=== PATIENT | male | born 1965 | race Caucasian/White ===

== ENCOUNTER → 2016-11-11 | Outpatient (CLI) | payer BC ==
--- NOTE | 2016-11-12 07:56 | XR ---
EXAMINATION TYPE: XR chest 2V DATE OF EXAM: 11/11/2016 10:59 AM COMPARISON: 07/24/2015 HISTORY: Shortness of breath FINDINGS: The lungs are clear and there is no pneumothorax, pleural effusion, or focal pneumonia. Limited ins piration is seen. Linear changes at the lung base likely related to poor inspiration and atelectasis. Surgical change overlying the cervical spine. IMPRESSION: 1. Subsegmental linear changes at both lung bases likely related to atelectasis from poor inspiration .
== END | disposition home or self-care (01) ==
LOC: RADXRYALE 09:49
PROVIDERS: ATTEND Physician Assistant Medical
DX: L40.0 Psoriasis vulgaris (principal)
CPT/HCPCS: 71020

== ENCOUNTER 2018-03-30 00:26 | Observation (INO) | payer BC ==
[2018-03-30 01:02] LABS: Basophils # (A) 0.1 k/uL (0-0.2); Basophils % (A) 1 %; Eosinophils # (A) 0.5 k/uL (0-0.7); Eosinophils % (A) 6 %; HCT 45.1 % (39.0-53.0); HGB 15.2 gm/dL (13.0-17.5); Lymphocytes # (A) 2.8 k/uL (1.0-4.8); Lymphocytes % (A) 34 %; MCHC 33.6 g/dL (31.0-37.0); MCV 92.2 fL (80.0-100.0); Mean Platelet Volume 6.4; Monocytes # (A) 0.5 k/uL (0-1.0); Monocytes % (A) 6 %; Neutrophils # (A) 4.2 k/uL (1.3-7.7); Neutrophils % (A) 50 %; Platelet Count 243 k/uL (150-450); RDW 13.2 % (11.5-15.5); WBC 8.3 k/uL (3.8-10.6)
--- NOTE | 2018-03-30 01:03 | ED ---
Chest Pain HPI - General Chief Complaint: Chest Pain Stated Complaint: Chest pain Time Seen by Provider: 03/30/18 01:01 Source: patient Mode of arrival: wheelchair Limitations: no limitations - History of Present Illness Initial Comments: This patient is a 52-year-old man with history of previous stent placement, who complains of having left-sided chest pain onset about 11 PM while he was lying in bed. Patient describes it as an aching feeling, it was radiating to his neck and left shoulder. Patient states he was under a lot of stress at the time. He did note that the pain got little better if he raised his left arm. There were no associated symptoms, and he did not notice any other worsening or relieving factors. The patient felt that given his previous heart history should be seen here. the patient states that the pain is largely resolved there is just a little bit of residual discomfort, and there is no more radiation to the neck or shoulder. MD Complaint: chest pain Onset/Timin -: hour(s) Onset: during rest Pain Location: left chest Pain Radiation: neck Severity: severe Quality: aching Consistency: constant Improves With: nothing, other (Raising his left arm) Worsens With: nothing Treatments Prior to Arrival: none - Related Data Allergies Allergy/AdvReac Type Severity Reaction Status Date / Time No Known Allergies Allergy Verified 03/30/18 00:33 Review of Systems ROS Statement: Those systems with pertinent positive or pertinent negative responses have been documented in the HPI. ROS Other: All systems not noted in ROS Statement are negative. Constitutional: Denies: fever, chills Respiratory: Denies: cough, dyspnea Cardiovascular: Reports: chest pain. Denies: palpitations, orthopnea, edema, syncope Gastrointestinal: Denies: abdominal pain, nausea, vomiting Musculoskeletal: Denies: back pain Skin: Denies: rash Neurological: Denies: headache, weakness, paresthesias EKG Findings - EKG Results: EKG: interpreted by JG MCGRATHL, sinus rhythm (Rate 69 bpm), normal axis, normal QRS, normal ST/T, no acute changes - [place], Pacemaker, Normal: Normal tracing: normal tracing Past Medical History Past Medical History: Hypertension, Myocardial Infarction ([place]) History of Any Multi-Drug Resistant Organisms: None Reported Past Surgical History: Heart Catheterization, Heart Catheterization With Stent, Orthopedic Surgery Additional Past Surgical History / Comment(s): neck surgery Past Psychological History: No Psychological Hx Reported Smoking Status: Never smoker Past Alcohol Use History: None Reported Past Drug Use History: None Reported General Exam Limitations: no limitations General appearance: alert, in no apparent distress Head exam: Present: atraumatic, normocephalic Eye exam: Present: normal appearance. Absent: scleral icterus, conjunctival injection ENT exam: Present: normal oropharynx Respiratory exam: Present: normal lung sounds bilaterally. Absent: respiratory distress, wheezes, rales, rhonchi, stridor, chest wall tenderness, accessory muscle use, decreased breath sounds, prolonged expiratory Cardiovascular Exam: Present: regular rate, normal rhythm, normal heart sounds. Absent: systolic murmur, diastolic murmur, rubs, gallop GI/Abdominal exam: Present: soft. Absent: distended, tenderness, guarding, rebound, mass Extremities exam: Present: normal inspection, normal capillary refill. Absent: pedal edema, calf tenderness Back exam: Present: normal inspection. Absent: CVA tenderness (R), CVA tenderness (L) Neurological exam: Present: alert Skin exam: Present: warm, dry, intact, normal color. Absent: rash Course Vital Signs 03/30/18 03/30/18 03/30/18 00:31 01:08 02:12 Temperature 98.0 F Pulse Rate 77 68 68 Respiratory 18 18 18 Rate Blood Pressure 154/94 140/86 138/91 O2 Sat by Pulse 98 96 98 Oximetry 03/30/18 03:08 Temperature Pulse Rate 64 Respiratory 18 Rate Blood Pressure 156/84 O2 Sat by Pulse 95 Oximetry Disposition Clinical Impression: Chest pain Disposition: ADMITTED IP TO THIS HOSP Condition: Fair Instructions: Chest Pain (ED) Is patient prescribed a controlled substance at d/c from ED?: No Referrals: Raciel Melvin DO [Primary Care Provider] - 1-2 days
[2018-03-30 01:10] LABS: ALT 52 U/L (21-72); AST 29 U/L (17-59); Albumin 4.3 g/dL (3.5-5.0); Alkaline Phosphatase 52 U/L (38-126); Anion Gap 14 mmol/L; Blood Urea Nitrogen 22 mg/dL (9-20); Calcium 9.5 mg/dL (8.4-10.2); Carbon Dioxide 25 mmol/L (22-30); Chloride 101 mmol/L (98-107); Glucose 156 mg/dL (74-99); INR 1.1 (<1.2); Magnesium 1.7 mg/dL (1.6-2.3); Potassium 3.8 mmol/L (3.5-5.1); Prothrombin Time 10.4 sec (9.0-12.0); Sodium 140 mmol/L (137-145); Total Bilirubin 0.4 mg/dL (0.2-1.3); Total Protein 6.6 g/dL (6.3-8.2)
[2018-03-30 01:24] LABS: Creatine Kinase 185 U/L (55-170)
--- NOTE | 2018-03-30 01:24 | XR ---
EXAMINATION TYPE: XR chest 2V DATE OF EXAM: 03/30/2018 COMPARISON: 11/11/2016 HISTORY: Chest pain TECHNIQUE: Frontal and lateral views of the chest are obtained. FINDINGS: There is no heart failure nor confluent pneumonic infiltrate. There are chest leads. Heart size is normal. There are small linear density in the left lower lobe. IMPRESSION: Subsegmental atelectasis at the left lung base. No change.
[2018-03-30] MEDS ORDERED: ASPIRIN 81 MG PO STA (01:35)
[2018-03-30] MEDS ORDERED: MORPHINE SULFATE 4 MG/ML SYRINGE IV STA ×2 (01:35→04:41)
[2018-03-30 01:36] LABS: Creatine Kinase MB 1.6 ng/mL (0.0-2.4); Troponin I <0.012 ng/mL (0.000-0.034)
[2018-03-30] MEDS ORDERED: NITROGLYCERIN SL TABS 0.4 MG TAB SUBLINGUAL STA (04:34)
[2018-03-30] MEDS: NITROGLYCERIN SL TABS 0.4 MG TAB SUBLINGUAL PRN ×3 (04:36→07:58)
[2018-03-30 05:09] VITALS: RESP 16
[2018-03-30 05:30] VITALS: BMI 34.9
[2018-03-30 07:55] LABS: Creatine Kinase 170 U/L (55-170)
[2018-03-30 08:10] LABS: Creatine Kinase MB 1.5 ng/mL (0.0-2.4); Troponin I <0.012 ng/mL (0.000-0.034)
--- NOTE | 2018-03-30 10:05 | P.CRDCN ---
History of Present Illness History of present illness: Mr. Cornejo is a pleasant 52-year-old male past medical history significant for coronary artery disease with angioplasty to proximal LAD in 2004 and proximal circumflex in 2006. He also has hypertension and dyslipidemia. He also has chronic shortness of breath and had to undergo bronchoscopy for plug in the left lung in 2015. He has followed with Dr. Brock in the past, but has not been to the office since 2015. We have been asked to see him in consultation for chest pain. He states last night while laying in bed he developed an achy sensation in the left precordial region that was radiating to his left shoulder, into his neck, down his left arm and into his left leg. He states he felt increasingly short of breath, dizzy, palpitations and nauseated during this episode. He denies vomiting or diaphoresis. He also denies PND or orhopnea. He does state that he sleeps partially sitting propped up secondary to sleep apnea, there has been no change in this recently. He was given morphine x2 in ED that seemed to relieve the pain but it is coming back. Nitroglycerin has been given x3 this morning with mild relieve of pain down to 4 /10, however he still feels discomfort when he takes a deep breath. EKG reveals sinus mechanism with non-specific T-wave flattening. Chest xray shows subsegmental atelectasis left lung base. Laboratory data reviewed, hgb 15.2, plt 243, d-dimer 0.21, sodium 140, potassium 3.8, magnesium 1.7, cardiac enzymes negative x2, proBNP 14. Current cardiac medications include prazosin 5 mg daily, lisinopril 10 mg daily , plavix 75 mg daily, atorvastatin 80 mg daily and aspirin 81 mg daily. He also takes depakote, ativan, metformin, remeron and norco. Most recent echocardiogram from 2015 reveals preserved LV systolic function with EF 60% and mild LVH. Review of Systems At the time of my exam: CONSTITUTIONAL: Denies fever. Denies chills. EYES: Denies blurred vision. Denies vision changes. Denies eye pain. EARS, NOSE, MOUTH & THROAT: Denies headache. Denies sore throat. Denies ear pain. CARDIOVASCULAR: Complains of chest pain. Complains of shortness of breath. Denies orthopnea. Denies PND. Denies palpitations. RESPIRATORY: Denies cough. GASTROINTESTINAL: Denies abdominal pain. Denies diarrhea. Denies constipation. Complains of nausea. Denies vomiting. MUSCULOSKELETAL: Complains of left leg pain. INTEGUMENTARY: Denies pruitis. Denies rash. NEUROLOGIC: Denies numbness. Denies tingling. Denies weakness. PSYCHIATRIC: Denies anxiety. Denies depression. ENDOCRINE: Denies fatigue. Denies weight change. Denies polydipsia. Denies polyurina. GENITOURINARY: Denies burning, hematuria or urgency with micturation. HEMATOLOGIC: Denies history of anemia. Denies bleeding. Past Medical History Past Medical History: Hypertension, Myocardial Infarction ([place]) Additional Past Medical History / Comment(s): unknown lung issues Last Myocardial Infarction Date:: 2004 History of Any Multi-Drug Resistant Organisms: None Reported Past Surgical History: Heart Catheterization, Heart Catheterization With Stent, Orthopedic Surgery Additional Past Surgical History / Comment(s): neck surgery with hardware, rt shoulder surgery, rt wrist surgery Date of Last Stent Placement:: 2006 Past Psychological History: PTSD Smoking Status: Never smoker Past Alcohol Use History: None Reported Past Drug Use History: None Reported Medications and Allergies Home Medications Medication Instructions Recorded Confirmed Type Aspirin 81 mg PO DAILY 03/30/18 03/30/18 History Atorvastatin [Lipitor] 80 mg PO DAILY 03/30/18 03/30/18 History Clopidogrel [Plavix] 75 mg PO DAILY 03/30/18 03/30/18 History Divalproex [Depakote] 1,000 mg PO HS 03/30/18 03/30/18 History HYDROcodone/APAP 7.5-325MG [[place] 1 tab PO QID PRN 03/30/18 03/30/18 History 7.5-325] LORazepam [Ativan] 1 mg PO TID 03/30/18 03/30/18 History Lisinopril [Zestril] 10 mg PO DAILY 03/30/18 03/30/18 History Mirtazapine [Remeron] 30 mg PO HS 03/30/18 03/30/18 History Prazosin [Minipress] 5 mg PO HS 03/30/18 03/30/18 History metFORMIN HCL [Glucophage Xr] 500 mg PO DAILY 03/30/18 03/30/18 History Allergies Allergy/AdvReac Type Severity Reaction Status Date / Time No Known Allergies Allergy Verified 03/30/18 09:28 Physical Exam Vitals: Vital Signs Temp Pulse Pulse Resp BP BP Pulse Ox 03/30/18 07:56 97.5 F L 64 16 127/87 97 03/30/18 05:38 16 03/30/18 05:08 65 16 139/79 94 L 03/30/18 04:52 98.4 F 03/30/18 04:37 69 18 124/91 99 03/30/18 04:11 72 18 137/80 95 03/30/18 03:08 64 18 156/84 95 03/30/18 02:12 68 18 138/91 98 03/30/18 01:08 68 18 140/86 96 03/30/18 00:31 98.0 F 77 18 154/94 98 Intake and Output 03/29/18 03/30/18 03/30/18 22:59 06:59 14:59 Other: Voiding Method Toilet # Voids 1 Weight 95.254 kg Blood pressure 127/87 heart rate 64 afebrile maintaining oxygen saturation on 3 L nasal cannula GENERAL: This is a 52-year-old male in no apparent distress at the time of my examination. Obese. HEENT: Head is atraumatic, normocephalic. Pupils are equal, round. Sclerae anicteric. Conjunctivae are clear. Mucous membranes of the mouth are moist. Neck is supple. There is no jugular venous distention. No carotid bruit is heard. LUNGS: Clear to auscultation no wheezes, rales or rhonchi. No chest wall tenderness is noted on palpation or with deep breathing. Diminished left greater than right at the base. HEART: Regular rate and rhythm without murmurs, rubs or gallops. S1 and S2 heard. ABDOMEN: Soft, nontender. Bowel sounds are heard. No organomegaly noted. EXTREMITIES: No evidence of peripheral edema and no calf tenderness noted. VASCULAR: Radial and dorsalis pedis pulses palpated, no evidence of clubbing. NEUROLOGIC: Patient is awake, alert and oriented x3. Results 03/30/18 00:40 03/30/18 00:40 Cardiac Enzymes 03/30/18 03/30/18 03/30/18 Range/Units 00:40 00:40 06:43 AST 29 (17-59) U/L CK-MB (CK-2) 1.6 1.5 (0.0-2.4) ng/mL Troponin I <0.012 <0.012 (0.000-0.034) ng/mL Coagulation 03/30/18 Range/Units 00:40 PT 10.4 (9.0-12.0) sec APTT 23.0 (22.0-30.0) sec CBC 03/30/18 Range/Units 00:40 WBC 8.3 (3.8-10.6) k/uL RBC 4.90 (4.30-5.90) m/uL Hgb 15.2 (13.0-17.5) gm/dL Hct 45.1 (39.0-53.0) % Plt Count 243 (150-450) k/uL Comprehensive Metabolic Panel 03/30/18 Range/Units 00:40 Sodium 140 (137-145) mmol/L Potassium 3.8 (3.5-5.1) mmol/L Chloride 101 (98-107) mmol/L Carbon Dioxide 25 (22-30) mmol/L BUN 22 H (9-20) mg/dL Creatinine 0.70 (0.66-1.25) mg/dL Glucose 156 H (74-99) mg/dL Calcium 9.5 (8.4-10.2) mg/dL AST 29 (17-59) U/L ALT 52 (21-72) U/L Alkaline Phosphatase 52 (38-126) U/L Total Protein 6.6 (6.3-8.2) g/dL Albumin 4.3 (3.5-5.0) g/dL Current Medications Generic Name Dose Route Start Last Admin Trade Name Freq PRN Reason Stop Dose Admin Aspirin 325 mg 03/31/18 09:00 Aspirin PO DAILY MAGUI Nitroglycerin 0.4 mg 03/30/18 04:10 03/30/18 07:58 Nitrostat SUBLINGUAL 0.4 mg Q5M PRN Administration Chest Pain Sodium Chloride 10 ml 03/30/18 09:00 Saline Flush IV BID MAGUI Intake and Output 03/29/18 03/30/18 03/30/18 22:59 06:59 14:59 Other: Voiding Method Toilet # Voids 1 Weight 95.254 kg 03/30/18 00:40 03/30/18 00:40 Assessment and Plan Assessment: ASSESSMENT 1. Pleuritic chest pain, atypical for an acute coronary event. No EKG evidence of ischemia and negative cardiac enzymes x2. 2. History of coronary artery disease, angioplasty to LAD and circumflex. 3. Hypertension 4. Dyslipidemia 5. Left basilar atelectasis with diminished lung sounds and history of spontaneous mucous plug requiring bronchoscopy in 2014. 6. Obesity, BMI 34.9 PLAN We have checked a d-dimer and proBNP, both were unremarkable. Obtain 2D echocardiogram and doppler study to assess cardiac structure and function. Continue to obtain serial cardiac enzymes to rule out an acute coronary event. Perform CT of the chest with contrast. Thank you kindly for this consultation. The above impression and plan of care have been discussed and directed by the signing physician. Olga Sanchez, nurse practitioner, acting as scribe for signing physician.
[2018-03-30] MEDS ORDERED: HYDROcodone/APAP 7.5-325MG 1 EACH TAB PO PRN (11:15)
[2018-03-30] MEDS: KETOROLAC 30 MG/ML 1 ML VIAL IVP SCH ×2 (11:18→19:44)
[2018-03-30] MEDS ORDERED: LISINOPRIL 10 MG TAB PO SCH (11:30)
[2018-03-30] MEDS ORDERED: CLOPIDOGREL 75 MG TAB PO SCH (11:30)
[2018-03-30] MEDS ORDERED: ATORVASTATIN 80 MG TAB PO SCH (11:30)
[2018-03-30] MEDS ORDERED: RX INFO: IV CONTRAST WAS GIVEN 1 EACH MISC MISCELLANE PRN (11:51)
[2018-03-30 12:12] LABS: Glucose,Whole Blood 144 mg/dL (75-99)
--- NOTE | 2018-03-30 12:28 | ECHOF ---
Referral Reason:cp, sob MEASUREMENTS -------- HEIGHT: 165.1 cm WEIGHT: 95.3 kg BP: 127/87 RVIDd: 3.1 cm (< 3.3) IVSd: 1.1 cm (0.6 - 1.1) LVIDd: 4.3 cm (3.9 - 5.3) LVPWd: 1.0 cm (0.6 - 1.1) IVSs: 1.5 cm LVIDs: 2.5 cm LVPWs: 1.3 cm LA Diam: 3.3 cm (2.7 - 3.8) LAESV Index (A-L): 14.02 ml/m Ao Diam: 3.6 cm (2.0 - 3.7) AV Cusp: 2.2 cm (1.5 - 2.6) MV EXCURSION: 16.920 mm (> 18.000) MV EF SLOPE: 96 mm/s (70 - 150) EPSS: 0.4 cm MV E Jaime: 0.70 m/s MV DecT: 218 ms MV A Jaime: 0.79 m/s MV E/A Ratio: 0.88 FINDINGS -------- Sinus rhythm. This was a technically adequate study. The left ventricular size is normal. There is borderline concentric left ventricular hypertrophy. Overall left ventricular systolic function is normal with, an EF between 55 - 60 %. The right ventricle is normal in size. Normal LA size by volume 22+/-6 ml/m2. The right atrium is normal in size. The aortic valve is trileaflet and appears structurally normal. There is trace to mild mitral regurgitation. Trace tricuspid regurgitation present. The pulmonic valve was not well visualized. The aortic root size is normal. Normal inferior vena cava with normal inspiratory collapse consistent with estimated right atrial pre ssure of 5 mmHg. There is no pericardial effusion. CONCLUSIONS -------- 1. Sinus rhythm. 2. This was a technically adequate study. 3. The left ventricular size is normal. 4. There is borderline concentric left ventricular hypertrophy. 5. Overall left ventricular systolic function is normal with, an EF between 55 - 60 %. 6. The right ventricle is normal in size. 7. Normal LA size by volume 22+/-6 ml/m2. 8. The right atrium is normal in size. 9. The aortic valve is trileaflet and appears structurally normal. 10. There is trace to mild mitral regurgitation. 11. Trace tricuspid regurgitation present. 12. The pulmonic valve was not well visualized. 13. The aortic root size is normal. 14. Normal inferior vena cava with normal inspiratory collapse consistent with estimated right atrial pressure of 5 mmHg. 15. There is no pericardial effusion. [employer] WORKER: Phyllis Fuentes RDCS
[2018-03-30] MEDS: LORazepam 1 MG TAB PO SCH ×3 (13:39→21:44)
[2018-03-30 13:54] LABS: Creatine Kinase 153 U/L (55-170)
[2018-03-30 14:07] LABS: Creatine Kinase MB 1.3 ng/mL (0.0-2.4); Troponin I <0.012 ng/mL (0.000-0.034)
--- NOTE | 2018-03-30 14:15 | CT ---
EXAMINATION TYPE: CT chest w con DATE OF EXAM: 03/30/2018 COMPARISON: Chest x-ray from earlier today and older studies HISTORY: Shortness of breath, diminished lung sounds on left side. History of collapsed lung. Atelect asis left lobe, mucus plugs. CT DLP: 489.8 mGycm Automated exposure control for dose reduction was used. CONTRAST: CT scan of the chest is performed with IV Contrast, patient injected with 100 mL of Isovue M300. FINDINGS: LUNGS: There is dependent and linear atelectasis in both lower lungs most prominent in bases. No montrell picious focal consolidation or groundglass opacity is seen. There is no significant pleural effusion or pneumothorax seen bilaterally. The tracheobronchial tree is patent. MEDIASTINUM: There are no greater than 1 cm hilar or mediastinal lymph nodes. No cardiomegaly or pe ricardial effusion is seen. Coronary artery calcification is seen which is noted marker for coronary artery disease, there may be stent in the proximal left circumflex, correlate clinically. OTHER: Visualized liver is low dense suggesting fatty infiltration. IMPRESSION: No suspicious acute pulmonary process. Left lung volume is felt within normal limits and symmetric to opposite right side.
[2018-03-30] MEDS ORDERED: IPRATROPIUM-ALBUTEROL 3 ML NEB INHALATION PRN (15:57)
[2018-03-30] MEDS ORDERED: metFORMIN 500 MG TAB PO SCH (17:30)
[2018-03-30 17:49] LABS: Glucose,Whole Blood 113 mg/dL (75-99)
--- NOTE | 2018-03-30 19:05 | P.CNPUL ---
History of Present Illness Consult date: 03/30/18 Requesting physician: Bonnie Ramírez Reason for consult: dyspnea, chest pain Chief complaint: Chest pain, dyspnea History of present illness: Vidal is a 52-year-old white male patient who presented to the emergency department on 03/30/2018 and 00 26 with complaints of sudden onset of left- sided chest pain that was radiating to his left armpit, and at radiating through to his left posterior chest. Onset of symptoms was on 03/29/2018 at approximately 2300, patient was resting at home, and was not exerting himself. This was accompanied by shortness of breath, patient has some chronic shortness of breath at baseline, however this was exacerbated by his chest pain. Upon presentation to the emergency department he was given some sublingual nitroglycerin, with no relief of his symptoms, he states it only gave him a headache. IV morphine provided some relief, however on today's evaluation he is still having some residual left chest discomfort which is exacerbated by deep breathing. He denied any coughing, denied any fever or chills preceding the events. Patient is an ex-smoker, he quit 13 years ago, but prior to that he smoked 1-1/2 packs a day for 15-20 years. 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 Has a history of service, he was a in the [employer], and he states he was exposed to a lot of fumes during his service. 2 years ago he had a an episode of a sudden onset of respiratory distress while at work, he was transported to the [facility], and he was found to have a mucous plug, and her went a bronchoscopy with BAL. He was subsequently discharged home on oxygen for a limited period of time. He followed with the electrical technician from the [facility] system following that episode, and was prescribed Advair Diskus in addition to Proair inhalers. Not on any oxygen at his baseline. Patient denies having outpatient PFTs down, and does not know his baseline pulmonary function. He has not seen his electrical technician in quite some time, him and his reside in [place], and they wish to follow with a local electrical technician with her pulmonary issues. Other medical history includes coronary artery disease status post angioplasty prior to proximal LAD in 2004 and proximal circumflex in 2006, hypertension and hyperlipidemia. EKG showed sinus mechanism with nonspecific T-wave abnormality , chest x-ray showed subsegmental atelectasis at the left lung base. Most recent echocardiogram from 2014 showed preserved LV systolic function with EF of 60% and mild LVH. BNP was 14, cardiac enzymes were negative 3, d-dimer was negative at 0.21. Patient was referred to us for evaluation of his pleuritic chest pain, and a CT chest was obtained which showed no suspicious acute pulmonary process, left lung volume was felt to be within normal limits and symmetric to the opposite right side. Review of Systems All systems: negative Constitutional: Denies chills, Denies fever Eyes: denies blurred vision, denies pain Ears, nose, mouth and throat: Denies headache, Denies sore throat Cardiovascular: Reports dyspnea on exertion, Reports high blood pressure, Denies chest pain, Denies shortness of breath Respiratory: Reports dyspnea, Reports pain on inspiration, Reports pleurisy, Denies cough Gastrointestinal: Denies abdominal pain, Denies diarrhea, Denies nausea, Denies vomiting Musculoskeletal: Denies myalgias Integumentary: Denies pruritus, Denies rash Neurological: Denies numbness, Denies weakness Psychiatric: Denies anxiety, Denies depression Endocrine: Denies fatigue, Denies weight change Past Medical History Past Medical History: Hypertension, Myocardial Infarction ([place]) Additional Past Medical History / Comment(s): unknown lung issues Last Myocardial Infarction Date:: 2004 History of Any Multi-Drug Resistant Organisms: None Reported Past Surgical History: Heart Catheterization, Heart Catheterization With Stent, Orthopedic Surgery Additional Past Surgical History / Comment(s): neck surgery with hardware, rt shoulder surgery, rt wrist surgery Date of Last Stent Placement:: 2006 Past Psychological History: PTSD Smoking Status: Former smoker Past Alcohol Use History: None Reported Past Drug Use History: None Reported Medications and Allergies Home Medications Medication Instructions Recorded Confirmed Type Albuterol Inhaler [Ventolin Hfa 1 - 2 puff INHALATION RT-Q6H #1 03/30/18 Rx Inhaler] inhaler Aspirin 81 mg PO DAILY 03/30/18 03/30/18 History Atorvastatin [Lipitor] 80 mg PO DAILY 03/30/18 03/30/18 History Budesonide-Formot 160-4.5 Mcg 2 puff INHALATION RT-BID #1 puff 03/30/18 Rx [Symbicort 160-4.5 Mcg Inhaler] Clopidogrel [Plavix] 75 mg PO DAILY 03/30/18 03/30/18 History Divalproex [Depakote] 1,000 mg PO HS 03/30/18 03/30/18 History HYDROcodone/APAP 7.5-325MG [[place] 1 tab PO QID PRN 03/30/18 03/30/18 History 7.5-325] LORazepam [Ativan] 1 mg PO TID 03/30/18 03/30/18 History Lisinopril [Zestril] 10 mg PO DAILY 03/30/18 03/30/18 History Mirtazapine [Remeron] 30 mg PO HS 03/30/18 03/30/18 History Prazosin [Minipress] 5 mg PO HS 03/30/18 03/30/18 History metFORMIN HCL [Glucophage Xr] 500 mg PO DAILY 03/30/18 03/30/18 History Allergies Allergy/AdvReac Type Severity Reaction Status Date / Time No Known Allergies Allergy Verified 03/30/18 09:28 Physical Exam Vitals: Vital Signs Temp Pulse Pulse Resp BP BP Pulse Ox 03/30/18 15:54 98.4 F 65 16 128/76 93 L 03/30/18 11:24 97.6 F 67 16 130/67 96 03/30/18 08:00 16 03/30/18 07:56 97.5 F L 64 16 127/87 97 03/30/18 05:38 16 03/30/18 05:08 65 16 139/79 94 L 03/30/18 04:52 98.4 F 03/30/18 04:37 69 18 124/91 99 03/30/18 04:11 72 18 137/80 95 03/30/18 03:08 64 18 156/84 95 03/30/18 02:12 68 18 138/91 98 03/30/18 01:08 68 18 140/86 96 03/30/18 00:31 98.0 F 77 18 154/94 98 Intake and Output 03/30/18 03/30/18 03/30/18 06:59 14:59 22:59 Other: Voiding Method Toilet Toilet # Voids 1 Weight 95.254 kg Pleasant 52-year-old white male patient in no acute distress, no dyspnea, is able to speak in full sentences, on room air - Constitutional General appearance: cooperative, no acute distress - EENT Eyes: EOMI ENT: NA/AT Ears: bilateral: normal - Neck Neck: no lymphadenopathy Thyroid: bilateral: normal size - Respiratory Respiratory: bilateral: CTA, diminished (Diminished at the bases) - Cardiovascular Rhythm: regular Heart sounds: normal: S1, S2 ankle Peripheral Edema: bilateral: None leg Peripheral Edema: bilateral: None foot Peripheral Edema: bilateral: None - Gastrointestinal General gastrointestinal: no organomegaly, soft, no tenderness - Integumentary Integumentary: normal turgor - Neurologic Neurologic: CNII-XII intact - Musculoskeletal Musculoskeletal: gait normal, strength equal bilaterally - Psychiatric Psychiatric: A&O x's 3, appropriate affect, intact judgment & insight Results - Laboratory Findings CBC and BMP: 03/30/18 00:40 03/30/18 00:40 PT/INR, D-dimer PT 10.4 sec (9.0-12.0) 03/30/18 00:40 INR 1.1 (<1.2) 03/30/18 00:40 D-Dimer 0.21 mg/L FEU (<0.60) 03/30/18 08:17 Abnormal lab findings: Abnormal Labs 03/30/18 03/30/18 03/30/18 00:40 00:40 12:09 BUN 22 H Glucose 156 H POC Glucose (mg/dL) 144 H Total Creatine Kinase 185 H 03/30/18 17:46 BUN Glucose POC Glucose (mg/dL) 113 H Total Creatine Kinase - Diagnostic Findings Chest x-ray: report reviewed, image reviewed CT scan - chest: report reviewed, image reviewed Additional studies: EKG reviewed Assessment and Plan Plan: Assessment: #1. Atypical chest pain, worse with deep inspiration, possibly pleuritic in nature #2. Dyspnea, possibly related to the above, patient has some chronic shortness of breath with exertion. Chest x-ray showed left lower lobe atelectasis, CT chest was normal #3. History of mucous plug in 2014, requiring bronchoscopy with BAL #4. Nicotine dependence, patient quit 13 years ago, but smoked 1-1/2 packs a day for 15-20 years #5. Coronary artery disease, status post prior stenting #6. Hypertension, hyperlipidemia #7. Obesity #8. History of myocardial infarction in 2004 Plan: We will start patient on DuoNeb nebulized treatments, Symbicort. CT chest was normal, no atelectasis, no mucous plugging, no volume loss, no pneumothorax or consolidation noted on the CT chest. Patient will need outpatient follow-up in the pulmonary office for a baseline PFT. I performed a history & physical examination of the patient and discussed their management with my nurse practitioner, Norma Houston. I reviewed the nurse practitioner's note and agree with the documented findings and plan of care. Lung sounds are clear diminished at the bases. The findings and the impression was discussed with the patient. I attest to the documentation by the nurse practitioner. Time with Patient: Greater than 30
[2018-03-30 19:37] VITALS: BP 150/89; TEMP 98.3
[2018-03-30] MEDS ORDERED: KETOROLAC 30 MG/ML 1 ML VIAL IVP PRN (19:43)
--- NOTE | 2018-03-30 19:52 | HP ---
HISTORY AND PHYSICAL HISTORY AND PHYSICAL AND DISCHARGE SUMMARY: CHIEF COMPLAINT: Chest pain. HISTORY OF PRESENT ILLNESS: This 52-year-old gentleman with a past medical history of multiple medical problems, including history of hypertension, myocardial infarction, history of CAD with stent, history of mucous plugging on the left side, being followed by Dr. Melvin in the outpatient setting, is complaining of chest pain. The pain started in the left lateral part of the chest, which is radiating up portions up to the front of the chest and also to the shoulder and left arm and the patient came to [facility]. There is no history any or lymphadenopathy. There is no history of fever, rigors. There is no history of headache, loss of consciousnesssymptoms also. PAST MEDICAL HISTORY: History of myocardial infarction, hypertension, history of CAD with stent, history of bronchoscopy and mucous plugging. MEDICATIONS PRIOR TO ADMISSION: Include: 1. Glucophage XR 500 mg p.o. daily. 2. Minipress 0.5 mg q.h.s. 3. Remeron 30 mg q.h.s. 4. Zestril 10 mg p.o. daily. 5. Ativan 1 mg p.o. t.i.d. 6. [place] 7.5 q.i.d. p.r.n. 7. Depakote 1000 mg p.o. daily. 8. Plavix 70 mg p.o. daily. 9. Lipitor 80 mg p.o. daily. 10.Aspirin 81 mg p.o. daily. ALLERGIES: None. FAMILY HISTORY: No history of heart disease or strokes in the family. SOCIAL HISTORY: No history of smoking. No history of alcohol intake. REVIEW OF SYSTEMS: ENT: No diminished hearing, diminished vision. CARDIOVASCULAR: As mentioned earlier. RESPIRATORY: As mentioned earlier. GI: No nausea or vomiting. : No dysuria. NERVOUS: No numbness or weakness. ALLERGY/IMMUNOLOGY: No asthma or hay fever. MUSCULOSKELETAL: As mentioned earlier. HEMATOLOGY/ONCOLOGY: No history of anemia. ENDOCRINE: Diabetes. CONSTITUTIONAL: As mentioned earlier. DERMATOLOGY: Negative. RHEUMATOLOGY: Negative. PSYCHIATRY: As mentioned earlier. PHYSICAL EXAMINATION: Alert and oriented x3. Pulse is 65, blood pressure 128/73, respirations 16, temperature 98.4, pulse ox 92% on room air. HEENT: Conjunctivae normal. Oral mucosa moist. NECK: No jugular venous distention. No carotid bruits. No lymph node enlargement. CARDIOVASCULAR: S1, S2 muffled. No S3, S4. RESPIRATORY: Breath sounds diminished in the bases, especially on the left side. No rhonchi. No crackles. ABDOMEN: Soft, nontender. No mass palpable. LEGS: No edema. No swelling. NERVOUS SYSTEM: Higher functions as mentioned earlier. Moves all 4 limbs. No focal motor or sensory deficits. LYMPHATIC: No lymphadenopathy in neck or axillae. SKIN: No ulcer, rash or bleeding. LABS: At this time show WBC 8.3 and D-dimer is 0.21. Chest x-ray and CT scan noted. ASSESSMENT: 1. Respiratory chest pain, possible pleuritic with atelectasis. 2. Myocardial infarction ruled out. 3. Rule out coronary artery disease. 4. History of myocardial infarction. 5. Hypertension. 6. History of coronary artery disease, stent. 7. History of posttraumatic stress disorder. RECOMMENDATIONS AND DISCUSSION: In this 52-year-old gentleman who presented with multiple medical problems, at this time I will continue the current medical management and symptomatic treatment. Otherwise, patient will be discharged once cleared by Cardiology and Pulmonology. I would recommend symptomatic treatment, bronchodilators and incentive spirometry. Also recommend close followup with Cardiology for possible stress test. Otherwise, continue the rest of the medications. Guarded prognosis. Further recommendations to follow. MMODL / IJN: [id number] / MTDD
[2018-03-30] MEDS ORDERED: IPRATROPIUM-ALBUTEROL 3 ML NEB INHALATION SCH (20:00)
[2018-03-30] MEDS ORDERED: SYMBICORT 160-4.5 MCG INHALER INHALATION SCH (20:00)
[2018-03-30 20:36] LABS: Glucose,Whole Blood 136 mg/dL (75-99)
[2018-03-30] MEDS ORDERED: DIVALPROEX 500 MG TABLET.DR PO SCH (21:00)
[2018-03-30] MEDS ORDERED: PRAZOSIN 1 MG CAP PO SCH (21:00)
[2018-03-30] MEDS ORDERED: MIRTAZAPINE 15 MG TAB PO SCH (21:00)
[2018-03-30 21:58] VITALS: PULSE 76
[2018-03-31] MEDS ORDERED: ASPIRIN 81 MG PO SCH (09:00)
[2018-03-31] MEDS ORDERED: CLOPIDOGREL 75 MG TAB PO SCH (09:00)
[2018-03-31] MEDS ORDERED: LISINOPRIL 10 MG TAB PO SCH (09:00)
[2018-03-31] MEDS ORDERED: ATORVASTATIN 80 MG TAB PO SCH (09:00)
[2018-03-31] MEDS ORDERED: ASPIRIN 325 MG TAB PO SCH (09:00)
== END 2018-03-30 21:55 | disposition home or self-care (01) ==
LOC: EC 00:26 → 3OBS 04:10
PROVIDERS: ADMIT Hospitalist; ATTEND Hospitalist
DX: R07.89 Other chest pain (principal); R07.81 Pleurodynia; R07.2 Precordial pain; R06.02 Shortness of breath; R42 Dizziness and giddiness; R00.2 Palpitations; R11.0 Nausea; J98.11 Atelectasis; Z95.5 Presence of coronary angioplasty implant and graft; E11.9 Type 2 diabetes mellitus without complications; I10 Essential (primary) hypertension; I25.2 Old myocardial infarction; I25.10 Atherosclerotic heart disease of native coronary artery without angina pectoris; E78.5 Hyperlipidemia, unspecified; G47.30 Sleep apnea, unspecified; F43.10 Post-traumatic stress disorder, unspecified; Z79.899 Other long term (current) drug therapy; Z79.82 Long term (current) use of aspirin; Z79.02 Long term (current) use of antithrombotics/antiplatelets; Z79.84 Long term (current) use of oral hypoglycemic drugs; Z79.51 Long term (current) use of inhaled steroids; E66.9 Obesity, unspecified; Z68.34 Body mass index [BMI] 34.0-34.9, adult; Z87.891 Personal history of nicotine dependence
CPT/HCPCS: 99285; 96374 ×2; 96376 ×2; 96375; 36415; 93005; 93306; 85379; 83880; 80053; 82550; 82553; 83735; 84484; 85025; 85610; 85730; 71046; 71260; G0378; J2270; J1885; Q9967

== ENCOUNTER → 2018-07-15 | Outpatient (CLI) | payer BC ==
[2018-07-15 17:38] LABS: Blood Urea Nitrogen 18 mg/dL (9-20)
--- NOTE | 2018-07-15 18:42 | CT ---
EXAMINATION TYPE: CT abdomen pelvis w con DATE OF EXAM: 07/15/2018 COMPARISON: None HISTORY: RLQ pain x1 week CT DLP: 1506 mGycm Automated exposure control for dose reduction was used. TECHNIQUE: Helical acquisition of images was performed from the lung bases through the pelvis. CONTRAST: Performed with Oral Contrast and with IV Contrast, patient injected with 100 mL of Isovue 300. FINDINGS: Lung bases are clear. There is no pleural effusion. Heart size is normal. Liver spleen pancreas gallbladder appear normal. Bile ducts are not dilated. There is small hiatal he rnia. There is no adrenal mass. Kidneys show satisfactory contrast opacification. There is no hydrone phrosis. Ureters are not dilated. There is no retroperitoneal adenopathy. Appendix appears normal. There is no intestinal wall thickening. There are no dilated loops. There ar e numerous diverticula in the sigmoid colon. I see no definite sign of diverticulitis. There is no as cites. Bladder distends smoothly. There is no evidence of pneumoperitoneum. Lumbar spine appears inta ct. Abdominal aorta is atheromatous. IMPRESSION: THERE IS SIGMOID DIVERTICULOSIS WITHOUT EVIDENCE OF DIVERTICULITIS. NORMAL APPENDIX. I DO NOT SEE A C AUSE FOR RIGHT LOWER QUADRANT PAIN. SMALL HIATAL HERNIA.
== END | disposition home or self-care (01) ==
LOC: RADCTMAIN 16:37
PROVIDERS: ATTEND Physician Assistant Medical
DX: K57.30 Diverticulosis of large intestine without perforation or abscess without bleeding (principal); K44.9 Diaphragmatic hernia without obstruction or gangrene; Z01.812 Encounter for preprocedural laboratory examination
CPT/HCPCS: 82565; 84520; 74177; 36415; Q9967

== ENCOUNTER 2018-12-13 15:50 | Observation (INO) | payer BC ==
[2018-12-13] MEDS ORDERED: KETOROLAC 30 MG/ML 1 ML VIAL IVP STA (17:27)
[2018-12-13] MEDS ORDERED: SODIUM CHLORIDE 0.9% 1,000 ML IV STA ×2 (17:27)
[2018-12-13 17:28] LABS: Appearance,Urine Cloudy (Clear); Bacteria,Urine Occasional /hpf; Bilirubin,Urine Negative (Negative); Blood,Urine Small (Negative); Color,Urine Light Yellow; Glucose,Urine (UA) Negative (Negative); Ketones,Urine Negative (Negative); Leukocyte Esterase,Urine Large (Negative); Mucus,Urine Rare /hpf; Nitrite,Urine Positive (Negative); PH, Urine 5.5 (5.0-8.0); Protein,Urine Negative (Negative); RBC,Urine 5 /hpf (0-5); Specific Gravity,Urine 1.007 (1.001-1.035); Urobilinogen,Urine <2.0 mg/dL (<2.0); WBC,Urine 166 /hpf (0-5)
--- NOTE | 2018-12-13 17:32 | ED ---
Male Urogenital HPI - General Chief complaint: Urogenital Stated complaint: Blood in urine Time Seen by Provider: 12/13/18 16:59 Source: patient, RN notes reviewed Mode of arrival: ambulatory Limitations: no limitations - History of Present Illness Initial comments: This is a 53-year-old male with a benign past medical history who states he had the onset over last 2 or 3 days of left-sided flank pain. He states she's had hematuria yesterday and today. He states when he tries go the bathroom he has severe pain sharp in nature mostly in the left flank but sometimes right flank pain. He's also had some nausea. He feels like he might pass out because the pain so severe. He denies any fevers chills sweats or other symptoms otherwise. He has no prior history kidney stones. He denies any trauma denies a family history kidney stones. No other modifying factors at this time MD Complaint: dysuria, other - Related Data Home Medications Medication Instructions Recorded Confirmed Aspirin 81 mg PO DAILY 03/30/18 12/13/18 Atorvastatin [Lipitor] 80 mg PO DAILY 03/30/18 12/13/18 Clopidogrel [Plavix] 75 mg PO DAILY 03/30/18 12/13/18 Divalproex [Depakote] 1,000 mg PO HS 03/30/18 12/13/18 HYDROcodone/APAP 7.5-325MG [[place] 1 tab PO QID PRN 03/30/18 12/13/18 7.5-325] Lisinopril [Zestril] 10 mg PO DAILY 03/30/18 12/13/18 Mirtazapine [Remeron] 30 mg PO HS 03/30/18 12/13/18 Prazosin [Minipress] 5 mg PO 03/30/18 12/13/18 Albuterol Nebulized [Ventolin 2.5 mg INHALATION RT-QID PRN 12/13/18 12/13/18 Nebulized] Fluticasone/Salmeterol [Advair 1 puff INHALATION RT-BID 12/13/18 12/13/18 250-50 Diskus] metFORMIN HCL [Glucophage] 500 mg PO DAILY 12/13/18 12/13/18 Previous Rx's Medication Instructions Recorded Albuterol Inhaler [Ventolin Hfa 1 - 2 puff INHALATION RT-Q6H #1 03/30/18 Inhaler] inhaler Budesonide-Formot 160-4.5 Mcg 2 puff INHALATION RT-BID #1 puff 03/30/18 [Symbicort 160-4.5 Mcg Inhaler] Allergies Allergy/AdvReac Type Severity Reaction Status Date / Time No Known Allergies Allergy Verified 12/13/18 18:08 Review of Systems ROS Statement: Those systems with pertinent positive or pertinent negative responses have been documented in the HPI. ROS Other: All systems not noted in ROS Statement are negative. Past Medical History Past Medical History: Hypertension, Myocardial Infarction ([place]) Additional Past Medical History / Comment(s): unknown lung issues Last Myocardial Infarction Date:: 2004 History of Any Multi-Drug Resistant Organisms: None Reported Past Surgical History: Heart Catheterization, Heart Catheterization With Stent, Orthopedic Surgery Additional Past Surgical History / Comment(s): neck surgery with hardware, rt shoulder surgery, rt wrist surgery Date of Last Stent Placement:: 2006 Past Psychological History: PTSD Smoking Status: Former smoker Past Alcohol Use History: None Reported Past Drug Use History: None Reported General Exam - General Exam Comments Initial Comments: This is a well-developed well-nourished awake alert oriented times 3 male Limitations: no limitations General appearance: alert, in no apparent distress Head exam: Present: atraumatic, normocephalic, normal inspection Eye exam: Present: normal appearance, PERRL, EOMI. Absent: scleral icterus, conjunctival injection, periorbital swelling ENT exam: Present: normal exam, mucous membranes moist Neck exam: Present: normal inspection. Absent: tenderness, meningismus, lymphadenopathy Respiratory exam: Present: normal lung sounds bilaterally. Absent: respiratory distress, wheezes, rales, rhonchi, stridor Cardiovascular Exam: Present: normal rhythm, tachycardia, normal heart sounds. Absent: systolic murmur, diastolic murmur, rubs, gallop, clicks GI/Abdominal exam: Present: soft, tenderness (Mild left flank pain to palpation) , normal bowel sounds. Absent: distended, guarding, rebound, rigid, bruit, pulsatile mass exam: Present: normal inspection, circumcision Extremities exam: Present: normal inspection, full ROM, normal capillary refill. Absent: tenderness, pedal edema, joint swelling, calf tenderness Back exam: Present: normal inspection Neurological exam: Present: alert, oriented X3, CN II-XII intact Psychiatric exam: Present: normal affect, normal mood Skin exam: Present: warm, dry, intact, normal color. Absent: rash Course Vital Signs 12/13/18 12/13/18 12/13/18 16:13 20:19 23:10 Temperature 98.4 F 98.4 F Pulse Rate 123 H 82 80 Respiratory 18 16 16 Rate Blood Pressure 127/88 117/86 111/68 O2 Sat by Pulse 95 94 L 96 Oximetry Medical Decision Making - Medical Decision Making I did discuss the findings with the patient and family as well as with the practitioner covering Dr. Conner, - Lab Data Result diagrams: 12/13/18 17:30 12/13/18 17:30 Lab Results 12/13/18 12/13/18 12/13/18 Range/Units 16:50 17:30 17:30 WBC 19.2 H (3.8-10.6) k/uL RBC 4.78 (4.30-5.90) m/uL Hgb 15.0 (13.0-17.5) gm/dL Hct 43.6 (39.0-53.0) % MCV 91.1 (80.0-100.0) fL MCH 31.5 (25.0-35.0) pg MCHC 34.5 (31.0-37.0) g/dL RDW 13.3 (11.5-15.5) % Plt Count 243 (150-450) k/uL Neutrophils % 80 % Lymphocytes % 11 % Monocytes % 6 % Eosinophils % 2 % Basophils % 0 % Neutrophils # 15.4 H (1.3-7.7) k/uL Lymphocytes # 2.2 (1.0-4.8) k/uL Monocytes # 1.1 H (0-1.0) k/uL Eosinophils # 0.3 (0-0.7) k/uL Basophils # 0.1 (0-0.2) k/uL Sodium 133 L (137-145) mmol/L Potassium 4.5 (3.5-5.1) mmol/L Chloride 98 (98-107) mmol/L Carbon Dioxide 25 (22-30) mmol/L Anion Gap 10 mmol/L BUN 19 (9-20) mg/dL Creatinine 0.94 (0.66-1.25) mg/dL Est GFR (CKD-EPI)AfAm >90 (>60 ml/min/1.73 sqM) Est GFR (CKD-EPI)NonAf >90 (>60 ml/min/1.73 sqM) Glucose 114 H (74-99) mg/dL Calcium 9.7 (8.4-10.2) mg/dL Total Bilirubin 1.8 H (0.2-1.3) mg/dL AST 23 (17-59) U/L ALT 35 (21-72) U/L Alkaline Phosphatase 59 (38-126) U/L Total Protein 7.4 (6.3-8.2) g/dL Albumin 4.4 (3.5-5.0) g/dL Amylase (30-110) U/L Lipase 47 (23-300) U/L Urine Color Light Yellow Urine Appearance Cloudy (Clear) Urine pH 5.5 (5.0-8.0) Ur Specific [place] 1.007 (1.001-1.035) Urine Protein Negative (Negative) Urine Glucose (UA) Negative (Negative) Urine Ketones Negative (Negative) Urine Blood Small H (Negative) Urine Nitrite Positive (Negative) Urine Bilirubin Negative (Negative) Urine Urobilinogen <2.0 (<2.0) mg/dL Ur Leukocyte Esterase Large H (Negative) Urine RBC 5 (0-5) /hpf Urine WBC 166 H (0-5) /hpf Urine WBC Clumps Few H (None) /hpf Urine Bacteria Occasional H (None) /hpf Urine Mucus Rare H (None) /hpf 12/13/18 Range/Units 17:30 WBC (3.8-10.6) k/uL RBC (4.30-5.90) m/uL Hgb (13.0-17.5) gm/dL Hct (39.0-53.0) % MCV (80.0-100.0) fL MCH (25.0-35.0) pg MCHC (31.0-37.0) g/dL RDW (11.5-15.5) % Plt Count (150-450) k/uL Neutrophils % % Lymphocytes % % Monocytes % % Eosinophils % % Basophils % % Neutrophils # (1.3-7.7) k/uL Lymphocytes # (1.0-4.8) k/uL Monocytes # (0-1.0) k/uL Eosinophils # (0-0.7) k/uL Basophils # (0-0.2) k/uL Sodium (137-145) mmol/L Potassium (3.5-5.1) mmol/L Chloride (98-107) mmol/L Carbon Dioxide (22-30) mmol/L Anion Gap mmol/L BUN (9-20) mg/dL Creatinine (0.66-1.25) mg/dL Est GFR (CKD-EPI)AfAm (>60 ml/min/1.73 sqM) Est GFR (CKD-EPI)NonAf (>60 ml/min/1.73 sqM) Glucose (74-99) mg/dL Calcium (8.4-10.2) mg/dL Total Bilirubin (0.2-1.3) mg/dL AST (17-59) U/L ALT (21-72) U/L Alkaline Phosphatase (38-126) U/L Total Protein (6.3-8.2) g/dL Albumin (3.5-5.0) g/dL Amylase 49 (30-110) U/L Lipase (23-300) U/L Urine Color Urine Appearance (Clear) Urine pH (5.0-8.0) Ur Specific [place] (1.001-1.035) Urine Protein (Negative) Urine Glucose (UA) (Negative) Urine Ketones (Negative) Urine Blood (Negative) Urine Nitrite (Negative) Urine Bilirubin (Negative) Urine Urobilinogen (<2.0) mg/dL Ur Leukocyte Esterase (Negative) Urine RBC (0-5) /hpf Urine WBC (0-5) /hpf Urine WBC Clumps (None) /hpf Urine Bacteria (None) /hpf Urine Mucus (None) /hpf - Radiology Data Radiology results: report reviewed (I did review the imaging and report no evidence of any kidney stones. One area could represent milk of calcium), image reviewed Disposition Clinical Impression: Pyelonephritis, Cystitis, Dysuria Disposition: ADMITTED IP TO THIS [facility] Condition: Stable Referrals: Raciel Melvin DO [Primary Care Provider] - 1-2 days
[2018-12-13 17:45] LABS: Basophils # (A) 0.1 k/uL (0-0.2); Basophils % (A) 0 %; Eosinophils # (A) 0.3 k/uL (0-0.7); Eosinophils % (A) 2 %; HCT 43.6 % (39.0-53.0); Lymphocytes # (A) 2.2 k/uL (1.0-4.8); Lymphocytes % (A) 11 %; MCH 31.5 pg (25.0-35.0); MCHC 34.5 g/dL (31.0-37.0); MCV 91.1 fL (80.0-100.0); Mean Platelet Volume 6.4; Monocytes # (A) 1.1 k/uL (0-1.0); Monocytes % (A) 6 %; Neutrophils # (A) 15.4 k/uL (1.3-7.7); Neutrophils % (A) 80 %; Platelet Count 243 k/uL (150-450); RBC 4.78 m/uL (4.30-5.90); RDW 13.3 % (11.5-15.5); WBC 19.2 k/uL (3.8-10.6)
--- NOTE | 2018-12-13 17:50 | XR ---
EXAMINATION TYPE: XR KUB DATE OF EXAM: 12/13/2018 COMPARISON: NONE HISTORY: Left lower quadrant pain, hematuria, constipation TECHNIQUE: 2 upright views FINDINGS: There is silhouetting of the left hemidiaphragm consistent with partial left lower lobe air lessness. This can be seen with atelectasis and/or left lower lobe pneumonia. There is no evident pneumatosis or pneumoperitoneum. The bowel gas pattern is unremarkable - other th an peripheral displacement of the bowel loops, which is a nonspecific finding but which can be associ ated with ascites. No definite acute skeletal findings. The urinary bladder shadow appears nondistended. IMPRESSION: 1. Evidence of partial airlessness left lung base. 2. Peripheral displacement of nondilated loops. No other abdominal pelvic findings.
[2018-12-13 17:56] LABS: ALT 35 U/L (21-72); AST 23 U/L (17-59); Albumin 4.4 g/dL (3.5-5.0); Alkaline Phosphatase 59 U/L (38-126); Anion Gap 10 mmol/L; Blood Urea Nitrogen 19 mg/dL (9-20); Calcium 9.7 mg/dL (8.4-10.2); Carbon Dioxide 25 mmol/L (22-30); Chloride 98 mmol/L (98-107); Glucose 114 mg/dL (74-99); Lipase 47 U/L (23-300); Potassium 4.5 mmol/L (3.5-5.1); Sodium 133 mmol/L (137-145); Total Bilirubin 1.8 mg/dL (0.2-1.3); Total Protein 7.4 g/dL (6.3-8.2)
[2018-12-13] MEDS ORDERED: HYDROmorphone 1 MG/ML 1 ML SYRINGE IVP STA (19:37)
--- NOTE | 2018-12-13 19:51 | CT ---
EXAMINATION TYPE: CT abdomen pelvis wo con DATE OF EXAM: 12/13/2018 HISTORY: left flank and groin pain, hematuria. CT DLP: 808.3 mGycm. Automated Exposure Control for Dose Reduction was Utilized. TECHNIQUE: CT scan of the abdomen and pelvis is performed without oral or IV contrast. COMPARISON: CT abdomen and pelvis July 15, 2018. FINDINGS: Within the limitations of a non-contrast study, the following observations are made. LUNG BASES: Dependent bibasilar atelectasis is seen. There is additional more central left basilar li near scarring and/or atelectasis. LIVER/GB: Liver is diffusely hypodense consistent with fatty infiltration. PANCREAS: No significant abnormality is seen. SPLEEN: No significant abnormality is seen. ADRENALS: No significant abnormality is seen. KIDNEYS: Exophytic simple appearing 2.8 cm thin-walled cyst laterally midpole level right kidney is s een axial image 64. Focus of dependent calcium or calcification axial image 66 could reflect milk of calcium. No renal stones or hydronephrosis is present bilaterally. No intraluminal calculus is seen i n poorly distended bladder. BOWEL: Evaluation of bowel is suboptimal secondary to lack of enteric contrast. Stomach is poorly dis tended and thus suboptimally evaluated. Normal-appearing appendix is seen from cecum. There are few d iverticula in the left colon and more diverticula in the sigmoid colon. There is no CT evidence for a cute diverticulitis. No suspicious small or large bowel dilatation is present. GENITAL ORGANS: Prostate gland is enlarged in size bulging on bladder base consistent with underlying BPH. LYMPH NODES: No greater than 1cm abdominal or pelvic lymph nodes are appreciated. OSSEOUS STRUCTURES: Moderate disc space narrowing at L5-S1 level is present. OTHER: Mild to moderate calcified plaque of the aorta extends into branch vessels. IMPRESSION: No renal stones or hydronephrosis is seen bilaterally. No suspicious new or acute finding identified to account for patient's symptoms. Sigmoid colonic diverticulosis redemonstrated without acute diverticulitis.
[2018-12-13] MEDS ORDERED: NALOXONE 0.4 MG/ML 1 ML VIAL IV PRN (23:27)
[2018-12-13] MEDS ORDERED: ONDANSETRON 4 MG/2 ML VIAL IVP PRN (23:27)
[2018-12-13] MEDS ORDERED: ACETAMINOPHEN TAB 325 MG TAB PO PRN (23:27)
[2018-12-13] MEDS ORDERED: ALBUTEROL NEBULIZED 2.5 MG/3 ML INHALATION PRN (23:28)
[2018-12-14] MEDS: HYDROmorphone 0.5 MG/0.5 ML SYRINGE IVP PRN ×8 (00:17→21:41)
[2018-12-14 07:06] LABS: Glucose,Whole Blood 140 mg/dL (75-99)
[2018-12-14] MEDS: SYMBICORT 160-4.5 MCG INHALER INHALATION SCH ×2 (07:31→20:56)
[2018-12-14] MEDS: metFORMIN 500 MG TAB PO SCH (07:38)
[2018-12-14] MEDS: LISINOPRIL 10 MG TAB PO SCH (07:38)
[2018-12-14] MEDS: ASPIRIN 81 MG PO SCH (07:38)
[2018-12-14] MEDS: CLOPIDOGREL 75 MG TAB PO SCH ×2 (07:38→07:40)
[2018-12-14] MEDS: ATORVASTATIN 80 MG TAB PO SCH (07:38)
[2018-12-14] MEDS: INSULIN ASPART (NovoLOG) 100 UNIT/ML VIAL SQ SCH ×4 (07:38→20:48)
[2018-12-14] MEDS ORDERED: NON-FORMULARY DRUG (Fluticasone/Salmeterol [Advair 250-50 Diskus] 1 PUFF) INHALATION SCH (08:00)
--- NOTE | 2018-12-14 08:32 | P.HPIM ---
History of Present Illness This is a pleasant 53 years old male with past medical history of diabetes mellitus, coronary artery disease, hypertension. His follow-up Dr. Melvin as an outpatient. Presents because of burning urination and pain in the penis for 2-3 days duration which was getting worse and bothering the patient associated with left lower back pain and on this side. The checked his temperature at home at was 1 or 2 as per patient. No documented fever while in house. No previous history of a tract infection. Patient is diabetic and says that his hemoglobin A1c was controlled more than 6.0% last week On admission he was afebrile. Vitas looks stable. Labs reviewed and showing Leukocytosis of 19.2 K. CMP was unremarkable except for mild hyponatremia and elevated bilirubin. Urinalysis was suspicious for infection. Urine culture is ordered. Abdomen/pelvis CAT scan without contrast: Right kidney cyst 2.8 cm. BPH In the emergency room patient was started on IV fluid and ceftriaxone. Review of Systems CONSTITUTIONAL: No fever, no malaise, no fatigue. HEENT: No recent visual problems or hearing problems. Denied any sore throat. CARDIOVASCULAR: No orthopnea, PND, no palpitations, no syncope. PULMONARY: No shortness of breath, no cough, no hemoptysis. GASTROINTESTINAL: No diarrhea, no nausea, no vomiting, no abdominal pain. Normoactive bowel sounds. NEUROLOGICAL: No headaches, no weakness, no numbness. HEMATOLOGICAL: Denies any bleeding or petechiae. GENITOURINARY: Denies any burning micturition, frequency, or urgency. MUSCULOSKELETAL/RHEUMATOLOGICAL: Denies any joint pain, swelling, or any muscle pain. ENDOCRINE: Denies any polyuria or polydipsia. Past Medical History Past Medical History: Diabetes Mellitus, Hypertension, Myocardial Infarction ([place] ) Additional Past Medical History / Comment(s): unknown lung issues Last Myocardial Infarction Date:: 2004 History of Any Multi-Drug Resistant Organisms: None Reported Past Surgical History: Heart Catheterization, Heart Catheterization With Stent, Orthopedic Surgery Additional Past Surgical History / Comment(s): neck surgery with hardware, rt shoulder surgery, rt wrist surgery Date of Last Stent Placement:: 2006 Past Psychological History: PTSD Smoking Status: Former smoker Past Alcohol Use History: None Reported Past Drug Use History: None Reported Medications and Allergies Home Medications Medication Instructions Recorded Confirmed Type Albuterol Inhaler [Ventolin Hfa 1 - 2 puff INHALATION RT-Q6H #1 03/30/18 Rx Inhaler] inhaler Aspirin 81 mg PO DAILY 03/30/18 12/13/18 History Atorvastatin [Lipitor] 80 mg PO DAILY 03/30/18 12/13/18 History Budesonide-Formot 160-4.5 Mcg 2 puff INHALATION RT-BID #1 puff 03/30/18 Rx [Symbicort 160-4.5 Mcg Inhaler] Clopidogrel [Plavix] 75 mg PO DAILY 03/30/18 12/13/18 History Divalproex [Depakote] 1,000 mg PO HS 03/30/18 12/13/18 History HYDROcodone/APAP 7.5-325MG [[place] 1 tab PO QID PRN 03/30/18 12/13/18 History 7.5-325] Lisinopril [Zestril] 10 mg PO DAILY 03/30/18 12/13/18 History Mirtazapine [Remeron] 30 mg PO HS 03/30/18 12/13/18 History Prazosin [Minipress] 5 mg PO HS 03/30/18 12/13/18 History Albuterol Nebulized [Ventolin 2.5 mg INHALATION RT-QID PRN 12/13/18 12/13/18 History Nebulized] Fluticasone/Salmeterol [Advair 1 puff INHALATION RT-BID 12/13/18 12/13/18 History 250-50 Diskus] metFORMIN HCL [Glucophage] 500 mg PO DAILY 12/13/18 12/13/18 History Allergies Allergy/AdvReac Type Severity Reaction Status Date / Time No Known Allergies Allergy Verified 12/13/18 18:08 Physical Exam Vitals: Vital Signs Temp Pulse Pulse Resp BP BP Pulse Ox 12/14/18 07:05 97.7 F 77 18 118/73 96 12/14/18 01:00 98.1 F 81 20 112/73 95 12/14/18 00:12 81 18 122/70 96 12/13/18 23:10 80 16 111/68 96 12/13/18 20:19 98.4 F 82 16 117/86 94 L 12/13/18 16:13 98.4 F 123 H 18 127/88 95 Intake and Output 12/13/18 12/14/18 12/14/18 22:59 06:59 14:59 Intake Total 100 Balance 100 Intake: Oral 100 Other: Voiding Method Urinal # Voids 1 Weight 96.162 kg 93.894 kg GENERAL: The patient is alert and oriented x3, not in any acute distress. Well developed, well nourished. HEENT: Pupils are round and equally reacting to light. EOMI. No scleral icterus. No conjunctival pallor. Normocephalic, atraumatic. No pharyngeal erythema. No thyromegaly. CARDIOVASCULAR: S1 and S2 present. No murmurs, rubs, or gallops. PULMONARY: Chest is clear to auscultation, no wheezing or crackles. -ABDOMEN: Soft, nontender, nondistended, normoactive bowel sounds. No palpable organomegaly. Left CVA tenderness. Male genitalia exam looks unremarkable, verbal consult obtained from the patient MUSCULOSKELETAL: No joint swelling or deformity. EXTREMITIES: No cyanosis, clubbing, or pedal edema. NEUROLOGICAL: Gross neurological examination did not reveal any focal deficits. SKIN: No rashes. Results CBC & Chem 7: 12/13/18 17:30 12/13/18 17:30 Labs: Abnormal Lab Results - Last 24 Hours (Table) 12/13/18 12/13/18 12/13/18 Range/Units 16:50 17:30 17:30 WBC 19.2 H (3.8-10.6) k/uL Neutrophils # 15.4 H (1.3-7.7) k/uL Monocytes # 1.1 H (0-1.0) k/uL Sodium 133 L (137-145) mmol/L Glucose 114 H (74-99) mg/dL POC Glucose (mg/dL) (75-99) mg/dL Total Bilirubin 1.8 H (0.2-1.3) mg/dL Urine Blood Small H (Negative) Ur Leukocyte Esterase Large H (Negative) Urine WBC 166 H (0-5) /hpf Urine WBC Clumps Few H (None) /hpf Urine Bacteria Occasional H (None) /hpf Urine Mucus Rare H (None) /hpf 12/14/18 Range/Units 07:04 WBC (3.8-10.6) k/uL Neutrophils # (1.3-7.7) k/uL Monocytes # (0-1.0) k/uL Sodium (137-145) mmol/L Glucose (74-99) mg/dL POC Glucose (mg/dL) 140 H (75-99) mg/dL Total Bilirubin (0.2-1.3) mg/dL Urine Blood (Negative) Ur Leukocyte Esterase (Negative) Urine WBC (0-5) /hpf Urine WBC Clumps (None) /hpf Urine Bacteria (None) /hpf Urine Mucus (None) /hpf Thrombosis Risk Factor Assmnt - Choose All That Apply Each Factor Represents 1 point: Age 41-60 years, Obesity (BMI >25) Other Risk Factors: No Thrombosis Risk Factor Assessment Total Risk Factor Score: 2 Thrombosis Risk Factor Assessment Level: Low Risk Assessment and Plan Assessment: Acute urinary tract infection Mostly Left pyelonephritis Systemic inflammatory response with fever and leukocytosis. With sepsis secondary to above. Present on admission BPH History of coronary artery disease Type 2 diabetes mellitus Essential hypertension Plan: This is a pleasant 53 years old male who presents with pyelonephritis. Will call urology consult and infectious disease. Continue with ceftriaxone. Start Flomax. Follow-up culture results.Labs and medication were reviewed.. Continue same treatment. Continue with symptomatic treatment. Resume home medication. Monitor lytes and vitals. DVT and GI prophylaxis. Further recommendations of the clinical course of the patient DVT prophylaxis: Subcutaneous heparin GI Prophylaxis: Pepcid Prognosis is guarded
[2018-12-14] MEDS ORDERED: FAMOTIDINE 20 MG/2 ML VIAL IV SCH (09:00)
[2018-12-14] MEDS: HEPARIN SODIUM,PORCINE 5,000 UNIT/ML 1 ML VIAL SQ SCH ×2 (09:22→20:48)
[2018-12-14] MEDS: TAMSULOSIN 0.4 MG CAP.ER.24H PO SCH (09:32)
[2018-12-14 12:07] LABS: Glucose,Whole Blood 104 mg/dL (75-99)
[2018-12-14 16:56] LABS: Glucose,Whole Blood 143 mg/dL (75-99)
[2018-12-14 17:01] LABS: Hemoglobin A1C 6.5 % (4.0-6.0)
[2018-12-14] MEDS: FAMOTIDINE 20 MG TAB PO SCH (20:47)
[2018-12-14] MEDS: MIRTAZAPINE 15 MG TAB PO SCH (20:47)
[2018-12-14] MEDS: DIVALPROEX 500 MG TABLET.DR PO SCH (20:47)
[2018-12-14] MEDS: PRAZOSIN 1 MG CAP PO SCH (20:47)
[2018-12-14 20:50] LABS: Glucose,Whole Blood 117 mg/dL (75-99)
[2018-12-15] MEDS: HYDROmorphone 0.5 MG/0.5 ML SYRINGE IVP PRN ×2 (02:11→08:30)
[2018-12-15 07:16] LABS: Glucose,Whole Blood 125 mg/dL (75-99)
[2018-12-15] MEDS: INSULIN ASPART (NovoLOG) 100 UNIT/ML VIAL SQ SCH ×4 (07:18→21:58)
[2018-12-15 07:56] LABS: Basophils % (A) 1 %; Eosinophils # (A) 0.1 k/uL (0-0.7); Eosinophils % (A) 2 %; HCT 37.4 % (39.0-53.0); HGB 12.2 gm/dL (13.0-17.5); Lymphocytes # (A) 1.4 k/uL (1.0-4.8); Lymphocytes % (A) 25 %; MCH 30.9 pg (25.0-35.0); MCHC 32.6 g/dL (31.0-37.0); MCV 94.7 fL (80.0-100.0); Mean Platelet Volume 6.4; Monocytes # (A) 0.5 k/uL (0-1.0); Monocytes % (A) 9 %; Neutrophils # (A) 3.4 k/uL (1.3-7.7); Neutrophils % (A) 61 %; Platelet Count 230 k/uL (150-450); RBC 3.95 m/uL (4.30-5.90); RDW 13.4 % (11.5-15.5); WBC 5.5 k/uL (3.8-10.6)
[2018-12-15] MEDS: SYMBICORT 160-4.5 MCG INHALER INHALATION SCH ×2 (08:06→19:09)
[2018-12-15 08:12] LABS: ALT 38 U/L (21-72); AST 22 U/L (17-59); Albumin 3.4 g/dL (3.5-5.0); Alkaline Phosphatase 53 U/L (38-126); Anion Gap 8 mmol/L; Bilirubin, Delta 0.1 mg/dL (0.0-0.2); Bilirubin,Unconjugated 0.3 mg/dL (0.0-1.1); Blood Urea Nitrogen 16 mg/dL (9-20); Calcium 8.7 mg/dL (8.4-10.2); Carbon Dioxide 27 mmol/L (22-30); Chloride 105 mmol/L (98-107); Glucose 134 mg/dL (74-99); Potassium 4.5 mmol/L (3.5-5.1); Sodium 140 mmol/L (137-145); Total Bilirubin 0.4 mg/dL (0.2-1.3)
[2018-12-15] MEDS: TAMSULOSIN 0.4 MG CAP.ER.24H PO SCH (08:27)
[2018-12-15] MEDS: FAMOTIDINE 20 MG TAB PO SCH ×2 (08:27→20:12)
[2018-12-15] MEDS: metFORMIN 500 MG TAB PO SCH (08:28)
[2018-12-15] MEDS: HEPARIN SODIUM,PORCINE 5,000 UNIT/ML 1 ML VIAL SQ SCH ×2 (08:28→20:12)
[2018-12-15] MEDS: LISINOPRIL 10 MG TAB PO SCH (08:28)
[2018-12-15] MEDS: ASPIRIN 81 MG PO SCH (08:28)
[2018-12-15] MEDS: ATORVASTATIN 80 MG TAB PO SCH (08:28)
[2018-12-15] MEDS: CLOPIDOGREL 75 MG TAB PO SCH (08:28)
--- NOTE | 2018-12-15 08:43 | CONS ---
CONSULTATION DATE OF SERVICE: 12/14/2018 REASON FOR CONSULTATION: Urinary tract infection. HISTORY OF PRESENT ILLNESS: The patient is a 53-year-old male presenting to the ER at [facility] with chief complaints of difficulty urination, burning, hematuria and some pain in the left flank area. These symptoms have been going on since prior to the presentation to hospital. The patient has been complaining of sharp pain at the time of urination, has been nauseated, no vomiting, and slight feverish but did not record his temperature. With these symptoms, the patient presented to the [facility] ER where the patient did have a of CT abdomen and pelvis completed. It did not show any evidence of stones or hydronephrosis. Did show thin walled cyst bilaterally and evidence of benign prostatic hypertrophy, but no abscesses. The patient white count is elevated at 19.2. Hematuria was positive with large leukocyte esterase with more than 166 WBCs. The patient was started on Rocephin 1 gram daily. Infectious Disease was consulted for further recommendation regarding antibiotic therapy. REVIEW OF SYSTEMS: Positive points have been mentioned in HPI. The rest of the systems has been negative. PAST MEDICAL HISTORY: Diabetes mellitus, hypertension, myocardial infarction. PAST SURGICAL HISTORY: PTCA with stenting, neck surgery with hardware and right shoulder surgery. SOCIAL HISTORY: Remote history of smoking. No drinking or drug use. FAMILY HISTORY: Negative for . ALLERGIES: No known drug allergies. MEDICATIONS: Medications include the patient is Tylenol, Ventolin, aspirin, Lipitor, Symbicort, Rocephin 1 gram daily, Plavix, Depakote, Pepcid, heparin, Dilaudid, NovoLog, Zestril, Glucophage, Remeron, Narcan, Zofran, Minipress, Flomax. PHYSICAL EXAMINATION: On examination, blood pressure is 117/69 with a pulse of 98, temperature is 97.3. He is 96% on room air. General description is a middle aged male up in the bed in no distress. No tachypnea or accessory muscle for respiration use. HEENT examination shows no pallor or scleral icterus. Oral mucous membrane is dry. No pharyngeal erythema or thrush. NECK: Trachea central. No thyromegaly. LUNGS: Unlabored breathing, clear to auscultation anteriorly. HEART: S1, S2. Regular rate and rhythm. ABDOMEN: Soft, no tenderness. No guarding or rigidity. EXTREMITIES: No edema of feet. SKIN EXAMINATION: No rash or mass palpable. NEUROLOGICAL: The patient is awake, alert, oriented x3. Mood and affect normal. LABS: Hemoglobin is 15, white count 19.2 with a BUN of 19, creatinine 0.94. Electrolytes have been normal. Liver enzymes are normal. Urine is positive. Cultures currently pending. Blood culture pending. DIAGNOSTIC IMPRESSION AND PLAN: Patient admitted to the hospital with involving difficulty urination and hematuria, concern likely for a complicated urinary tract infection, possibly prostatitis after the patient noticed to have significant enlargement of his prostate but no evidence of any abscess. We will need to cover for the enteric gram-negative pathogen. PLAN: 1. We will increase Rocephin to 2 grams daily. 2. IV fluid. 3. Continue with , may benefit from urology evaluation. 4. We will follow on his clinical condition and culture to further adjust medication if needed. Thank you for this consultation. Will follow the patient along with you. MMODL / IJN: [id number] /
[2018-12-15] MEDS ORDERED: PHENAZOPYRIDINE 200 MG TAB PO SCH (09:00)
[2018-12-15] MEDS: PHENAZOPYRIDINE 200 MG TAB PO PRN (09:09)
[2018-12-15] MEDS: HYDROmorphone 1 MG/ML 1 ML SYRINGE IVP PRN ×4 (10:16→20:12)
--- NOTE | 2018-12-15 10:20 | P.PN ---
Subjective This is a pleasant 53 years old male with past medical history of diabetes mellitus, coronary artery disease, hypertension. His follow-up Dr. Melvin as an outpatient. Presents because of burning urination and pain in the penis for 2-3 days duration which was getting worse and bothering the patient associated with left lower back pain and on this side. The checked his temperature at home at was 1 or 2 as per patient. No documented fever while in house. No previous history of a tract infection. Patient is diabetic and says that his hemoglobin A1c was controlled more than 6.0% last week On admission he was afebrile. Vitas looks stable. Labs reviewed and showing Leukocytosis of 19.2 K. CMP was unremarkable except for mild hyponatremia and elevated bilirubin. Urinalysis was suspicious for infection. Urine culture is ordered. Abdomen/pelvis CAT scan without contrast: Right kidney cyst 2.8 cm. BPH In the emergency room patient was started on IV fluid and ceftriaxone. 12/15/2018 Patient is still complaining of from dysuria today and suprapubic tenderness which is mild and he also has mild left flank pain. No fever. He is moving easily but he complaining of from increasing pain and he is on Dilaudid currently with increased dose.CBC and BMP were unremarkable with creatinine 0.9.urine culture still in a progress and there is no gross blood culture.infectious disease input is appreciated, there is concern for prostatitis. Rocephin has been increased to 2 g daily. urologist consult has ordered. review of systems CONSTITUTIONAL: No fever, no malaise, no fatigue. HEENT: No recent visual problems or hearing problems. Denied any sore throat. CARDIOVASCULAR: No orthopnea, PND, no palpitations, no syncope. PULMONARY: No shortness of breath, no cough, no hemoptysis. GASTROINTESTINAL: No diarrhea, no nausea, no vomiting, no abdominal pain. Normoactive bowel sounds. NEUROLOGICAL: No headaches, no weakness, no numbness. HEMATOLOGICAL: Denies any bleeding or petechiae. MUSCULOSKELETAL/RHEUMATOLOGICAL: Denies any joint pain, swelling, or any muscle pain. ENDOCRINE: Denies any polyuria or polydipsia. Medication:Tylenol, B12, aspirin, Lipitor, Symbicort, Rocephin, Plavix, Depakote , Pepcid, heparin, Dilaudid, NovoLog, lisinopril, metformin, mirtazapine, Zofran ,pyridium , prazosin, Flomax. Objective - Vital Signs Vital signs: Vital Signs Temp 99.4 F 12/15/18 07:06 Pulse 93 12/15/18 07:06 Resp 20 12/15/18 07:06 BP 125/71 12/15/18 07:06 Pulse Ox 92 L 12/15/18 07:06 Intake & Output 12/14/18 12/15/18 12/15/18 18:59 06:59 18:59 Intake Total 100 Output Total 800 36 Balance -800 64 Intake: Oral 100 Output: Urine 800 Post Void Residual 36 Other: Voiding Method Urinal Urinal Urinal # Voids 2 - Exam GENERAL: The patient is alert and oriented x3, not in any acute distress. Well developed, well nourished. HEENT: Pupils are round and equally reacting to light. EOMI. No scleral icterus. No conjunctival pallor. Normocephalic, atraumatic. No pharyngeal erythema. No thyromegaly. CARDIOVASCULAR: S1 and S2 present. No murmurs, rubs, or gallops. PULMONARY: Chest is clear to auscultation, no wheezing or crackles. -ABDOMEN: Soft, suprapubic tenderness, with no rebound tenderness, nondistended , normoactive bowel sounds. No palpable organomegaly. milder Left CVA tenderness compared to admission. MUSCULOSKELETAL: No joint swelling or deformity. EXTREMITIES: No cyanosis, clubbing, or pedal edema. NEUROLOGICAL: Gross neurological examination did not reveal any focal deficits. SKIN: No rashes. - Labs CBC & Chem 7: 12/15/18 07:21 12/15/18 07:21 Labs: Abnormal Lab Results - Last 24 Hours (Table) 12/13/18 12/14/18 12/14/18 Range/Units 17:30 12:05 16:52 RBC (4.30-5.90) m/uL Hgb (13.0-17.5) gm/dL Hct (39.0-53.0) % Glucose (74-99) mg/dL POC Glucose (mg/dL) 104 H 143 H (75-99) mg/dL Hemoglobin A1c 6.5 H (4.0-6.0) % Total Protein (6.3-8.2) g/dL Albumin (3.5-5.0) g/dL 12/14/18 12/15/18 12/15/18 Range/Units 20:45 07:07 07:21 RBC 3.95 L (4.30-5.90) m/uL Hgb 12.2 L (13.0-17.5) gm/dL Hct 37.4 L (39.0-53.0) % Glucose (74-99) mg/dL POC Glucose (mg/dL) 117 H 125 H (75-99) mg/dL Hemoglobin A1c (4.0-6.0) % Total Protein (6.3-8.2) g/dL Albumin (3.5-5.0) g/dL 12/15/18 Range/Units 07:21 RBC (4.30-5.90) m/uL Hgb (13.0-17.5) gm/dL Hct (39.0-53.0) % Glucose 134 H (74-99) mg/dL POC Glucose (mg/dL) (75-99) mg/dL Hemoglobin A1c (4.0-6.0) % Total Protein 6.0 L (6.3-8.2) g/dL Albumin 3.4 L (3.5-5.0) g/dL Microbiology - Last 24 Hours (Table) 12/13/18 20:18 Blood Culture - Preliminary Blood No Growth after 24 hours 12/14/18 08:40 Urine Culture - Preliminary Urine,Voided Assessment and Plan Assessment: Acute urinary tract infection Mostly Left pyelonephritis possible prostatitis Systemic inflammatory response with fever and leukocytosis. With sepsis secondary to above. Present on admission BPH History of coronary artery disease Type 2 diabetes mellitus Essential hypertension Plan: This is a pleasant 53 years old male who presents with pyelonephritis. Will call urology consult and infectious disease. Continue with ceftriaxone. Start Flomax. Follow-up culture results.Labs and medication were reviewed.. Continue same treatment. Continue with symptomatic treatment. Resume home medication. Monitor lytes and vitals. DVT and GI prophylaxis. Further recommendations of the clinical course of the patient DVT prophylaxis: Subcutaneous heparin GI Prophylaxis: Pepcid Prognosis is guarded
[2018-12-15 12:10] LABS: Glucose,Whole Blood 119 mg/dL (75-99)
[2018-12-15 17:21] LABS: Glucose,Whole Blood 119 mg/dL (75-99)
[2018-12-15] MEDS: MIRTAZAPINE 15 MG TAB PO SCH (20:12)
[2018-12-15] MEDS: DIVALPROEX 500 MG TABLET.DR PO SCH (20:12)
[2018-12-15] MEDS: PRAZOSIN 1 MG CAP PO SCH (20:14)
[2018-12-15 21:24] LABS: Glucose,Whole Blood 129 mg/dL (75-99)
--- NOTE | 2018-12-15 23:46 | PN ---
PROGRESS NOTE DATE OF SERVICE: 12/15/2018. REASON FOR FOLLOWUP: UTI/pyelonephritis. INTERVAL HISTORY: The patient is afebrile. The patient's symptoms have slightly improved with no hematuria. Still has some pain to the right . No abdominal pain, no diarrhea. PHYSICAL EXAMINATION: Blood pressure 124/83 with a pulse of 94, temperature 98.5, she is 94% on room air. GENERAL DESCRIPTION: A middle-age male up in the bed in no distress. RESPIRATORY SYSTEM: Unlabored breathing. Clear to auscultation anteriorly. HEART: S1, S2. Regular rate and rhythm. ABDOMEN: Soft. LABS: Hemoglobin is 12.5, with a BUN of 16, creatinine 0.9. Urine cultures have been negative. Blood culture so far negative. DIAGNOSTIC IMPRESSION AND PLAN: Patient with hematuria with concern for possible pyelonephritis. Urine culture coming back negative. May benefit from a Urology evaluation. The patient is on Rocephin at this point. Continue supportive care. MMODL / IJN: [id number] /
[2018-12-16] MEDS: HYDROmorphone 1 MG/ML 1 ML SYRINGE IVP PRN ×4 (02:42→14:07)
--- NOTE | 2018-12-16 06:19 | P.GSCN ---
History of Present Illness Consult date: 12/14/18 Reason for Consult: UTI Requesting physician: Kennedy E Sheet History of present illness: The patient is a 53-year-old white male with no prior history of UTIs or urolithiasis. Approximately 2 weeks ago, he began to experience left flank discomfort radiating to the left lower quadrant of the abdomen. On December 11, he began to experience dysuria, hematuria, and sweats. He presented to the ER yesterday and was subsequently admitted. Review of Systems - Constitutional Reports chills, Reports sweats - Gastrointestinal Denies nausea, Denies vomiting - Genitourinary Reports dysuria, Reports flank pain, Reports hematuria Past Medical History Past Medical History: Diabetes Mellitus, Hypertension, Myocardial Infarction ([place] ) Additional Past Medical History / Comment(s): unknown lung issues Last Myocardial Infarction Date:: 2004 History of Any Multi-Drug Resistant Organisms: None Reported Past Surgical History: Heart Catheterization, Heart Catheterization With Stent, Orthopedic Surgery Additional Past Surgical History / Comment(s): neck surgery with hardware, rt shoulder surgery, rt wrist surgery Date of Last Stent Placement:: 2006 Past Psychological History: PTSD Smoking Status: Former smoker Past Alcohol Use History: None Reported Past Drug Use History: None Reported Medications and Allergies Home Medications Medication Instructions Recorded Confirmed Type Albuterol Inhaler [Ventolin Hfa 1 - 2 puff INHALATION RT-Q6H #1 03/30/18 Rx Inhaler] inhaler Aspirin 81 mg PO DAILY 03/30/18 12/13/18 History Atorvastatin [Lipitor] 80 mg PO DAILY 03/30/18 12/13/18 History Budesonide-Formot 160-4.5 Mcg 2 puff INHALATION RT-BID #1 puff 03/30/18 Rx [Symbicort 160-4.5 Mcg Inhaler] Clopidogrel [Plavix] 75 mg PO DAILY 03/30/18 12/13/18 History Divalproex [Depakote] 1,000 mg PO HS 03/30/18 12/13/18 History HYDROcodone/APAP 7.5-325MG [[place] 1 tab PO QID PRN 03/30/18 12/13/18 History 7.5-325] Lisinopril [Zestril] 10 mg PO DAILY 03/30/18 12/13/18 History Mirtazapine [Remeron] 30 mg PO HS 03/30/18 12/13/18 History Prazosin [Minipress] 5 mg PO HS 03/30/18 12/13/18 History Albuterol Nebulized [Ventolin 2.5 mg INHALATION RT-QID PRN 12/13/18 12/13/18 History Nebulized] Fluticasone/Salmeterol [Advair 1 puff INHALATION RT-BID 12/13/18 12/13/18 History 250-50 Diskus] metFORMIN HCL [Glucophage] 500 mg PO DAILY 12/13/18 12/13/18 History Allergies Allergy/AdvReac Type Severity Reaction Status Date / Time No Known Allergies Allergy Verified 12/13/18 18:08 Surgical - Exam Vital Signs Temp Pulse Resp BP Pulse Ox 98.4 F 123 H 18 127/88 95 12/13/18 16:13 12/13/18 16:13 12/13/18 16:13 12/13/18 16:13 12/13/18 16:13 - General well developed, well nourished, no distress - Respiratory normal respiratory effort - Abdomen Abdomen: soft, non tender, no guarding, no rigid, no rebound - Genitourinary normal penis with no external lesions, testicles non-tender - Rectum Rectum: normal sphincter tone, no masses, other (Prostate normal size and consistency) - Psychiatric oriented to time, oriented to person, oriented to place, speech is normal, memory intact Results - Labs 12/13/18 17:30 12/13/18 17:30 Abnormal Lab Results - Last 24 Hours (Table) 12/13/18 12/14/18 12/14/18 Range/Units 17:30 07:04 12:05 POC Glucose (mg/dL) 140 H 104 H (75-99) mg/dL Hemoglobin A1c 6.5 H (4.0-6.0) % 12/14/18 Range/Units 16:52 POC Glucose (mg/dL) 143 H (75-99) mg/dL Hemoglobin A1c (4.0-6.0) % Microbiology - Last 24 Hours (Table) 12/14/18 08:40 Urine Culture - Preliminary Urine,Voided Diabetes panel 12/13/18 Range/Units 17:30 Hemoglobin A1c 6.5 H (4.0-6.0) % - Imaging CT scan - abdomen: report reviewed, image reviewed Assessment and Plan (1) Acute pyelonephritis Current Visit: Yes Status: Acute Code(s): N10 - ACUTE PYELONEPHRITIS SNOMED Code(s): 72773556 Plan: In summary, the patient is a 53-year-old male with an unremarkable urologic history. Urinalysis shows evidence of infection, and symptoms and signs are consistent with acute left pyelonephritis and cystitis. He is currently being treated with Rocephin, pending the urine culture result. He states that he is feeling somewhat better. Bladder scan will be utilized to assess bladder emptying. I anticipate that his condition will improve with antibiotics, and that he will not require any procedures. Incidentally, the CT scan also shows evidence of a right renal cyst, and I reassured him that this appears to be a simple cyst and does not require any further evaluation. Time with Patient: Greater than 30
[2018-12-16 07:08] LABS: Glucose,Whole Blood 100 mg/dL (75-99)
[2018-12-16 07:14] VITALS: PULSE 90
[2018-12-16] MEDS: INSULIN ASPART (NovoLOG) 100 UNIT/ML VIAL SQ SCH ×2 (07:18→12:30)
[2018-12-16] MEDS: PHENAZOPYRIDINE 200 MG TAB PO PRN (08:00)
[2018-12-16] MEDS: SYMBICORT 160-4.5 MCG INHALER INHALATION SCH (08:03)
--- NOTE | 2018-12-16 09:05 | P.PN ---
Subjective This is a pleasant 53 years old male with past medical history of diabetes mellitus, coronary artery disease, hypertension. His follow-up Dr. Melvin as an outpatient. Presents because of burning urination and pain in the penis for 2-3 days duration which was getting worse and bothering the patient associated with left lower back pain and on this side. The checked his temperature at home at was 1 or 2 as per patient. No documented fever while in house. No previous history of a tract infection. Patient is diabetic and says that his hemoglobin A1c was controlled more than 6.0% last week On admission he was afebrile. Vitas looks stable. Labs reviewed and showing Leukocytosis of 19.2 K. CMP was unremarkable except for mild hyponatremia and elevated bilirubin. Urinalysis was suspicious for infection. Urine culture is ordered. Abdomen/pelvis CAT scan without contrast: Right kidney cyst 2.8 cm. BPH In the emergency room patient was started on IV fluid and ceftriaxone. 12/15/2018 Patient is still complaining of from dysuria today and suprapubic tenderness which is mild and he also has mild left flank pain. No fever. He is moving easily but he complaining of from increasing pain and he is on Dilaudid currently with increased dose.CBC and BMP were unremarkable with creatinine 0.9.urine culture still in a progress and there is no gross blood culture.infectious disease input is appreciated, there is concern for prostatitis. Rocephin has been increased to 2 g daily. urologist consult has ordered. 12/16/2018 Patient is doing better today with minimal dysuria and no suprapubic tenderness and left flank pain which are resolved now. Patient is happy with this result and more satisfied. No nausea vomiting or chest pain or dyspnea. Also patient state that he is more easily with no more hematuria. Vitas is stable with no fever. His leukocytosis has resolved to a WBC of 5.5K. Creatinine is normal at 0.9. Sugar controlled. Liver function tests are within normal limits. Urologic consultation is appreciated, no need for any further procedure for now. Patient on ceftriaxone 2 g daily as per ID recommendation. Urine culture came back negative. Expect Patient will be discharged home soon. review of systems CONSTITUTIONAL: No fever, no malaise, no fatigue. HEENT: No recent visual problems or hearing problems. Denied any sore throat. CARDIOVASCULAR: No orthopnea, PND, no palpitations, no syncope. PULMONARY: No shortness of breath, no cough, no hemoptysis. GASTROINTESTINAL: No diarrhea, no nausea, no vomiting, no abdominal pain. Normoactive bowel sounds. NEUROLOGICAL: No headaches, no weakness, no numbness. HEMATOLOGICAL: Denies any bleeding or petechiae. MUSCULOSKELETAL/RHEUMATOLOGICAL: Denies any joint pain, swelling, or any muscle pain. ENDOCRINE: Denies any polyuria or polydipsia. Medication:Tylenol, B12, aspirin, Lipitor, Symbicort, Rocephin, Plavix, Depakote , Pepcid, heparin, Dilaudid, NovoLog, lisinopril, metformin, mirtazapine, Zofran ,pyridium , prazosin, Flomax. Objective - Vital Signs Vital signs: Vital Signs Temp 97.5 F L 12/16/18 07:03 Pulse 90 12/16/18 07:03 Resp 20 12/16/18 07:03 BP 151/94 12/16/18 07:03 Pulse Ox 94 L 12/16/18 07:03 Intake & Output 12/15/18 12/16/18 12/16/18 18:59 06:59 18:59 Intake Total 240 950 Balance 240 950 Intake: Oral 240 950 Other: Voiding Method Urinal Toilet Urinal # Voids 4 2 - Exam GENERAL: The patient is alert and oriented x3, not in any acute distress. Well developed, well nourished. HEENT: Pupils are round and equally reacting to light. EOMI. No scleral icterus. No conjunctival pallor. Normocephalic, atraumatic. No pharyngeal erythema. No thyromegaly. CARDIOVASCULAR: S1 and S2 present. No murmurs, rubs, or gallops. PULMONARY: Chest is clear to auscultation, no wheezing or crackles. -ABDOMEN: Soft, suprapubic tenderness, with no rebound tenderness, nondistended , normoactive bowel sounds. No palpable organomegaly. milder Left CVA tenderness compared to admission. MUSCULOSKELETAL: No joint swelling or deformity. EXTREMITIES: No cyanosis, clubbing, or pedal edema. NEUROLOGICAL: Gross neurological examination did not reveal any focal deficits. SKIN: No rashes. - Labs CBC & Chem 7: 12/15/18 07:21 12/15/18 07:21 Labs: Abnormal Lab Results - Last 24 Hours (Table) 12/15/18 12/15/18 12/15/18 Range/Units 12:00 17:18 21:22 POC Glucose (mg/dL) 119 H 119 H 129 H (75-99) mg/dL 12/16/18 Range/Units 07:05 POC Glucose (mg/dL) 100 H (75-99) mg/dL Microbiology - Last 24 Hours (Table) 12/13/18 20:18 Blood Culture - Preliminary Blood No Growth after 48 hours 12/14/18 08:40 Urine Culture - Final Urine,Voided Assessment and Plan Assessment: Acute urinary tract infection Mostly Left pyelonephritis possible prostatitis Systemic inflammatory response with fever and leukocytosis. With sepsis secondary to above. Present on admission BPH History of coronary artery disease Type 2 diabetes mellitus Essential hypertension Plan: This is a pleasant 53 years old male who presents with pyelonephritis. Will call urology consult and infectious disease. Continue with ceftriaxone. Start Flomax. Follow-up culture results.Labs and medication were reviewed.. Continue same treatment. Continue with symptomatic treatment. Resume home medication. Monitor lytes and vitals. DVT and GI prophylaxis. Further recommendations of the clinical course of the patient DVT prophylaxis: Subcutaneous heparin GI Prophylaxis: Pepcid Prognosis is guarded
[2018-12-16 09:09] LABS: Basophils % (A) 1 %; Eosinophils # (A) 0.1 k/uL (0-0.7); Eosinophils % (A) 2 %; HCT 40.9 % (39.0-53.0); HGB 13.3 gm/dL (13.0-17.5); Lymphocytes # (A) 1.8 k/uL (1.0-4.8); Lymphocytes % (A) 32 %; MCHC 32.4 g/dL (31.0-37.0); MCV 95.6 fL (80.0-100.0); Mean Platelet Volume 6.1; Monocytes # (A) 0.4 k/uL (0-1.0); Monocytes % (A) 7 %; Neutrophils # (A) 3.1 k/uL (1.3-7.7); Neutrophils % (A) 56 %; Platelet Count 236 k/uL (150-450); RBC 4.27 m/uL (4.30-5.90); RDW 13.2 % (11.5-15.5); WBC 5.7 k/uL (3.8-10.6)
[2018-12-16] MEDS: FAMOTIDINE 20 MG TAB PO SCH (09:23)
[2018-12-16] MEDS: HEPARIN SODIUM,PORCINE 5,000 UNIT/ML 1 ML VIAL SQ SCH (09:24)
[2018-12-16] MEDS: LISINOPRIL 10 MG TAB PO SCH (09:24)
[2018-12-16] MEDS: ASPIRIN 81 MG PO SCH (09:24)
[2018-12-16] MEDS: TAMSULOSIN 0.4 MG CAP.ER.24H PO SCH (09:24)
[2018-12-16] MEDS: CLOPIDOGREL 75 MG TAB PO SCH (09:24)
[2018-12-16] MEDS: ATORVASTATIN 80 MG TAB PO SCH (09:24)
[2018-12-16] MEDS: metFORMIN 500 MG TAB PO SCH (09:24)
[2018-12-16 09:48] LABS: Anion Gap 9 mmol/L; Blood Urea Nitrogen 11 mg/dL (9-20); Calcium 9.1 mg/dL (8.4-10.2); Carbon Dioxide 31 mmol/L (22-30); Chloride 100 mmol/L (98-107); Glucose 188 mg/dL (74-99); Potassium 4.9 mmol/L (3.5-5.1); Sodium 140 mmol/L (137-145)
[2018-12-16 12:29] LABS: Glucose,Whole Blood 124 mg/dL (75-99)
[2018-12-16 14:52] VITALS: BP 128/69; RESP 20; TEMP 98.5
--- NOTE | 2018-12-16 19:02 | PN ---
PROGRESS NOTE DATE OF SERVICE: 12/16/2018. REASON FOR FOLLOWUP: UTI infection. INTERVAL HISTORY: The patient is afebrile. He was seen on rounds earlier this afternoon. The patient denies having any chest pain. No shortness of breath or cough. His flank pain has improved and his hematuria has resolved. No diarrhea. PHYSICAL EXAMINATION: Blood pressure 128/69 with a pulse of 90, temperature 98.5. He is 95% on room air. General description is a middle aged male up in the bed in no distress. Respiratory system: Unlabored breathing. Clear to auscultation anteriorly. Heart S1, S2. Regular rate and rhythm. Abdomen soft, no tenderness. LABS: Hemoglobin 13.8, white count 5.7, BUN of 11, creatinine 0.92. Blood culture has been negative. DIAGNOSTIC IMPRESSION AND PLAN: Patient with hematuria with concern for a urinary tract infection and pyelonephritis with no evidence of abnormality on the CT. Enlarged prostate. The patient had been evaluated by Urology and no cystoscopy was recommended. The patient symptoms responded to Rocephin, hence he will be transitioned to Ceftin 500 mg twice a day for 10 days with close outpatient followup. Prescription was sent to the pharmacy. NADYA / IJN: [id number] /
== END 2018-12-16 17:18 | disposition home or self-care (01) ==
LOC: EC 15:50 → 4MS4W 23:45
PROVIDERS: ADMIT Internal Medicine; ATTEND Internal Medicine
DX: A41.9 Sepsis, unspecified organism (principal); N10 Acute pyelonephritis; E87.1 Hypo-osmolality and hyponatremia; N40.1 Benign prostatic hyperplasia with lower urinary tract symptoms; E80.7 Disorder of bilirubin metabolism, unspecified; N30.91 Cystitis, unspecified with hematuria; K57.30 Diverticulosis of large intestine without perforation or abscess without bleeding; I10 Essential (primary) hypertension; I25.10 Atherosclerotic heart disease of native coronary artery without angina pectoris; E11.9 Type 2 diabetes mellitus without complications; E66.9 Obesity, unspecified; Z68.34 Body mass index [BMI] 34.0-34.9, adult; F43.10 Post-traumatic stress disorder, unspecified; Z79.82 Long term (current) use of aspirin; Z79.02 Long term (current) use of antithrombotics/antiplatelets; Z79.84 Long term (current) use of oral hypoglycemic drugs; Z79.899 Other long term (current) drug therapy; Z79.51 Long term (current) use of inhaled steroids; Z95.5 Presence of coronary angioplasty implant and graft; I25.2 Old myocardial infarction; Z87.891 Personal history of nicotine dependence
CPT/HCPCS: 96376 ×4; 96361 ×2; 96366 ×2; 96372 ×3; 96375 ×2; 96365; 99285; 36415; 94640 ×5; 80053; 80048 ×2; 80076; 82150; 83690; 85025 ×3; 81001; 87040; 87086; 83036; 74018; 74176; G0378 ×4; J1644 ×3; J0696 ×4; J1885; J1170 ×5

== ENCOUNTER → 2019-08-17 | Outpatient (CLI) | payer BC ==
--- NOTE | 2019-08-17 14:47 | XR ---
EXAMINATION TYPE: XR chest 2V DATE OF EXAM: 08/17/2019 COMPARISON: Prior chest x-ray 03/30/2018 HISTORY: Shortness of breath and cough TECHNIQUE: Frontal and lateral views of the chest are obtained. FINDINGS: There is no focal air space opacity, pleural effusion, or pneumothorax seen. The cardiac silhouette size is within normal limits. The osseous structures are intact.. Postop changes are not ed at the cervicothoracic junction level. Aorta is dense. There is bronchial wall thickening. IMPRESSION: Correlate for bronchitis, reactive airways disease
== END | disposition home or self-care (01) ==
LOC: RADXRYALE 14:08
PROVIDERS: ATTEND Physician Assistant
DX: R05 Cough (principal); R06.02 Shortness of breath
CPT/HCPCS: 71046

== ENCOUNTER → 2019-10-14 | Outpatient (CLI) | payer BC ==
--- NOTE | 2019-10-14 09:43 | CT ---
EXAMINATION TYPE: CT chest wo con DATE OF EXAM: 10/14/2019 COMPARISON: 03/30/2018 HISTORY: Chronic unproductive cough, Low posterior chest pain CT DLP: 539.1 mGycm, Automated exposure control for dose reduction was used. CONTRAST: Performed injected with 0 mL of Isovue 300. TECHNIQUE: Axial images were obtained at 5 mm thick sections. Reconstructed images are reviewed on [email or web address] computer in the coronal plane. FINDINGS: Portion of the thyroid visualized is normal. No suspicious lung nodules or focal infiltrates are present. No enlarged mediastinal or hilar adenopathy is evident. The ascending aorta diameter at the level o f the main pulmonary artery is 3.1 cm. The main pulmonary artery diameter at the bifurcation is 2.2 cm. Moderate Coronary artery calcifications present. Limited CT sections are obtained through the upper abdomen. Abdomen is essentially unremarkable. IMPRESSIONS: 1. No acute pulmonary process.
== END | disposition home or self-care (01) ==
LOC: RADCTMAIN 07:47
PROVIDERS: ATTEND Family Medicine
DX: R05 Cough (principal); Z77.090 Contact with and (suspected) exposure to asbestos
CPT/HCPCS: 71250

== ENCOUNTER 2020-07-16 18:22 | Inpatient (IN) | payer BC ==
[2020-07-16] MEDS ORDERED: ONDANSETRON 4 MG/2 ML VIAL IVP STA (18:50)
[2020-07-16] MEDS ORDERED: HYDROmorphone 1 MG/ML 1 ML SYRINGE IVP STA ×4 (18:50→20:14)
[2020-07-16] MEDS ORDERED: PANTOPRAZOLE 40 MG/10 ML VIAL IVP STA (18:50)
[2020-07-16] MEDS ORDERED: SODIUM CHLORIDE 0.9% 1,000 ML IV STA (18:50)
--- NOTE | 2020-07-16 18:53 | ED ---
General Adult HPI - General Chief complaint: Abdominal Pain Stated complaint: abd pain Time Seen by Provider: 07/16/20 18:38 Source: patient, RN notes reviewed Mode of arrival: ambulatory Limitations: no limitations - History of Present Illness Initial comments: Patient is a pleasant 54-year-old male presenting to the emergency Department with complaints of abdominal discomfort. Onset of symptoms was around 1 PM. Symptoms came on fairly quickly. Discomfort is severe. Patient had one episode of diarrhea earlier today. Otherwise no constipation. Patient is nauseated. No vomiting. No fevers. No history of similar symptoms previously. - Related Data Home Medications Medication Instructions Recorded Confirmed Aspirin 81 mg PO DAILY 03/30/18 12/13/18 Atorvastatin [Lipitor] 80 mg PO DAILY 03/30/18 12/13/18 Clopidogrel [Plavix] 75 mg PO DAILY 03/30/18 12/13/18 Divalproex [Depakote] 1,000 mg PO HS 03/30/18 12/13/18 HYDROcodone/APAP 7.5-325MG [[place] 1 tab PO QID PRN 03/30/18 12/13/18 7.5-325] Mirtazapine [Remeron] 30 mg PO HS 03/30/18 12/13/18 Prazosin [Minipress] 5 mg PO HS 03/30/18 12/13/18 lisinopriL [Zestril] 10 mg PO DAILY 03/30/18 12/13/18 Albuterol Nebulized [Ventolin 2.5 mg INHALATION RT-QID PRN 12/13/18 12/13/18 Nebulized] Fluticasone/Salmeterol [Advair 1 puff INHALATION RT-BID 12/13/18 12/13/18 250-50 Diskus] metFORMIN HCL [Glucophage] 500 mg PO DAILY 12/13/18 12/13/18 Previous Rx's Medication Instructions Recorded Albuterol Inhaler (Mhu) [Ventolin 1 - 2 puff INHALATION RT-Q6H #1 03/30/18 Hfa Inhaler (Mhu)] inhaler Budesonide-Formot 160-4.5 Mcg 2 puff INHALATION RT-BID #1 puff 03/30/18 [Symbicort 160-4.5 Mcg Inhaler] Acetaminophen Tab [Tylenol] 650 mg PO Q6HR PRN #20 tab 12/16/18 Cefuroxime Axetil [Ceftin] 500 mg PO BID #20 tab 12/16/18 Famotidine [Pepcid] 20 mg PO Q12HR #30 tab 12/16/18 Phenazopyridine [Pyridium] 200 mg PO TID PRN 5 Days #15 tab 12/16/18 Tamsulosin [Flomax] 0.4 mg PO PC-BRKFST #30 cap.er.24h 12/16/18 Allergies Allergy/AdvReac Type Severity Reaction Status Date / Time No Known Allergies Allergy Verified 07/16/20 18:35 Review of Systems ROS Statement: Those systems with pertinent positive or pertinent negative responses have been documented in the HPI. ROS Other: All systems not noted in ROS Statement are negative. Constitutional: Denies: fever Eyes: Denies: eye pain ENT: Denies: ear pain Respiratory: Denies: cough Cardiovascular: Denies: chest pain Endocrine: Denies: fatigue Gastrointestinal: Reports: as per HPI, abdominal pain, nausea Genitourinary: Denies: dysuria Skin: Denies: rash Neurological: Denies: weakness Past Medical History Past Medical History: Diabetes Mellitus, Hypertension, Myocardial Infarction ([place]) Additional Past Medical History / Comment(s): unknown lung issues Last Myocardial Infarction Date:: 2004 History of Any Multi-Drug Resistant Organisms: None Reported Past Surgical History: Heart Catheterization, Heart Catheterization With Stent, Orthopedic Surgery Additional Past Surgical History / Comment(s): neck surgery with hardware, rt shoulder surgery, rt wrist surgery Date of Last Stent Placement:: 2006 Past Psychological History: PTSD Smoking Status: Never smoker Past Alcohol Use History: None Reported Past Drug Use History: None Reported General Exam Limitations: no limitations General appearance: alert Head exam: Present: normocephalic Eye exam: Present: normal appearance Neck exam: Present: normal inspection Respiratory exam: Present: normal lung sounds bilaterally Cardiovascular Exam: Present: regular rate, normal rhythm Expanded Peripheral pulses: 2+: Dorsalis Pedis (R), Dorsalis Pedis (L) GI/Abdominal exam: Present: soft, distended, tenderness (Moderate to severe lower abdominal tenderness), normal bowel sounds. Absent: pulsatile mass Extremities exam: Present: normal inspection Neurological exam: Present: alert Psychiatric exam: Present: anxious Skin exam: Present: normal color Course Vital Signs 07/16/20 18:32 Temperature 97.6 F Pulse Rate 98 Respiratory 18 Rate Blood Pressure 152/108 O2 Sat by Pulse 99 Oximetry - Reevaluation(s) Reevaluation #1: 07/16/20 20:42 Patient does meet sepsis criteria diagnosed at 2030. Blood culture and lactic acid ordered. IV antibiotics ordered. Medical Decision Making - Medical Decision Making Patient reevaluated and is somewhat improved. Patient and family updated on results and plan. Case was discussed in detail with Dr. mckeon covering for Dr. Luep Hernandez, who will admit. - Lab Data Result diagrams: 07/16/20 19:09 07/16/20 19:09 Lab Results 07/16/20 07/16/20 07/16/20 Range/Units 19:09 19:09 19:09 WBC 15.4 H (3.8-10.6) k/uL RBC 5.15 (4.30-5.90) m/uL Hgb 15.4 (13.0-17.5) gm/dL Hct 47.6 (39.0-53.0) % MCV 92.4 (80.0-100.0) fL MCH 30.0 (25.0-35.0) pg MCHC 32.5 (31.0-37.0) g/dL RDW 12.9 (11.5-15.5) % Plt Count 267 (150-450) k/uL Neutrophils % 77 % Lymphocytes % 15 % Monocytes % 5 % Eosinophils % 1 % Basophils % 0 % Neutrophils # 11.9 H (1.3-7.7) k/uL Lymphocytes # 2.3 (1.0-4.8) k/uL Monocytes # 0.8 (0-1.0) k/uL Eosinophils # 0.1 (0-0.7) k/uL Basophils # 0.1 (0-0.2) k/uL PT 10.7 (9.0-12.0) sec INR 1.0 (<1.2) APTT 20.6 L (22.0-30.0) sec Sodium 136 L (137-145) mmol/L Potassium 4.0 (3.5-5.1) mmol/L Chloride 102 (98-107) mmol/L Carbon Dioxide 23 (22-30) mmol/L Anion Gap 11 mmol/L BUN 21 H (9-20) mg/dL Creatinine 0.80 (0.66-1.25) mg/dL Est GFR (CKD-EPI)AfAm >90 (>60 ml/min/1.73 sqM) Est GFR (CKD-EPI)NonAf >90 (>60 ml/min/1.73 sqM) Glucose 160 H (74-99) mg/dL Calcium 9.4 (8.4-10.2) mg/dL Total Bilirubin 0.7 (0.2-1.3) mg/dL AST 38 (17-59) U/L ALT 49 (4-49) U/L Alkaline Phosphatase 68 (38-126) U/L Total Protein 7.6 (6.3-8.2) g/dL Albumin 4.8 (3.5-5.0) g/dL Amylase 68 (30-110) U/L Lipase 62 (23-300) U/L - Radiology Data Radiology results: image reviewed (Computed tomography scan of the abdomen pelvis shows a long segment of sigmoid diverticulitis.) Critical Care Time Critical Care Time: Yes Total Critical Care Time: 32 Disposition Clinical Impression: Acute diverticulitis, Sepsis Disposition: ADMITTED IP TO THIS [facility] Condition: Serious Is patient prescribed a controlled substance at d/c from ED?: No Referrals: Raciel Melvin DO [Primary Care Provider] - 1-2 days Decision Time: 20:42
[2020-07-16 19:22] LABS: Basophils # (A) 0.1 k/uL (0-0.2); Basophils % (A) 0 %; Eosinophils # (A) 0.1 k/uL (0-0.7); Eosinophils % (A) 1 %; HCT 47.6 % (39.0-53.0); HGB 15.4 gm/dL (13.0-17.5); Lymphocytes # (A) 2.3 k/uL (1.0-4.8); Lymphocytes % (A) 15 %; MCHC 32.5 g/dL (31.0-37.0); MCV 92.4 fL (80.0-100.0); Mean Platelet Volume 6.6; Monocytes # (A) 0.8 k/uL (0-1.0); Monocytes % (A) 5 %; Neutrophils # (A) 11.9 k/uL (1.3-7.7); Neutrophils % (A) 77 %; Platelet Count 267 k/uL (150-450); RBC 5.15 m/uL (4.30-5.90); RDW 12.9 % (11.5-15.5); WBC 15.4 k/uL (3.8-10.6)
[2020-07-16 19:32] LABS: ALT 49 U/L (4-49); AST 38 U/L (17-59); African American GFR (CKD) >90 (>60 ml/min/1.73 sqM); Albumin 4.8 g/dL (3.5-5.0); Alkaline Phosphatase 68 U/L (38-126); Amylase 68 U/L (30-110); Anion Gap 11 mmol/L; Blood Urea Nitrogen 21 mg/dL (9-20); Calcium 9.4 mg/dL (8.4-10.2); Carbon Dioxide 23 mmol/L (22-30); Chloride 102 mmol/L (98-107); Glucose 160 mg/dL (74-99); Lipase 62 U/L (23-300); Non-African American GFR(CKD) >90 (>60 ml/min/1.73 sqM); Sodium 136 mmol/L (137-145); Total Bilirubin 0.7 mg/dL (0.2-1.3); Total Protein 7.6 g/dL (6.3-8.2)
[2020-07-16 19:42] LABS: Prothrombin Time 10.7 sec (9.0-12.0)
[2020-07-16 19:46] LABS: Partial Thromboplastin Time 20.6 sec (22.0-30.0)
--- NOTE | 2020-07-16 19:53 | XR ---
EXAMINATION TYPE: XR KUB DATE OF EXAM: 07/16/2020 COMPARISON: NONE HISTORY: Abdominal pain TECHNIQUE: 3 views supine FINDINGS: There is no sign of intestinal obstruction or pneumoperitoneum. Fecal pattern is normal. Th ere is no sign of a mass. There are some gas-filled small bowel loops in the mid abdomen without dila tion. This could relate to some mild ileus. IMPRESSION: Possible mild small bowel ileus. No free air.
--- NOTE | 2020-07-16 20:18 | CT ---
EXAMINATION TYPE: CT abdomen pelvis w con DATE OF EXAM: 07/16/2020 COMPARISON: 12/13/2018 HISTORY: Abdominal pain CT DLP: 1606.7 mGycm Automated exposure control for dose reduction was used. CONTRAST: Performed with IV Contrast, patient injected with 100 mL of Isovue 300. There is subsegmental atelectasis in the posterior lung wick. There is small hiatal hernia. There i s fatty infiltration of the liver. Gallbladder appears normal. Bile ducts are not dilated. Spleen is intact. There is no pancreatic mass. Stomach is intact. There is no adrenal mass. Kidneys show satisfactory contrast opacification. There is no hydronephrosi s. Ureters are not dilated. Delayed images show normal renal excretion. There is no retroperitoneal a denopathy. Bladder distends smoothly. There is no inguinal hernia. Appendix is posterior and appears within normal limits. There is some fat stranding around the mid sigmoid colon. There is wall thickening and multiple sigmo id diverticula. Segment of involvement is 7 cm. There is no ascites. There is no free air. There is no evidence of bowel obstruction. Lumbar vertebra have normal spacing and alignment. Posterior elements are intact. Bony pelvis is inta ct. IMPRESSION: There is long segment of sigmoid diverticulitis. No drainable fluid collection. Normal appendix. Hiatal hernia.
[2020-07-16] MEDS ORDERED: PIPERACILLIN-TAZOBACTAM 3.375 GM in SODIUM CHLORIDE 0.9% 100 ML IVPB STA (20:23)
[2020-07-16 20:46] LABS: Appearance,Urine Clear (Clear); Bilirubin,Urine Negative (Negative); Blood,Urine Negative (Negative); Color,Urine Yellow; Glucose,Urine (UA) Negative (Negative); Ketones,Urine Trace (Negative); Leukocyte Esterase,Urine Negative (Negative); Nitrite,Urine Negative (Negative); Protein,Urine Trace (Negative); Urobilinogen,Urine <2.0 mg/dL (<2.0)
[2020-07-16] MEDS ORDERED: NALOXONE 0.4 MG/ML 1 ML VIAL IV PRN (20:49)
[2020-07-16] MEDS: SODIUM CHLORIDE 0.9% 1,000 ML IV SCH (21:00)
[2020-07-16 21:18] LABS: Specific Gravity,Urine >1.050 (1.001-1.035)
[2020-07-16] MEDS: HYDROmorphone 0.5 MG/0.5 ML SYRINGE IVP PRN (22:26)
[2020-07-17] MEDS: HYDROmorphone 1 MG/ML 1 ML SYRINGE IVP PRN ×8 (00:38→23:24)
[2020-07-17] MEDS: HYDROmorphone 0.5 MG/0.5 ML SYRINGE IVP PRN ×2 (01:53→06:02)
[2020-07-17] MEDS: SODIUM CHLORIDE 0.9% 1,000 ML IV SCH ×3 (04:54→23:25)
[2020-07-17] MEDS: PIPERACILLIN-TAZOBACTAM 3.375 GM in SODIUM CHLORIDE 0.9% 100 ML IVPB SCH ×3 (04:55→20:24)
[2020-07-17] MEDS: PANTOPRAZOLE 40 MG/10 ML VIAL IV SCH (08:07)
[2020-07-17] MEDS ORDERED: HYDROmorphone 1 MG/ML 1 ML SYRINGE IVP STA (09:12)
[2020-07-17] MEDS ORDERED: LACTATED RINGERS 1,000 ML IV ONE (09:15)
[2020-07-17] MEDS: ONDANSETRON 4 MG/2 ML VIAL IVP PRN (09:17)
--- NOTE | 2020-07-17 10:04 | P.GSCN ---
History of Present Illness Consult date: 07/17/20 History of present illness: CHIEF COMPLAINT: Abdominal pain HISTORY OF PRESENT ILLNESS: This is a 54-year-old male with a known past medical history of diabetes mellitus, hypertension, myocardial infarction, coronary artery disease with cardiac stent. Patient also reports possible history of mild diverticulitis flareup in the past. Patient presents to the emergency room with complaints of abdominal pain. This started early this morning. He reports diffuse abdominal pain. Also, having some diarrhea. Patient reporting that his pain is not controlled. Pain medication is not lasting long enough. Denies any nausea or vomiting. Denies any fever. Surgical consult was placed for diverticulitis. PAST MEDICAL HISTORY: See list. PAST SURGICAL HISTORY: See list. MEDICATIONS: See list. ALLERGIES: See list. SOCIAL HISTORY: No illicit drug use. REVIEW OF SYSTEMS: CONSTITUTIONAL: Denies fever or chills. HEENT: Denies blurred vision, vision changes, or eye pain. Denies hemoptysis CARDIOVASCULAR: Denies chest pain or pressure. RESPIRATORY: No shortness of breath. GASTROINTESTINAL: See HPI for pertinent findings HEMATOLOGIC: Denies bleeding disorders. GENITOURINARY: Denies any blood in urine or increased urinary frequency. SKIN: Denies pruitis. Denies rash. PHYSICAL EXAM: VITAL SIGNS: Reviewed GENERAL: Well-developed in no acute distress. Patient does not appear comfortable in bed due to pain HEENT: No sclera icterus. Extraocular movements grossly intact. Moist buccal mucosa. Head is atraumatic, normocephalic. No nasal drainage. ABDOMEN: Soft. Distended. Diffuse abdominal tenderness with exercise activity noted in the Left lower quadrant with light palpation NEUROLOGIC: Alert and oriented. Cranial nerves II through XII grossly intact. LABORATORY DATA: WBC 15.4 hemoglobin 15.4 BUN 21 creatinine 0.80 lactic 1.7 LFTs normal lipase 62 IMAGING: Computed tomography scan abdomen and pelvis report shows long segment of sigmoid diverticulitis. No drainable fluid collection. Normal appendix. Hiatal hernia. ASSESSMENT: 1. Acute sigmoid diverticulitis 2. History of diabetes mellitus type 2 3. History of coronary artery disease with cardiac stent on Plavix PLAN: -We'll give 1 extra dose of IV Dilaudid 1 mg 1 -Continue with the IV Dilaudid as needed for pain -Give 1 liter fluid bolus of LR -Continue IV Zosyn -We'll continue to monitor patient closely Thank you for this consultation. Physician Printing Estimator note has been reviewed by physician. Signing provider agrees with the documented findings, assessment, and plan of care. Past Medical History Past Medical History: Diabetes Mellitus, Hypertension, Myocardial Infarction ([place]) Additional Past Medical History / Comment(s): unknown lung issues Last Myocardial Infarction Date:: 2004 History of Any Multi-Drug Resistant Organisms: None Reported Past Surgical History: Heart Catheterization, Heart Catheterization With Stent, Orthopedic Surgery Additional Past Surgical History / Comment(s): neck surgery with hardware, rt shoulder surgery, rt wrist surgery Date of Last Stent Placement:: 2006 Past Psychological History: PTSD Smoking Status: Never smoker Past Alcohol Use History: None Reported Past Drug Use History: None Reported Medications and Allergies Home Medications Medication Instructions Recorded Confirmed Type Aspirin 81 mg PO DAILY 03/30/18 07/16/20 History Atorvastatin [Lipitor] 80 mg PO HS 03/30/18 07/16/20 History Clopidogrel [Plavix] 75 mg PO DAILY 03/30/18 07/16/20 History Divalproex [Depakote] 500 mg PO BID 03/30/18 07/16/20 History HYDROcodone/APAP 7.5-325MG [[place] 1 tab PO QID PRN 03/30/18 07/16/20 History 7.5-325] Prazosin [Minipress] 5 mg PO HS 03/30/18 07/16/20 History metFORMIN HCL [Glucophage] 500 mg PO DAILY 12/13/18 07/16/20 History Cholecalciferol [Vitamin D3 (25 2,000 unit PO DAILY 07/16/20 07/16/20 History Mcg = 1000 Iu)] Losartan Potassium [Cozaar] 25 mg PO DAILY 07/16/20 07/16/20 History Multivitamins, Thera [Multivitamin 1 tab PO DAILY 07/16/20 07/16/20 History (formulary)] Nitroglycerin Sl Tabs [Nitrostat] 0.4 mg SUBLINGUAL Q5M PRN 07/16/20 07/16/20 History Jackson-3 Fatty Acids/Fish Oil [Fish 1 cap PO DAILY 07/16/20 07/16/20 History Oil 1,000 mg Softgel] Omeprazole 40 mg PO DAILY 07/16/20 07/16/20 History Polyvinyl Alcohol/Povidone 1 drop BOTH EYES QID 07/16/20 07/16/20 History [[place]] Ubidecarenone [Co Q-10] 100 mg PO DAILY 07/16/20 07/16/20 History cloNIDine HCL [Catapres] 0.1 mg PO Q12H 07/16/20 07/16/20 History traZODone HCL 100 mg PO HS 07/16/20 07/16/20 History Allergies Allergy/AdvReac Type Severity Reaction Status Date / Time No Known Allergies Allergy Verified 07/16/20 21:19 Surgical - Exam Vital Signs Temp Pulse Resp BP Pulse Ox 97.6 F 98 18 152/108 99 07/16/20 18:32 07/16/20 18:32 07/16/20 18:32 07/16/20 18:32 07/16/20 18:32 Results - Labs 07/16/20 19:09 07/16/20 19:09 Abnormal Lab Results - Last 24 Hours (Table) 07/16/20 07/16/20 07/16/20 Range/Units 19:09 19:09 19:09 WBC 15.4 H (3.8-10.6) k/uL Neutrophils # 11.9 H (1.3-7.7) k/uL APTT 20.6 L (22.0-30.0) sec Sodium 136 L (137-145) mmol/L BUN 21 H (9-20) mg/dL Glucose 160 H (74-99) mg/dL Ur Specific [place] (1.001-1.035) Urine Protein (Negative) Urine Ketones (Negative) 07/16/20 Range/Units 20:22 WBC (3.8-10.6) k/uL Neutrophils # (1.3-7.7) k/uL APTT (22.0-30.0) sec Sodium (137-145) mmol/L BUN (9-20) mg/dL Glucose (74-99) mg/dL Ur Specific [place] >1.050 H (1.001-1.035) Urine Protein Trace H (Negative) Urine Ketones Trace H (Negative) Diabetes panel 07/16/20 Range/Units 19:09 Sodium 136 L (137-145) mmol/L Potassium 4.0 (3.5-5.1) mmol/L Chloride 102 (98-107) mmol/L Carbon Dioxide 23 (22-30) mmol/L BUN 21 H (9-20) mg/dL Creatinine 0.80 (0.66-1.25) mg/dL Glucose 160 H (74-99) mg/dL Calcium 9.4 (8.4-10.2) mg/dL AST 38 (17-59) U/L ALT 49 (4-49) U/L Alkaline Phosphatase 68 (38-126) U/L Total Protein 7.6 (6.3-8.2) g/dL Albumin 4.8 (3.5-5.0) g/dL Calcium panel 07/16/20 Range/Units 19:09 Calcium 9.4 (8.4-10.2) mg/dL Albumin 4.8 (3.5-5.0) g/dL Pituitary panel 07/16/20 Range/Units 19:09 Sodium 136 L (137-145) mmol/L Potassium 4.0 (3.5-5.1) mmol/L Chloride 102 (98-107) mmol/L Carbon Dioxide 23 (22-30) mmol/L BUN 21 H (9-20) mg/dL Creatinine 0.80 (0.66-1.25) mg/dL Glucose 160 H (74-99) mg/dL Calcium 9.4 (8.4-10.2) mg/dL Adrenal panel 07/16/20 Range/Units 19:09 Sodium 136 L (137-145) mmol/L Potassium 4.0 (3.5-5.1) mmol/L Chloride 102 (98-107) mmol/L Carbon Dioxide 23 (22-30) mmol/L BUN 21 H (9-20) mg/dL Creatinine 0.80 (0.66-1.25) mg/dL Glucose 160 H (74-99) mg/dL Calcium 9.4 (8.4-10.2) mg/dL Total Bilirubin 0.7 (0.2-1.3) mg/dL AST 38 (17-59) U/L ALT 49 (4-49) U/L Alkaline Phosphatase 68 (38-126) U/L Total Protein 7.6 (6.3-8.2) g/dL Albumin 4.8 (3.5-5.0) g/dL
[2020-07-17] MEDS ORDERED: bisacodyL 10 MG SUPP RECTAL STA (11:38)
[2020-07-17 11:57] LABS: HCT 40.3 % (39.0-53.0); HGB 12.9 gm/dL (13.0-17.5); MCV 93.8 fL (80.0-100.0); Mean Platelet Volume 6.5; Platelet Count 224 k/uL (150-450); RDW 13.1 % (11.5-15.5); WBC 14.4 k/uL (3.8-10.6)
--- NOTE | 2020-07-17 13:38 | P.HPIM ---
History of Present Illness 50-year-old male came in with complaints of severe abdominal pain mostly in the right side patient had a CAT scan of the abdomen showed sigmoid colitis patient any sharp in nature severe. It is associated nausea denied any vomiting. Patient denied any diarrhea patient in fact constipated. Patient did have a bowel movement yesterday. Patient is asking something for constipation. Patient was started on Zosyn. There is no evidence of abscess. Patient denied any fever chills. Review of Systems REVIEW OF SYSTEMS: CONSTITUTIONAL: No fever, no malaise, no fatigue. HEENT: No recent visual problems or hearing problems. Denied any sore throat. CARDIOVASCULAR: No chest pain, orthopnea, PND, no palpitations, no syncope. PULMONARY: No shortness of breath, no cough, no hemoptysis. GASTROINTESTINAL: No diarrhea. NEUROLOGICAL: No headaches, no weakness, no numbness. HEMATOLOGICAL: Denies any bleeding or petechiae. GENITOURINARY: Denies any burning micturition, frequency, or urgency. MUSCULOSKELETAL/RHEUMATOLOGICAL: Denies any joint pain, swelling, or any muscle pain. ENDOCRINE: Denies any polyuria or polydipsia. The rest of the 14-point review of systems is negative. Past Medical History Past Medical History: Diabetes Mellitus, Hypertension, Myocardial Infarction ([place]) Additional Past Medical History / Comment(s): unknown lung issues Last Myocardial Infarction Date:: 2004 History of Any Multi-Drug Resistant Organisms: None Reported Past Surgical History: Heart Catheterization, Heart Catheterization With Stent, Orthopedic Surgery Additional Past Surgical History / Comment(s): neck surgery with hardware, rt shoulder surgery, rt wrist surgery Date of Last Stent Placement:: 2006 Past Psychological History: PTSD Smoking Status: Never smoker Past Alcohol Use History: None Reported Past Drug Use History: None Reported - Past Family History Mother History Unknown: Yes Medications and Allergies Home Medications Medication Instructions Recorded Confirmed Type Aspirin 81 mg PO DAILY 03/30/18 07/16/20 History Atorvastatin [Lipitor] 80 mg PO HS 03/30/18 07/16/20 History Clopidogrel [Plavix] 75 mg PO DAILY 03/30/18 07/16/20 History Divalproex [Depakote] 500 mg PO BID 03/30/18 07/16/20 History HYDROcodone/APAP 7.5-325MG [Ringle 1 tab PO QID PRN 03/30/18 07/16/20 History 7.5-325] Prazosin [Minipress] 5 mg PO HS 03/30/18 07/16/20 History metFORMIN HCL [Glucophage] 500 mg PO DAILY 12/13/18 07/16/20 History Cholecalciferol [Vitamin D3 (25 2,000 unit PO DAILY 07/16/20 07/16/20 History Mcg = 1000 Iu)] Losartan Potassium [Cozaar] 25 mg PO DAILY 07/16/20 07/16/20 History Multivitamins, Thera [Multivitamin 1 tab PO DAILY 07/16/20 07/16/20 History (formulary)] Nitroglycerin Sl Tabs [Nitrostat] 0.4 mg SUBLINGUAL Q5M PRN 07/16/20 07/16/20 History [place]-3 Fatty Acids/Fish Oil [Fish 1 cap PO DAILY 07/16/20 07/16/20 History Oil 1,000 mg Softgel] Omeprazole 40 mg PO DAILY 07/16/20 07/16/20 History Polyvinyl Alcohol/Povidone 1 drop BOTH EYES QID 07/16/20 07/16/20 History [[place]] Ubidecarenone [Co Q-10] 100 mg PO DAILY 07/16/20 07/16/20 History cloNIDine HCL [Catapres] 0.1 mg PO Q12H 07/16/20 07/16/20 History traZODone HCL 100 mg PO HS 07/16/20 07/16/20 History Allergies Allergy/AdvReac Type Severity Reaction Status Date / Time No Known Allergies Allergy Verified 07/16/20 21:19 Physical Exam Vitals: Vital Signs Temp Pulse Pulse Resp BP BP Pulse Ox 07/17/20 07:00 98.6 F 76 18 126/80 98 07/17/20 01:00 98.9 F 109 H 20 130/80 94 L 07/17/20 00:00 22 07/16/20 23:00 99.5 F 115 H 135/82 95 07/16/20 21:03 99.4 F 115 H 22 142/87 95 07/16/20 20:30 112 H 22 140/89 95 07/16/20 18:32 97.6 F 98 18 152/108 99 Intake and Output 07/16/20 07/17/20 07/17/20 22:59 06:59 14:59 Intake Total 100 Balance 100 Intake: Oral 100 Other: Voiding Method Urinal # Voids 2 Weight 97.522 kg PHYSICAL EXAMINATION: GENERAL: The patient is alert and oriented x3, not in any acute distress. Obese HEENT: Pupils are round and equally reacting to light. EOMI. No scleral icterus. No conjunctival pallor. Normocephalic, atraumatic. No pharyngeal erythema. No thyromegaly. CARDIOVASCULAR: S1 and S2 present. No murmurs, rubs, or gallops. PULMONARY: Chest is clear to auscultation, no wheezing or crackles. ABDOMEN: Firm distended mild tenderness in the right as well as left lower quadrants. Patient's the abdomen is tympanic MUSCULOSKELETAL: No joint swelling or deformity. EXTREMITIES: No cyanosis, clubbing, or pedal edema. NEUROLOGICAL: Gross neurological examination did not reveal any focal deficits. SKIN: No rashes. Results CBC & Chem 7: 07/17/20 11:40 07/16/20 19:09 Labs: Abnormal Lab Results - Last 24 Hours (Table) 07/16/20 07/16/20 07/16/20 Range/Units 19:09 19:09 19:09 WBC 15.4 H (3.8-10.6) k/uL Hgb (13.0-17.5) gm/dL Neutrophils # 11.9 H (1.3-7.7) k/uL APTT 20.6 L (22.0-30.0) sec Sodium 136 L (137-145) mmol/L BUN 21 H (9-20) mg/dL Glucose 160 H (74-99) mg/dL Ur Specific [place] (1.001-1.035) Urine Protein (Negative) Urine Ketones (Negative) 07/16/20 07/17/20 Range/Units 20:22 11:40 WBC 14.4 H (3.8-10.6) k/uL Hgb 12.9 L (13.0-17.5) gm/dL Neutrophils # (1.3-7.7) k/uL APTT (22.0-30.0) sec Sodium (137-145) mmol/L BUN (9-20) mg/dL Glucose (74-99) mg/dL Ur Specific [place] >1.050 H (1.001-1.035) Urine Protein Trace H (Negative) Urine Ketones Trace H (Negative) Thrombosis Risk Factor Assmnt - Choose All That Apply Each Factor Represents 1 point: Age 41-60 years Thrombosis Risk Factor Assessment Total Risk Factor Score: 1 Thrombosis Risk Factor Assessment Level: Low Risk Assessment and Plan Plan: -Sigmoid diverticulitis: Continue his Zosyn patient is already on Dilaudid will add Toradol to avoid too much of opiates. Patient is already constipated. -Constipation: We'll use Dulcolax suppository -Leukocytosis due to assessment #1 -Tachycardia due to pain which improved now -Type 2 diabetes mellitus -Hypertension DVT prophylaxis with Lovenox, GI prophylaxis Protonix For above-mentioned chronic medical problems patient will be resumed on appropriate home medications
[2020-07-17] MEDS ORDERED: IOPAMIDOL CONTRAST (ORAL USE) VIAL PO PRN (14:36)
[2020-07-17] MEDS: IOPAMIDOL CONTRAST (ORAL USE) VIAL PO PRN ×2 (15:02→16:08)
--- NOTE | 2020-07-17 17:50 | CT ---
EXAMINATION TYPE: CT abdomen pelvis wo con DATE OF EXAM: 07/17/2020 COMPARISON: 07/16/2020 HISTORY: Abdominal pain CT DLP: 1059.4 mGycm Automated exposure control for dose reduction was used. Images were obtained from the diaphragm to the floor the pelvis with oral contrast only. There is some infiltrate and atelectasis at the lung bases increased compared to yesterday. Liver randi ws no focal defect. Spleen is intact. There is no pancreatic mass. Stomach is intact. There is no adrenal mass. Kidneys have normal size. There is no hydronephrosis. Ureters are not dilat ed. There is no retroperitoneal adenopathy. Bladder distends smoothly. There is no inguinal hernia. T here is no free fluid in the pelvis. There is wall thickening and fat stranding around the mid sigmoid colon. This appears slightly worse than yesterday. There are numerous sigmoid diverticula. Appendix is posterior and lateral and appears normal. There is no evidence of a bowel obstruction. Small bowel pattern is normal. There is no oral contrast extravasation. There is no sign of free air. There is no ascites. Lumbar vertebra have normal spacing and alignment. Posterior elements are intact. Bony pelvis is inta ct. IMPRESSION: Sigmoid diverticulitis with fat stranding and phlegmon around the mid sigmoid colon. There is increas ed fluid in the pericolic fat compared to yesterday. No drainable fluid collection. Small areas of ai r bubbles in the pericolic mesentery consistent with localized perforation. This appears unchanged. There is increased infiltrate and atelectasis at the lung bases compared to yesterday.
[2020-07-17] MEDS: KETOROLAC 15 MG/ML 1 ML VIAL IVP PRN (21:25)
[2020-07-18] MEDS: ONDANSETRON 4 MG/2 ML VIAL IVP PRN (01:55)
[2020-07-18] MEDS: HYDROmorphone 1 MG/ML 1 ML SYRINGE IVP PRN ×5 (01:57→20:12)
[2020-07-18] MEDS: PIPERACILLIN-TAZOBACTAM 3.375 GM in SODIUM CHLORIDE 0.9% 100 ML IVPB SCH ×3 (05:42→21:37)
[2020-07-18] MEDS: KETOROLAC 15 MG/ML 1 ML VIAL IVP PRN ×3 (05:42→23:43)
[2020-07-18 05:56] LABS: Basophils % (A) 0 %; Eosinophils % (A) 0 %; HGB 12.4 gm/dL (13.0-17.5); Lymphocytes # (A) 0.8 k/uL (1.0-4.8); Lymphocytes % (A) 8 %; MCH 30.2 pg (25.0-35.0); MCHC 32.6 g/dL (31.0-37.0); MCV 92.7 fL (80.0-100.0); Mean Platelet Volume 6.3; Monocytes # (A) 0.4 k/uL (0-1.0); Monocytes % (A) 4 %; Neutrophils # (A) 9.7 k/uL (1.3-7.7); Neutrophils % (A) 87 %; Platelet Count 180 k/uL (150-450); RDW 12.9 % (11.5-15.5); WBC 11.2 k/uL (3.8-10.6)
[2020-07-18] MEDS: ENOXAPARIN 40 MG/0.4 ML SYRINGE SQ SCH (08:07)
[2020-07-18] MEDS: PANTOPRAZOLE 40 MG/10 ML VIAL IV SCH (08:07)
[2020-07-18] MEDS: SODIUM CHLORIDE 0.9% 1,000 ML IV SCH ×2 (08:07→12:49)
[2020-07-18 09:55] LABS: African American GFR (CKD) 116.6 (60.0-200.0); Albumin 3.8 g/dL (3.80-4.90); Albumin/Globulin Ratio 2.53 (1.60-3.17); Anion Gap 6.3 mmol/L (4.00-12.00); Calcium 8.2 mg/dL (8.7-10.3); Carbon Dioxide 27.7 mmol/L (21.6-31.8); Globulin 1.5 g/dL (1.6-3.3); Non-African American GFR(CKD) 100.6 (60.0-200.0); Potassium 3.6 mmol/L (3.5-5.5); Total Protein 5.3 g/dL (6.2-8.2)
--- NOTE | 2020-07-18 09:58 | P.PN ---
Subjective Progress Note Date: 07/18/20 CHIEF COMPLAINT: Abdominal pain HISTORY OF PRESENT ILLNESS: Patient is being followed for acute diverticulitis. Patient had increased abdominal pain and distention yesterday. A repeat computed tomography scan of the abdomen ordered showing sigmoid diverticulitis with fat stranding and phlegmon around the mid sigmoid colon. There is increased fluid in the pericolic fat compared to yesterday. No drainable fluid collection. Small areas of air bubbles in the pericolic mesentery consistent with localized perforation. Today patient reports slight improvement in his abdominal pain from yesterday. Denies any bowel movement yet. Denies any nausea or vomiting. He is afebrile. White count 11.2 PHYSICAL EXAM: VITAL SIGNS: Reviewed. GENERAL: Well-developed in no acute distress. HEENT: No sclera icterus. Extraocular movements grossly intact. Moist buccal mucosa. Head is atraumatic, normocephalic. ABDOMEN: Distended. Tenderness in the right upper abdomen left lower quadrant with palpation. Guarding present. Stomach is softer than yesterday. NEUROLOGIC: Alert and oriented. Cranial nerves II through XII grossly intact. ASSESSMENT: 1. Acute sigmoid diverticulitis with localized perforation 2. History of diabetes mellitus type 2 3. History of coronary artery disease with cardiac stent on Plavix. Plavix currently on hold PLAN: -Keep patient nothing by mouth -Continue IV fluids and IV antibiotics -Monitor patient closely -DVT prophylaxis Lovenox and GI prophylaxis Protonix -Add incentive spirometer Physician Satellite Communications Engineer note has been reviewed by physician. Signing provider agrees with the documented findings, assessment, and plan of care. Objective - Vital Signs Vital signs: Vital Signs Temp 98.5 F 07/18/20 07:00 Pulse 95 07/18/20 07:00 Resp 16 07/18/20 07:00 BP 122/77 07/18/20 07:00 Pulse Ox 90 L 07/18/20 07:00 Intake & Output 07/17/20 07/18/20 07/18/20 18:59 06:59 18:59 Intake Total 2079 Output Total 1400 Balance -1400 2079 Intake: Intake, IV Titration 2079 Amount Sodium Chloride 0.9% 2079 000 ml @ 130 mls/hr IV . Q7H42M REPLACED BY [facility] Rx#:[id number] Output: Urine 1400 Other: Voiding Method Urinal - Labs CBC & Chem 7: 07/18/20 05:38 07/16/20 19:09 Labs: Abnormal Lab Results - Last 24 Hours (Table) 07/17/20 07/18/20 Range/Units 11:40 05:38 WBC 14.4 H 11.2 H (3.8-10.6) k/uL RBC 4.10 L (4.30-5.90) m/uL Hgb 12.9 L 12.4 L (13.0-17.5) gm/dL Hct 38.0 L (39.0-53.0) % Neutrophils # 9.7 H (1.3-7.7) k/uL Lymphocytes # 0.8 L (1.0-4.8) k/uL Microbiology - Last 24 Hours (Table) 07/16/20 20:49 Blood Culture - Preliminary Blood No Growth after 24 hours
--- NOTE | 2020-07-18 11:47 | P.PN ---
Subjective Patient is admitted for acute sigmoid diverticulitis with small localized perforation. Patient is on IV antibiotics. Patient pain did improve signi ficantly. Patient still did not have any bowel movement. Patient remains nothing by mouth at this time. Constitutional: Denied any fatigue denied any fever. Cardio vascular: denied any chest pain, palpitations Gastrointestinal still has some nausea and abdominal pain Pulmonary: Denied any shortness of breath cough Neurologic denied any new focal deficits All inpatient medications were reviewed and appropriate changes in these medications as dictated in the interval history and assessment and plan. Objective - Vital Signs Vital signs: Vital Signs Temp 98.5 F 07/18/20 07:00 Pulse 95 07/18/20 07:00 Resp 16 07/18/20 07:00 BP 122/77 07/18/20 07:00 Pulse Ox 90 L 07/18/20 07:00 Intake & Output 07/17/20 07/18/20 07/18/20 18:59 06:59 18:59 Intake Total 2080 Output Total 1400 Balance -1400 2079 Intake: Intake, IV Titration 0 Amount Sodium Chloride 0.9% 2079 000 ml @ 130 mls/hr IV . Q7H42M [facility] Rx#:[id number] Output: Urine 1400 Other: Voiding Method Urinal - Exam PHYSICAL EXAMINATION: GENERAL: The patient is alert and oriented x3, not in any acute distress. Obese HEENT: Pupils are round and equally reacting to light. EOMI. No scleral icterus. No conjunctival pallor. Normocephalic, atraumatic. No pharyngeal erythema. No thyromegaly. CARDIOVASCULAR: S1 and S2 present. No murmurs, rubs, or gallops. PULMONARY: Chest is clear to auscultation, no wheezing or crackles. ABDOMEN: Firm distended mild tenderness in the right as well as left lower quadrants. Patient's the abdomen is tympanic MUSCULOSKELETAL: No joint swelling or deformity. EXTREMITIES: No cyanosis, clubbing, or pedal edema. NEUROLOGICAL: Gross neurological examination did not reveal any focal deficits. SKIN: No rashes. - Labs CBC & Chem 7: 07/18/20 05:38 07/18/20 05:38 Labs: Abnormal Lab Results - Last 24 Hours (Table) 07/17/20 07/18/20 07/18/20 Range/Units 11:40 05:38 05:38 WBC 14.4 H 11.2 H (3.8-10.6) k/uL RBC 4.10 L (4.30-5.90) m/uL Hgb 12.9 L 12.4 L (13.0-17.5) gm/dL Hct 38.0 L (39.0-53.0) % Neutrophils # 9.7 H (1.3-7.7) k/uL Lymphocytes # 0.8 L (1.0-4.8) k/uL Glucose 141 H (70-110) mg/dL Calcium 8.2 L (8.7-10.3) mg/dL Total Protein 5.3 L (6.2-8.2) g/dL Globulin 1.5 L (1.6-3.3) g/dL Microbiology - Last 24 Hours (Table) 07/16/20 20:49 Blood Culture - Preliminary Blood No Growth after 24 hours Assessment and Plan Plan: -Sigmoid diverticulitis: Continue his Zosyn patient is already on Dilaudid will add Toradol to avoid too much of opiates. Patient did not have any bowel movement yet although abdominal pain improved -Constipation -Leukocytosis due to assessment #1 improving -Tachycardia due to pain which improved now -Type 2 diabetes mellitus -Hypertension DVT prophylaxis with Lovenox, GI prophylaxis Protonix For above-mentioned chronic medical problems patient will be resumed on appropriate home medications
[2020-07-18 19:01] LABS: Hemoglobin A1C 7.1 % (4.0-6.0)
[2020-07-19] MEDS: HYDROmorphone 1 MG/ML 1 ML SYRINGE IVP PRN ×3 (02:29→21:04)
[2020-07-19] MEDS: SODIUM CHLORIDE 0.9% 1,000 ML IV SCH ×2 (02:30→16:39)
[2020-07-19] MEDS: KETOROLAC 15 MG/ML 1 ML VIAL IVP PRN ×3 (05:39→16:35)
[2020-07-19] MEDS: PIPERACILLIN-TAZOBACTAM 3.375 GM in SODIUM CHLORIDE 0.9% 100 ML IVPB SCH ×3 (05:40→22:29)
[2020-07-19 06:50] LABS: Basophils % (A) 0 %; Eosinophils # (A) 0.1 k/uL (0-0.7); Eosinophils % (A) 1 %; HCT 36.4 % (39.0-53.0); HGB 11.7 gm/dL (13.0-17.5); Lymphocytes # (A) 1.4 k/uL (1.0-4.8); Lymphocytes % (A) 14 %; MCH 29.7 pg (25.0-35.0); MCV 92.7 fL (80.0-100.0); Mean Platelet Volume 6.6; Monocytes # (A) 0.6 k/uL (0-1.0); Monocytes % (A) 6 %; Neutrophils # (A) 7.7 k/uL (1.3-7.7); Neutrophils % (A) 78 %; Platelet Count 192 k/uL (150-450); RBC 3.93 m/uL (4.30-5.90); RDW 12.6 % (11.5-15.5); WBC 9.9 k/uL (3.8-10.6)
[2020-07-19] MEDS: ENOXAPARIN 40 MG/0.4 ML SYRINGE SQ SCH (08:56)
[2020-07-19] MEDS: PANTOPRAZOLE 40 MG/10 ML VIAL IV SCH (09:16)
[2020-07-19 09:23] LABS: African American GFR (CKD) 116.6 (60.0-200.0); Albumin 3.5 g/dL (3.80-4.90); Albumin/Globulin Ratio 2.19 (1.60-3.17); Anion Gap 8.9 mmol/L (4.00-12.00); BUN/Creat Ratio 21.25 Ratio (12.00-20.00); Carbon Dioxide 28.1 mmol/L (21.6-31.8); Globulin 1.6 g/dL (1.6-3.3); Non-African American GFR(CKD) 100.6 (60.0-200.0); Potassium 3.5 mmol/L (3.5-5.5); Total Bilirubin 0.9 mg/dL (0.3-1.2); Total Protein 5.1 g/dL (6.2-8.2)
--- NOTE | 2020-07-19 11:10 | P.PN ---
Subjective Progress Note Date: 07/19/20 CHIEF COMPLAINT: Abdominal pain HISTORY OF PRESENT ILLNESS: Patient is being followed for acute diverticulitis. History reporting that his stomach is feeling harder today. He rates his pain 7 out of 10. He reports that pain is worse than yesterday but not as bad as when he came in. White count 9.9. He is afebrile. No bowel movement for 4 days. He is passing gas. Denies any nausea or vomiting PHYSICAL EXAM: VITAL SIGNS: Reviewed. GENERAL: Well-developed in no acute distress. HEENT: No sclera icterus. Extraocular movements grossly intact. Moist buccal mucosa. Head is atraumatic, normocephalic. ABDOMEN: Distended. Tenderness in the right upper abdomen left lower quadrant with palpation. NEUROLOGIC: Alert and oriented. Cranial nerves II through XII grossly intact. ASSESSMENT: 1. Acute sigmoid diverticulitis with localized perforation 2. History of diabetes mellitus type 2 3. History of coronary artery disease with cardiac stent on Plavix. Plavix currently on hold PLAN: -Keep patient nothing by mouth -Continue IV fluids and IV antibiotics -Monitor patient closely -DVT prophylaxis Lovenox and GI prophylaxis Protonix Physician Chief Security Officer note has been reviewed by physician. Signing provider agrees with the documented findings, assessment, and plan of care. Objective - Vital Signs Vital signs: Vital Signs Temp 98.0 F 07/19/20 07:30 Pulse 99 07/19/20 08:00 Resp 16 07/19/20 08:00 BP 117/82 07/19/20 07:30 Pulse Ox 99 07/19/20 07:30 Intake & Output 07/18/20 07/19/20 07/19/20 18:59 06:59 18:59 Intake Total 700 Output Total 800 Balance 700 -800 Intake: Intake, IV Titration 700 Amount Piperacillin-Tazobactam 3 100 .375 gm In Sodium Chloride 0.9% 100 ml @ 25 mls/hr IVPB Q8H [facility] Rx#: [id number] Sodium Chloride 0.9% 1, 600 000 ml @ 75 mls/hr IV . [id number] [facility] Rx#:[id number] Output: Urine 800 Other: Voiding Method Urinal Urinal # Voids 3 2 2 - Labs CBC & Chem 7: 07/19/20 06:12 07/19/20 06:12 Labs: Abnormal Lab Results - Last 24 Hours (Table) 07/17/20 07/19/20 07/19/20 Range/Units 11:40 06:12 06:12 RBC 3.93 L (4.30-5.90) m/uL Hgb 11.7 L (13.0-17.5) gm/dL Hct 36.4 L (39.0-53.0) % BUN/Creatinine Ratio 21.25 H (12.00-20.00) Ratio Hemoglobin A1c 7.1 H (4.0-6.0) % Calcium 8.0 L (8.7-10.3) mg/dL Total Protein 5.1 L (6.2-8.2) g/dL Albumin 3.50 L (3.80-4.90) g/dL Microbiology - Last 24 Hours (Table) 07/16/20 20:49 Blood Culture - Preliminary Blood No Growth after 48 hours
--- NOTE | 2020-07-19 14:34 | P.PN ---
Subjective Patient is admitted for acute sigmoid diverticulitis with small localized perforation. Patient is on IV antibiotics. Patient pain did improve signi ficantly. Patient still did not have any bowel movement. Patient remains nothing by mouth at this time. 07/19/2020 Patient's leukocytosis improved patient abdomen is still distended patient is still not feeling better patient still has some abdominal pain but improved compared to admission patient stated that did not move his bowel yet. Patient's symptomatology mostly secondary to constipation. Abdomen is distended and tympanic no rebound or rigidity Constitutional: Denied any fatigue denied any fever. Cardio vascular: denied any chest pain, palpitations Gastrointestinal still has some nausea and abdominal pain Pulmonary: Denied any shortness of breath cough Neurologic denied any new focal deficits All inpatient medications were reviewed and appropriate changes in these medications as dictated in the interval history and assessment and plan. Objective - Vital Signs Vital signs: Vital Signs Temp 98.0 F 07/19/20 12:10 Pulse 81 07/19/20 12:10 Resp 16 07/19/20 12:10 BP 138/71 07/19/20 12:10 Pulse Ox 95 07/19/20 12:10 Intake & Output 07/18/20 07/19/20 07/19/20 18:59 06:59 18:59 Intake Total 700 Output Total 800 Balance 700 -800 Intake: Intake, IV Titration 700 Amount Piperacillin-Tazobactam 3 100 .375 gm In Sodium Chloride 0.9% 100 ml @ 25 mls/hr IVPB Q8H [facility] Rx#: [id number] Sodium Chloride 0.9% 1, 600 000 ml @ 75 mls/hr IV . [id number] [facility] Rx#:[id number] Output: Urine 800 Other: Voiding Method Urinal Urinal # Voids 3 2 2 - Exam PHYSICAL EXAMINATION: GENERAL: The patient is alert and oriented x3, not in any acute distress. Obese HEENT: Pupils are round and equally reacting to light. EOMI. No scleral icterus. No conjunctival pallor. Normocephalic, atraumatic. No pharyngeal erythema. No thyromegaly. CARDIOVASCULAR: S1 and S2 present. No murmurs, rubs, or gallops. PULMONARY: Chest is clear to auscultation, no wheezing or crackles. ABDOMEN: Firm distended mild tenderness in the right as well as left lower quadrants. Patient's the abdomen is tympanic MUSCULOSKELETAL: No joint swelling or deformity. EXTREMITIES: No cyanosis, clubbing, or pedal edema. NEUROLOGICAL: Gross neurological examination did not reveal any focal deficits. SKIN: No rashes. - Labs CBC & Chem 7: 07/19/20 06:12 07/19/20 06:12 Labs: Abnormal Lab Results - Last 24 Hours (Table) 07/17/20 07/19/20 07/19/20 Range/Units 11:40 06:12 06:12 RBC 3.93 L (4.30-5.90) m/uL Hgb 11.7 L (13.0-17.5) gm/dL Hct 36.4 L (39.0-53.0) % BUN/Creatinine Ratio 21.25 H (12.00-20.00) Ratio Hemoglobin A1c 7.1 H (4.0-6.0) % Calcium 8.0 L (8.7-10.3) mg/dL Total Protein 5.1 L (6.2-8.2) g/dL Albumin 3.50 L (3.80-4.90) g/dL Microbiology - Last 24 Hours (Table) 07/16/20 20:49 Blood Culture - Preliminary Blood No Growth after 48 hours Assessment and Plan Plan: -Sigmoid diverticulitis: Continue his Zosyn patient is already on Dilaudid and Toradol t. Patient did not have any bowel movement yet although abdominal pain improved -Constipation severe and patient present symptomatology is secondary to constipation -Leukocytosis due to assessment #1 improving -Tachycardia due to pain which improved now -Type 2 diabetes mellitus -Hypertension DVT prophylaxis with Lovenox, GI prophylaxis Protonix For above-mentioned chronic medical problems patient will be resumed on appropriate home medications
[2020-07-19] MEDS: LORazepam 2 MG/ML INJ IV PRN (22:29)
[2020-07-20] MEDS: KETOROLAC 15 MG/ML 1 ML VIAL IVP PRN ×4 (03:46→22:24)
[2020-07-20] MEDS: LORazepam 2 MG/ML INJ IV PRN ×2 (03:46→18:09)
[2020-07-20] MEDS: SODIUM CHLORIDE 0.9% 1,000 ML IV SCH ×2 (03:50→04:53)
[2020-07-20] MEDS: PIPERACILLIN-TAZOBACTAM 3.375 GM in SODIUM CHLORIDE 0.9% 100 ML IVPB SCH ×3 (04:53→22:24)
[2020-07-20 08:55] LABS: HCT 36.9 % (39.0-53.0); HGB 12.1 gm/dL (13.0-17.5); MCH 30.2 pg (25.0-35.0); MCHC 32.7 g/dL (31.0-37.0); MCV 92.3 fL (80.0-100.0); Platelet Count 214 k/uL (150-450); RDW 12.6 % (11.5-15.5); WBC 9.1 k/uL (3.8-10.6)
[2020-07-20 09:04] LABS: African American GFR (CKD) >90 (>60 ml/min/1.73 sqM); Anion Gap 9 mmol/L; Blood Urea Nitrogen 15 mg/dL (9-20); Calcium 8.1 mg/dL (8.4-10.2); Carbon Dioxide 26 mmol/L (22-30); Chloride 104 mmol/L (98-107); Glucose 87 mg/dL (74-99); Non-African American GFR(CKD) >90 (>60 ml/min/1.73 sqM); Potassium 3.6 mmol/L (3.5-5.1); Sodium 139 mmol/L (137-145)
[2020-07-20] MEDS: PANTOPRAZOLE 40 MG/10 ML VIAL IV SCH (09:11)
[2020-07-20] MEDS: ENOXAPARIN 40 MG/0.4 ML SYRINGE SQ SCH (09:12)
--- NOTE | 2020-07-20 12:55 | P.PN ---
Subjective Progress Note Date: 07/20/20 CHIEF COMPLAINT: Abdominal pain HISTORY OF PRESENT ILLNESS: Patient is being followed for acute diverticulitis. Patient is reporting improvement in his abdominal pain. He is rating his pain 5 out of 10. He did have a bowel movement. He denies any vomiting. He's asking started on a diet. He is afebrile. WBC 9.1 PHYSICAL EXAM: VITAL SIGNS: Reviewed. GENERAL: Well-developed in no acute distress. HEENT: No sclera icterus. Extraocular movements grossly intact. Moist buccal mucosa. Head is atraumatic, normocephalic. ABDOMEN: Distended. Tenderness in the right upper abdomen left lower quadrant with palpation. NEUROLOGIC: Alert and oriented. Cranial nerves II through XII grossly intact. ASSESSMENT: 1. Acute sigmoid diverticulitis with localized perforation 2. History of diabetes mellitus type 2 3. History of coronary artery disease with cardiac stent on Plavix. Plavix currently on hold PLAN: -Start patient on clear liquid diet and monitor closely -Continue IV fluids and IV antibiotics -DVT prophylaxis Lovenox and GI prophylaxis Protonix Physician Legal Consultant note has been reviewed by physician. Signing provider agrees with the documented findings, assessment, and plan of care. Objective - Vital Signs Vital signs: Vital Signs Temp 98 F 07/20/20 08:01 Pulse 77 07/20/20 08:01 Resp 17 07/20/20 08:01 BP 131/72 07/20/20 08:01 Pulse Ox 96 07/20/20 08:01 Intake & Output 07/19/20 07/20/20 07/20/20 18:59 06:59 18:59 Output Total 804 2 Balance -804 -2 Output: Urine 804 2 Other: Voiding Method Urinal Urinal Urinal # Voids 2 2 2 - Labs CBC & Chem 7: 07/20/20 08:01 07/20/20 08:01 Labs: Abnormal Lab Results - Last 24 Hours (Table) 07/20/20 07/20/20 Range/Units 08:01 08:01 RBC 4.00 L (4.30-5.90) m/uL Hgb 12.1 L (13.0-17.5) gm/dL Hct 36.9 L (39.0-53.0) % Calcium 8.1 L (8.4-10.2) mg/dL Microbiology - Last 24 Hours (Table) 07/16/20 20:49 Blood Culture - Preliminary Blood No Growth after 72 hours
[2020-07-20 13:11] VITALS: BMI 35.7
--- NOTE | 2020-07-20 14:14 | P.PN ---
Subjective Patient is admitted for acute sigmoid diverticulitis with small localized perforation. Patient is on IV antibiotics. Patient pain did improve signi ficantly. Patient still did not have any bowel movement. Patient remains nothing by mouth at this time. 07/19/2020 Patient's leukocytosis improved patient abdomen is still distended patient is still not feeling better patient still has some abdominal pain but improved compared to admission patient stated that did not move his bowel yet. Patient's symptomatology mostly secondary to constipation. Abdomen is distended and tympanic no rebound or rigidity 07/20/2020 Patient is feeling much better today patient did have multiple bowel movements yesterday patient still has abdominal pain. Patient was started on Martha clear liquid diet today. General surgery is according monitoring until Thursday. Patient will be continued on antibiotics. Constitutional: Denied any fatigue denied any fever. Cardio vascular: denied any chest pain, palpitations Gastrointestinal still has some nausea and abdominal pain Pulmonary: Denied any shortness of breath cough Neurologic denied any new focal deficits All inpatient medications were reviewed and appropriate changes in these medications as dictated in the interval history and assessment and plan. Objective - Vital Signs Vital signs: Vital Signs Temp 98 F 07/20/20 08:01 Pulse 77 07/20/20 08:01 Resp 17 07/20/20 08:01 BP 131/72 07/20/20 08:01 Pulse Ox 96 07/20/20 08:01 Intake & Output 07/19/20 07/20/20 07/20/20 18:59 06:59 18:59 Output Total 804 2 Balance -804 -2 Weight 97.522 kg Output: Urine 804 2 Other: Voiding Method Urinal Urinal Urinal # Voids 2 2 2 - Exam PHYSICAL EXAMINATION: GENERAL: The patient is alert and oriented x3, not in any acute distress. Obese HEENT: Pupils are round and equally reacting to light. EOMI. No scleral icterus. No conjunctival pallor. Normocephalic, atraumatic. No pharyngeal erythema. No thyromegaly. CARDIOVASCULAR: S1 and S2 present. No murmurs, rubs, or gallops. PULMONARY: Chest is clear to auscultation, no wheezing or crackles. ABDOMEN: Normal distention improved significantly mild tenderness in the right as well as left lower quadrants. MUSCULOSKELETAL: No joint swelling or deformity. EXTREMITIES: No cyanosis, clubbing, or pedal edema. NEUROLOGICAL: Gross neurological examination did not reveal any focal deficits. SKIN: No rashes. - Labs CBC & Chem 7: 07/20/20 08:01 07/20/20 08:01 Labs: Abnormal Lab Results - Last 24 Hours (Table) 07/20/20 07/20/20 Range/Units 08:01 08:01 RBC 4.00 L (4.30-5.90) m/uL Hgb 12.1 L (13.0-17.5) gm/dL Hct 36.9 L (39.0-53.0) % Calcium 8.1 L (8.4-10.2) mg/dL Microbiology - Last 24 Hours (Table) 07/16/20 20:49 Blood Culture - Preliminary Blood No Growth after 72 hours Assessment and Plan Plan: -Sigmoid diverticulitis: Continue with Zosyn patient is on Dilaudid and Toradol for pain. Patient did not have any bowel movement yet although abdominal pain improved -Constipation severe and patient present symptomatology is secondary to constipation -Leukocytosis due to assessment #1 improved -Tachycardia due to pain which improved now -Type 2 diabetes mellitus -Hypertension DVT prophylaxis with Lovenox, GI prophylaxis Protonix For above-mentioned chronic medical problems patient will be resumed on appropriate home medications
[2020-07-20] MEDS: HYDROmorphone 0.5 MG/0.5 ML SYRINGE IVP PRN (18:09)
[2020-07-21] MEDS: LORazepam 2 MG/ML INJ IV PRN ×3 (01:16→20:59)
[2020-07-21] MEDS: HYDROmorphone 0.5 MG/0.5 ML SYRINGE IVP PRN ×3 (01:16→20:58)
[2020-07-21] MEDS: PIPERACILLIN-TAZOBACTAM 3.375 GM in SODIUM CHLORIDE 0.9% 100 ML IVPB SCH ×3 (05:09→20:59)
[2020-07-21] MEDS: SODIUM CHLORIDE 0.9% 1,000 ML IV SCH ×2 (05:17→20:47)
[2020-07-21] MEDS: PANTOPRAZOLE 40 MG/10 ML VIAL IV SCH (08:44)
[2020-07-21] MEDS: ENOXAPARIN 40 MG/0.4 ML SYRINGE SQ SCH (08:44)
[2020-07-21] MEDS ORDERED: NITROGLYCERIN SL TABS 0.4 MG TAB SUBLINGUAL PRN (12:58)
[2020-07-21] MEDS: KETOROLAC 15 MG/ML 1 ML VIAL IVP PRN (15:28)
--- NOTE | 2020-07-21 15:29 | P.PN ---
Subjective Progress Note Date: 07/21/20 CHIEF COMPLAINT: Diverticulitis HISTORY OF PRESENT ILLNESS: The patient is a 54-year-old male with divert iculitis. He feels better but still reports moderate soreness along the right lower quadrant. Family is at bedside and reports family members has the same thing. ROS: No reports of nausea and vomiting. No fevers or chills. No new chest pain. No productive sputum PHYSICAL EXAM: VITAL SIGNS: Reviewed CONSTITUTIONAL: Well developed and in no acute distress. EYES: Conjuctivae without sclera icterus. Extraocular movements grossly intact. HEAD, EARS, NOSE, THROAT: Moist buccal mucosa. Head is atraumatic, normocephalic. Hears conversational speech. No nasal drainage. NECK: Supple. No thyroidomegaly. RESPIRATORY: Non-labored respirations and equal bilateral excursions. CARDIOVASCULAR: Palpable 2+ radial pulses. Regular rate. Regular rhythm. ABDOMEN: No peritonitis. Tender right lower quadrant. MUSCULOSKELETAL: No gross deformity of the lower extremities noted. No clubbing. No cyanosis. SKIN: Good skin turgor. Well perfused. NEUROLOGIC: Cranial nerves II through XII grossly intact. No focal or lateralizing signs. PSYCH: Appropriate affect. Alert and oriented to person, place and time. CLINICAL LABS: White blood cell count normal is less than 10.0 ASSESSMENT: 1. Diverticulitis PLAN: 1. Add flagyl for additional coverage 2. Continue on current diet. Objective - Vital Signs Vital signs: Vital Signs Temp 97.9 F 07/21/20 07:00 Pulse 69 07/21/20 07:00 Resp 20 07/21/20 07:00 BP 149/76 07/21/20 07:00 Pulse Ox 96 07/21/20 07:00 Intake & Output 07/20/20 07/21/20 07/21/20 18:59 06:59 18:59 Intake Total 200 540 Output Total 4 Balance -4 200 540 Weight 97.522 kg Intake: Oral 200 540 Output: Urine 4 Other: Voiding Method Urinal Toilet Urinal # Voids 2 2 3 - Labs CBC & Chem 7: 07/30/20 06:49 07/30/20 06:49 Labs: Microbiology - Last 24 Hours (Table) 07/16/20 20:49 Blood Culture - Preliminary Blood No Growth after 96 hours
--- NOTE | 2020-07-21 15:52 | P.PN ---
Subjective Patient is admitted for acute sigmoid diverticulitis with small localized perforation. Patient is on IV antibiotics. Patient pain did improve signi ficantly. Patient still did not have any bowel movement. Patient remains nothing by mouth at this time. 07/19/2020 Patient's leukocytosis improved patient abdomen is still distended patient is still not feeling better patient still has some abdominal pain but improved compared to admission patient stated that did not move his bowel yet. Patient's symptomatology mostly secondary to constipation. Abdomen is distended and tympanic no rebound or rigidity 07/20/2020 Patient is feeling much better today patient did have multiple bowel movements yesterday patient still has abdominal pain. Patient was started on Martha clear liquid diet today. General surgery is according monitoring until Thursday. Patient will be continued on antibiotics. 07/21/2020 Patient remains a liquid diet still complaining of abdominal pain. Constitutional: Denied any fatigue denied any fever. Cardio vascular: denied any chest pain, palpitations Gastrointestinal still has some nausea and abdominal pain Pulmonary: Denied any shortness of breath cough Neurologic denied any new focal deficits All inpatient medications were reviewed and appropriate changes in these medications as dictated in the interval history and assessment and plan. Objective - Vital Signs Vital signs: Vital Signs Temp 97.7 F 07/21/20 15:00 Pulse 71 07/21/20 15:00 Resp 18 07/21/20 15:00 BP 129/81 07/21/20 15:00 Pulse Ox 96 07/21/20 15:00 Intake & Output 07/20/20 07/21/20 07/21/20 18:59 06:59 18:59 Intake Total 200 540 Output Total 4 Balance -4 200 540 Weight 97.522 kg Intake: Oral 200 540 Output: Urine 4 Other: Voiding Method Urinal Toilet Urinal # Voids 2 2 3 - Exam PHYSICAL EXAMINATION: GENERAL: The patient is alert and oriented x3, not in any acute distress. Obese HEENT: Pupils are round and equally reacting to light. EOMI. No scleral icterus. No conjunctival pallor. Normocephalic, atraumatic. No pharyngeal erythema. No thyromegaly. CARDIOVASCULAR: S1 and S2 present. No murmurs, rubs, or gallops. PULMONARY: Chest is clear to auscultation, no wheezing or crackles. ABDOMEN: Normal distention improved significantly mild tenderness in the right as well as left lower quadrants. MUSCULOSKELETAL: No joint swelling or deformity. EXTREMITIES: No cyanosis, clubbing, or pedal edema. NEUROLOGICAL: Gross neurological examination did not reveal any focal deficits. SKIN: No rashes. - Labs CBC & Chem 7: 07/20/20 08:01 07/20/20 08:01 Labs: Microbiology - Last 24 Hours (Table) 07/16/20 20:49 Blood Culture - Preliminary Blood No Growth after 96 hours Assessment and Plan Plan: -Sigmoid diverticulitis: Continue with Zosyn patient is on Dilaudid and Toradol for pain. Patient did not have any bowel movement yet although abdominal pain improved -Constipation severe and patient present symptomatology is secondary to constipation -Leukocytosis due to assessment #1 improved -Tachycardia due to pain which improved now -Type 2 diabetes mellitus -Hypertension DVT prophylaxis with Lovenox, GI prophylaxis Protonix For above-mentioned chronic medical problems patient will be resumed on appropriate home medications
[2020-07-21] MEDS: metroNIDAZOLE-NS PMX 500 MG in SALINE 1 100ML.BAG IVPB SCH ×2 (16:01→21:00)
[2020-07-21] MEDS: DIVALPROEX 500 MG TABLET.DR PO SCH (20:59)
[2020-07-21] MEDS: ATORVASTATIN 80 MG TAB PO SCH (20:59)
[2020-07-22] MEDS: HYDROmorphone 0.5 MG/0.5 ML SYRINGE IVP PRN ×4 (01:52→23:40)
[2020-07-22] MEDS: metroNIDAZOLE-NS PMX 500 MG in SALINE 1 100ML.BAG IVPB SCH ×4 (03:50→23:43)
[2020-07-22] MEDS: LORazepam 2 MG/ML INJ IV PRN ×2 (03:50→20:09)
[2020-07-22] MEDS: PIPERACILLIN-TAZOBACTAM 3.375 GM in SODIUM CHLORIDE 0.9% 100 ML IVPB SCH ×3 (05:47→20:07)
[2020-07-22] MEDS: SODIUM CHLORIDE 0.9% 1,000 ML IV SCH (08:46)
[2020-07-22] MEDS: DIVALPROEX 500 MG TABLET.DR PO SCH ×2 (08:46→20:09)
[2020-07-22] MEDS: ASPIRIN 81 MG PO SCH (08:46)
[2020-07-22] MEDS: PANTOPRAZOLE 40 MG/10 ML VIAL IV SCH (08:47)
[2020-07-22] MEDS: LOSARTAN 25 MG TAB PO SCH (08:47)
[2020-07-22] MEDS: ENOXAPARIN 40 MG/0.4 ML SYRINGE SQ SCH (08:47)
[2020-07-22] MEDS: KETOROLAC 15 MG/ML 1 ML VIAL IVP PRN (08:55)
[2020-07-22 11:55] LABS: Basophils % (A) 1 %; Eosinophils # (A) 0.2 k/uL (0-0.7); Eosinophils % (A) 3 %; HCT 36.9 % (39.0-53.0); HGB 12.1 gm/dL (13.0-17.5); Lymphocytes # (A) 1.7 k/uL (1.0-4.8); Lymphocytes % (A) 26 %; MCH 30.1 pg (25.0-35.0); MCHC 32.7 g/dL (31.0-37.0); MCV 91.9 fL (80.0-100.0); Mean Platelet Volume 7.1; Monocytes # (A) 0.4 k/uL (0-1.0); Monocytes % (A) 6 %; Neutrophils # (A) 4.2 k/uL (1.3-7.7); Neutrophils % (A) 63 %; Platelet Count 218 k/uL (150-450); RBC 4.01 m/uL (4.30-5.90); RDW 12.6 % (11.5-15.5); WBC 6.7 k/uL (3.8-10.6)
--- NOTE | 2020-07-22 11:55 | P.PN ---
Subjective Patient is admitted for acute sigmoid diverticulitis with small localized perforation. Patient is on IV antibiotics. Patient pain did improve signi ficantly. Patient still did not have any bowel movement. Patient remains nothing by mouth at this time. 07/19/2020 Patient's leukocytosis improved patient abdomen is still distended patient is still not feeling better patient still has some abdominal pain but improved compared to admission patient stated that did not move his bowel yet. Patient's symptomatology mostly secondary to constipation. Abdomen is distended and tympanic no rebound or rigidity 07/20/2020 Patient is feeling much better today patient did have multiple bowel movements yesterday patient still has abdominal pain. Patient was started on Martha clear liquid diet today. General surgery is according monitoring until Thursday. Patient will be continued on antibiotics. 07/21/2020 Patient remains a liquid diet still complaining of abdominal pain. 07/22/2020 Patient states his abdominal pain is better still has discomfort on the right side of the abdomen Constitutional: Denied any fatigue denied any fever. Cardio vascular: denied any chest pain, palpitations Gastrointestinal still has some nausea and abdominal pain Pulmonary: Denied any shortness of breath cough Neurologic denied any new focal deficits All inpatient medications were reviewed and appropriate changes in these medications as dictated in the interval history and assessment and plan. Objective - Vital Signs Vital signs: Vital Signs Temp 98.1 F 07/22/20 07:00 Pulse 76 07/22/20 07:00 Resp 19 07/22/20 07:00 BP 137/88 07/22/20 07:00 Pulse Ox 95 07/22/20 07:00 Intake & Output 07/21/20 07/22/20 07/22/20 18:59 06:59 18:59 Intake Total 540 Balance 540 Intake: Oral 540 Other: Voiding Method Toilet Urinal # Voids 3 1 - Exam PHYSICAL EXAMINATION: GENERAL: The patient is alert and oriented x3, not in any acute distress. Obese HEENT: Pupils are round and equally reacting to light. EOMI. No scleral icterus. No conjunctival pallor. Normocephalic, atraumatic. No pharyngeal erythema. No thyromegaly. CARDIOVASCULAR: S1 and S2 present. No murmurs, rubs, or gallops. PULMONARY: Chest is clear to auscultation, no wheezing or crackles. ABDOMEN: Normal distention improved significantly mild tenderness in the right as well as left lower quadrants. MUSCULOSKELETAL: No joint swelling or deformity. EXTREMITIES: No cyanosis, clubbing, or pedal edema. NEUROLOGICAL: Gross neurological examination did not reveal any focal deficits. SKIN: No rashes. - Labs CBC & Chem 7: 07/20/20 08:01 07/20/20 08:01 Labs: Microbiology - Last 24 Hours (Table) 07/16/20 20:49 Blood Culture - Preliminary Blood No Growth after 120 hours Assessment and Plan Plan: -Sigmoid diverticulitis: Continue with Zosyn patient is on Dilaudid and Toradol for pain. she had bowel movements.if patient continues to improve possibly of discharge -Constipationresolved -Leukocytosis due to assessment #1 improved -Tachycardia due to pain which improved now -Type 2 diabetes mellitus -Hypertension DVT prophylaxis with Lovenox, GI prophylaxis Protonix For above-mentioned chronic medical problems patient will be resumed on appropriate home medications
--- NOTE | 2020-07-22 12:38 | P.PN ---
Subjective Progress Note Date: 07/22/20 CHIEF COMPLAINT: Diverticulitis HISTORY OF PRESENT ILLNESS: The patient is a 54-year-old male with diver ticulitis. After adjustment of antibiotics, he is feeling better today than yesterday. He reports having bowel movements although loose. He is passing flatus. He is on clears. No fevers. ROS: No reports of nausea and vomiting. No fevers or chills. No new chest pain. No productive sputum PHYSICAL EXAM: VITAL SIGNS: Reviewed CONSTITUTIONAL: Well developed and in no acute distress. EYES: Conjuctivae without sclera icterus. Extraocular movements grossly intact. HEAD, EARS, NOSE, THROAT: Moist buccal mucosa. Head is atraumatic, normocephalic. Hears conversational speech. No nasal drainage. NECK: Supple. No thyroidomegaly. RESPIRATORY: Non-labored respirations and equal bilateral excursions. CARDIOVASCULAR: Palpable 2+ radial pulses. Regular rate. Regular rhythm. ABDOMEN: Tender suprapubic. No peritonitis. Improved from yesterday. MUSCULOSKELETAL: No gross deformity of the lower extremities noted. No clubbing. No cyanosis. SKIN: Good skin turgor. Well perfused. NEUROLOGIC: Cranial nerves II through XII grossly intact. No focal or lateralizing signs. PSYCH: Appropriate affect. Alert and oriented to person, place and time. LABS: WBC down over 9.0 to over 6.0 ASSESSMENT: 1. Diverticulitis PLAN: 1. Advance diet for supper 2. Continue hospitalization. 3. Patient happy with level of care. Objective - Vital Signs Vital signs: Vital Signs Temp 98.1 F 07/22/20 07:00 Pulse 76 07/22/20 07:00 Resp 19 07/22/20 07:00 BP 137/88 07/22/20 07:00 Pulse Ox 95 07/22/20 07:00 Intake & Output 07/21/20 07/22/20 07/22/20 18:59 06:59 18:59 Intake Total 540 Balance 540 Intake: Oral 540 Other: Voiding Method Toilet Urinal # Voids 3 1 - Labs CBC & Chem 7: 07/30/20 06:49 07/30/20 06:49 Labs: Abnormal Lab Results - Last 24 Hours (Table) 07/22/20 Range/Units 11:25 RBC 4.01 L (4.30-5.90) m/uL Hgb 12.1 L (13.0-17.5) gm/dL Hct 36.9 L (39.0-53.0) % Microbiology - Last 24 Hours (Table) 07/16/20 20:49 Blood Culture - Preliminary Blood No Growth after 120 hours Assessment and Plan (1) Acute diverticulitis Status: Acute Code(s): K57.92 - DVTRCLI OF INTEST, PART UNSP, W/O PERF OR ABSCESS W/O BLEED SNOMED Code(s): 501748628
[2020-07-22] MEDS: ATORVASTATIN 80 MG TAB PO SCH (20:07)
[2020-07-23 04:59] LABS: Basophils # (A) 0.1 k/uL (0-0.2); Basophils % (A) 1 %; Eosinophils # (A) 0.3 k/uL (0-0.7); Eosinophils % (A) 3 %; HCT 38.7 % (39.0-53.0); HGB 12.8 gm/dL (13.0-17.5); Lymphocytes # (A) 1.6 k/uL (1.0-4.8); Lymphocytes % (A) 17 %; MCH 30.1 pg (25.0-35.0); MCHC 32.9 g/dL (31.0-37.0); MCV 91.4 fL (80.0-100.0); Mean Platelet Volume 6.5; Monocytes # (A) 0.5 k/uL (0-1.0); Monocytes % (A) 5 %; Neutrophils # (A) 6.9 k/uL (1.3-7.7); Neutrophils % (A) 73 %; Platelet Count 302 k/uL (150-450); RBC 4.24 m/uL (4.30-5.90); WBC 9.6 k/uL (3.8-10.6)
[2020-07-23] MEDS: LORazepam 2 MG/ML INJ IV PRN ×3 (05:15→19:10)
[2020-07-23] MEDS: HYDROmorphone 0.5 MG/0.5 ML SYRINGE IVP PRN ×4 (05:16→19:06)
[2020-07-23] MEDS: metroNIDAZOLE-NS PMX 500 MG in SALINE 1 100ML.BAG IVPB SCH ×3 (05:20→16:01)
[2020-07-23] MEDS: PIPERACILLIN-TAZOBACTAM 3.375 GM in SODIUM CHLORIDE 0.9% 100 ML IVPB SCH ×3 (05:28→20:39)
[2020-07-23] MEDS: DIVALPROEX 500 MG TABLET.DR PO SCH ×2 (08:40→20:39)
[2020-07-23] MEDS: PANTOPRAZOLE 40 MG/10 ML VIAL IV SCH (08:40)
[2020-07-23] MEDS: LOSARTAN 25 MG TAB PO SCH (08:40)
[2020-07-23] MEDS: ASPIRIN 81 MG PO SCH (08:40)
--- NOTE | 2020-07-23 11:00 | P.PN ---
Subjective Progress Note Date: 07/23/20 CHIEF COMPLAINT: Abdominal pain HISTORY OF PRESENT ILLNESS: Patient is being followed for acute diverticulitis. Patient had been doing better over the weekend. His diet was advanced to a low fiber diet which started last night. After eating at [place] sandwich patient started to notice increasing abdominal pain. He did have some eggs also this morning. He is reporting an increase in pain in the suprapubic area. He is requiring the IV Dilaudid every 3 hours again. He denies any nausea or vomitin g. He has not passed any gas or bowel movements since Thursday. WBC 9.6. He is afebrile. PHYSICAL EXAM: VITAL SIGNS: Reviewed. GENERAL: Well-developed in no acute distress. HEENT: No sclera icterus. Extraocular movements grossly intact. Moist buccal mucosa. Head is atraumatic, normocephalic. ABDOMEN: Distended. Suprapubic area and right side of abdomen NEUROLOGIC: Alert and oriented. Cranial nerves II through XII grossly intact. ASSESSMENT: 1. Acute sigmoid diverticulitis with localized perforation 2. History of diabetes mellitus type 2 3. History of coronary artery disease with cardiac stent on Plavix. Plavix currently on hold PLAN: -Make patient nothing by mouth and monitor. We'll reevaluate patient with Dr. Vincent this afternoon -Continue IV antibiotics -Continue IV Dilaudid as needed for pain -DVT prophylaxis Lovenox and GI prophylaxis Protonix Physician Outboard Technician note has been reviewed by physician. Signing provider agrees with the documented findings, assessment, and plan of care. Objective - Vital Signs Vital signs: Vital Signs Temp 97.9 F 07/23/20 07:00 Pulse 72 07/23/20 07:00 Resp 16 07/23/20 07:00 BP 146/83 07/23/20 07:00 Pulse Ox 95 07/23/20 07:00 Intake & Output 07/22/20 07/23/20 07/23/20 18:59 06:59 18:59 Intake Total 540 400 Balance 540 400 Intake: Oral 540 400 Other: # Voids 3 2 # Bowel Movements 1 - Labs CBC & Chem 7: 07/23/20 04:45 07/20/20 08:01 Labs: Abnormal Lab Results - Last 24 Hours (Table) 07/22/20 07/23/20 Range/Units 11:25 04:45 RBC 4.01 L 4.24 L (4.30-5.90) m/uL Hgb 12.1 L 12.8 L (13.0-17.5) gm/dL Hct 36.9 L 38.7 L (39.0-53.0) % Microbiology - Last 24 Hours (Table) 07/16/20 20:49 Blood Culture - Final Blood No Growth after 144 hours
[2020-07-23] MEDS: ENOXAPARIN 40 MG/0.4 ML SYRINGE SQ SCH (11:14)
--- NOTE | 2020-07-23 14:27 | P.PN ---
Subjective Patient is admitted for acute sigmoid diverticulitis with small localized perforation. Patient is on IV antibiotics. Patient pain did improve signi ficantly. Patient still did not have any bowel movement. Patient remains nothing by mouth at this time. 07/19/2020 Patient's leukocytosis improved patient abdomen is still distended patient is still not feeling better patient still has some abdominal pain but improved compared to admission patient stated that did not move his bowel yet. Patient's symptomatology mostly secondary to constipation. Abdomen is distended and tympanic no rebound or rigidity 07/20/2020 Patient is feeling much better today patient did have multiple bowel movements yesterday patient still has abdominal pain. Patient was started on Martha clear liquid diet today. General surgery is according monitoring until Thursday. Patient will be continued on antibiotics. 07/21/2020 Patient remains a liquid diet still complaining of abdominal pain. 07/22/2020 Patient states his abdominal pain is better still has discomfort on the right side of the abdomen 07/23/2020 Patient says his abdominal pain is worse compared to yesterday still in the same area in the right lower quadranthe did injure surgery evaluated the patient and they made him nothing by mouth again Constitutional: Denied any fatigue denied any fever. Cardio vascular: denied any chest pain, palpitations Gastrointestinal Rolan pain is worse no nausea Pulmonary: Denied any shortness of breath cough Neurologic denied any new focal deficits All inpatient medications were reviewed and appropriate changes in these medications as dictated in the interval history and assessment and plan. Objective - Vital Signs Vital signs: Vital Signs Temp 97.9 F 07/23/20 07:00 Pulse 72 07/23/20 07:00 Resp 16 07/23/20 07:00 BP 146/83 07/23/20 07:00 Pulse Ox 95 07/23/20 07:00 Intake & Output 07/22/20 07/23/20 07/23/20 18:59 06:59 18:59 Intake Total 540 400 Balance 540 400 Weight 97.522 kg Intake: Oral 540 400 Other: # Voids 3 2 2 # Bowel Movements 1 - Exam PHYSICAL EXAMINATION: GENERAL: The patient is alert and oriented x3, not in any acute distress. Obese HEENT: Pupils are round and equally reacting to light. EOMI. No scleral icterus. No conjunctival pallor. Normocephalic, atraumatic. No pharyngeal erythema. No thyromegaly. CARDIOVASCULAR: S1 and S2 present. No murmurs, rubs, or gallops. PULMONARY: Chest is clear to auscultation, no wheezing or crackles. ABDOMEN: Normal distention improved significantly mild tenderness in the right as well as left lower quadrants. MUSCULOSKELETAL: No joint swelling or deformity. EXTREMITIES: No cyanosis, clubbing, or pedal edema. NEUROLOGICAL: Gross neurological examination did not reveal any focal deficits. SKIN: No rashes. - Labs CBC & Chem 7: 07/23/20 04:45 07/20/20 08:01 Labs: Abnormal Lab Results - Last 24 Hours (Table) 07/23/20 Range/Units 04:45 RBC 4.24 L (4.30-5.90) m/uL Hgb 12.8 L (13.0-17.5) gm/dL Hct 38.7 L (39.0-53.0) % Microbiology - Last 24 Hours (Table) 07/16/20 20:49 Blood Culture - Final Blood No Growth after 144 hours Assessment and Plan Plan: -Sigmoid diverticulitis: Continue with Zosyn patient is on Dilaudid and Toradol for pain. patient's pain is worseand the patient was switched back to nothing by mouth at this time -Constipation resolved -Leukocytosis due to assessment #1 improved -Tachycardia due to pain which improved now -Type 2 diabetes mellitus -Hypertension DVT prophylaxis with Lovenox, GI prophylaxis Protonix For above-mentioned chronic medical problems patient will be resumed on appropriate home medications
[2020-07-23] MEDS: ATORVASTATIN 80 MG TAB PO SCH (20:47)
[2020-07-24] MEDS: HYDROmorphone 0.5 MG/0.5 ML SYRINGE IVP PRN ×5 (00:27→22:03)
[2020-07-24] MEDS: metroNIDAZOLE-NS PMX 500 MG in SALINE 1 100ML.BAG IVPB SCH ×5 (00:27→22:03)
[2020-07-24] MEDS: LORazepam 2 MG/ML INJ IV PRN ×3 (00:30→22:15)
[2020-07-24] MEDS: PIPERACILLIN-TAZOBACTAM 3.375 GM in SODIUM CHLORIDE 0.9% 100 ML IVPB SCH ×3 (05:12→23:23)
[2020-07-24 06:22] LABS: HCT 40.1 % (39.0-53.0); HGB 12.9 gm/dL (13.0-17.5); MCH 29.7 pg (25.0-35.0); MCHC 32.1 g/dL (31.0-37.0); MCV 92.2 fL (80.0-100.0); Mean Platelet Volume 6.8; Platelet Count 314 k/uL (150-450); RBC 4.35 m/uL (4.30-5.90); RDW 12.6 % (11.5-15.5); WBC 8.3 k/uL (3.8-10.6)
[2020-07-24] MEDS: ENOXAPARIN 40 MG/0.4 ML SYRINGE SQ SCH (10:00)
[2020-07-24] MEDS: LOSARTAN 25 MG TAB PO SCH (10:00)
[2020-07-24] MEDS: ASPIRIN 81 MG PO SCH (10:00)
[2020-07-24] MEDS: DIVALPROEX 500 MG TABLET.DR PO SCH ×2 (10:00→22:03)
[2020-07-24] MEDS: PANTOPRAZOLE 40 MG TABLET PO SCH (10:10)
[2020-07-24 10:13] LABS: African American GFR (CKD) 116.6 (60.0-200.0); Anion Gap 9.7 mmol/L (4.00-12.00); BUN/Creat Ratio 12.5 Ratio (12.00-20.00); Calcium 8.6 mg/dL (8.7-10.3); Carbon Dioxide 27.3 mmol/L (21.6-31.8); Non-African American GFR(CKD) 100.6 (60.0-200.0)
[2020-07-24] MEDS ORDERED: PEG 3350-NA SULF,BICARB,CL/KCL 4,000 ML BOTTLE PO ONE (11:22)
--- NOTE | 2020-07-24 13:17 | P.PN ---
Subjective Patient is admitted for acute sigmoid diverticulitis with small localized perforation. Patient is on IV antibiotics. Patient pain did improve signi ficantly. Patient still did not have any bowel movement. Patient remains nothing by mouth at this time. 07/19/2020 Patient's leukocytosis improved patient abdomen is still distended patient is still not feeling better patient still has some abdominal pain but improved compared to admission patient stated that did not move his bowel yet. Patient's symptomatology mostly secondary to constipation. Abdomen is distended and tympanic no rebound or rigidity 07/20/2020 Patient is feeling much better today patient did have multiple bowel movements yesterday patient still has abdominal pain. Patient was started on Martha clear liquid diet today. General surgery is according monitoring until Thursday. Patient will be continued on antibiotics. 07/21/2020 Patient remains a liquid diet still complaining of abdominal pain. 07/22/2020 Patient states his abdominal pain is better still has discomfort on the right side of the abdomen 07/23/2020 Patient says his abdominal pain is worse compared to yesterday still in the same area in the right lower quadranthe did injure surgery evaluated the patient and they made him nothing by mouth again 07/24/2020 Patient didn't have any significant improvement patient will undergo laparotomy with the colectomy for contained abscess and the diverticulitis Constitutional: Denied any fatigue denied any fever. Cardio vascular: denied any chest pain, palpitations Gastrointestinal Rolan pain is worse no nausea Pulmonary: Denied any shortness of breath cough Neurologic denied any new focal deficits All inpatient medications were reviewed and appropriate changes in these medications as dictated in the interval history and assessment and plan. Objective - Vital Signs Vital signs: Vital Signs Temp 97.4 F L 07/24/20 12:10 Pulse 79 07/24/20 12:10 Resp 18 07/24/20 12:10 BP 151/91 07/24/20 12:10 Pulse Ox 94 L 07/24/20 12:10 Intake & Output 07/23/20 07/24/20 07/24/20 18:59 06:59 18:59 Intake Total 400 100 Balance 400 100 Weight 97.522 kg Intake: Intake, IV Titration 100 Amount Piperacillin-Tazobactam 3 100 .375 gm In Sodium Chloride 0.9% 100 ml @ 25 mls/hr IVPB Q8H [facility] Rx#: [id number] Oral 400 Other: Voiding Method Toilet Urinal # Voids 2 - Exam PHYSICAL EXAMINATION: GENERAL: The patient is alert and oriented x3, not in any acute distress. Obese HEENT: Pupils are round and equally reacting to light. EOMI. No scleral icterus. No conjunctival pallor. Normocephalic, atraumatic. No pharyngeal erythema. No thyromegaly. CARDIOVASCULAR: S1 and S2 present. No murmurs, rubs, or gallops. PULMONARY: Chest is clear to auscultation, no wheezing or crackles. ABDOMEN: Normal distention improved significantly mild tenderness in the right as well as left lower quadrants. MUSCULOSKELETAL: No joint swelling or deformity. EXTREMITIES: No cyanosis, clubbing, or pedal edema. NEUROLOGICAL: Gross neurological examination did not reveal any focal deficits. SKIN: No rashes. - Labs CBC & Chem 7: 07/24/20 05:57 07/24/20 05:58 Labs: Abnormal Lab Results - Last 24 Hours (Table) 07/24/20 07/24/20 Range/Units 05:57 05:58 Hgb 12.9 L (13.0-17.5) gm/dL Calcium 8.6 L (8.7-10.3) mg/dL Assessment and Plan Plan: -Sigmoid diverticulitis: Continue with Zosyn patient is on Dilaudid and Toradol for pain. she will undergo laparotomy tomorrow with possible colectomy. -Constipation resolved -Leukocytosis due to assessment #1 improved -Tachycardia due to pain which improved now -Type 2 diabetes mellitus -Hypertension DVT prophylaxis with Lovenox, GI prophylaxis Protonix For above-mentioned chronic medical problems patient will be resumed on appropriate home medications
--- NOTE | 2020-07-24 15:05 | P.PN ---
Subjective Progress Note Date: 07/24/20 CHIEF COMPLAINT: Abdominal pain HISTORY OF PRESENT ILLNESS: Patient is being followed for acute diverticulitis. Patient reporting worsening in pain. He is reporting his pain 7 out of 10. He reports that the pain is worse in the suprapubic area. He is passing gas. No bowel movement for 2 days. Denies any nausea or vomiting. He is afebrile. White count 8.3 PHYSICAL EXAM: VITAL SIGNS: Reviewed. GENERAL: Well-developed in no acute distress. HEENT: No sclera icterus. Extraocular movements grossly intact. Moist buccal mucosa. Head is atraumatic, normocephalic. ABDOMEN: Distended. Tenderness suprapubic area with palpation patient also has tenderness with palpation in the right side of his abdomen and upper abdomen. He has guarding present when pushing in the suprapubic area. NEUROLOGIC: Alert and oriented. Cranial nerves II through XII grossly intact. ASSESSMENT: 1. Acute sigmoid diverticulitis with localized perforation 2. History of diabetes mellitus type 2 3. History of coronary artery disease with cardiac stent on Plavix. Plavix currently on hold PLAN: -Patient clinically is not improving with antibiotics. He will be scheduled for a lower anterior resection tomorrow with Dr. Vincent -Given GoLYTELY prep -Okay for clear liquid diet and then nothing by mouth after midnight -Continue IV antibiotics -Continue IV Dilaudid as needed for pain -DVT prophylaxis Lovenox and GI prophylaxis Protonix Physician Financial Sales Associate note has been reviewed by physician. Signing provider agrees with the documented findings, assessment, and plan of care. Objective - Vital Signs Vital signs: Vital Signs Temp 97.4 F L 07/24/20 12:10 Pulse 79 07/24/20 12:10 Resp 18 07/24/20 12:10 BP 151/91 07/24/20 12:10 Pulse Ox 94 L 07/24/20 12:10 Intake & Output 07/23/20 07/24/20 07/24/20 18:59 06:59 18:59 Intake Total 400 100 320 Balance 400 100 320 Weight 97.522 kg Intake: Intake, IV Titration 100 Amount Piperacillin-Tazobactam 3 100 .375 gm In Sodium Chloride 0.9% 100 ml @ 25 mls/hr IVPB Q8H [facility] Rx#: [id number] Oral 400 320 Other: Voiding Method Toilet Urinal # Voids 2 - Labs CBC & Chem 7: 07/24/20 05:57 07/24/20 05:58 Labs: Abnormal Lab Results - Last 24 Hours (Table) 07/24/20 07/24/20 Range/Units 05:57 05:58 Hgb 12.9 L (13.0-17.5) gm/dL Calcium 8.6 L (8.7-10.3) mg/dL
[2020-07-24] MEDS: ONDANSETRON 4 MG/2 ML VIAL IVP PRN (16:09)
[2020-07-24] MEDS ORDERED: SCOPOLAMINE 1.5MG/72HR PATCH TRANSDERM ONE (19:35)
[2020-07-24] MEDS ORDERED: ONDANSETRON 4 MG/2 ML VIAL IVP ONE (19:35)
[2020-07-24] MEDS ORDERED: fentaNYL (PF) 50 MCG/ML 2 ML AMP IVP PRN (19:35)
[2020-07-24] MEDS ORDERED: DEXAMETHASONE SOD PHOSPHATE 10 MG/ML 1 ML VIAL IV ONE (19:35)
[2020-07-24] MEDS: LACTATED RINGERS 1,000 ML IV SCH (20:48)
[2020-07-24] MEDS: ATORVASTATIN 80 MG TAB PO SCH (22:03)
[2020-07-25] MEDS: HYDROmorphone 0.5 MG/0.5 ML SYRINGE IVP PRN ×3 (02:32→12:52)
[2020-07-25] MEDS: metroNIDAZOLE-NS PMX 500 MG in SALINE 1 100ML.BAG IVPB SCH ×4 (04:03→22:11)
[2020-07-25] MEDS: LORazepam 2 MG/ML INJ IV PRN ×2 (04:03→10:50)
[2020-07-25] MEDS: PIPERACILLIN-TAZOBACTAM 3.375 GM in SODIUM CHLORIDE 0.9% 100 ML IVPB SCH ×3 (05:39→21:31)
[2020-07-25 08:13] LABS: HCT 38.7 % (39.0-53.0); HGB 12.6 gm/dL (13.0-17.5); MCH 29.9 pg (25.0-35.0); MCHC 32.4 g/dL (31.0-37.0); MCV 92.1 fL (80.0-100.0); Mean Platelet Volume 6.7; Platelet Count 313 k/uL (150-450); RDW 12.7 % (11.5-15.5); WBC 6.3 k/uL (3.8-10.6)
[2020-07-25] MEDS: ASPIRIN 81 MG PO SCH (09:22)
[2020-07-25] MEDS: PANTOPRAZOLE 40 MG TABLET PO SCH (09:46)
--- NOTE | 2020-07-25 10:04 | P.PN ---
Subjective From a course: Patient is admitted for acute sigmoid diverticulitis with small localized perforation. Patient is on IV antibiotics. Patient pain did improve significantly. Patient still did not have any bowel movement. Patient remains nothing by mouth at this time. 07/19/2020 Patient's leukocytosis improved patient abdomen is still distended patient is still not feeling better patient still has some abdominal pain but improved compared to admission patient stated that did not move his bowel yet. Patient's symptomatology mostly secondary to constipation. Abdomen is distended and tympanic no rebound or rigidity 07/20/2020 Patient is feeling much better today patient did have multiple bowel movements yesterday patient still has abdominal pain. Patient was started on Martha clear liquid diet today. General surgery is according monitoring until Thursday. Patient will be continued on antibiotics. 07/21/2020 Patient remains a liquid diet still complaining of abdominal pain. 07/22/2020 Patient states his abdominal pain is better still has discomfort on the right side of the abdomen 07/23/2020 Patient says his abdominal pain is worse compared to yesterday still in the same area in the right lower quadranthe did injure surgery evaluated the patient and they made him nothing by mouth again 07/24/2020 Patient didn't have any significant improvement patient will undergo laparotomy with the colectomy for contained abscess and the diverticulitis Constitutional: Denied any fatigue denied any fever. Cardio vascular: denied any chest pain, palpitations Gastrointestinal Rolan pain is worse no nausea Pulmonary: Denied any shortness of breath cough Neurologic denied any new focal deficits Subjective This is the first day I am taking care of the patient on 07/25/20 Patient is a pleasant 54 years old male with multiple medical problems presents with signs and symptoms of bowel obstruction, patient did not have bowel movemen t and his pain was worsening yesterday, surgical team are planning today for laparotomy with possible colectomy for contained abscess secondary to acute diverticulitis. This morning patient is a pleasant, his abdominal pain state that is slightly better 5/10, he had a bowel movement this morning but he was on GoLYTELY for bowel preparation. Discussed with the staff to follow-up with surgery recom mendation as well We'll follow-up recommendation by surgery team Objective - Vital Signs Vital signs: Vital Signs Temp 97.9 F 07/25/20 07:00 Pulse 72 07/25/20 07:00 Resp 16 07/25/20 07:00 BP 135/86 07/25/20 07:00 Pulse Ox 93 L 07/25/20 07:00 Intake & Output 07/24/20 07/25/20 07/25/20 18:59 06:59 18:59 Intake Total 320 Balance 320 Intake: Oral 320 Other: Voiding Method Toilet Toilet Toilet Urinal Urinal Urinal # Voids 2 # Bowel Movements 1 - Exam GENERAL: The patient is alert and oriented x3, not in any acute distress. Well developed, well nourished. HEENT: Pupils are round and equally reacting to light. EOMI. No scleral icterus. No conjunctival pallor. Normocephalic, atraumatic. No pharyngeal erythema. No thyromegaly. CARDIOVASCULAR: S1 and S2 present. No murmurs, rubs, or gallops. PULMONARY: Chest is clear to auscultation, no wheezing or crackles. -ABDOMEN: Soft, slightly distended, lower abdominal pain more on the right side, normoactive bowel sounds. No palpable organomegaly. MUSCULOSKELETAL: No joint swelling or deformity. EXTREMITIES: No cyanosis, clubbing, or pedal edema. NEUROLOGICAL: Gross neurological examination did not reveal any focal deficits. SKIN: No rashes. no petechiae. - Labs CBC & Chem 7: 07/25/20 07:46 07/24/20 05:58 Labs: Abnormal Lab Results - Last 24 Hours (Table) 07/24/20 07/25/20 Range/Units 05:58 07:46 RBC 4.20 L (4.30-5.90) m/uL Hgb 12.6 L (13.0-17.5) gm/dL Hct 38.7 L (39.0-53.0) % Calcium 8.6 L (8.7-10.3) mg/dL Assessment and Plan Assessment: -Acute Sigmoid diverticulitis: Continue with Zosyn patient is on Dilaudid and Toradol for pain. Follow-up with surgery team recommendation for possible laparotomy with possible colectomy. -Constipation resolved -Type 2 diabetes mellitus -Hypertension DVT prophylaxis with Lovenox, GI prophylaxis Protonix For above-mentioned chronic medical problems patient will be resumed on appropriate home medications
[2020-07-25] MEDS: LOSARTAN 25 MG TAB PO SCH (10:43)
[2020-07-25] MEDS: DIVALPROEX 500 MG TABLET.DR PO SCH ×2 (10:43→21:32)
[2020-07-25] MEDS ORDERED: LACTATED RINGERS 1,000 ML IV ONE ×2 (13:23→15:54)
[2020-07-25 13:35] LABS: Glucose,Whole Blood 80 mg/dL (75-99)
[2020-07-25] MEDS ORDERED: MIDAZOLAM 2 MG/2 ML VIAL IVP ONE (13:53)
[2020-07-25] MEDS ORDERED: NALOXONE 0.4 MG/ML 1 ML VIAL IV PRN (14:06)
--- NOTE | 2020-07-25 14:08 | P.ANPRN ---
Procedure Note - Anesthesia - Epidural/Spinal Epidural Continuous Time Out Performed: Yes Date of Procedure: 07/25/20 Procedure Start Time: 13:52 Procedure Stop Time: 13:59 Location of Patient: PreOp Indication: Acute Post-Operative Pain, Requested by Surgeon Sedation Type: Sedate with meaningful contact maintained Preparation: Sterile Dressing Position: Sitting Catheter: Indwelling Needle Guage: 18 Injectate: Test Dose Lidocaine1.5% w/1:200,000 epi Blood Aspirated: No Pain Paresthesia on Injection Noted: No Events: Uneventful and Well Tolerated
[2020-07-25] MEDS ORDERED: ALVIMOPAN 12 MG CAPSULE PO ONE (14:30)
[2020-07-25] MEDS ORDERED: HEPARIN SODIUM,PORCINE 5,000 UNIT/ML 1 ML VIAL ONE (14:32)
[2020-07-25] MEDS ORDERED: LIDOCAINE 1% INJ 10MG/ML (20 ML MDV) ONE (15:00)
[2020-07-25] MEDS ORDERED: GLYCOPYRROLATE 0.2 MG/ML 2 ML VIAL ONE (15:00)
[2020-07-25] MEDS ORDERED: ROCURONIUM 10 MG/ML (5 ML VIAL) IV ONE (15:00)
[2020-07-25] MEDS ORDERED: PROPOFOL 10 MG/ML 20 ML VIAL IV ONE (15:00)
[2020-07-25] MEDS ORDERED: MIDAZOLAM 2 MG/2 ML VIAL ONE (15:00)
[2020-07-25] MEDS ORDERED: NEOSTIGMINE 1 MG/ML 10 ML VIAL ONE (15:00)
[2020-07-25] MEDS ORDERED: SUCCINYLCHOLINE CHLORIDE 100 MG/5 ML SYR IV ONE (15:00)
[2020-07-25] MEDS ORDERED: fentaNYL (PF) 50 MCG/ML 2 ML AMP ONE (15:00)
[2020-07-25 16:35] LABS: African American GFR (CKD) 123.1 (60.0-200.0); Anion Gap 6.4 mmol/L (4.00-12.00); BUN/Creat Ratio 11.43 Ratio (12.00-20.00); Calcium 8.4 mg/dL (8.7-10.3); Carbon Dioxide 28.6 mmol/L (21.6-31.8); Non-African American GFR(CKD) 106.2 (60.0-200.0)
[2020-07-25] MEDS: ROPIVACAINE 250 MG, HYDROMORPHONE (PF) 5 MG in SODIUM CHLORIDE 0.9% 200 ML EPIDURAL PRN (16:56)
[2020-07-25 17:07] LABS: Glucose,Whole Blood 122 mg/dL (75-99)
[2020-07-25] MEDS ORDERED: LABETALOL SYRINGE 5 MG/ML IVP ONE (17:30)
[2020-07-25] MEDS ORDERED: ONDANSETRON 4 MG/2 ML VIAL IVP PRN (18:02)
[2020-07-25] MEDS: DEXTROSE 5%-0.45% NACL 1,000 ML IV SCH (19:55)
[2020-07-25] MEDS: ATORVASTATIN 80 MG TAB PO SCH (19:57)
[2020-07-25] MEDS: HEPARIN SODIUM,PORCINE 5,000 UNIT/ML 1 ML VIAL SQ SCH (21:32)
[2020-07-25] MEDS: LACTATED RINGERS 1,000 ML IV SCH (22:11)
[2020-07-26] MEDS: PIPERACILLIN-TAZOBACTAM 3.375 GM in SODIUM CHLORIDE 0.9% 100 ML IVPB SCH ×3 (03:52→20:16)
[2020-07-26] MEDS: DEXTROSE 5%-0.45% NACL 1,000 ML IV SCH ×2 (03:53→10:33)
[2020-07-26] MEDS: metroNIDAZOLE-NS PMX 500 MG in SALINE 1 100ML.BAG IVPB SCH ×4 (03:53→20:16)
[2020-07-26] MEDS: LORazepam 2 MG/ML INJ IV PRN ×3 (04:03→21:44)
[2020-07-26 06:28] LABS: Basophils % (A) 0 %; Eosinophils % (A) 0 %; HCT 37.3 % (39.0-53.0); HGB 12.3 gm/dL (13.0-17.5); Lymphocytes # (A) 1.5 k/uL (1.0-4.8); Lymphocytes % (A) 15 %; MCH 30.5 pg (25.0-35.0); MCV 92.4 fL (80.0-100.0); Mean Platelet Volume 6.4; Monocytes # (A) 0.6 k/uL (0-1.0); Monocytes % (A) 6 %; Neutrophils # (A) 7.4 k/uL (1.3-7.7); Neutrophils % (A) 77 %; Platelet Count 384 k/uL (150-450); RBC 4.04 m/uL (4.30-5.90); RDW 13.1 % (11.5-15.5); WBC 9.6 k/uL (3.8-10.6)
[2020-07-26] MEDS: ENOXAPARIN 40 MG/0.4 ML SYRINGE SQ SCH (06:41)
--- NOTE | 2020-07-26 07:48 | P.PN ---
Progress Note - Text Progress Note Date: 07/26/20 Patient is POD#1 s/p LAR. Pain 4/10. Denies headache or weakness. Epidural @ 12 ml/hr. Epidural site clean and dry. Continue current regimen.
[2020-07-26] MEDS: ROPIVACAINE 250 MG, HYDROMORPHONE (PF) 5 MG in SODIUM CHLORIDE 0.9% 200 ML EPIDURAL PRN (08:23)
[2020-07-26 09:37] LABS: African American GFR (CKD) 97.8 (60.0-200.0); Anion Gap 8.4 mmol/L (4.00-12.00); Calcium 8.2 mg/dL (8.7-10.3); Carbon Dioxide 28.6 mmol/L (21.6-31.8); Non-African American GFR(CKD) 84.4 (60.0-200.0); Potassium 4.7 mmol/L (3.5-5.5)
[2020-07-26] MEDS: DIVALPROEX 500 MG TABLET.DR PO SCH ×2 (10:20→20:15)
[2020-07-26] MEDS: ASPIRIN 81 MG PO SCH (10:20)
[2020-07-26] MEDS: PANTOPRAZOLE 40 MG TABLET PO SCH (10:20)
[2020-07-26] MEDS: LOSARTAN 25 MG TAB PO SCH (10:21)
[2020-07-26] MEDS: HEPARIN SODIUM,PORCINE 5,000 UNIT/ML 1 ML VIAL SQ SCH ×2 (10:21→20:15)
--- NOTE | 2020-07-26 12:28 | P.PN ---
Subjective From a course: Patient is admitted for acute sigmoid diverticulitis with small localized perforation. Patient is on IV antibiotics. Patient pain did improve significantly. Patient still did not have any bowel movement. Patient remains nothing by mouth at this time. 07/19/2020 Patient's leukocytosis improved patient abdomen is still distended patient is still not feeling better patient still has some abdominal pain but improved compared to admission patient stated that did not move his bowel yet. Patient's symptomatology mostly secondary to constipation. Abdomen is distended and tympanic no rebound or rigidity 07/20/2020 Patient is feeling much better today patient did have multiple bowel movements yesterday patient still has abdominal pain. Patient was started on Martha clear liquid diet today. General surgery is according monitoring until Thursday. Patient will be continued on antibiotics. 07/21/2020 Patient remains a liquid diet still complaining of abdominal pain. 07/22/2020 Patient states his abdominal pain is better still has discomfort on the right side of the abdomen 07/23/2020 Patient says his abdominal pain is worse compared to yesterday still in the same area in the right lower quadranthe did injure surgery evaluated the patient and they made him nothing by mouth again 07/24/2020 Patient didn't have any significant improvement patient will undergo laparotomy with the colectomy for contained abscess and the diverticulitis Constitutional: Denied any fatigue denied any fever. Cardio vascular: denied any chest pain, palpitations Gastrointestinal Rolan pain is worse no nausea Pulmonary: Denied any shortness of breath cough Neurologic denied any new focal deficits Subjective This is the first day I am taking care of the patient on 07/25/20 Patient is a pleasant 54 years old male with multiple medical problems presents with signs and symptoms of bowel obstruction, patient did not have bowel movemen t and his pain was worsening yesterday, surgical team are planning today for laparotomy with possible colectomy for contained abscess secondary to acute diverticulitis. This morning patient is a pleasant, his abdominal pain state that is slightly better 5/10, he had a bowel movement this morning but he was on GoLYTELY for bowel preparation. Discussed with the staff to follow-up with surgery recom mendation as well We'll follow-up recommendation by surgery team 07/26/2020 Patient is awake and alert, is status post sigmoid colectomy and small bowel resections with left-sided ileostomy, today's postop day #1. Patient still nothing by mouth with ice chips. Bowel was started working in. Urgent team R following the case closely Objective - Vital Signs Vital signs: Vital Signs Temp 97.7 F 07/26/20 07:20 Pulse 81 07/26/20 07:20 Resp 16 07/26/20 07:20 BP 100/67 07/26/20 07:20 Pulse Ox 96 07/26/20 07:20 Intake & Output 07/25/20 07/26/20 07/26/20 18:59 06:59 18:59 Intake Total 1900 1785 Output Total 1875 325 Balance 25 1460 Weight 97.522 kg Intake: IV 1900 Intake, IV Titration 1585 Amount Dextrose 5%-0.45% NaCl 1, 1125 000 ml @ 125 mls/hr IV . Q8H [facility] Rx#:[id number] Lactated Ringers 1,000 ml 60 @ 20 mls/hr IV .Q24H [facility] Rx#:[id number] Piperacillin-Tazobactam 3 200 .375 gm In Sodium Chloride 0.9% 100 ml @ 25 mls/hr IVPB Q8H [facility] Rx#: [id number] metroNIDAZOLE-NS PMX 500 200 mg In Saline 1 100ml.bag @ 100 mls/hr IVPB Q6H [facility] Rx#:[id number] Oral 200 Output: Urine 1775 325 Estimated Blood Loss 100 Other: Voiding Method Toilet Indwelling Catheter Urinal - Exam GENERAL: The patient is alert and oriented x3, not in any acute distress. Well developed, well nourished. HEENT: Pupils are round and equally reacting to light. EOMI. No scleral icterus. No conjunctival pallor. Normocephalic, atraumatic. No pharyngeal erythema. No thyromegaly. CARDIOVASCULAR: S1 and S2 present. No murmurs, rubs, or gallops. PULMONARY: Chest is clear to auscultation, no wheezing or crackles. -ABDOMEN: Soft, slightly distended, lower abdominal pain more on the right side, normoactive bowel sounds. No palpable organomegaly. MUSCULOSKELETAL: No joint swelling or deformity. EXTREMITIES: No cyanosis, clubbing, or pedal edema. NEUROLOGICAL: Gross neurological examination did not reveal any focal deficits. SKIN: No rashes. no petechiae. - Labs CBC & Chem 7: 07/26/20 06:00 07/26/20 06:00 Labs: Abnormal Lab Results - Last 24 Hours (Table) 07/25/20 07/25/20 07/26/20 Range/Units 07:46 17:06 06:00 RBC 4.04 L (4.30-5.90) m/uL Hgb 12.3 L (13.0-17.5) gm/dL Hct 37.3 L (39.0-53.0) % BUN 8.0 L (9.0-27.0) mg/dL BUN/Creatinine Ratio 11.43 L (12.00-20.00) Ratio POC Glucose (mg/dL) 122 H (75-99) mg/dL Calcium 8.4 L (8.7-10.3) mg/dL 07/26/20 Range/Units 06:00 RBC (4.30-5.90) m/uL Hgb (13.0-17.5) gm/dL Hct (39.0-53.0) % BUN (9.0-27.0) mg/dL BUN/Creatinine Ratio (12.00-20.00) Ratio POC Glucose (mg/dL) (75-99) mg/dL Calcium 8.2 L (8.7-10.3) mg/dL Microbiology - Last 24 Hours (Table) 07/25/20 16:43 Gram Stain - Preliminary Abdomen Wound Culture - Preliminary 07/25/20 16:43 Anaerobic Culture - Preliminary Abdomen Assessment and Plan Assessment: -Acute Sigmoid diverticulitis: Status post sigmoid colectomy and small bowel resections, Continue with Zosyn patient is on Dilaudid and Toradol for pain. Follow-up with surgery team recommendation -Type 2 diabetes mellitus -Hypertension DVT prophylaxis with Lovenox, GI prophylaxis Protonix For above-mentioned chronic medical problems patient will be resumed on appropriate home medications
[2020-07-26] MEDS ORDERED: SODIUM CHLORIDE 0.9% 1,000 ML IV ONE (13:39)
[2020-07-26] MEDS: SODIUM CHLORIDE 0.9% 1,000 ML IV SCH ×2 (13:57→20:16)
--- NOTE | 2020-07-26 14:21 | P.PN ---
Subjective Progress Note Date: 07/26/20 CHIEF COMPLAINT: Abdominal pain HISTORY OF PRESENT ILLNESS: Patient is postop day #1 status post lower anterior resection. Patient has epidural. Pain is controlled. Urine is dark and concentrated. Patient will be given an IV fluid bolus. He is afebrile. He denies passing gas or bowel movement. Denies any nausea or vomiting. White count 9.6 hemoglobin 12.3 PHYSICAL EXAM: VITAL SIGNS: Reviewed. GENERAL: Well-developed in no acute distress. HEENT: No sclera icterus. Extraocular movements grossly intact. Moist buccal mucosa. Head is atraumatic, normocephalic. ABDOMEN: Distended. Tenderness suprapubic area with palpation patient also has tenderness with palpation in the right side of his abdomen and upper abdomen. He has guarding present when pushing in the suprapubic area. NEUROLOGIC: Alert and oriented. Cranial nerves II through XII grossly intact. ASSESSMENT: 1. Acute sigmoid diverticulitis with localized perforation status post lower anterior resection. Postop day #1 2. History of diabetes mellitus type 2 3. History of coronary artery disease with cardiac stent on Plavix. Plavix currently on hold PLAN: -Keep patient nothing by mouth -Give 1 L IV fluid bolus -Continue normal saline 125 mL per hour -Start PPN -Continue IV antibiotics -DVT prophylaxis heparin and GI prophylaxis Protonix Physician Outpatient Scheduler note has been reviewed by physician. Signing provider agrees with the documented findings, assessment, and plan of care. Objective - Vital Signs Vital signs: Vital Signs Temp 97.7 F 07/26/20 07:20 Pulse 81 07/26/20 07:20 Resp 16 07/26/20 07:20 BP 100/67 07/26/20 07:20 Pulse Ox 96 07/26/20 07:20 Intake & Output 07/25/20 07/26/20 07/26/20 18:59 06:59 18:59 Intake Total 1900 1785 Output Total 1875 325 Balance 25 1460 Weight 97.522 kg 97.522 kg Intake: IV 1900 Intake, IV Titration 1585 Amount Dextrose 5%-0.45% NaCl 1, 1125 000 ml @ 125 mls/hr IV . Q8H [facility] Rx#:[id number] Lactated Ringers 1,000 ml 60 @ 20 mls/hr IV .Q24H [facility] Rx#:[id number] Piperacillin-Tazobactam 3 200 .375 gm In Sodium Chloride 0.9% 100 ml @ 25 mls/hr IVPB Q8H [facility] Rx#: [id number] metroNIDAZOLE-NS PMX 500 200 mg In Saline 1 100ml.bag @ 100 mls/hr IVPB Q6H [facility] Rx#:[id number] Oral 200 Output: Urine 1775 325 Estimated Blood Loss 100 Other: Voiding Method Toilet Indwelling Catheter Urinal - Labs CBC & Chem 7: 07/26/20 06:00 07/26/20 06:00 Labs: Abnormal Lab Results - Last 24 Hours (Table) 07/25/20 07/25/20 07/26/20 Range/Units 07:46 17:06 06:00 RBC 4.04 L (4.30-5.90) m/uL Hgb 12.3 L (13.0-17.5) gm/dL Hct 37.3 L (39.0-53.0) % BUN 8.0 L (9.0-27.0) mg/dL BUN/Creatinine Ratio 11.43 L (12.00-20.00) Ratio POC Glucose (mg/dL) 122 H (75-99) mg/dL Calcium 8.4 L (8.7-10.3) mg/dL 07/26/20 Range/Units 06:00 RBC (4.30-5.90) m/uL Hgb (13.0-17.5) gm/dL Hct (39.0-53.0) % BUN (9.0-27.0) mg/dL BUN/Creatinine Ratio (12.00-20.00) Ratio POC Glucose (mg/dL) (75-99) mg/dL Calcium 8.2 L (8.7-10.3) mg/dL Microbiology - Last 24 Hours (Table) 07/25/20 16:43 Gram Stain - Preliminary Abdomen Wound Culture - Preliminary 07/25/20 16:43 Anaerobic Culture - Preliminary Abdomen
[2020-07-26 15:58] LABS: Ionized Calcium 4.6 mg/dL (4.5-5.3)
[2020-07-26 16:04] LABS: Albumin 3.1 g/dL (3.5-5.0); Magnesium 2.1 mg/dL (1.6-2.3)
--- NOTE | 2020-07-26 16:50 | P.OP ---
Date of Procedure: 07/25/20 Preoperative Diagnosis: Diverticulitis Postoperative Diagnosis: Abdominal abscess with loop of ileum and jejunum and sigmoid colon Questionable bladder bowel disease Procedure(s) Performed: Exposure laparotomy Drains of abscess Small bowel resection 2 Sigmoid colectomy with colostomy Anesthesia: MONIQUE Surgeon: Soham Vincent Estimated Blood Loss (ml): 20 Condition: stable Disposition: PACU Description of Procedure: the patient was placed on the operating table in the supine position. He received general anesthesia. His abdomen was prepped and draped in the usual sterile fashion. The abdomen was entered through a low midline incision. There appeared to be an abscess just below the fascia. The abscess contained several loops of small bowel and the sigmoid colon. The incision was extended caudcephalad. The abscess cavity was entered. Culture the abscess cavity is performed. At this point it appeared that the patient's pathology had the appearance of Crohn's disease. The ileum was transected proximal distally with a ROSA stapler and then the jejunal loop was transected proximal and distally with a ROSA stapler. The specimen pathology.mesentery the bowel was divided the Enseal device. Specimen sent to pathology. Sa [id number] side functional end-to-end staple anastomosis and created at the jejunal and ileal site. Next the sigmoid colon was examined. There was abscess and inflammation sigmoid colon. The area was transected proximal and distally with the ROSA stapler and then using the Enseal device the mesentery bowel was divided.the sigmoid colon was then brought up as a colostomy in the left lower quadrant. The abdomen was irrigated. There is no bleeding seen. The fascia was closed with looped #1 PDS suture. Skin was closed with ben. And then the colostomy was matured with 3-0 Vicryl.
[2020-07-26] MEDS: FAT EMULSION 20% 250 ML in EMPTY BAG 1 BAG IV SCH (17:40)
[2020-07-26] MEDS ORDERED: MVI, ADULT NO.4 WITH VIT K 10 ML, TRACE (CONC-1ML/DOSE) 1 ML in AMINO ACID 4.25%-D10W+L... IV SCH ×3 (18:00)
[2020-07-26] MEDS: ATORVASTATIN 80 MG TAB PO SCH (20:15)
[2020-07-27] MEDS: ROPIVACAINE 250 MG, HYDROMORPHONE (PF) 5 MG in SODIUM CHLORIDE 0.9% 200 ML EPIDURAL PRN ×2 (02:41→22:07)
[2020-07-27] MEDS: metroNIDAZOLE-NS PMX 500 MG in SALINE 1 100ML.BAG IVPB SCH ×4 (04:15→20:58)
[2020-07-27] MEDS: PIPERACILLIN-TAZOBACTAM 3.375 GM in SODIUM CHLORIDE 0.9% 100 ML IVPB SCH ×3 (04:15→20:57)
[2020-07-27] MEDS: SODIUM CHLORIDE 0.9% 1,000 ML IV SCH ×3 (04:16→20:58)
[2020-07-27 07:34] LABS: Basophils % (A) 0 %; Eosinophils # (A) 0.1 k/uL (0-0.7); Eosinophils % (A) 1 %; HCT 35.3 % (39.0-53.0); HGB 11.3 gm/dL (13.0-17.5); Lymphocytes # (A) 1.4 k/uL (1.0-4.8); Lymphocytes % (A) 18 %; MCH 29.5 pg (25.0-35.0); MCHC 31.9 g/dL (31.0-37.0); MCV 92.5 fL (80.0-100.0); Mean Platelet Volume 6.5; Monocytes # (A) 0.6 k/uL (0-1.0); Monocytes % (A) 8 %; Neutrophils # (A) 5.5 k/uL (1.3-7.7); Neutrophils % (A) 71 %; Platelet Count 325 k/uL (150-450); RBC 3.82 m/uL (4.30-5.90); RDW 12.7 % (11.5-15.5); WBC 7.8 k/uL (3.8-10.6)
--- NOTE | 2020-07-27 09:07 | P.PN ---
Progress Note - Text Progress Note Date: 07/27/20 Patient without complaints. NPO. Denies headache or weakness. Pain /10. Epidural at 12 ml/hr. Epidural site clean and dry. POD#2 s/p LAR. Continue epidural until tomorrow.
[2020-07-27] MEDS: PANTOPRAZOLE 40 MG TABLET PO SCH (09:08)
[2020-07-27] MEDS: FAT EMULSION 20% 250 ML in EMPTY BAG 1 BAG IV SCH (09:08)
[2020-07-27] MEDS: LOSARTAN 25 MG TAB PO SCH (09:08)
[2020-07-27] MEDS: HEPARIN SODIUM,PORCINE 5,000 UNIT/ML 1 ML VIAL SQ SCH ×2 (09:08→20:57)
[2020-07-27] MEDS: ASPIRIN 81 MG PO SCH (09:08)
[2020-07-27] MEDS: DIVALPROEX 500 MG TABLET.DR PO SCH ×2 (09:08→20:57)
[2020-07-27] MEDS: 1: MVI, ADULT NO.4 WITH VIT K 10 ML, TRACE (CONC-1ML/DOSE) 1 ML in AMINO ACID 4.25%-D10W IV SCH ×3 (11:49)
[2020-07-27 12:31] LABS: African American GFR (CKD) 123.1 (60.0-200.0); Anion Gap 7.9 mmol/L (4.00-12.00); BUN/Creat Ratio 18.57 Ratio (12.00-20.00); Calcium 8.1 mg/dL (8.7-10.3); Carbon Dioxide 29.1 mmol/L (21.6-31.8); Non-African American GFR(CKD) 106.2 (60.0-200.0); Phosphorus 2.2 mg/dL (2.4-5.1); Potassium 3.9 mmol/L (3.5-5.5)
--- NOTE | 2020-07-27 12:34 | P.PN ---
Subjective From a course: Patient is admitted for acute sigmoid diverticulitis with small localized perforation. Patient is on IV antibiotics. Patient pain did improve significantly. Patient still did not have any bowel movement. Patient remains nothing by mouth at this time. 07/19/2020 Patient's leukocytosis improved patient abdomen is still distended patient is still not feeling better patient still has some abdominal pain but improved compared to admission patient stated that did not move his bowel yet. Patient's symptomatology mostly secondary to constipation. Abdomen is distended and tympanic no rebound or rigidity 07/20/2020 Patient is feeling much better today patient did have multiple bowel movements yesterday patient still has abdominal pain. Patient was started on Martha clear liquid diet today. General surgery is according monitoring until Thursday. Patient will be continued on antibiotics. 07/21/2020 Patient remains a liquid diet still complaining of abdominal pain. 07/22/2020 Patient states his abdominal pain is better still has discomfort on the right side of the abdomen 07/23/2020 Patient says his abdominal pain is worse compared to yesterday still in the same area in the right lower quadranthe did injure surgery evaluated the patient and they made him nothing by mouth again 07/24/2020 Patient didn't have any significant improvement patient will undergo laparotomy with the colectomy for contained abscess and the diverticulitis Constitutional: Denied any fatigue denied any fever. Cardio vascular: denied any chest pain, palpitations Gastrointestinal Rolan pain is worse no nausea Pulmonary: Denied any shortness of breath cough Neurologic denied any new focal deficits Subjective This is the first day I am taking care of the patient on 07/25/20 Patient is a pleasant 54 years old male with multiple medical problems presents with signs and symptoms of bowel obstruction, patient did not have bowel movemen t and his pain was worsening yesterday, surgical team are planning today for laparotomy with possible colectomy for contained abscess secondary to acute diverticulitis. This morning patient is a pleasant, his abdominal pain state that is slightly better 5/10, he had a bowel movement this morning but he was on GoLYTELY for bowel preparation. Discussed with the staff to follow-up with surgery recom mendation as well We'll follow-up recommendation by surgery team 07/26/2020 Patient is awake and alert, is status post sigmoid colectomy and small bowel resections with left-sided ileostomy, today's postop day #1. Patient still nothing by mouth with ice chips. Bowel was started working in. Surgery team R following the case closely 07/27/2020 Patient is awake and alert, is status post sigmoid colectomy and small bowel resections with left-sided ileostomy, today's postop day #2. Patient is abdominal pain is controlled. Patient remains nothing by mouth. Bowel hasn't started working at. Surgery team on the case Follow-up pathology results Objective - Vital Signs Vital signs: Vital Signs Temp 98.2 F 07/27/20 07:00 Pulse 86 07/27/20 07:00 Resp 18 07/27/20 07:00 BP 119/79 07/27/20 07:00 Pulse Ox 95 07/27/20 08:19 Intake & Output 07/26/20 07/27/20 07/27/20 18:59 06:59 18:59 Intake Total 1282.6 Output Total 400 1100 Balance -400 182.6 Weight 97.522 kg Intake: Intake, IV Titration 1282.6 Amount Fat Emulsion 20% 250 ml 313 In Empty Bag 1 bag @ 21 mls/hr IV DAILY [facility] Rx#: [id number] Piperacillin-Tazobactam 3 100 .375 gm In Sodium Chloride 0.9% 100 ml @ 25 mls/hr IVPB Q8H [facility] Rx#: [id number] Ropivacaine 250 mg 219.6 Hydromorphone (Pf) 5 mg In Sodium Chloride 0.9% 200 ml @ Per Protocol EPIDURAL .Q0M PRN Rx#: [id number] Sodium Chloride 0.9% 1, 650 000 ml @ 125 mls/hr IV . Q8H [facility] Rx#:[id number] Output: Urine 400 1100 Other: Voiding Method Indwelling Catheter Indwelling Catheter - Exam GENERAL: The patient is alert and oriented x3, not in any acute distress. Well developed, well nourished. HEENT: Pupils are round and equally reacting to light. EOMI. No scleral icterus. No conjunctival pallor. Normocephalic, atraumatic. No pharyngeal erythema. No thyromegaly. CARDIOVASCULAR: S1 and S2 present. No murmurs, rubs, or gallops. PULMONARY: Chest is clear to auscultation, no wheezing or crackles. -ABDOMEN: Soft, slightly distended, lower abdominal pain more on the right side, normoactive bowel sounds. No palpable organomegaly. MUSCULOSKELETAL: No joint swelling or deformity. EXTREMITIES: No cyanosis, clubbing, or pedal edema. NEUROLOGICAL: Gross neurological examination did not reveal any focal deficits. SKIN: No rashes. no petechiae. - Labs CBC & Chem 7: 07/27/20 07:06 07/26/20 06:00 Labs: Abnormal Lab Results - Last 24 Hours (Table) 07/26/20 07/27/20 Range/Units 15:38 07:06 RBC 3.82 L (4.30-5.90) m/uL Hgb 11.3 L (13.0-17.5) gm/dL Hct 35.3 L (39.0-53.0) % Albumin 3.1 L (3.5-5.0) g/dL Microbiology - Last 24 Hours (Table) 07/25/20 16:43 Gram Stain - Preliminary Abdomen Wound Culture - Preliminary Gram Neg Bacilli Gram Neg Bacilli#2 Assessment and Plan Assessment: -Acute Sigmoid diverticulitis: Status post sigmoid colectomy and small bowel resections, Continue with Zosyn patient is on Dilaudid and Toradol for pain. Follow-up with surgery team recommendation -Type 2 diabetes mellitus -Hypertension DVT prophylaxis with Lovenox, GI prophylaxis Protonix For above-mentioned chronic medical problems patient will be resumed on appropriate home medications
[2020-07-27] MEDS ORDERED: SODIUM PHOSPHATE 10 MMOL in SODIUM CHLORIDE 0.9% 250 ML IVPB ONE (13:00)
--- NOTE | 2020-07-27 13:29 | P.PN ---
Subjective Progress Note Date: 07/27/20 CHIEF COMPLAINT: Abdominal pain HISTORY OF PRESENT ILLNESS: Patient is postop day #2 status post lower anterior resection. Patient has epidural. Pain is controlled. He reports passing gas. He denies any nausea or vomiting. He is nothing by mouth. He is afebrile. WBC 7.8 Hgb 11.3 PHYSICAL EXAM: VITAL SIGNS: Reviewed. GENERAL: Well-developed in no acute distress. HEENT: No sclera icterus. Extraocular movements grossly intact. Moist buccal mucosa. Head is atraumatic, normocephalic. ABDOMEN: Distended. Patient's dressing is saturated with blood at the distal aspect NEUROLOGIC: Alert and oriented. Cranial nerves II through XII grossly intact. ASSESSMENT: 1. Acute sigmoid diverticulitis with localized perforation status post lower anterior resection. Postop day #2 2. History of diabetes mellitus type 2 3. History of coronary artery disease with cardiac stent on Plavix. Plavix currently on hold PLAN: -Keep patient nothing by mouth -Continue IV fluids -Continue PPN -Continue epidural -Continue IV antibiotics -Nursing to change dressing -DVT prophylaxis heparin and GI prophylaxis Protonix Physician [employer] Manager note has been reviewed by physician. Signing provider agrees with the documented findings, assessment, and plan of care. Objective - Vital Signs Vital signs: Vital Signs Temp 98.2 F 07/27/20 07:00 Pulse 86 07/27/20 07:00 Resp 18 07/27/20 07:00 BP 119/79 07/27/20 07:00 Pulse Ox 95 07/27/20 08:19 Intake & Output 07/26/20 07/27/20 07/27/20 18:59 06:59 18:59 Intake Total 1282.6 Output Total 400 1100 Balance -400 182.6 Weight 97.522 kg Intake: Intake, IV Titration 1282.6 Amount Fat Emulsion 20% 250 ml 313 In Empty Bag 1 bag @ 21 mls/hr IV DAILY [facility] Rx#: [id number] Piperacillin-Tazobactam 3 100 .375 gm In Sodium Chloride 0.9% 100 ml @ 25 mls/hr IVPB Q8H [facility] Rx#: [id number] Ropivacaine 250 mg 219.6 Hydromorphone (Pf) 5 mg In Sodium Chloride 0.9% 200 ml @ Per Protocol EPIDURAL .Q0M PRN Rx#: [id number] Sodium Chloride 0.9% 1, 650 000 ml @ 125 mls/hr IV . Q8H [facility] Rx#:[id number] Output: Urine 400 1100 Other: Voiding Method Indwelling Catheter Indwelling Catheter - Labs CBC & Chem 7: 07/27/20 07:06 07/27/20 07:11 Labs: Abnormal Lab Results - Last 24 Hours (Table) 07/26/20 07/27/20 07/27/20 Range/Units 15:38 07:06 07:11 RBC 3.82 L (4.30-5.90) m/uL Hgb 11.3 L (13.0-17.5) gm/dL Hct 35.3 L (39.0-53.0) % Calcium 8.1 L (8.7-10.3) mg/dL Phosphorus 2.2 L (2.4-5.1) mg/dL Albumin 3.1 L (3.5-5.0) g/dL Microbiology - Last 24 Hours (Table) 07/25/20 16:43 Gram Stain - Preliminary Abdomen Wound Culture - Preliminary Gram Neg Bacilli Gram Neg Bacilli#2
[2020-07-27] MEDS: ATORVASTATIN 80 MG TAB PO SCH (20:57)
[2020-07-27] MEDS: LORazepam 2 MG/ML INJ IV PRN (22:07)
--- NOTE | 2020-07-27 23:18 | P.CONS ---
History of Present Illness - Reason for Consult Consult date: 07/27/20 Intra-abdominal abscess Requesting physician: Soham Vincent - Chief Complaint Abdominal pain x few days - History of Present Illness Patient is a 54 year male presenting to the hospital 12 days ago on 07/16/2020 for evaluation of abdominal pain of one-day duration. Was mostly the left lower abdominal area more for the leaking numbness 6-7 out of 10 and no rad iation patient did have CT of abdominal pelvis with evidence of sigmoid diverticulitis no perforation patient has been treated with the IV antibiotic therapy and repeat CAT scan did show slight worsening and phlegmon formation but no drainable abscess patient continued to be on IV antibiotic therapy with subsequent worsening of his symptoms patient was taken to the OR 2 days ago on 07/25/2020 and this patient who is status post laparotomy patient was noticed to have abdominal abscess with loop of ileum and jejunum and sigmoid colon patient is status post drainage of the abscess, small bowel resection 2 sigmoid colectomy and colostomy, abdominal cultures are showing gram-negative bacilli in fectious disease was consulted today for further management of antibiotic therapy Review of Systems Positive point has been mentioned in the HPI rest of the systems are negative Past Medical History Past Medical History: Diabetes Mellitus, Hypertension, Myocardial Infarction ([place]) Additional Past Medical History / Comment(s): unknown lung issues Last Myocardial Infarction Date:: 2004 History of Any Multi-Drug Resistant Organisms: None Reported Past Surgical History: Heart Catheterization, Heart Catheterization With Stent, Orthopedic Surgery Additional Past Surgical History / Comment(s): neck surgery with hardware, rt shoulder surgery, rt wrist surgery Date of Last Stent Placement:: 2006 Past Psychological History: PTSD Smoking Status: Never smoker Past Alcohol Use History: None Reported Past Drug Use History: None Reported - Past Family History Mother History Unknown: Yes Medications and Allergies Home Medications Medication Instructions Recorded Confirmed Type Aspirin 81 mg PO DAILY 03/30/18 07/16/20 History Atorvastatin [Lipitor] 80 mg PO HS 03/30/18 07/16/20 History Clopidogrel [Plavix] 75 mg PO DAILY 03/30/18 07/16/20 History Divalproex [Depakote] 500 mg PO BID 03/30/18 07/16/20 History HYDROcodone/APAP 7.5-325MG [[place] 1 tab PO QID PRN 03/30/18 07/16/20 History 7.5-325] Prazosin [Minipress] 5 mg PO HS 03/30/18 07/16/20 History metFORMIN HCL [Glucophage] 500 mg PO DAILY 12/13/18 07/16/20 History Cholecalciferol [Vitamin D3 (25 2,000 unit PO DAILY 07/16/20 07/16/20 History Mcg = 1000 Iu)] Losartan Potassium [Cozaar] 25 mg PO DAILY 07/16/20 07/16/20 History Multivitamins, Thera [Multivitamin 1 tab PO DAILY 07/16/20 07/16/20 History (formulary)] Nitroglycerin Sl Tabs [Nitrostat] 0.4 mg SUBLINGUAL Q5M PRN 07/16/20 07/16/20 History [place]-3 Fatty Acids/Fish Oil [Fish 1 cap PO DAILY 07/16/20 07/16/20 History Oil 1,000 mg Softgel] Omeprazole 40 mg PO DAILY 07/16/20 07/16/20 History Polyvinyl Alcohol/Povidone 1 drop BOTH EYES QID 07/16/20 07/16/20 History [[place]] Ubidecarenone [Co Q-10] 100 mg PO DAILY 07/16/20 07/16/20 History cloNIDine HCL [Catapres] 0.1 mg PO Q12H 07/16/20 07/16/20 History traZODone HCL 100 mg PO HS 07/16/20 07/16/20 History Allergies Allergy/AdvReac Type Severity Reaction Status Date / Time No Known Allergies Allergy Verified 07/16/20 21:19 Physical Exam Vitals: Vital Signs Temp Pulse Pulse Resp BP Pulse Ox 07/27/20 08:19 95 07/27/20 07:00 98.2 F 86 18 119/79 95 07/27/20 02:12 98.7 F 90 18 96/56 94 L 07/26/20 18:48 98.6 F 85 18 124/76 96 Intake and Output 07/27/20 07/27/20 07/27/20 06:59 14:59 22:59 Intake Total 969.6 450 Output Total 800 550 Balance 169.6 -100 Intake: Intake, IV Titration 969.6 450 Amount Fat Emulsion 20% 250 ml 250 250 In Empty Bag 1 bag @ 21 mls/hr IV DAILY [facility] Rx#: [id number] Piperacillin-Tazobactam 3 100 100 .375 gm In Sodium Chloride 0.9% 100 ml @ 25 mls/hr IVPB Q8H [facility] Rx#: [id number] Ropivacaine 250 mg 219.6 Hydromorphone (Pf) 5 mg In Sodium Chloride 0.9% 200 ml @ Per Protocol EPIDURAL .Q0M PRN Rx#: [id number] Sodium Chloride 0.9% 1, 400 000 ml @ 125 mls/hr IV . Q8H [facility] Rx#:[id number] metroNIDAZOLE-NS PMX 500 100 mg In Saline 1 100ml.bag @ 100 mls/hr IVPB Q6H [facility] Rx#:[id number] Output: Urine 800 550 Other: Voiding Method Indwelling Catheter Indwelling Catheter Weight 97.522 kg GENERAL DESCRIPTION: Middle-aged male up in the chair, no distress. No tachypnea or accessory muscle of respiration use. HEENT: Shows Pallor , no scleral icterus. Oral mucous membrane is dry. No pharyngeal erythema or thrush NECK: Trachea central, no thyromegaly. LUNGS: Unlabored breathing. Clear to auscultation anteriorly. No wheeze or crackle. HEART: S1, S2, regular rate and rhythm. No loud murmur ABDOMEN: Soft, mildly distended and left lower quadrant tenderness EXTREMITIES: No edema of feet. SKIN: No rash, no masses palpable. NEUROLOGICAL: The patient is awake, alert, oriented x3, mood and affect normal. Results CBC & Chem 7: 07/27/20 07:06 07/27/20 07:11 Labs: Abnormal Lab Results - Last 24 Hours (Table) 07/26/20 07/27/20 07/27/20 Range/Units 15:38 07:06 07:11 RBC 3.82 L (4.30-5.90) m/uL Hgb 11.3 L (13.0-17.5) gm/dL Hct 35.3 L (39.0-53.0) % Calcium 8.1 L (8.7-10.3) mg/dL Phosphorus 2.2 L (2.4-5.1) mg/dL Albumin 3.1 L (3.5-5.0) g/dL Microbiology - Last 24 Hours (Table) 07/25/20 16:43 Gram Stain - Preliminary Abdomen Wound Culture - Preliminary Gram Neg Bacilli Gram Neg Bacilli#2 Assessment and Plan Assessment: 1- patient with abdominal abscess in this patient with perforated sigmoid diverticulitis patient has failed IV antibiotic therapy and is status post laparotomy with drainage of the abscess and small bowel resection 2 and diverting colostomy abdominal culture now showing Klebsiella and E. coli that seems to be sensitive pathogen (1) Perforation of sigmoid colon due to diverticulitis Current Visit: Yes Status: Acute Code(s): K57.20 - DVTRCLI OF LG INT W PERFORATION AND ABSCESS W/O BLEEDING SNOMED Code(s): 4346027573099333 (2) Intra-abdominal abscess Current Visit: Yes Status: Acute Code(s): K65.1 - PERITONEAL ABSCESS SNOMED Code(s): 78947801 Plan: 1- Discontinue Zosyn and Flagyl 2-we will start the patient on Unasyn 3 g every 6 hours We will follow on clinical condition and cultures to further adjust medication if needed Thank you for this consultation will follow this patient with you Time with Patient: Greater than 30
[2020-07-28] MEDS: 1: MVI, ADULT NO.4 WITH VIT K 10 ML, TRACE (CONC-1ML/DOSE) 1 ML in AMINO ACID 4.25%-D10W IV SCH ×9 (00:52→21:05)
[2020-07-28] MEDS: AMPICILLIN-SULBACTAM 3 GM in SODIUM CHLORIDE 0.9% 100 ML IVPB SCH ×5 (00:53→23:45)
[2020-07-28 02:04] LABS: Glucose,Whole Blood 130 mg/dL (75-99)
[2020-07-28] MEDS: SODIUM CHLORIDE 0.9% 1,000 ML IV SCH ×2 (05:47→18:01)
[2020-07-28 06:40] LABS: Basophils % (A) 0 %; Eosinophils # (A) 0.1 k/uL (0-0.7); Eosinophils % (A) 1 %; HCT 35.2 % (39.0-53.0); HGB 11.2 gm/dL (13.0-17.5); Lymphocytes # (A) 1.3 k/uL (1.0-4.8); Lymphocytes % (A) 15 %; MCH 29.4 pg (25.0-35.0); MCHC 31.9 g/dL (31.0-37.0); MCV 92.3 fL (80.0-100.0); Mean Platelet Volume 6.5; Monocytes # (A) 0.7 k/uL (0-1.0); Monocytes % (A) 8 %; Neutrophils # (A) 6.2 k/uL (1.3-7.7); Neutrophils % (A) 74 %; Platelet Count 338 k/uL (150-450); RBC 3.81 m/uL (4.30-5.90); RDW 12.6 % (11.5-15.5); WBC 8.3 k/uL (3.8-10.6)
--- NOTE | 2020-07-28 06:40 | P.PN ---
Progress Note - Text Progress Note Date: 07/28/20 Patient without complaints. NPO. Denies headache or weakness. Pain /10. Epidural at 8 ml/hr. Epidural site clean and dry. POD#3 s/p LAR. Discontinue epidural today.
[2020-07-28 06:53] LABS: Glucose,Whole Blood 105 mg/dL (75-99)
[2020-07-28] MEDS: PANTOPRAZOLE 40 MG TABLET PO SCH (09:24)
[2020-07-28] MEDS: LOSARTAN 25 MG TAB PO SCH (09:24)
[2020-07-28] MEDS: ASPIRIN 81 MG PO SCH (09:24)
[2020-07-28] MEDS: DIVALPROEX 500 MG TABLET.DR PO SCH ×2 (09:24→21:04)
[2020-07-28] MEDS: FAT EMULSION 20% 250 ML in EMPTY BAG 1 BAG IV SCH (09:24)
[2020-07-28] MEDS: HEPARIN SODIUM,PORCINE 5,000 UNIT/ML 1 ML VIAL SQ SCH ×2 (09:25→21:04)
--- NOTE | 2020-07-28 09:29 | P.PN ---
Subjective From a course: Patient is admitted for acute sigmoid diverticulitis with small localized perforation. Patient is on IV antibiotics. Patient pain did improve significantly. Patient still did not have any bowel movement. Patient remains nothing by mouth at this time. 07/19/2020 Patient's leukocytosis improved patient abdomen is still distended patient is still not feeling better patient still has some abdominal pain but improved compared to admission patient stated that did not move his bowel yet. Patient's symptomatology mostly secondary to constipation. Abdomen is distended and tympanic no rebound or rigidity 07/20/2020 Patient is feeling much better today patient did have multiple bowel movements yesterday patient still has abdominal pain. Patient was started on Martha clear liquid diet today. General surgery is according monitoring until Thursday. Patient will be continued on antibiotics. 07/21/2020 Patient remains a liquid diet still complaining of abdominal pain. 07/22/2020 Patient states his abdominal pain is better still has discomfort on the right side of the abdomen 07/23/2020 Patient says his abdominal pain is worse compared to yesterday still in the same area in the right lower quadranthe did injure surgery evaluated the patient and they made him nothing by mouth again 07/24/2020 Patient didn't have any significant improvement patient will undergo laparotomy with the colectomy for contained abscess and the diverticulitis Constitutional: Denied any fatigue denied any fever. Cardio vascular: denied any chest pain, palpitations Gastrointestinal Rolan pain is worse no nausea Pulmonary: Denied any shortness of breath cough Neurologic denied any new focal deficits Subjective This is the first day I am taking care of the patient on 07/25/20 Patient is a pleasant 54 years old male with multiple medical problems presents with signs and symptoms of bowel obstruction, patient did not have bowel movemen t and his pain was worsening yesterday, surgical team are planning today for laparotomy with possible colectomy for contained abscess secondary to acute diverticulitis. This morning patient is a pleasant, his abdominal pain state that is slightly better 5/10, he had a bowel movement this morning but he was on GoLYTELY for bowel preparation. Discussed with the staff to follow-up with surgery recom mendation as well We'll follow-up recommendation by surgery team 07/26/2020 Patient is awake and alert, is status post sigmoid colectomy and small bowel resections with left-sided ileostomy, today's postop day #1. Patient still nothing by mouth with ice chips. Bowel was started working in. Surgery team R following the case closely 07/27/2020 Patient is awake and alert, is status post sigmoid colectomy and small bowel resections with left-sided ileostomy, today's postop day #2. Patient is abdominal pain is controlled. Patient remains nothing by mouth. Bowel hasn't started working at. Surgery team on the case Follow-up pathology results 07/28/2020 Patient is awake and alert, is status post sigmoid colectomy and small bowel resections with left-sided ileostomy, today's postop day #3. He had a bowel movement today and he ended up. He still have Almaraz catheter will try to discontinue it after taking out his epidural catheter which is still on for pain management. Surgery and anesthesia team. His wound culture is growing Klebsiella and E. coli both are sensitive to antibiotics given to him including Zosyn. Protonix was changed to Unasyn by infectious disease team. We will lower his normal saline to 75 mL/h Objective - Vital Signs Vital signs: Vital Signs Temp 98.1 F 07/28/20 07:00 Pulse 87 07/28/20 07:00 Resp 18 07/28/20 07:00 BP 138/87 07/28/20 07:00 Pulse Ox 96 07/28/20 07:00 Intake & Output 07/27/20 07/28/20 07/28/20 18:59 06:59 18:59 Intake Total 450 1483.2 Output Total 550 450 Balance -100 1033.2 Weight 97.522 kg Intake: Intake, IV Titration 450 1183.2 Amount Ampicillin-Sulbactam 3 gm 100 In Sodium Chloride 0.9% 100 ml @ 200 mls/hr IVPB Q6HR [facility] Rx#:[id number] Fat Emulsion 20% 250 ml 250 In Empty Bag 1 bag @ 21 mls/hr IV DAILY [facility] Rx#: [id number] Piperacillin-Tazobactam 3 100 200 .375 gm In Sodium Chloride 0.9% 100 ml @ 25 mls/hr IVPB Q8H [facility] Rx#: [id number] Ropivacaine 250 mg 233.2 Hydromorphone (Pf) 5 mg In Sodium Chloride 0.9% 200 ml @ Per Protocol EPIDURAL .Q0M [facility] Rx#: [id number] Sodium Chloride 0.9% 1, 450 000 ml @ 125 mls/hr IV . Q8H [facility] Rx#:[id number] metroNIDAZOLE-NS PMX 500 100 200 mg In Saline 1 100ml.bag @ 100 mls/hr IVPB Q6H [facility] Rx#:[id number] Oral 300 Output: Urine 550 450 Other: Voiding Method Indwelling Catheter Indwelling Catheter - Exam GENERAL: The patient is alert and oriented x3, not in any acute distress. Well developed, well nourished. HEENT: Pupils are round and equally reacting to light. EOMI. No scleral icterus. No conjunctival pallor. Normocephalic, atraumatic. No pharyngeal erythema. No thyromegaly. CARDIOVASCULAR: S1 and S2 present. No murmurs, rubs, or gallops. PULMONARY: Chest is clear to auscultation, no wheezing or crackles. -ABDOMEN: Soft, slightly distended, lower abdominal pain more on the right side, normoactive bowel sounds. No palpable organomegaly. MUSCULOSKELETAL: No joint swelling or deformity. EXTREMITIES: No cyanosis, clubbing, or pedal edema. NEUROLOGICAL: Gross neurological examination did not reveal any focal deficits. SKIN: No rashes. no petechiae. - Labs CBC & Chem 7: 07/28/20 06:20 07/27/20 07:11 Labs: Abnormal Lab Results - Last 24 Hours (Table) 07/27/20 07/28/20 07/28/20 Range/Units 07:11 02:03 06:20 RBC 3.81 L (4.30-5.90) m/uL Hgb 11.2 L (13.0-17.5) gm/dL Hct 35.2 L (39.0-53.0) % POC Glucose (mg/dL) 130 H (75-99) mg/dL Calcium 8.1 L (8.7-10.3) mg/dL Phosphorus 2.2 L (2.4-5.1) mg/dL 07/28/20 Range/Units 06:51 RBC (4.30-5.90) m/uL Hgb (13.0-17.5) gm/dL Hct (39.0-53.0) % POC Glucose (mg/dL) 105 H (75-99) mg/dL Calcium (8.7-10.3) mg/dL Phosphorus (2.4-5.1) mg/dL Microbiology - Last 24 Hours (Table) 07/25/20 16:43 Anaerobic Culture - Preliminary Abdomen 07/25/20 16:43 Gram Stain - Final Abdomen Wound Culture - Final Escherichia coli Klebsiella pneumoniae Assessment and Plan Assessment: -Acute Sigmoid diverticulitis: Status post sigmoid colectomy and small bowel resections, Continue with Unasyn patient is on Dilaudid and Toradol for pain. Follow-up with surgery team recommendation -Type 2 diabetes mellitus -Hypertension DVT prophylaxis with Lovenox, GI prophylaxis Protonix For above-mentioned chronic medical problems patient will be resumed on appropriate home medications
[2020-07-28 09:48] LABS: African American GFR (CKD) 122.3 (60.0-200.0); Anion Gap 5.4 mmol/L (4.00-12.00); BUN/Creat Ratio 15.71 Ratio (12.00-20.00); Calcium 8.3 mg/dL (8.7-10.3); Carbon Dioxide 33.6 mmol/L (21.6-31.8); Non-African American GFR(CKD) 105.5 (60.0-200.0); Phosphorus 2.2 mg/dL (2.4-5.1); Potassium 4.1 mmol/L (3.5-5.5)
--- NOTE | 2020-07-28 10:39 | P.PN ---
Subjective Progress Note Date: 07/28/20 Principal diagnosis: Diego's Patient doing fairly well today. Small amount of ostomy function at this time. Pain is improving. White blood cell count 8.3. Epidural and Almaraz being removed Objective - Vital Signs Vital signs: Vital Signs Temp 98.1 F 07/28/20 07:00 Pulse 87 07/28/20 07:00 Resp 18 07/28/20 07:00 BP 138/87 07/28/20 07:00 Pulse Ox 96 07/28/20 07:00 Intake & Output 07/27/20 07/28/20 07/28/20 18:59 06:59 18:59 Intake Total 450 1483.2 Output Total 550 450 Balance -100 1033.2 Weight 97.522 kg Intake: Intake, IV Titration 450 1183.2 Amount Ampicillin-Sulbactam 3 gm 100 In Sodium Chloride 0.9% 100 ml @ 200 mls/hr IVPB Q6HR [facility] Rx#:[id number] Fat Emulsion 20% 250 ml 250 In Empty Bag 1 bag @ 21 mls/hr IV DAILY [facility] Rx#: [id number] Piperacillin-Tazobactam 3 100 200 .375 gm In Sodium Chloride 0.9% 100 ml @ 25 mls/hr IVPB Q8H [facility] Rx#: [id number] Ropivacaine 250 mg 233.2 Hydromorphone (Pf) 5 mg In Sodium Chloride 0.9% 200 ml @ Per Protocol EPIDURAL .Q0M PRN Rx#: [id number] Sodium Chloride 0.9% 1, 450 000 ml @ 125 mls/hr IV . Q8H [facility] Rx#:[id number] metroNIDAZOLE-NS PMX 500 100 200 mg In Saline 1 100ml.bag @ 100 mls/hr IVPB Q6H [facility] Rx#:[id number] Oral 300 Output: Urine 550 450 Other: Voiding Method Indwelling Catheter Indwelling Catheter - Exam Abdomen: Soft, nondistended, incision clean and dry, ostomy function - Labs CBC & Chem 7: 07/28/20 06:20 07/28/20 06:20 Labs: Abnormal Lab Results - Last 24 Hours (Table) 07/27/20 07/28/20 07/28/20 Range/Units 07:11 02:03 06:20 RBC 3.81 L (4.30-5.90) m/uL Hgb 11.2 L (13.0-17.5) gm/dL Hct 35.2 L (39.0-53.0) % Carbon Dioxide (21.6-31.8) mmol/L POC Glucose (mg/dL) 130 H (75-99) mg/dL Calcium 8.1 L (8.7-10.3) mg/dL Phosphorus 2.2 L (2.4-5.1) mg/dL 07/28/20 07/28/20 Range/Units 06:20 06:51 RBC (4.30-5.90) m/uL Hgb (13.0-17.5) gm/dL Hct (39.0-53.0) % Carbon Dioxide 33.6 H (21.6-31.8) mmol/L POC Glucose (mg/dL) 105 H (75-99) mg/dL Calcium 8.3 L (8.7-10.3) mg/dL Phosphorus 2.2 L (2.4-5.1) mg/dL Microbiology - Last 24 Hours (Table) 07/25/20 16:43 Anaerobic Culture - Preliminary Abdomen 07/25/20 16:43 Gram Stain - Final Abdomen Wound Culture - Final Escherichia coli Klebsiella pneumoniae Assessment and Plan (1) Perforation of sigmoid colon due to diverticulitis Narrative/Plan: Patient doing well. Will begin clear liquid diet. Add oral pain medications. Remove Almaraz catheter and epidural. Ambulate. Current Visit: Yes Status: Acute Code(s): K57.20 - DVTRCLI OF LG INT W PERFORATION AND ABSCESS W/O BLEEDING SNOMED Code(s): 6598904770474753
[2020-07-28] MEDS: HYDROmorphone 1 MG/ML 1 ML SYRINGE IVP PRN (11:25)
[2020-07-28 11:45] LABS: Glucose,Whole Blood 117 mg/dL (75-99)
[2020-07-28] MEDS: KETOROLAC 15 MG/ML 1 ML VIAL IVP SCH ×3 (12:44→23:45)
[2020-07-28] MEDS: HYDROcodone/APAP 5-325MG 1 EACH TAB PO PRN (15:47)
[2020-07-28 16:38] LABS: Glucose,Whole Blood 123 mg/dL (75-99)
--- NOTE | 2020-07-28 16:38 | PN ---
PROGRESS NOTE DATE OF SERVICE: 07/28/2020 REASON FOR FOLLOWUP: Perforated diverticulitis and abscess. INTERVAL HISTORY: Patient is currently afebrile. The patient is feeling better. Breathing comfortably. Abdominal pain is currently controlled. No chest pain. No shortness of breath or cough. No nausea, no vomiting. Did have output in his colostomy bag. PHYSICAL EXAMINATION: Blood pressure 138/87 with a pulse of 87, temperature 98.1. He is 96% on room air. General description is a middle-aged male up in the chair in no distress. Respiratory system: Unlabored breathing. Clear to auscultation anteriorly. Heart S1, S2. Regular rate and rhythm. ABDOMEN: Soft, no tenderness. LABS: Hemoglobin 11.8, white count 8.3, BUN of 9, creatinine 0.7. DIAGNOSTIC IMPRESSION AND PLAN: Patient with abdominal abscess and perforated diverticulitis. Culture with E coli, Klebsiella, sensitive pathogen. Patient is covered with Unasyn to continue while inpatient. Hopefully finish therapy or antibiotic on discharge. The patient continues to improve. Continue supportive care. MMODL / IJN: [id number] /
[2020-07-28] MEDS: ATORVASTATIN 80 MG TAB PO SCH (21:04)
[2020-07-28] MEDS: HYDROmorphone 0.5 MG/0.5 ML SYRINGE IVP PRN (21:06)
[2020-07-28] MEDS: LORazepam 2 MG/ML INJ IV PRN (21:06)
[2020-07-29 00:24] LABS: Glucose,Whole Blood 159 mg/dL (75-99)
[2020-07-29] MEDS: HYDROmorphone 1 MG/ML 1 ML SYRINGE IVP PRN ×2 (02:30→07:44)
[2020-07-29] MEDS: SODIUM CHLORIDE 0.9% 1,000 ML IV SCH ×2 (02:34→21:27)
[2020-07-29] MEDS: KETOROLAC 15 MG/ML 1 ML VIAL IVP SCH ×3 (06:00→17:25)
[2020-07-29] MEDS: AMPICILLIN-SULBACTAM 3 GM in SODIUM CHLORIDE 0.9% 100 ML IVPB SCH ×3 (06:00→17:24)
[2020-07-29 06:13] LABS: Glucose,Whole Blood 125 mg/dL (75-99)
[2020-07-29] MEDS: DIVALPROEX 500 MG TABLET.DR PO SCH ×2 (07:45→21:32)
[2020-07-29] MEDS: LOSARTAN 25 MG TAB PO SCH (07:45)
[2020-07-29] MEDS: ASPIRIN 81 MG PO SCH (07:45)
[2020-07-29] MEDS: HEPARIN SODIUM,PORCINE 5,000 UNIT/ML 1 ML VIAL SQ SCH ×2 (07:45→21:32)
[2020-07-29] MEDS: PANTOPRAZOLE 40 MG TABLET PO SCH (07:45)
[2020-07-29 08:01] LABS: African American GFR (CKD) >90 (>60 ml/min/1.73 sqM); Anion Gap 4 mmol/L; Blood Urea Nitrogen 12 mg/dL (9-20); Calcium 8.5 mg/dL (8.4-10.2); Carbon Dioxide 33 mmol/L (22-30); Chloride 103 mmol/L (98-107); Glucose 123 mg/dL (74-99); Magnesium 2.3 mg/dL (1.6-2.3); Non-African American GFR(CKD) >90 (>60 ml/min/1.73 sqM); Phosphorus 2.9 mg/dL (2.5-4.5); Potassium 4.2 mmol/L (3.5-5.1); Sodium 140 mmol/L (137-145)
--- NOTE | 2020-07-29 10:51 | P.PN ---
Subjective Progress Note Date: 07/29/20 Principal diagnosis: Diego's Patient doing well today. His pain is improved. Ostomy is functioning. He would like to eat more. He is afebrile. Objective - Vital Signs Vital signs: Vital Signs Temp 98.8 F 07/29/20 07:35 Pulse 73 07/29/20 07:35 Resp 18 07/29/20 07:35 BP 119/79 07/29/20 07:35 Pulse Ox 93 L 07/29/20 07:35 Intake & Output 07/28/20 07/29/20 07/29/20 18:59 06:59 18:59 Intake Total 2395 750 Output Total 1300 50 Balance 1095 700 Intake: Intake, IV Titration 2195 350 Amount Amino Acid 4.25%-D10w+ 1595 Lytes*E* 1,000 ml @ 85 mls/hr IV .BY DURATION [facility] Rx#:[id number] Ampicillin-Sulbactam 3 gm 200 In Sodium Chloride 0.9% 100 ml @ 200 mls/hr IVPB Q6HR [facility] Rx#:[id number] Fat Emulsion 20% 250 ml 400 In Empty Bag 1 bag @ 21 mls/hr IV DAILY [facility] Rx#: [id number] Sodium Chloride 0.9% 1, 350 000 ml @ 75 mls/hr IV . [id number] [facility] Rx#:[id number] Oral 200 400 Output: Urine 1150 Uretheral (Almaraz) 675 Stool 150 50 Other: Voiding Method Indwelling Catheter Indwelling Catheter # Voids 2 - Exam Abdomen: Soft, nondistended, incision clean and dry, ostomy function - Labs CBC & Chem 7: 07/28/20 06:20 07/29/20 07:00 Labs: Abnormal Lab Results - Last 24 Hours (Table) 07/28/20 07/28/20 07/29/20 Range/Units 11:44 16:36 00:22 Carbon Dioxide (22-30) mmol/L Glucose (74-99) mg/dL POC Glucose (mg/dL) 117 H 123 H 159 H (75-99) mg/dL 07/29/20 07/29/20 Range/Units 06:11 07:00 Carbon Dioxide 33 H (22-30) mmol/L Glucose 123 H (74-99) mg/dL POC Glucose (mg/dL) 125 H (75-99) mg/dL Assessment and Plan (1) Perforation of sigmoid colon due to diverticulitis Narrative/Plan: Will increase diet at this time. Continue ambulation. Possible discharge tomorrow. Await final path. Current Visit: Yes Status: Acute Code(s): K57.20 - DVTRCLI OF LG INT W PERFORATION AND ABSCESS W/O BLEEDING SNOMED Code(s): 4436706638086892
[2020-07-29] MEDS: FAT EMULSION 20% 250 ML in EMPTY BAG 1 BAG IV SCH (11:20)
[2020-07-29 11:41] LABS: Glucose,Whole Blood 117 mg/dL (75-99)
--- NOTE | 2020-07-29 14:22 | P.PN ---
Subjective From a course: Patient is admitted for acute sigmoid diverticulitis with small localized perforation. Patient is on IV antibiotics. Patient pain did improve significantly. Patient still did not have any bowel movement. Patient remains nothing by mouth at this time. 07/19/2020 Patient's leukocytosis improved patient abdomen is still distended patient is still not feeling better patient still has some abdominal pain but improved compared to admission patient stated that did not move his bowel yet. Patient's symptomatology mostly secondary to constipation. Abdomen is distended and tympanic no rebound or rigidity 07/20/2020 Patient is feeling much better today patient did have multiple bowel movements yesterday patient still has abdominal pain. Patient was started on Martha clear liquid diet today. General surgery is according monitoring until Thursday. Patient will be continued on antibiotics. 07/21/2020 Patient remains a liquid diet still complaining of abdominal pain. 07/22/2020 Patient states his abdominal pain is better still has discomfort on the right side of the abdomen 07/23/2020 Patient says his abdominal pain is worse compared to yesterday still in the same area in the right lower quadranthe did injure surgery evaluated the patient and they made him nothing by mouth again 07/24/2020 Patient didn't have any significant improvement patient will undergo laparotomy with the colectomy for contained abscess and the diverticulitis Constitutional: Denied any fatigue denied any fever. Cardio vascular: denied any chest pain, palpitations Gastrointestinal Rolan pain is worse no nausea Pulmonary: Denied any shortness of breath cough Neurologic denied any new focal deficits Subjective This is the first day I am taking care of the patient on 07/25/20 Patient is a pleasant 54 years old male with multiple medical problems presents with signs and symptoms of bowel obstruction, patient did not have bowel movemen t and his pain was worsening yesterday, surgical team are planning today for laparotomy with possible colectomy for contained abscess secondary to acute diverticulitis. This morning patient is a pleasant, his abdominal pain state that is slightly better 5/10, he had a bowel movement this morning but he was on GoLYTELY for bowel preparation. Discussed with the staff to follow-up with surgery recom mendation as well We'll follow-up recommendation by surgery team 07/26/2020 Patient is awake and alert, is status post sigmoid colectomy and small bowel resections with left-sided ileostomy, today's postop day #1. Patient still nothing by mouth with ice chips. Bowel was started working in. Surgery team R following the case closely 07/27/2020 Patient is awake and alert, is status post sigmoid colectomy and small bowel resections with left-sided ileostomy, today's postop day #2. Patient is abdominal pain is controlled. Patient remains nothing by mouth. Bowel hasn't started working at. Surgery team on the case Follow-up pathology results 07/28/2020 Patient is awake and alert, is status post sigmoid colectomy and small bowel resections with left-sided ileostomy, today's postop day #3. He had a bowel movement today and he ended up. He still have Almaraz catheter will try to discontinue it after taking out his epidural catheter which is still on for pain management. Surgery and anesthesia team. His wound culture is growing Klebsiella and E. coli both are sensitive to antibiotics given to him including Zosyn. Protonix was changed to Unasyn by infectious disease team. We will lower his normal saline to 75 mL/h 07/29/2020 Patient is awake and alert however he looks tired. Vital signs stable. BMP is a stable. Sugar is controlled.electrolytes are normal. Wound culture is growing E. coli and Klebsiella and antibiotic suspension showing Unasyn based upon sensitivity. Almaraz catheter was discontinued. We'll check bladder scan Surgery team on the case and his diet has been advanced Objective - Vital Signs Vital signs: Vital Signs Temp 98.8 F 07/29/20 07:35 Pulse 73 07/29/20 07:35 Resp 18 07/29/20 07:35 BP 119/79 07/29/20 07:35 Pulse Ox 93 L 07/29/20 07:35 Intake & Output 07/28/20 07/29/20 07/29/20 18:59 06:59 18:59 Intake Total 2395 750 Output Total 1300 50 Balance 1095 700 Intake: Intake, IV Titration 2195 350 Amount Amino Acid 4.25%-D10w+ 1595 Lytes*E* 1,000 ml @ 85 mls/hr IV .BY DURATION [facility] Rx#:[id number] Ampicillin-Sulbactam 3 gm 200 In Sodium Chloride 0.9% 100 ml @ 200 mls/hr IVPB Q6HR [facility] Rx#:[id number] Fat Emulsion 20% 250 ml 400 In Empty Bag 1 bag @ 21 mls/hr IV DAILY [facility] Rx#: [id number] Sodium Chloride 0.9% 1, 350 000 ml @ 75 mls/hr IV . [id number] [facility] Rx#:[id number] Oral 200 400 Output: Urine 1150 Uretheral (Almaraz) 675 Stool 150 50 Other: Voiding Method Indwelling Catheter Indwelling Catheter # Voids 2 - Exam GENERAL: The patient is alert and oriented x3, not in any acute distress. Well developed, well nourished. HEENT: Pupils are round and equally reacting to light. EOMI. No scleral icterus. No conjunctival pallor. Normocephalic, atraumatic. No pharyngeal erythema. No thyromegaly. CARDIOVASCULAR: S1 and S2 present. No murmurs, rubs, or gallops. PULMONARY: Chest is clear to auscultation, no wheezing or crackles. -ABDOMEN: Soft, slightly distended, lower abdominal pain more on the right side, normoactive bowel sounds. No palpable organomegaly. MUSCULOSKELETAL: No joint swelling or deformity. EXTREMITIES: No cyanosis, clubbing, or pedal edema. NEUROLOGICAL: Gross neurological examination did not reveal any focal deficits. SKIN: No rashes. no petechiae. - Labs CBC & Chem 7: 07/28/20 06:20 07/29/20 07:00 Labs: Abnormal Lab Results - Last 24 Hours (Table) 07/28/20 07/29/20 07/29/20 Range/Units 16:36 00:22 06:11 Carbon Dioxide (22-30) mmol/L Glucose (74-99) mg/dL POC Glucose (mg/dL) 123 H 159 H 125 H (75-99) mg/dL 07/29/20 07/29/20 Range/Units 07:00 11:39 Carbon Dioxide 33 H (22-30) mmol/L Glucose 123 H (74-99) mg/dL POC Glucose (mg/dL) 117 H (75-99) mg/dL Assessment and Plan Assessment: -Acute Sigmoid diverticulitis: Status post sigmoid colectomy and small bowel resections, Continue with Unasyn patient is on Dilaudid and Toradol for pain. Follow-up with surgery team recommendation -Type 2 diabetes mellitus -Hypertension DVT prophylaxis with Lovenox, GI prophylaxis Protonix For above-mentioned chronic medical problems patient will be resumed on appropriate home medications
[2020-07-29] MEDS: HYDROmorphone 0.5 MG/0.5 ML SYRINGE IVP PRN ×2 (14:46→21:32)
[2020-07-29 17:58] LABS: Glucose,Whole Blood 99 mg/dL (75-99)
[2020-07-29] MEDS: ATORVASTATIN 80 MG TAB PO SCH (21:32)
[2020-07-29] MEDS: LORazepam 2 MG/ML INJ IV PRN (21:33)
[2020-07-30] MEDS: AMPICILLIN-SULBACTAM 3 GM in SODIUM CHLORIDE 0.9% 100 ML IVPB SCH ×3 (00:03→12:37)
[2020-07-30] MEDS: KETOROLAC 15 MG/ML 1 ML VIAL IVP SCH ×3 (00:03→12:36)
[2020-07-30 01:34] LABS: Glucose,Whole Blood 106 mg/dL (75-99)
--- NOTE | 2020-07-30 03:27 | PN ---
PROGRESS NOTE DATE OF SERVICE: 07/29/2020 REASON FOR FOLLOWUP: Abdominal abscess from perforated diverticulitis. INTERVAL HISTORY: The patient is currently afebrile. He is breathing comfortably. The patient denies having any chest pain or shortness of breath or cough. No nausea, vomiting. Abdominal pain is currently controlled. Did have output in his colostomy bag. PHYSICAL EXAMINATION: Blood pressure 150/94 with a pulse of 87, temperature 98.5. He is 92% on room air. General description is middle-aged male up in the chair in no distress. RESPIRATORY SYSTEM: Unlabored breathing, decreased breath sounds at the bases. No wheeze. HEART: S1, S2. Regular rate and rhythm. ABDOMEN: Soft, no tenderness. LABS: BUN of 12, creatinine 0.67. Abdominal culture with an E coli and Klebsiella. DIAGNOSTIC IMPRESSION AND PLAN: Patient with abdominal abscess from perforated sigmoid diverticulitis, status post laparotomy and diverting colostomy. Abdominal culture Klebsiella and Escherichia coli. Patient is covered with Unasyn to finish therapy with oral Cipro and Flagyl for another 10 days and close outpatient followup. MMODL / IJN: [id number] / ROSALINA
[2020-07-30] MEDS: SODIUM CHLORIDE 0.9% 1,000 ML IV SCH (05:57)
[2020-07-30 07:33] VITALS: BP 137/99; PULSE 71; RESP 18; TEMP 97.9
[2020-07-30 08:32] LABS: Basophils % (A) 0 %; Eosinophils # (A) 0.2 k/uL (0-0.7); Eosinophils % (A) 2 %; HCT 35.9 % (39.0-53.0); HGB 11.9 gm/dL (13.0-17.5); Lymphocytes # (A) 1.9 k/uL (1.0-4.8); Lymphocytes % (A) 18 %; MCH 30.6 pg (25.0-35.0); MCV 92.6 fL (80.0-100.0); Monocytes # (A) 0.8 k/uL (0-1.0); Monocytes % (A) 8 %; Neutrophils # (A) 7.8 k/uL (1.3-7.7); Neutrophils % (A) 72 %; Platelet Count 405 k/uL (150-450); RBC 3.88 m/uL (4.30-5.90); RDW 13.3 % (11.5-15.5); WBC 10.8 k/uL (3.8-10.6)
[2020-07-30] MEDS: PANTOPRAZOLE 40 MG TABLET PO SCH (09:23)
[2020-07-30] MEDS: ASPIRIN 81 MG PO SCH (09:23)
[2020-07-30] MEDS: HEPARIN SODIUM,PORCINE 5,000 UNIT/ML 1 ML VIAL SQ SCH (09:23)
[2020-07-30] MEDS: DIVALPROEX 500 MG TABLET.DR PO SCH (09:23)
[2020-07-30] MEDS: LOSARTAN 25 MG TAB PO SCH (09:23)
--- NOTE | 2020-07-30 09:31 | P.DS ---
Providers Date of admission: 07/16/20 20:49 Expected date of discharge: 07/30/20 Attending physician: Kennedy Edmondson MD Consults: 07/16/20 20:50 Consult Physician Urgent Consulting Provider: Soham Vincent Consult Reason/Comments: diverticulitis Do you want consulting provider notified?: Yes 07/27/20 15:03 Consult Physician Urgent Consulting Provider: Grace Christopher Consult Reason/Comments: infection Do you want consulting provider notified?: Yes Primary care physician: [facility] Course: Discharge diagnosis 1. Acute sigmoid diverticulitis with perforation and abscess with loop of ileum and jejunum and sigmoid colon status post exploratory laparotomy, drainage of abscess, small bowel resection and sigmoid colectomy with colostomy 2. History of diabetes mellitus type 2 3. History of coronary artery disease with cardiac stent on Plavix. Plavix can be restarted 4. Moderate protein calorie malnutrition Hospital course This is a 54-year-old male with a known past medical history of diabetes mellitus, hypertension, myocardial infarction, coronary artery disease with cardiac stent. Patient also reports possible history of mild diverticulitis flareup in the past. Patient presents to the emergency room with complaints of abdominal pain. Computed tomography scan abdomen and pelvis report shows long segment of sigmoid diverticulitis. No drainable fluid collection. White count elevated at 15.4. Patient started on IV antibiotics. Patient was treated conservatively. He had increased abdominal pain and a repeat computed tomography scan was completed the day after his admission. The report stated sigmoid diverticulitis and small areas of air bubbles in the pericolic mesentery consistent with localized perforation. Patient was made nothing by mouth. Maintained on IV antibiotics and IV fluids. Given pain medications. And he was treated conservatively. He had a few days of improvement. And then increasing of abdominal pain and abdominal distention even after conservative treatment. Therefore he was taken to the OR on 07/25/2020 for abdominal abscess with loop of ileum and jejunum and sigmoid colon and questionable inflammatory bowel disease. Patient status post exploratory laparotomy, drainage of abscess, small bowel resection, sigmoid colectomy with colostomy. Patient's colostomy is functioning. He did have a low-grade temp of 100 last night. This morning he is afebrile. White count 10.8. Culture had grown E. coli and Klebsiella pneumoniae. Infectious diseases recommending 10 more days of Cipro and Flagyl. Patient is tolerating low fiber diet. He's up and ambulating. He is stable for discharge. Need to follow-up on pathology report outpatient. Physician [employer] note has been reviewed by physician. Signing provider agrees with the documented findings, assessment, and plan of care. Patient Condition at Discharge: Stable Plan - Discharge Summary Discharge Rx Participant: Yes New Discharge Prescriptions: New Docusate [Colace] 100 mg PO BID #30 capsule Hydrocodone/Acetaminophen [[place] 5-325] 1 tab PO Q4HR PRN 3 Days #18 tab PRN Reason: Pain Ciprofloxacin HCl [Cipro] 500 mg PO Q12H 10 Days #20 tab metroNIDAZOLE [Flagyl] 500 mg PO TID #30 tab Continue Clopidogrel [Plavix] 75 mg PO DAILY Aspirin 81 mg PO DAILY No Action Divalproex [Depakote] 500 mg PO BID Atorvastatin [Lipitor] 80 mg PO HS Prazosin [Minipress] 5 mg PO HS HYDROcodone/APAP 7.5-325MG [[place] 7.5-325] 1 tab PO QID PRN PRN Reason: Pain metFORMIN HCL [Glucophage] 500 mg PO DAILY Multivitamins, Thera [Multivitamin (formulary)] 1 tab PO DAILY traZODone HCL 100 mg PO HS Polyvinyl Alcohol/Povidone [Freshkote] 1 drop BOTH EYES QID Omeprazole 40 mg PO DAILY Nitroglycerin Sl Tabs [Nitrostat] 0.4 mg SUBLINGUAL Q5M PRN PRN Reason: Chest Pain [place]-3 Fatty Acids/Fish Oil [Fish Oil 1,000 mg Softgel] 1 cap PO DAILY Losartan Potassium [Cozaar] 25 mg PO DAILY cloNIDine HCL [Catapres] 0.1 mg PO Q12H Cholecalciferol [Vitamin D3 (25 Mcg = 1000 Iu)] 2,000 unit PO DAILY Ubidecarenone [Co Q-10] 100 mg PO DAILY Discharge Medication List Aspirin 81 mg PO DAILY 03/30/18 [History] Atorvastatin [Lipitor] 80 mg PO HS 03/30/18 [History] Clopidogrel [Plavix] 75 mg PO DAILY 03/30/18 [History] Divalproex [Depakote] 500 mg PO BID 03/30/18 [History] HYDROcodone/APAP 7.5-325MG [[place] 7.5-325] 1 tab PO QID PRN 03/30/18 [History] Prazosin [Minipress] 5 mg PO HS 03/30/18 [History] metFORMIN HCL [Glucophage] 500 mg PO DAILY 12/13/18 [History] Cholecalciferol [Vitamin D3 (25 Mcg = 1000 Iu)] 2,000 unit PO DAILY 07/16/20 [History] Losartan Potassium [Cozaar] 25 mg PO DAILY 07/16/20 [History] Multivitamins, Thera [Multivitamin (formulary)] 1 tab PO DAILY 07/16/20 [History] Nitroglycerin Sl Tabs [Nitrostat] 0.4 mg SUBLINGUAL Q5M PRN 07/16/20 [History] [place]-3 Fatty Acids/Fish Oil [Fish Oil 1,000 mg Softgel] 1 cap PO DAILY 07/16/20 [History] Omeprazole 40 mg PO DAILY 07/16/20 [History] Polyvinyl Alcohol/Povidone [Freshkote] 1 drop BOTH EYES QID 07/16/20 [History] Ubidecarenone [Co Q-10] 100 mg PO DAILY 07/16/20 [History] cloNIDine HCL [Catapres] 0.1 mg PO Q12H 07/16/20 [History] traZODone HCL 100 mg PO HS 07/16/20 [History] Ciprofloxacin HCl [Cipro] 500 mg PO Q12H 10 Days #20 tab 07/30/20 [Rx] Docusate [Colace] 100 mg PO BID #30 capsule 07/30/20 [Rx] Hydrocodone/Acetaminophen [[place] 5-325] 1 tab PO Q4HR PRN 3 Days #18 tab 07/30/20 [Rx] metroNIDAZOLE [Flagyl] 500 mg PO TID #30 tab 07/30/20 [Rx] Follow up Appointment(s)/Referral(s): [facility]esh [facility], [NON-STAFF] - As Needed Raciel Melvin DO [Primary Care Provider] - 1-2 days Patient Instructions/Handouts: Diverticulitis (GEN), Colostomy Care (GEN) Activity/Diet/Wound Care/Special Instructions: Med rec per medicine Colostomy Care Recommendations for Home: Last pouching system change: 07.27.2020 Home ostomy care supplies as follows from the hospital: [facility] moldable flange #[id number] (3) Convatec pouches with filter #[id number] (3) Osotmy powder No sting prep pads (10) Mr Cornejo is to empty the pouching system in the bathroom when the pouch is 1/2 to 1/3 full Mr Cornejo is to change the entire pouching system every 3-5 days Shower with your pouch on Home Health please assist Mr Clayton to establish disposable pouches in 3 weeks after discharge home Mr Cornejo will be receiving additional ostomy supplies from [facility] once home (3-5 days after discharge home) No driving while taking [place] No lifting over 10 pounds You may shower. No soaking or tub baths for 2 weeks Very light activity until you are reevaluated at your follow up appointment with your surgeon Diet: Low fiber diet Discharge Disposition: HOME WITH HOME HEALTH SERVICES
[2020-07-30 11:23] LABS: African American GFR (CKD) 122.3 (60.0-200.0); Anion Gap 7.3 mmol/L (4.00-12.00); BUN/Creat Ratio 18.57 Ratio (12.00-20.00); Calcium 8.6 mg/dL (8.7-10.3); Carbon Dioxide 27.7 mmol/L (21.6-31.8); Non-African American GFR(CKD) 105.5 (60.0-200.0); Phosphorus 3.1 mg/dL (2.4-5.1); Potassium 4.5 mmol/L (3.5-5.5)
--- NOTE | 2020-07-30 11:49 | P.PN ---
Subjective From a course: Patient is admitted for acute sigmoid diverticulitis with small localized perforation. Patient is on IV antibiotics. Patient pain did improve significantly. Patient still did not have any bowel movement. Patient remains nothing by mouth at this time. 07/19/2020 Patient's leukocytosis improved patient abdomen is still distended patient is still not feeling better patient still has some abdominal pain but improved compared to admission patient stated that did not move his bowel yet. Patient's symptomatology mostly secondary to constipation. Abdomen is distended and tympanic no rebound or rigidity 07/20/2020 Patient is feeling much better today patient did have multiple bowel movements yesterday patient still has abdominal pain. Patient was started on Martha clear liquid diet today. General surgery is according monitoring until Thursday. Patient will be continued on antibiotics. 07/21/2020 Patient remains a liquid diet still complaining of abdominal pain. 07/22/2020 Patient states his abdominal pain is better still has discomfort on the right side of the abdomen 07/23/2020 Patient says his abdominal pain is worse compared to yesterday still in the same area in the right lower quadranthe did injure surgery evaluated the patient and they made him nothing by mouth again 07/24/2020 Patient didn't have any significant improvement patient will undergo laparotomy with the colectomy for contained abscess and the diverticulitis Constitutional: Denied any fatigue denied any fever. Cardio vascular: denied any chest pain, palpitations Gastrointestinal Rolan pain is worse no nausea Pulmonary: Denied any shortness of breath cough Neurologic denied any new focal deficits Subjective This is the first day I am taking care of the patient on 07/25/20 Patient is a pleasant 54 years old male with multiple medical problems presents with signs and symptoms of bowel obstruction, patient did not have bowel movemen t and his pain was worsening yesterday, surgical team are planning today for laparotomy with possible colectomy for contained abscess secondary to acute diverticulitis. This morning patient is a pleasant, his abdominal pain state that is slightly better 5/10, he had a bowel movement this morning but he was on GoLYTELY for bowel preparation. Discussed with the staff to follow-up with surgery recom mendation as well We'll follow-up recommendation by surgery team 07/26/2020 Patient is awake and alert, is status post sigmoid colectomy and small bowel resections with left-sided ileostomy, today's postop day #1. Patient still nothing by mouth with ice chips. Bowel was started working in. Surgery team R following the case closely 07/27/2020 Patient is awake and alert, is status post sigmoid colectomy and small bowel resections with left-sided ileostomy, today's postop day #2. Patient is abdominal pain is controlled. Patient remains nothing by mouth. Bowel hasn't started working at. Surgery team on the case Follow-up pathology results 07/28/2020 Patient is awake and alert, is status post sigmoid colectomy and small bowel resections with left-sided ileostomy, today's postop day #3. He had a bowel movement today and he ended up. He still have Almaraz catheter will try to discontinue it after taking out his epidural catheter which is still on for pain management. Surgery and anesthesia team. His wound culture is growing Klebsiella and E. coli both are sensitive to antibiotics given to him including Zosyn. Protonix was changed to Unasyn by infectious disease team. We will lower his normal saline to 75 mL/h 07/29/2020 Patient is awake and alert however he looks tired. Vital signs stable. BMP is a stable. Sugar is controlled.electrolytes are normal. Wound culture is growing E. coli and Klebsiella and antibiotic suspension showing Unasyn based upon sensitivity. Almaraz catheter was discontinued. We'll check bladder scan Surgery team on the case and his diet has been advanced 07/30/2020 Patient is doing well, is fully awake and oriented, hysterectomy and regular diet, his colostomy bag is working. No abdominal pain, no nausea vomiting. Vital signs stable, he has mild leukocytosis of 10.8 today. He will be discharged on antibiotics as per ID team recommendation and surgery team recommendation. Almaraz catheter was discontinued, post void residual bladder scan showed 28 mm only Patient will be discharged by surgery team today who took over the care of the patient as a primary team. Medically he looks his stable. Patient was instructed together with his at bedside to follow-up the results of the intestinal pathology with surgery team, risks including but not limited to cancer are explained and they agreed to follow-up with PCP Dr. Melvin and Dr. Vincent. Objective - Vital Signs Vital signs: Vital Signs Temp 97.9 F 07/30/20 07:00 Pulse 71 07/30/20 07:00 Resp 18 07/30/20 07:00 BP 137/99 07/30/20 07:00 Pulse Ox 95 07/30/20 07:00 Intake & Output 07/29/20 07/30/20 07/30/20 18:59 06:59 18:59 Intake Total 1450 Output Total 100 Balance 1350 Weight 97.522 kg Intake: Intake, IV Titration 900 Amount Ampicillin-Sulbactam 3 gm 100 In Sodium Chloride 0.9% 100 ml @ 200 mls/hr IVPB Q6HR [facility] Rx#:[id number] Sodium Chloride 0.9% 1, 800 000 ml @ 75 mls/hr IV . [id number] [facility] Rx#:[id number] Oral 550 Output: Stool 100 Other: Voiding Method Indwelling Catheter # Voids 2 3 - Exam GENERAL: The patient is alert and oriented x3, not in any acute distress. Well developed, well nourished. HEENT: Pupils are round and equally reacting to light. EOMI. No scleral icterus. No conjunctival pallor. Normocephalic, atraumatic. No pharyngeal erythema. No thyromegaly. CARDIOVASCULAR: S1 and S2 present. No murmurs, rubs, or gallops. PULMONARY: Chest is clear to auscultation, no wheezing or crackles. -ABDOMEN: Soft, slightly distended, lower abdominal pain more on the right side, normoactive bowel sounds. No palpable organomegaly. MUSCULOSKELETAL: No joint swelling or deformity. EXTREMITIES: No cyanosis, clubbing, or pedal edema. NEUROLOGICAL: Gross neurological examination did not reveal any focal deficits. SKIN: No rashes. no petechiae. - Labs CBC & Chem 7: 07/30/20 06:49 07/30/20 06:49 Labs: Abnormal Lab Results - Last 24 Hours (Table) 07/30/20 07/30/20 07/30/20 Range/Units 01:18 06:49 06:49 WBC 10.8 H (3.8-10.6) k/uL RBC 3.88 L (4.30-5.90) m/uL Hgb 11.9 L (13.0-17.5) gm/dL Hct 35.9 L (39.0-53.0) % Neutrophils # 7.8 H (1.3-7.7) k/uL POC Glucose (mg/dL) 106 H (75-99) mg/dL Calcium 8.6 L (8.7-10.3) mg/dL Microbiology - Last 24 Hours (Table) 07/25/20 16:43 Anaerobic Culture - Final Abdomen Assessment and Plan Assessment: -Acute Sigmoid diverticulitis: Status post sigmoid colectomy and small bowel resections, Continue with antibiotics as per surgery and ID team. Follow-up with surgery team recommendation . Follow-up pathology results per patient and surgery team and patient agrees -Type 2 diabetes mellitus -Hypertension DVT prophylaxis with Lovenox, GI prophylaxis Protonix For above-mentioned chronic medical problems patient will be resumed on ap propriate home medications
[2020-07-30] MEDS: HYDROcodone/APAP 5-325MG 1 EACH TAB PO PRN (12:36)
--- NOTE | 2020-07-30 15:16 | PN ---
PROGRESS NOTE DATE OF SERVICE: 07/30/2020. REASON FOR FOLLOWUP: Abdominal abscess. INTERVAL HISTORY: The patient is afebrile. He is breathing comfortably. The patient denies having any chest pain or shortness of breath or cough. No nausea, vomiting. the pt Abdominal pain is currently controlled. Did have output in his colostomy bag. PHYSICAL EXAMINATION: Blood pressure 150/90 with a pulse of 80, temperature 98.5. He is 92% on room air. General description is middle-aged male up in the chair in no distress. RESPIRATORY SYSTEM: Unlabored breathing, decreased breath sounds at the bases. No wheeze. HEART: S1, S2. Regular rate and rhythm. ABDOMEN: Soft, no tenderness. LABS: reviewed . DIAGNOSTIC IMPRESSION AND PLAN: Patient with abdominal abscess from perforated sigmoid diverticulitis, status post laparotomy and diverting colostomy. Abdominal culture Klebsiella and Escherichia coli. Patient is covered with Unasyn to finish therapy with oral Cipro and Flagyl for another 10 days and close outpatient followup. MMODL / IJN: [id number] / ROSALINA
== END 2020-07-30 16:00 | disposition home health service (06) | DRG 329 ==
LOC: EC 18:22 → 4SSUR 20:49
PROVIDERS: ADMIT Internal Medicine; ATTEND Internal Medicine
DX: K57.20 Diverticulitis of large intestine with perforation and abscess without bleeding (principal); K65.1 Peritoneal abscess; E44.0 Moderate protein-calorie malnutrition; E11.9 Type 2 diabetes mellitus without complications; I10 Essential (primary) hypertension; F43.10 Post-traumatic stress disorder, unspecified; K59.00 Constipation, unspecified; E66.9 Obesity, unspecified; R00.0 Tachycardia, unspecified; I25.10 Atherosclerotic heart disease of native coronary artery without angina pectoris; D72.829 Elevated white blood cell count, unspecified; B96.20 Unspecified Escherichia coli [E. coli] as the cause of diseases classified elsewhere; B96.1 Klebsiella pneumoniae [K. pneumoniae] as the cause of diseases classified elsewhere; I25.2 Old myocardial infarction; Z68.35 Body mass index [BMI] 35.0-35.9, adult; Z79.899 Other long term (current) drug therapy; Z79.84 Long term (current) use of oral hypoglycemic drugs; Z79.02 Long term (current) use of antithrombotics/antiplatelets; Z79.82 Long term (current) use of aspirin; Z79.51 Long term (current) use of inhaled steroids; Z96.7 Presence of other bone and tendon implants; Z95.5 Presence of coronary angioplasty implant and graft; Z98.890 Other specified postprocedural states; Z71.3 Dietary counseling and surveillance
CPT/HCPCS: 36410; 36415; 74018; 74176; 74177; 76937; 80048; 80053; 81003; 82040; 82150; 82330; 83036; 83605; 83690; 83735; 84100; 84478; 85025; 85027; 85610; 85730; 87040; 87070; 87075; 87077; 87186; 87205; 88307; 94760; 96361; 96365; 96375; 96376; 99291

== ENCOUNTER → 2020-08-02 | Outpatient (CLI) | payer BC ==
--- NOTE | 2020-08-02 15:48 | US ---
EXAMINATION TYPE: US venous doppler duplex UE LT DATE OF EXAM: 08/02/2020 COMPARISON: NONE CLINICAL HISTORY: [id number] PAIN IN LEFT UPPER ARM. Recent IV left arm, pain, swelling SIDE PERFORMED: Left Left Arm: Negative for DVT. Positive for SVT left cephalic vein at the antecubital fossa to left uppe r arm IMPRESSION: Superficial vein thrombosis as discussed. No evidence for DVT at this time.
== END | disposition home or self-care (01) ==
LOC: RADUSWWP 15:08
PROVIDERS: ATTEND Physician Assistant Medical
DX: I82.612 Acute embolism and thrombosis of superficial veins of left upper extremity (principal)

== ENCOUNTER → 2020-10-16 | Outpatient (CLI) | payer BC ==
[2020-10-16 17:01] LABS: Potassium 4.5 mmol/L (3.5-5.1)
[2020-10-16 17:03] LABS: Basophils % (A) 1 %; Eosinophils # (A) 0.1 k/uL (0-0.7); Eosinophils % (A) 2 %; HCT 44.4 % (39.0-53.0); HGB 14.3 gm/dL (13.0-17.5); Lymphocytes # (A) 2.4 k/uL (1.0-4.8); Lymphocytes % (A) 37 %; MCH 30.6 pg (25.0-35.0); MCHC 32.3 g/dL (31.0-37.0); Mean Platelet Volume 6.8; Monocytes # (A) 0.5 k/uL (0-1.0); Monocytes % (A) 8 %; Neutrophils # (A) 3.3 k/uL (1.3-7.7); Neutrophils % (A) 51 %; Platelet Count 219 k/uL (150-450); RBC 4.68 m/uL (4.30-5.90); RDW 14.5 % (11.5-15.5); WBC 6.5 k/uL (3.8-10.6)
== END | disposition home or self-care (01) ==
LOC: LABPAT 15:49
PROVIDERS: ATTEND Surgery
DX: Z01.818 Encounter for other preprocedural examination (principal); K57.31 Diverticulosis of large intestine without perforation or abscess with bleeding
CPT/HCPCS: 80051; 85025; 86850; 86900; 86901; 93005

== ENCOUNTER 2020-10-23 11:10 | Day surgery (SDC) | payer BC ==
[2020-10-19 11:43] VITALS: BMI 31.6
[~2020-10-23 11:10] MED LIST: LACTATED RINGERS 1,000 ML IV SCH; LIDOCAINE 1% (10MG/ML) FOR IV START INTRADERMA PRN
[2020-10-23 11:38] LABS: Glucose,Whole Blood 93 mg/dL (75-99)
[2020-10-23] MEDS ORDERED: LACTATED RINGERS 1,000 ML IV ONE (12:27)
[2020-10-23] MEDS ORDERED: PROPOFOL 10 MG/ML 20 ML VIAL IV ONE (12:28)
--- NOTE | 2020-10-23 12:51 | P.OP ---
Date of Procedure: 10/23/20 Preoperative Diagnosis: Perforated diverticulitis Postoperative Diagnosis: Diverticulosis Procedure(s) Performed: Colonoscopy Anesthesia: MAC Surgeon: Soham Vincent Pathology: none sent Condition: stable Disposition: PACU Description of Procedure: The patient's placed on the endoscopy table in the lateral position. He received IV sedation. Digital rectal exam is performed which revealed no abnormalities. Flexible colonoscopy was then placed patient anus and passed in the rectal stump. Colonoscope was passed to approximately 25 cm. There is no pathology of the rectum seen. Scope was withdrawn. Next the colonoscope was placed in patient's colostomy and then placed in the colon and throughout the entire colon. The ileocecal valve sutures. The cecum, ascending and transverse colon appeared normal. In the descending and sigmoid colon there was diverticulosis seen. There is no evidence of any diverticula is. Scope was withdrawn for patient.
[2020-10-23 12:58] VITALS: RESP 16
[2020-10-23 13:17] VITALS: BP 112/81; PULSE 82
== END 2020-10-23 14:07 | disposition home or self-care (01) ==
LOC: ORWHC2ENDO 11:10
PROVIDERS: ATTEND Surgery
DX: K57.30 Diverticulosis of large intestine without perforation or abscess without bleeding (principal); I25.10 Atherosclerotic heart disease of native coronary artery without angina pectoris; I10 Essential (primary) hypertension; E78.5 Hyperlipidemia, unspecified; G47.33 Obstructive sleep apnea (adult) (pediatric); Z99.89 Dependence on other enabling machines and devices; R73.03 Prediabetes; Z98.890 Other specified postprocedural states; M19.90 Unspecified osteoarthritis, unspecified site; F41.9 Anxiety disorder, unspecified; F43.10 Post-traumatic stress disorder, unspecified; K21.9 Gastro-esophageal reflux disease without esophagitis; Z93.3 Colostomy status; Z79.899 Other long term (current) drug therapy; Z79.82 Long term (current) use of aspirin; Z79.891 Long term (current) use of opiate analgesic; Z79.02 Long term (current) use of antithrombotics/antiplatelets
CPT/HCPCS: 44388; 45330; J2704; 86850; 86900; 86901

== ENCOUNTER 2020-10-24 07:40 | Inpatient (IN) | payer BC ==
[2020-10-19 12:09] VITALS: BMI 31.6
[~2020-10-24 07:40] MED LIST changes: +ACETAMINOPHEN TAB 500 MG TAB PO PRN; +DEXAMETHASONE SOD PHOSPHATE 4 MG/ML 1 ML VIAL IV ONE; +HEPARIN SODIUM,PORCINE 5,000 UNIT/ML 1 ML VIAL SQ PRN; +HYDROmorphone 0.5 MG/0.5 ML SYRINGE IVP PRN; -LACTATED RINGERS 1,000 ML IV SCH; +MIDAZOLAM 2 MG/2 ML VIAL IV PRN; +metroNIDAZOLE-NS PMX 500 MG in SALINE 1 100ML.BAG IVPB PRN
[2020-10-24 09:17] LABS: Glucose,Whole Blood 101 mg/dL (75-99)
[2020-10-24] MEDS ORDERED: ALVIMOPAN 12 MG CAPSULE PO ONE (09:34)
[2020-10-24] MEDS: LACTATED RINGERS 1,000 ML IV SCH ×2 (09:34→19:24)
[2020-10-24] MEDS ORDERED: ONDANSETRON 4 MG/2 ML VIAL IVP ONE (09:35)
--- NOTE | 2020-10-24 09:43 | P.GSHP ---
History of Present Illness H&P Date: 10/24/20 Chief Complaint: History of perforated diverticulitis This a 55-year-old male who presents today for reversal of colostomy. Patient's previous history of perforated diverticulitis. Past Medical History Past Medical History: Diabetes Mellitus, GERD/Reflux, Hypertension, Myocardial Infarction ([place]), Osteoarthritis (OA), Sleep Apnea/CPAP/BIPAP Additional Past Medical History / Comment(s): Hx Mucous plug in lung. Diverticulitis with Colostomy Jul 2020. No CPAP since recent weight loss. No Metformin for Diabetes since recent weight loss - "Pre-Diabetic." Last Myocardial Infarction Date:: 2004 History of Any Multi-Drug Resistant Organisms: None Reported Past Surgical History: Bowel Resection, Heart Catheterization, Heart Catheteri zation With Stent, Orthopedic Surgery Additional Past Surgical History / Comment(s): Neck surgery with hardware, right shoulder surgery, right wrist surgery, colostomy. 2 cardiac stents. Past Anesthesia/Blood Transfusion Reactions: No Reported Reaction Date of Last Stent Placement:: 2006 Past Psychological History: Anxiety, PTSD Smoking Status: Former smoker Past Alcohol Use History: None Reported Additional Past Alcohol Use History / Comment(s): Quit smoking 15 yrs ago. Past Drug Use History: None Reported - Past Family History Mother History Unknown: Yes Family Medical History: No Reported History Medications and Allergies Home Medications Medication Instructions Recorded Confirmed Type Aspirin 81 mg PO DAILY 03/30/18 10/24/20 History Atorvastatin [Lipitor] 80 mg PO HS 03/30/18 10/24/20 History Clopidogrel [Plavix] 75 mg PO DAILY 03/30/18 10/24/20 History Divalproex [Depakote] 500 mg PO BID 03/30/18 10/24/20 History Cholecalciferol [Vitamin D3 (25 2,000 unit PO DAILY 07/16/20 10/24/20 History Mcg = 1000 Iu)] Losartan Potassium [Cozaar] 25 mg PO QAM 07/16/20 10/24/20 History Nitroglycerin Sl Tabs [Nitrostat] 0.4 mg SUBLINGUAL Q5M PRN 07/16/20 10/24/20 History [place]-3 Fatty Acids/Fish Oil [Fish 1 cap PO DAILY 07/16/20 10/24/20 History Oil 1,000 mg Softgel] Omeprazole 40 mg PO QAM 07/16/20 10/24/20 History Docusate [Colace] 100 mg PO BID PRN 10/19/20 10/24/20 History HYDROcodone/APAP 7.5-325MG [[place] 1 tab PO Q6HR PRN 10/19/20 10/24/20 History 7.5-325] Allergies Allergy/AdvReac Type Severity Reaction Status Date / Time No Known Allergies Allergy Verified 10/24/20 09:01 Surgical - Exam Vital Signs Temp Pulse Resp BP Pulse Ox 97.4 F L 95 16 138/86 97 10/24/20 09:04 10/24/20 09:04 10/24/20 09:04 10/24/20 09:04 10/24/20 09:04 - General well developed, well nourished, no distress - Eyes PERRL - ENT normal pinna - Neck no masses - Respiratory normal expansion - Cardiovascular Rhythm: regular - Abdomen Abdomen: soft, non tender Results - Labs Abnormal Lab Results - Last 24 Hours (Table) 10/24/20 Range/Units 09:12 POC Glucose (mg/dL) 101 H (75-99) mg/dL Assessment and Plan Assessment: History of perforated diverticula is. We'll perform reversal colostomy.
[2020-10-24] MEDS ORDERED: NALOXONE 0.4 MG/ML 1 ML VIAL IV PRN (10:00)
[2020-10-24] MEDS ORDERED: NALBUPHINE 10 MG/ML (1 ML AMP) IV PRN (10:00)
--- NOTE | 2020-10-24 10:00 | P.ANPRN ---
Procedure Note - Anesthesia - Epidural/Spinal Epidural Continuous Time Out Performed: Yes Date of Procedure: 10/24/20 Procedure Start Time: : Procedure Stop Time: :35 Location of Patient: PreOp Indication: Acute Post-Operative Pain Sedation Type: Sedate with meaningful contact maintained Preparation: Sterile Dressing Number of Attempts: 1 Position: Sitting Catheter: Indwelling Needle Guage: 18 Injectate: Test Dose Lidocaine1.5% w/1:200,000 epi Blood Aspirated: No Pain Paresthesia on Injection Noted: No Events: Uneventful and Well Tolerated
[2020-10-24] MEDS ORDERED: fentaNYL (PF) 50 MCG/ML 2 ML AMP ONE (10:09)
[2020-10-24] MEDS ORDERED: GLYCOPYRROLATE 0.2 MG/ML 2 ML VIAL ONE (10:09)
[2020-10-24] MEDS ORDERED: NEOSTIGMINE 1 MG/ML 10 ML VIAL ONE (10:09)
[2020-10-24] MEDS ORDERED: LIDOCAINE 1% INJ 10MG/ML (20 ML MDV) ONE (10:09)
[2020-10-24] MEDS ORDERED: ROCURONIUM 10 MG/ML (10 ML VIAL) IV ONE (10:09)
[2020-10-24] MEDS ORDERED: PHENYLEPHRINE 10 MG/ML VIAL ONE (10:09)
[2020-10-24] MEDS ORDERED: PROPOFOL 10 MG/ML 20 ML VIAL IV ONE (10:09)
[2020-10-24] MEDS ORDERED: MIDAZOLAM 2 MG/2 ML VIAL ONE (10:09)
[2020-10-24] MEDS ORDERED: LACTATED RINGERS 1,000 ML IV ONE ×2 (10:40→11:29)
[2020-10-24] MEDS ORDERED: BENZOCAINE/MENTHOL LOZENG 1 EACH LOZENGE MUCOUS MEM PRN (11:40)
[2020-10-24] MEDS: ROPIVACAINE 500 MG, HYDROMORPHONE (PF) 5 MG in SODIUM CHLORIDE 0.9% 150 ML EPIDURAL PRN ×3 (11:52→12:29)
[2020-10-24] MEDS: D5-0.45% NACL WITH KCL 20MEQ/L 1,000 ML IV SCH ×2 (13:23→21:17)
[2020-10-24] MEDS ORDERED: DOCUSATE 100 MG CAP PO PRN (13:26)
[2020-10-24] MEDS ORDERED: NITROGLYCERIN SL TABS 0.4 MG TAB SUBLINGUAL PRN (13:26)
--- NOTE | 2020-10-24 13:33 | P.CONS ---
History of Present Illness - Reason for Consult Hypertension, coronary artery disease - History of Present Illness Patient is a 55-year-old male came in for reversal of colostomy. Patient had perforated I would colitis in the past patient had surgery patient is complaining of severe pain in the surgical site area. She did not pass gas yet. Patient does have history of coronary disease patient is on dual antiplatelet therapy as his a last stent was more than any other ago on hold off on Plavix for today continue with the aspirin. Review of Systems REVIEW OF SYSTEMS: CONSTITUTIONAL: No fever, no malaise, no fatigue. HEENT: No recent visual problems or hearing problems. Denied any sore throat. CARDIOVASCULAR: No chest pain, orthopnea, PND, no palpitations, no syncope. PULMONARY: No shortness of breath, no cough, no hemoptysis. GASTROINTESTINAL: No diarrhea, no nausea, no vomiting. NEUROLOGICAL: No headaches, no weakness, no numbness. HEMATOLOGICAL: Denies any bleeding or petechiae. GENITOURINARY: Denies any burning micturition, frequency, or urgency. MUSCULOSKELETAL/RHEUMATOLOGICAL: Denies any joint pain, swelling, or any muscle pain. ENDOCRINE: Denies any polyuria or polydipsia. The rest of the 14-point review of systems is negative. Past Medical History Past Medical History: Diabetes Mellitus, GERD/Reflux, Hypertension, Myocardial Infarction ([place]), Osteoarthritis (OA), Sleep Apnea/CPAP/BIPAP Additional Past Medical History / Comment(s): Hx Mucous plug in lung. Diverticulitis with Colostomy Jul 2020. No CPAP since recent weight loss. No Metformin for Diabetes since recent weight loss - "Pre-Diabetic." Last Myocardial Infarction Date:: 2004 History of Any Multi-Drug Resistant Organisms: None Reported Past Surgical History: Bowel Resection, Heart Catheterization, Heart Catheterization With Stent, Orthopedic Surgery Additional Past Surgical History / Comment(s): Neck surgery with hardware, right shoulder surgery, right wrist surgery, colostomy. 2 cardiac stents. Past Anesthesia/Blood Transfusion Reactions: No Reported Reaction Date of Last Stent Placement:: 2006 Past Psychological History: Anxiety, PTSD Smoking Status: Former smoker Past Alcohol Use History: None Reported Additional Past Alcohol Use History / Comment(s): Quit smoking 15 yrs ago. Past Drug Use History: None Reported - Past Family History Mother History Unknown: Yes Family Medical History: No Reported History Medications and Allergies Home Medications Medication Instructions Recorded Confirmed Type Aspirin 81 mg PO DAILY 03/30/18 10/24/20 History Atorvastatin [Lipitor] 80 mg PO HS 03/30/18 10/24/20 History Clopidogrel [Plavix] 75 mg PO DAILY 03/30/18 10/24/20 History Divalproex [Depakote] 500 mg PO BID 03/30/18 10/24/20 History Cholecalciferol [Vitamin D3 (25 2,000 unit PO DAILY 07/16/20 10/24/20 History Mcg = 1000 Iu)] Losartan Potassium [Cozaar] 25 mg PO QAM 07/16/20 10/24/20 History Nitroglycerin Sl Tabs [Nitrostat] 0.4 mg SUBLINGUAL Q5M PRN 07/16/20 10/24/20 History [place]-3 Fatty Acids/Fish Oil [Fish 1 cap PO DAILY 07/16/20 10/24/20 History Oil 1,000 mg Softgel] Omeprazole 40 mg PO QAM 07/16/20 10/24/20 History Docusate [Colace] 100 mg PO BID PRN 10/19/20 10/24/20 History HYDROcodone/APAP 7.5-325MG [[place] 1 tab PO Q6HR PRN 10/19/20 10/24/20 History 7.5-325] Allergies Allergy/AdvReac Type Severity Reaction Status Date / Time No Known Allergies Allergy Verified 10/24/20 09:01 Physical Exam Vitals: Vital Signs Temp Pulse Pulse Resp BP BP Pulse Ox 10/24/20 12:31 69 16 116/74 98 10/24/20 12:19 73 16 116/75 98 10/24/20 12:04 71 16 115/68 99 10/24/20 11:49 97.5 F L 74 14 119/74 100 10/24/20 09:04 97.4 F L 95 16 138/86 97 Intake and Output 10/23/20 10/24/20 10/24/20 22:59 06:59 14:59 Intake Total 2710 Output Total 200 Balance 2510 Intake: IV 2710 Output: Urine 100 Estimated Blood Loss 100 Other: Weight 86 kg PHYSICAL EXAMINATION: GENERAL: The patient is alert and oriented x3, not in any acute distress. Well developed, well nourished. HEENT: Pupils are round and equally reacting to light. EOMI. No scleral icterus. No conjunctival pallor. Normocephalic, atraumatic. No pharyngeal erythema. No thyromegaly. CARDIOVASCULAR: S1 and S2 present. No murmurs, rubs, or gallops. PULMONARY: Chest is clear to auscultation, no wheezing or crackles. ABDOMEN: Soft, nontender, nondistended, sluggish bowel sounds abdominal binder in place MUSCULOSKELETAL: No joint swelling or deformity. EXTREMITIES: No cyanosis, clubbing, or pedal edema. NEUROLOGICAL: Gross neurological examination did not reveal any focal deficits. SKIN: No rashes. Results Labs: Abnormal Lab Results - Last 24 Hours (Table) 10/24/20 Range/Units 09:12 POC Glucose (mg/dL) 101 H (75-99) mg/dL Assessment and Plan Plan: -Status post reversal of colostomy day 0. Pain management and due to prophylaxis as per primary service postoperative management as per primary service -Hypertension patient is on losartan which will be held to prevent perioperative hypotension -Coronary artery disease as patient previous stents were more than any other ago WITH aspirin hold off on Plavix for today if agreeable by general surgery this Plavix will be started tomorrow -Gastroesophageal reflux disease -Hyperlipidemia -obesity with sleep apnea continue with CPAP machine Medication reconciliation was done and appropriate medications for above- mentioned chronic medical problems were resumed.
[2020-10-24] MEDS ORDERED: LORazepam 2 MG/ML INJ IV STA (14:16)
[2020-10-24] MEDS: HEPARIN SODIUM,PORCINE 5,000 UNIT/ML 1 ML VIAL SQ SCH ×2 (18:27→23:23)
[2020-10-24] MEDS: METOCLOPRAMIDE 5 MG/ML 2 ML VIAL IVP PRN ×2 (18:31→23:57)
[2020-10-24] MEDS: ATORVASTATIN 80 MG TAB PO SCH (20:21)
[2020-10-24] MEDS: DIVALPROEX 500 MG TABLET.DR PO SCH (20:21)
[2020-10-24] MEDS: FAMOTIDINE 20 MG/2 ML VIAL IV SCH (20:21)
[2020-10-24] MEDS: ALPRAZolam 0.25 MG TAB PO PRN (23:54)
[2020-10-25] MEDS: diphenhydrAMINE 50 MG/ML 1 ML VIAL IVP PRN (03:05)
[2020-10-25] MEDS: ONDANSETRON 4 MG/2 ML VIAL IVP PRN (03:06)
[2020-10-25] MEDS: D5-0.45% NACL WITH KCL 20MEQ/L 1,000 ML IV SCH ×3 (04:39→20:21)
[2020-10-25] MEDS: HEPARIN SODIUM,PORCINE 5,000 UNIT/ML 1 ML VIAL SQ SCH ×2 (08:30→16:57)
[2020-10-25] MEDS: FAMOTIDINE 20 MG/2 ML VIAL IV SCH ×2 (08:30→20:21)
[2020-10-25] MEDS: ASPIRIN 81 MG PO SCH (08:31)
[2020-10-25] MEDS: CHOLECALCIFEROL 1,000 UNIT TAB PO SCH (08:31)
[2020-10-25] MEDS: DIVALPROEX 500 MG TABLET.DR PO SCH ×2 (08:31→20:21)
[2020-10-25] MEDS: PANTOPRAZOLE 40 MG TABLET PO SCH (08:31)
[2020-10-25] MEDS: ALVIMOPAN 12 MG CAPSULE PO SCH ×2 (08:31→20:21)
[2020-10-25] MEDS ORDERED: NON FORMULARY DRUG (Omega-3 Fatty Acids/Fish Oil [Fish Oil 1,000 Mg Softgel] 1 EACH Capsul PO SCH (09:00)
--- NOTE | 2020-10-25 10:35 | P.PN ---
Subjective Patient had a bowel movement pain is much better controlled no other significant overnight events. Constitutional: Denied any fatigue denied any fever. Cardio vascular: denied any chest pain, palpitations Gastrointestinal denied any nausea vomiting Pulmonary: Denied any shortness of breath cough Neurologic denied any new focal deficits All inpatient medications were reviewed and appropriate changes in these medications as dictated in the interval history and assessment and plan. Objective - Vital Signs Vital signs: Vital Signs Temp 98.7 F 10/25/20 07:52 Pulse 87 10/25/20 07:52 Resp 17 10/25/20 03:05 BP 105/73 10/25/20 07:52 Pulse Ox 90 L 10/25/20 07:52 Intake & Output 10/24/20 10/25/20 10/25/20 18:59 06:59 18:59 Intake Total 3210 Output Total 200 800 820 Balance 3010 -800 -820 Weight 86 kg Intake: IV 2710 Intake, IV Titration 500 Amount D5-0.45% NaCl with KCl 500 20Meq/l 1,000 ml @ 125 mls/hr IV .Q8H [facility] Rx#: [id number] Output: Urine 100 800 820 Estimated Blood Loss 100 Other: Voiding Method Indwelling Catheter Indwelling Catheter Indwelling Catheter - Exam PHYSICAL EXAMINATION: GENERAL: The patient is alert and oriented x3, not in any acute distress. Well developed, well nourished. HEENT: Pupils are round and equally reacting to light. EOMI. No scleral icterus. No conjunctival pallor. Normocephalic, atraumatic. No pharyngeal erythema. No thyromegaly. CARDIOVASCULAR: S1 and S2 present. No murmurs, rubs, or gallops. PULMONARY: Chest is clear to auscultation, no wheezing or crackles. ABDOMEN: Soft, nontender, nondistended, normoactive bowel sounds. No palpable organomegaly. Abdominal binder in place MUSCULOSKELETAL: No joint swelling or deformity. EXTREMITIES: No cyanosis, clubbing, or pedal edema. NEUROLOGICAL: Gross neurological examination did not reveal any focal deficits. SKIN: No rashes. Assessment and Plan Plan: -Status post reversal of colostomy day 1. Pain management and due to prophylaxis as per primary service postoperative management as per primary service -Hypertension patient is on losartan which is being held to prevent perioperative hypotension -Coronary artery disease as patient previous stents were more than any other ago WITH aspirin hold off on Plavix for today if agreeable by general surgery this Plavix will be started tomorrow -Gastroesophageal reflux disease -Hyperlipidemia -obesity with sleep apnea continue with CPAP machine
--- NOTE | 2020-10-25 12:44 | P.PN ---
Progress Note - Text Progress Note Date: 10/25/20 The patient's postoperative day 1 from reversal colostomy. He had a small bowel movement this morning. On exam her vital signs are stable. Abdomen soft. Incisions clean and intact. Status post reversal colostomy. Patient will remain on clear liquid diet.
[2020-10-25] MEDS: ALPRAZolam 0.25 MG TAB PO PRN (16:57)
[2020-10-25] MEDS: LACTATED RINGERS 1,000 ML IV SCH (17:40)
--- NOTE | 2020-10-25 18:13 | P.PN ---
Progress Note - Text Progress Note Date: 10/25/20 Postoperative day #1 status post colostomy reversal epidural catheter placed for postoperative analgesia, patient doing well epidural site okay, patient currently on combination of epidural infusion solution of Ropivacaine 0.0625% and Dilaudid 20 g per mL the infusion rate at 10 ml per hour , patient had no motor deficit epidural site okay , vital signs stable ,VAS 4/10 Rob to 8/10 with coughing or with movement, ability to ambulate on his own he has no motor deficit He had some numbness in the lower extremity earlier during the day, and the numbness improved later on, Assessment and plan= post operative day # 1 patient doing well , patient complained of severe breakthrough pain, I will order IV Dilaudid 0.5 mg when necessary every 2 hours
[2020-10-25] MEDS: ATORVASTATIN 80 MG TAB PO SCH (20:21)
[2020-10-25] MEDS: HYDROmorphone 0.5 MG/0.5 ML SYRINGE IVP PRN (20:22)
[2020-10-26] MEDS: HEPARIN SODIUM,PORCINE 5,000 UNIT/ML 1 ML VIAL SQ SCH ×4 (00:29→23:05)
[2020-10-26] MEDS: HYDROmorphone 0.5 MG/0.5 ML SYRINGE IVP PRN ×4 (00:29→19:22)
[2020-10-26] MEDS: D5-0.45% NACL WITH KCL 20MEQ/L 1,000 ML IV SCH ×3 (03:33→19:22)
[2020-10-26] MEDS: ROPIVACAINE 500 MG, HYDROMORPHONE (PF) 5 MG in SODIUM CHLORIDE 0.9% 150 ML EPIDURAL PRN ×2 (05:07→13:11)
[2020-10-26] MEDS: ONDANSETRON 4 MG/2 ML VIAL IVP PRN ×2 (06:06→23:05)
--- NOTE | 2020-10-26 06:53 | P.PN ---
Progress Note - Text Progress Note Date: 10/26/20 Postoperative day #2 status post colostomy reversal ,epidural catheter placed for postoperative analgesia, patient doing well epidural site okay, patient currently on combination of epidural infusion solution of Ropivacaine 0.0625% and Dilaudid 20 g per mL the infusion rate at 10 ml per hour , patient had no motor deficit epidural site okay , vital signs stable ,VAS 3/10 pain increase to 6/10 with coughing , he is able to ambulate on his own, he has no motor deficit, no numbness Assessment and plan= post operative day #2 patient doing well , continue epidural infusion 10 ml per hour, continue IV Dilaudid 0.5 mg when necessary every 2 hours
[2020-10-26] MEDS: PANTOPRAZOLE 40 MG TABLET PO SCH (07:42)
[2020-10-26] MEDS: CHOLECALCIFEROL 1,000 UNIT TAB PO SCH (07:42)
[2020-10-26] MEDS: DIVALPROEX 500 MG TABLET.DR PO SCH ×2 (07:42→20:29)
[2020-10-26] MEDS: FAMOTIDINE 20 MG/2 ML VIAL IV SCH ×2 (07:42→20:29)
[2020-10-26] MEDS: ALVIMOPAN 12 MG CAPSULE PO SCH ×2 (07:42→19:38)
[2020-10-26] MEDS: ASPIRIN 81 MG PO SCH (07:42)
[2020-10-26] MEDS: METOCLOPRAMIDE 5 MG/ML 2 ML VIAL IVP PRN (08:15)
[2020-10-26] MEDS ORDERED: KETOROLAC 15 MG/ML 1 ML VIAL IVP PRN (09:53)
--- NOTE | 2020-10-26 10:28 | P.PN ---
Subjective Patient had a bowel movement pain is much better controlled no other significant overnight events. 10/26/2020 Patient is not passing gas yet that. Although overall he is feeling well. Patient still has epidural in place. Constitutional: Denied any fatigue denied any fever. Cardio vascular: denied any chest pain, palpitations Gastrointestinal denied any nausea vomiting Pulmonary: Denied any shortness of breath cough Neurologic denied any new focal deficits All inpatient medications were reviewed and appropriate changes in these medications as dictated in the interval history and assessment and plan. Objective - Vital Signs Vital signs: Vital Signs Temp 99.5 F 10/26/20 07:53 Pulse 96 10/26/20 07:53 Resp 20 10/26/20 07:53 BP 118/73 10/26/20 07:53 Pulse Ox 93 L 10/26/20 07:53 Intake & Output 10/25/20 10/26/20 10/26/20 18:59 06:59 18:59 Intake Total 960 Output Total 1470 5150 Balance -1470 -4190 Intake: Oral 960 Output: Urine 1470 5150 Other: Voiding Method Indwelling Catheter Indwelling Catheter Indwelling Catheter # Voids 3 - Exam PHYSICAL EXAMINATION: GENERAL: The patient is alert and oriented x3, not in any acute distress. Well developed, well nourished. HEENT: Pupils are round and equally reacting to light. EOMI. No scleral icterus. No conjunctival pallor. Normocephalic, atraumatic. No pharyngeal erythema. No thyromegaly. CARDIOVASCULAR: S1 and S2 present. No murmurs, rubs, or gallops. PULMONARY: Chest is clear to auscultation, no wheezing or crackles. ABDOMEN: Soft, nontender, mildly distended, decreased bowel sounds. No palpable organomegaly. MUSCULOSKELETAL: No joint swelling or deformity. EXTREMITIES: No cyanosis, clubbing, or pedal edema. NEUROLOGICAL: Gross neurological examination did not reveal any focal deficits. SKIN: No rashes. Assessment and Plan Plan: -Status post reversal of colostomy day 2. Pain management and due to prophylaxis as per primary service postoperative management as per primary service. Patient will be started on Toradol for pain and to her doctor much opiates, will obtain a basic metabolic profile to make sure patient doesn't have any renal dysfunction -Hypertension patient is on losartan which is being held to prevent perioperative hypotension -Coronary artery disease as patient previous stents were more than any other ago, continue with aspirin. Probably Plavix can be restarted as well -Gastroesophageal reflux disease -Hyperlipidemia -obesity with sleep apnea continue with CPAP machine
[2020-10-26 10:35] LABS: Basophils % (A) 0 %; Eosinophils # (A) 0.1 k/uL (0-0.7); Eosinophils % (A) 1 %; HCT 39.4 % (39.0-53.0); Lymphocytes # (A) 2.1 k/uL (1.0-4.8); Lymphocytes % (A) 26 %; MCH 30.3 pg (25.0-35.0); MCV 92.1 fL (80.0-100.0); Mean Platelet Volume 6.4; Monocytes # (A) 0.7 k/uL (0-1.0); Monocytes % (A) 8 %; Neutrophils # (A) 5.3 k/uL (1.3-7.7); Neutrophils % (A) 63 %; Platelet Count 187 k/uL (150-450); RBC 4.28 m/uL (4.30-5.90); RDW 14.2 % (11.5-15.5); WBC 8.3 k/uL (3.8-10.6)
[2020-10-26 10:57] LABS: African American GFR (CKD) >90 (>60 ml/min/1.73 sqM); Anion Gap 0 mmol/L; Blood Urea Nitrogen 4 mg/dL (9-20); Calcium 8.4 mg/dL (8.4-10.2); Carbon Dioxide 33 mmol/L (22-30); Chloride 100 mmol/L (98-107); Glucose 112 mg/dL (74-99); Non-African American GFR(CKD) >90 (>60 ml/min/1.73 sqM); Potassium 4.3 mmol/L (3.5-5.1); Sodium 133 mmol/L (137-145)
--- NOTE | 2020-10-26 15:04 | P.PN ---
Subjective Progress Note Date: 10/26/20 CHIEF COMPLAINT: Diverticulitis HISTORY OF PRESENT ILLNESS: The patient is a 55-year-old male status colostomy reversal 10/24/20. He reports bowel movement. He reports increased abdominal distention today. He did have a bowel movement yesterday morning however without sensation. ROS: No reports of nausea and vomiting. Has bowel movements. No fevers or chills. No new chest pain. No productive sputum PHYSICAL EXAM: VITAL SIGNS: Reviewed CONSTITUTIONAL: Well developed and in no acute distress. EYES: Conjuctivae without sclera icterus. Extraocular movements grossly intact. HEAD, EARS, NOSE, THROAT: Moist buccal mucosa. Head is atraumatic, normocephalic. Hears conversational speech. No nasal drainage. NECK: Supple. No thyroidomegaly. RESPIRATORY: Non-labored respirations and equal bilateral excursions. CARDIOVASCULAR: Regular rate. Regular rhythm. ABDOMEN: Incisions intact. Soft. No peritonitis. MUSCULOSKELETAL: No gross deformity of the lower extremities noted. No clubbi ng. No cyanosis. SKIN: Good skin turgor. Well perfused. NEUROLOGIC: Cranial nerves II through XII grossly intact. No focal or lateralizing signs. PSYCH: Appropriate affect. Alert and oriented to person, place and time. CLINICAL LABS: White blood cell count normal, 8.3 ASSESSMENT: 1. Diverticulitis 2. Status post colostomy reversal PLAN: 1. Will advance diet tomorrow. 2. Entereg placed to prevent ileus. Objective - Vital Signs Vital signs: Vital Signs Temp 98.3 F 10/26/20 14:00 Pulse 94 10/26/20 14:00 Resp 16 10/26/20 14:00 BP 134/79 10/26/20 14:00 Pulse Ox 96 10/26/20 14:00 Intake & Output 10/25/20 10/26/20 10/26/20 18:59 06:59 18:59 Intake Total 960 Output Total 1470 5150 Balance -1470 -4190 Intake: Oral 960 Output: Urine 1470 5150 Other: Voiding Method Indwelling Catheter Indwelling Catheter Indwelling Catheter # Voids 3 # Bowel Movements 1 - Labs CBC & Chem 7: 10/26/20 10:23 10/26/20 10:23 Labs: Abnormal Lab Results - Last 24 Hours (Table) 10/26/20 10/26/20 Range/Units 10:23 10:23 RBC 4.28 L (4.30-5.90) m/uL Sodium 133 L (137-145) mmol/L Carbon Dioxide 33 H (22-30) mmol/L BUN 4 L (9-20) mg/dL Glucose 112 H (74-99) mg/dL Assessment and Plan (1) History of colostomy reversal Current Visit: Yes Status: Acute Code(s): Z98.890 - OTHER SPECIFIED POSTPROCEDURAL STATES SNOMED Code(s): 281522548 (2) Perforation of sigmoid colon due to diverticulitis Current Visit: No Status: Acute Code(s): K57.20 - DVTRCLI OF LG INT W PERFORATION AND ABSCESS W/O BLEEDING SNOMED Code(s): 6932974478710656
[2020-10-26] MEDS: LACTATED RINGERS 1,000 ML IV SCH (17:59)
[2020-10-26] MEDS: ATORVASTATIN 80 MG TAB PO SCH (20:29)
[2020-10-26] MEDS: ALPRAZolam 0.25 MG TAB PO PRN (20:31)
[2020-10-27] MEDS: METOCLOPRAMIDE 5 MG/ML 2 ML VIAL IVP PRN (00:22)
[2020-10-27] MEDS: D5-0.45% NACL WITH KCL 20MEQ/L 1,000 ML IV SCH (06:58)
[2020-10-27] MEDS: ASPIRIN 81 MG PO SCH (08:13)
[2020-10-27] MEDS: ALVIMOPAN 12 MG CAPSULE PO SCH ×2 (08:13→20:08)
[2020-10-27] MEDS: FAMOTIDINE 20 MG/2 ML VIAL IV SCH ×2 (08:13→20:07)
[2020-10-27] MEDS: CHOLECALCIFEROL 1,000 UNIT TAB PO SCH (08:13)
[2020-10-27] MEDS: PANTOPRAZOLE 40 MG TABLET PO SCH (08:13)
[2020-10-27] MEDS: DIVALPROEX 500 MG TABLET.DR PO SCH ×2 (08:13→20:08)
[2020-10-27] MEDS: HYDROmorphone 0.5 MG/0.5 ML SYRINGE IVP PRN ×3 (08:13→21:25)
--- NOTE | 2020-10-27 09:18 | P.PN ---
Subjective Patient had a bowel movement pain is much better controlled no other significant overnight events. 10/26/2020 Patient is not passing gas yet that. Although overall he is feeling well. Patient still has epidural in place. summer04/21/2020 Patient's epidural was discontinued patient had a bowel movement. Still having some pain in the surgical site area. Constitutional: Denied any fatigue denied any fever. Cardio vascular: denied any chest pain, palpitations Gastrointestinal denied any nausea vomiting Pulmonary: Denied any shortness of breath cough Neurologic denied any new focal deficits All inpatient medications were reviewed and appropriate changes in these medications as dictated in the interval history and assessment and plan. Objective - Vital Signs Vital signs: Vital Signs Temp 98.6 F 10/27/20 01:40 Pulse 89 10/27/20 01:40 Resp 20 10/27/20 01:40 BP 118/77 10/27/20 01:40 Pulse Ox 93 L 10/27/20 01:40 Intake & Output 10/26/20 10/27/20 10/27/20 18:59 06:59 18:59 Intake Total 200 Output Total 450 3100 Balance -450 -2900 Intake: Oral 200 Output: Urine 450 3100 Uretheral (Almaraz) 2000 Other: Voiding Method Indwelling Catheter Indwelling Catheter # Bowel Movements 1 - Exam PHYSICAL EXAMINATION: GENERAL: The patient is alert and oriented x3, not in any acute distress. Well developed, well nourished. HEENT: Pupils are round and equally reacting to light. EOMI. No scleral icterus. No conjunctival pallor. Normocephalic, atraumatic. No pharyngeal erythema. No thyromegaly. CARDIOVASCULAR: S1 and S2 present. No murmurs, rubs, or gallops. PULMONARY: Chest is clear to auscultation, no wheezing or crackles. ABDOMEN: Soft, nontender, mildly distended, normoactive bowel sounds. No palpable organomegaly. MUSCULOSKELETAL: No joint swelling or deformity. EXTREMITIES: No cyanosis, clubbing, or pedal edema. NEUROLOGICAL: Gross neurological examination did not reveal any focal deficits. SKIN: No rashes. - Labs CBC & Chem 7: 10/26/20 10:23 10/26/20 10:23 Labs: Abnormal Lab Results - Last 24 Hours (Table) 10/26/20 10/26/20 Range/Units 10:23 10:23 RBC 4.28 L (4.30-5.90) m/uL Sodium 133 L (137-145) mmol/L Carbon Dioxide 33 H (22-30) mmol/L BUN 4 L (9-20) mg/dL Glucose 112 H (74-99) mg/dL Assessment and Plan Plan: -Status post reversal of colostomy day 3. Pain management and due to prophylaxis as per primary service postoperative management as per primary service. A bowel movement. -Hyponatremia secondary to D5 half-normal saline which will be discontinued -Hypertension patient is on losartan which is being held to prevent perioperative hypotension -Coronary artery disease as patient previous stents were more than any other ago, continue with aspirin. Probably Plavix can be restarted as well -Gastroesophageal reflux disease -Hyperlipidemia -obesity with sleep apnea continue with CPAP machine
[2020-10-27] MEDS: ALPRAZolam 0.25 MG TAB PO PRN ×2 (10:06→20:08)
[2020-10-27] MEDS: CLOPIDOGREL 75 MG TAB PO SCH (11:44)
[2020-10-27] MEDS: HEPARIN SODIUM,PORCINE 5,000 UNIT/ML 1 ML VIAL SQ SCH ×3 (11:44→23:20)
--- NOTE | 2020-10-27 13:53 | P.PN ---
Subjective Progress Note Date: 10/27/20 CHIEF COMPLAINT: Diverticulitis HISTORY OF PRESENT ILLNESS: The patient is a 55-year-old male status colostomy reversal 10/24/20. She is now passing flatus and having bowel movements. He tolerated a full liquid diet. Epidural has been discontinued. His pending oral pain meds ROS: No reports of nausea and vomiting. Has bowel movements. No fevers or chills. No new chest pain. No productive sputum PHYSICAL EXAM: VITAL SIGNS: Reviewed CONSTITUTIONAL: Well developed and in no acute distress. EYES: Conjuctivae without sclera icterus. Extraocular movements grossly intact. HEAD, EARS, NOSE, THROAT: Moist buccal mucosa. Head is atraumatic, normocephalic. Hears conversational speech. No nasal drainage. NECK: Supple. No thyroidomegaly. RESPIRATORY: Non-labored respirations and equal bilateral excursions. CARDIOVASCULAR: Regular rate. Regular rhythm. ABDOMEN: Incisions intact. No peritonitis. MUSCULOSKELETAL: No gross deformity of the lower extremities noted. No clubbing. No cyanosis. SKIN: Good skin turgor. Well perfused. NEUROLOGIC: Cranial nerves II through XII grossly intact. No focal or lateralizing signs. PSYCH: Appropriate affect. Alert and oriented to person, place and time. CLINICAL LABS: White blood cell count normal, 8.3 ASSESSMENT: 1. Diverticulitis 2. Status post colostomy reversal PLAN: 1. Diet advance to full liquid 2. Low fiber diet reviewed 3. Start oral pain meds Objective - Vital Signs Vital signs: Vital Signs Temp 98.1 F 10/27/20 08:00 Pulse 90 10/27/20 08:00 Resp 18 10/27/20 08:00 BP 146/93 10/27/20 08:00 Pulse Ox 94 L 10/27/20 08:00 Intake & Output 10/26/20 10/27/20 10/27/20 18:59 06:59 18:59 Intake Total 200 700 Output Total 450 3100 Balance -450 -2900 700 Intake: Oral 200 700 Output: Urine 450 3100 Uretheral (Almaraz) 2000 Other: Voiding Method Indwelling Catheter Indwelling Catheter Indwelling Catheter # Bowel Movements 1 - Labs CBC & Chem 7: 10/26/20 10:23 10/26/20 10:23 Assessment and Plan (1) History of colostomy reversal Current Visit: Yes Status: Acute Code(s): Z98.890 - OTHER SPECIFIED POSTPROCEDURAL STATES SNOMED Code(s): 985534378 (2) Perforation of sigmoid colon due to diverticulitis Current Visit: No Status: Acute Code(s): K57.20 - DVTRCLI OF LG INT W PERFORATION AND ABSCESS W/O BLEEDING SNOMED Code(s): 3088141021683331
[2020-10-27] MEDS: KETOROLAC 15 MG/ML 1 ML VIAL IVP SCH ×2 (15:35→20:07)
[2020-10-27] MEDS: LACTATED RINGERS 1,000 ML IV SCH (16:35)
[2020-10-27] MEDS: ACETAMINOPHEN TAB 500 MG TAB PO SCH ×2 (17:32→23:20)
[2020-10-27] MEDS: ATORVASTATIN 80 MG TAB PO SCH (20:08)
--- NOTE | 2020-10-27 21:19 | P.PN ---
Progress Note - Text 10/27/20 8142 65-year-old male's status post colostomy reversal by Dr. Vincent. Patient had an epidural catheter for postop pain control with the solution running at 10 mL an hour, I was called by the nurse in the morning, she found the epidural head disconnected. I gave her the order to d/c the epidural. I made rounds this evening to to check on the patient. Patient is doing well but is disappointed that his epidural got disconnected and had to be DC'd
[2020-10-28] MEDS: diphenhydrAMINE 50 MG/ML 1 ML VIAL IVP PRN (00:43)
[2020-10-28] MEDS: KETOROLAC 15 MG/ML 1 ML VIAL IVP SCH ×2 (02:06→08:40)
[2020-10-28] MEDS: ACETAMINOPHEN TAB 500 MG TAB PO SCH ×2 (05:24→11:20)
[2020-10-28 07:54] VITALS: BP 123/80; PULSE 63; RESP 16; TEMP 98
[2020-10-28] MEDS: FAMOTIDINE 20 MG/2 ML VIAL IV SCH (08:37)
[2020-10-28] MEDS: HEPARIN SODIUM,PORCINE 5,000 UNIT/ML 1 ML VIAL SQ SCH (08:40)
[2020-10-28] MEDS: CLOPIDOGREL 75 MG TAB PO SCH (08:41)
[2020-10-28] MEDS: ALVIMOPAN 12 MG CAPSULE PO SCH (08:41)
[2020-10-28] MEDS: ASPIRIN 81 MG PO SCH (08:41)
[2020-10-28] MEDS: CHOLECALCIFEROL 1,000 UNIT TAB PO SCH (08:41)
[2020-10-28] MEDS: PANTOPRAZOLE 40 MG TABLET PO SCH (08:41)
[2020-10-28] MEDS: DIVALPROEX 500 MG TABLET.DR PO SCH (08:41)
--- NOTE | 2020-10-28 09:15 | P.PN ---
Subjective Progress Note Date: 10/28/20 CHIEF COMPLAINT: Diverticulitis HISTORY OF PRESENT ILLNESS: The patient is a 55-year-old male status colostomy reversal 10/24/20. He is reports passing flatus and having bowel movements. He is tolerating toradol and tylenol only for pain. He tolerated eggs and sausage. He is eager to go home today. Pain is well controlled. ROS: No reports of nausea and vomiting. Has bowel movements. No fevers or chills. No shortness of breath. PHYSICAL EXAM: VITAL SIGNS: Reviewed CONSTITUTIONAL: Well developed and in no acute distress. EYES: Conjuctivae without sclera icterus. Extraocular movements grossly intact. HEAD, EARS, NOSE, THROAT: Moist buccal mucosa. Head is atraumatic, normocephalic. Hears conversational speech. No nasal drainage. NECK: Supple. No thyroidomegaly. RESPIRATORY: Non-labored respirations and equal bilateral excursions. CARDIOVASCULAR: Regular rate. Regular rhythm. ABDOMEN: Incisions intact. No peritonitis. MUSCULOSKELETAL: No gross deformity of the lower extremities noted. No clubbing. No cyanosis. SKIN: Good skin turgor. Well perfused. NEUROLOGIC: Cranial nerves II through XII grossly intact. No focal or lateralizing signs. PSYCH: Appropriate affect. Alert and oriented to person, place and time. CLINICAL LABS: No new labs ASSESSMENT: 1. Diverticulitis 2. Status post colostomy reversal PLAN: 1. Non-narcotic pain plan described for discharge which he tolerated in the hospital. 2. Dressing change prior to discharge 3. Discharge instructions reviewed including follow-up with his surgeon. Objective - Vital Signs Vital signs: Vital Signs Temp 98.0 F 10/28/20 07:53 Pulse 63 10/28/20 07:53 Resp 16 10/28/20 07:53 BP 123/80 10/28/20 07:53 Pulse Ox 94 L 10/28/20 07:53 Intake & Output 10/27/20 10/28/20 10/28/20 18:59 06:59 18:59 Intake Total 1740 100 Balance 1740 100 Intake: Oral 1740 100 Other: Voiding Method Indwelling Catheter Toilet Urinal # Voids 3 2 # Bowel Movements 1 - Labs CBC & Chem 7: 10/26/20 10:23 10/26/20 10:23 Assessment and Plan (1) History of colostomy reversal Current Visit: Yes Status: Acute Code(s): Z98.890 - OTHER SPECIFIED POSTPROCEDURAL STATES SNOMED Code(s): 173844278 (2) Perforation of sigmoid colon due to diverticulitis Current Visit: No Status: Acute Code(s): K57.20 - DVTRCLI OF LG INT W PERFORATION AND ABSCESS W/O BLEEDING SNOMED Code(s): 9224271954322068
--- NOTE | 2020-10-28 12:19 | P.PN ---
Subjective Patient had a bowel movement pain is much better controlled no other significant overnight events. 10/26/2020 Patient is not passing gas yet that. Although overall he is feeling well. Patient still has epidural in place. 10/27/2020 Patient's epidural was discontinued patient had a bowel movement. Still having some pain in the surgical site area. 10/28/2020 Patient doing very well today patient is being discharged today. Patient is not requiring losartan. Patient may not require dual antiplatelet therapy as his stent was more than 15 years ago patient discharge medication reconciliation was reviewed. Constitutional: Denied any fatigue denied any fever. Cardio vascular: denied any chest pain, palpitations Gastrointestinal denied any nausea vomiting Pulmonary: Denied any shortness of breath cough Neurologic denied any new focal deficits All inpatient medications were reviewed and appropriate changes in these medications as dictated in the interval history and assessment and plan. Objective - Vital Signs Vital signs: Vital Signs Temp 98.0 F 10/28/20 07:53 Pulse 63 10/28/20 07:53 Resp 16 10/28/20 07:53 BP 123/80 10/28/20 07:53 Pulse Ox 94 L 10/28/20 07:53 Intake & Output 10/27/20 10/28/20 10/28/20 18:59 06:59 18:59 Intake Total 1740 100 Balance 1740 100 Intake: Oral 1740 100 Other: Voiding Method Indwelling Catheter Toilet Urinal # Voids 3 2 # Bowel Movements 1 - Exam PHYSICAL EXAMINATION: GENERAL: The patient is alert and oriented x3, not in any acute distress. Well developed, well nourished. HEENT: Pupils are round and equally reacting to light. EOMI. No scleral icterus. No conjunctival pallor. Normocephalic, atraumatic. No pharyngeal erythema. No thyromegaly. CARDIOVASCULAR: S1 and S2 present. No murmurs, rubs, or gallops. PULMONARY: Chest is clear to auscultation, no wheezing or crackles. ABDOMEN: Soft, nontender, mildly distended, normoactive bowel sounds. No palpable organomegaly. MUSCULOSKELETAL: No joint swelling or deformity. EXTREMITIES: No cyanosis, clubbing, or pedal edema. NEUROLOGICAL: Gross neurological examination did not reveal any focal deficits. SKIN: No rashes. - Labs CBC & Chem 7: 10/26/20 10:23 10/26/20 10:23 Assessment and Plan Plan: -Status post reversal of colostomy day 4. Pain management and due to proph ylaxis as per primary service postoperative management as per primary service. A bowel movement. -Hyponatremia secondary to D5 half-normal saline. -Hypertension -Coronary artery disease as patient previous stents , a stent was 15 years ago probably will not require dual antiplatelet therapy. -Gastroesophageal reflux disease -Hyperlipidemia -obesity with sleep apnea continue with CPAP machine
[2020-10-28 12:41] LABS: African American GFR (CKD) 115.7 (60.0-200.0); Anion Gap 4.1 mmol/L (4.00-12.00); Calcium 9.2 mg/dL (8.7-10.3); Carbon Dioxide 35.9 mmol/L (21.6-31.8); Non-African American GFR(CKD) 99.9 (60.0-200.0); Potassium 4.3 mmol/L (3.5-5.5)
--- NOTE | 2020-11-01 04:59 | P.DS ---
Providers Date of admission: 10/24/20 08:45 Expected date of discharge: 10/28/20 Attending physician: Soham Vincent Consults: 10/24/20 11:40 Consult Physician Routine Consulting Provider: Bonnie Ramírez Consult Reason/Comments: Medical management Do you want consulting provider notified?: Yes Primary care physician: Raciel Melvin - Discharge Diagnosis(es) (1) History of colostomy reversal Status: Acute (2) Perforation of sigmoid colon due to diverticulitis Status: Acute Hospital Course: CHIEF COMPLAINT: Diverticulitis HISTORY OF PRESENT ILLNESS: The patient is a 55-year-old male status colostomy reversal 10/24/20. He is reports passing flatus and having bowel movements. He is tolerating toradol and tylenol only for pain. He tolerated eggs and sausage. He is eager to go home today. Pain is well controlled. ROS: No reports of nausea and vomiting. Has bowel movements. No fevers or chills. No shortness of breath. PHYSICAL EXAM: VITAL SIGNS: Reviewed CONSTITUTIONAL: Well developed and in no acute distress. EYES: Conjuctivae without sclera icterus. Extraocular movements grossly intact. HEAD, EARS, NOSE, THROAT: Moist buccal mucosa. Head is atraumatic, normocephalic. Hears conversational speech. No nasal drainage. NECK: Supple. No thyroidomegaly. RESPIRATORY: Non-labored respirations and equal bilateral excursions. CARDIOVASCULAR: Regular rate. Regular rhythm. ABDOMEN: Incisions intact. No peritonitis. MUSCULOSKELETAL: No gross deformity of the lower extremities noted. No clubbing. No cyanosis. SKIN: Good skin turgor. Well perfused. NEUROLOGIC: Cranial nerves II through XII grossly intact. No focal or lateralizing signs. PSYCH: Appropriate affect. Alert and oriented to person, place and time. CLINICAL LABS: No new labs ASSESSMENT: 1. Diverticulitis 2. Status post colostomy reversal PLAN: 1. Non-narcotic pain plan described for discharge which he tolerated in the hospital. 2. Dressing change prior to discharge 3. Discharge instructions reviewed including follow-up with his surgeon. Patient Condition at Discharge: Good Plan - Discharge Summary Discharge Rx Participant: Yes New Discharge Prescriptions: New Ibuprofen [Motrin] 600 mg PO Q8HR PRN #30 tab PRN Reason: Pain Acetaminophen Tab [Tylenol Tab] 1,000 mg PO Q6HR PRN #30 tablet PRN Reason: Pain Continue Clopidogrel [Plavix] 75 mg PO DAILY Divalproex [Depakote] 500 mg PO BID Aspirin 81 mg PO DAILY Atorvastatin [Lipitor] 80 mg PO HS Omeprazole 40 mg PO QAM Nitroglycerin Sl Tabs [Nitrostat] 0.4 mg SUBLINGUAL Q5M PRN PRN Reason: Chest Pain [place]-3 Fatty Acids/Fish Oil [Fish Oil 1,000 mg Softgel] 1 cap PO DAILY Cholecalciferol [Vitamin D3 (25 Mcg = 1000 Iu)] 2,000 unit PO DAILY HYDROcodone/APAP 7.5-325MG [[place] 7.5-325] 1 tab PO Q6HR PRN PRN Reason: Pain Docusate [Colace] 100 mg PO BID PRN PRN Reason: Constipation Losartan Potassium [Cozaar] 25 mg PO QAM #0 Discharge Medication List Aspirin 81 mg PO DAILY 03/30/18 [History] Atorvastatin [Lipitor] 80 mg PO HS 03/30/18 [History] Clopidogrel [Plavix] 75 mg PO DAILY 03/30/18 [History] Divalproex [Depakote] 500 mg PO BID 03/30/18 [History] Cholecalciferol [Vitamin D3 (25 Mcg = 1000 Iu)] 2,000 unit PO DAILY 07/16/20 [History] Nitroglycerin Sl Tabs [Nitrostat] 0.4 mg SUBLINGUAL Q5M PRN 07/16/20 [History] [place]-3 Fatty Acids/Fish Oil [Fish Oil 1,000 mg Softgel] 1 cap PO DAILY 07/16/20 [History] Omeprazole 40 mg PO QAM 07/16/20 [History] Docusate [Colace] 100 mg PO BID PRN 10/19/20 [History] HYDROcodone/APAP 7.5-325MG [[place] 7.5-325] 1 tab PO Q6HR PRN 10/19/20 [History] Losartan Potassium [Cozaar] 25 mg PO QAM #0 10/25/20 [Rx] Acetaminophen Tab [Tylenol Tab] 1,000 mg PO Q6HR PRN #30 tablet 10/28/20 [Rx] Ibuprofen [Motrin] 600 mg PO Q8HR PRN #30 tab 10/28/20 [Rx] Follow up Appointment(s)/Referral(s): Raciel Melvin DO [Primary Care Provider] - 1 Week (Please call office to make appointment - closed today) Soham Vincent MD [STAFF PHYSICIAN] - 1 Week (office closed Please call Thursday to schedule appointment ) Patient Instructions/Handouts: Colectomy (DC), Colectomy Diet (ED) Activity/Diet/Wound Care/Special Instructions: Sponge bath. Dressing to be removed with follow up in office. Avoid tough meats. No lifting over 10 pounds until cleared by your surgeon. Discharge Disposition: HOME SELF-CARE
--- NOTE | 2020-11-09 12:35 | P.OP ---
Date of Procedure: 10/24/20 Preoperative Diagnosis: History of perforated diverticulitis Postoperative Diagnosis: History of perforated diverticulitis Procedure(s) Performed: exploratory laparotomy Reversal of colostomy Lysis of adhesions Anesthesia: MONIQUE Surgeon: Soham Vincent Estimated Blood Loss (ml): 50 Pathology: other (colon) Condition: stable Disposition: PACU Description of Procedure: The patient's placed on the operative table in the supine position. He received general anesthesia. He was then placed in dorsal 5 position. His abdomen was prepped and draped usual fashion. The skin was incised in midline. And then using electrocautery the subcutaneous tissues were divided. The fascia was opened. The adhesions to the anterior abdominal wall were lysed using sharp dissection. The colostomy then transected the fascial level using the GI stapler. Adhesions were lysed in the pelvis. And then the rectal stump was visualized. The white line Toldt was divided. And the left colon was mobilized. The enterotomy is made in the colon and then the anvil for the 25 mm EEA stapler was placed the colon. The colon was then transected with a GI stapler. The anvil was then brought out through the staple line. At this point the assistant counsel placed the stapler patient's anus in the stapler position the rectum. The spike was then driven through the staple line. The anvil was connected stapler. The stapler closed and fired. Stapler withdrawn. The anastomosis was checked under air insufflation. There is no leakage. The abdomen was irrigated. No bleeding seen. The fascia was closed with looped #1 PDS suture. Skin was closed ben. The colostomy was then excised using left cautery. The fascia was then closed with 0 Vicryl suture. Skin was closed ben. Patient top she will was sent to recovery room stable condition.
== END 2020-10-28 12:42 | disposition home or self-care (01) | DRG 330 ==
LOC: 2ORMAIN 08:45 → 4SSUR 11:46
PROVIDERS: ADMIT Surgery; ATTEND Surgery
PROC: 0DBN0ZZ Excision of Sigmoid Colon, Open Approach (ICD-10-PCS; principal; 2020-10-24 10:30)
PROC: 0DJD0ZZ Inspection of Lower Intestinal Tract, Open Approach (ICD-10-PCS; principal; 2020-10-24 10:30)
DX: Z43.3 Encounter for attention to colostomy (principal); E87.1 Hypo-osmolality and hyponatremia; I25.10 Atherosclerotic heart disease of native coronary artery without angina pectoris; E11.9 Type 2 diabetes mellitus without complications; F43.10 Post-traumatic stress disorder, unspecified; I10 Essential (primary) hypertension; K21.9 Gastro-esophageal reflux disease without esophagitis; M19.90 Unspecified osteoarthritis, unspecified site; E66.9 Obesity, unspecified; G47.30 Sleep apnea, unspecified; E78.5 Hyperlipidemia, unspecified; Z79.02 Long term (current) use of antithrombotics/antiplatelets; Z79.82 Long term (current) use of aspirin; Z79.899 Other long term (current) drug therapy; Z95.5 Presence of coronary angioplasty implant and graft; Z87.891 Personal history of nicotine dependence; Z98.890 Other specified postprocedural states; Z90.49 Acquired absence of other specified parts of digestive tract; I25.2 Old myocardial infarction; Z68.31 Body mass index [BMI] 31.0-31.9, adult
CPT/HCPCS: 80048; 85025; 94760

== ENCOUNTER → 2021-01-16 | Outpatient (CLI) | payer BC ==
--- NOTE | 2021-01-16 09:01 | XR ---
EXAMINATION TYPE: XR chest 2V DATE OF EXAM: 01/16/2021 COMPARISON: 08/17/2019 TECHNIQUE: PA and lateral views submitted. HISTORY: Pain FINDINGS: The lungs are clear and there is no pneumothorax, pleural effusion, or focal pneumonia. Size normal . No overt failure. Postsurgical change overlying the cervical spine. Biapical pleural thickening. Mi ld hypertrophic change of the vertebral column. Atherosclerotic change aorta. IMPRESSION: 1. No acute process.
== END ==
LOC: RADXRYALE 08:43
PROVIDERS: ATTEND Physician Assistant Medical
DX: R07.9 Chest pain, unspecified (principal)
CPT/HCPCS: 71046

== ENCOUNTER → 2021-01-24 | Outpatient (CLI) | payer BC ==
[2021-01-24 17:10] LABS: African American GFR (CKD) >90 (>60 ml/min/1.73 sqM); Blood Urea Nitrogen 14 mg/dL (9-20); Non-African American GFR(CKD) >90 (>60 ml/min/1.73 sqM)
--- NOTE | 2021-01-25 07:49 | CT ---
EXAMINATION TYPE: CT abdomen pelvis w con DATE OF EXAM: 01/24/2021 COMPARISON: 07/17/2020 HISTORY: LLQ pain. Recent intestine reversal. CT DLP: 1462 mGycm CONTRAST: CT scan of the abdomen and pelvis is performed with Oral Contrast and with IV Contrast, patient injec alba with 100 mL of Isovue 300. FINDINGS: LUNG BASES-: No visible nodule. No infiltrate. LIVER/GB: No calcified gallstones. No space occupying hepatic lesion. Biliary tree is of normal ca liber. PANCREAS: No inflammation. No distinct mass. SPLEEN: No splenic enlargement. No lesion seen. ADRENALS: No nodule. No thickening. KIDNEYS/BLADDER: No hydronephrosis. No nephrolithiasis. 2.27 cm cyst midpole right kidney is exophy tic. Subcentimeter cystic lesion mid pole left kidney posteriorly. No solid renal lesions detected. U rinary bladder grossly unremarkable. BOWEL: Normal appendix. Normal bowel caliber. No inflammation. Reanastomosis of the sigmoid colon. No evidence for inflammatory process or leak. GENITAL ORGANS: No gross abnormality. LYMPH NODES: No greater than 1cm abdominal or pelvic lymph nodes are appreciated. AORTA: No significant abnormality. OSSEOUS STRUCTURES: No significant abnormality is seen. OTHER: No significant additional abnormality is seen. IMPRESSION: 1. Reanastomosis of the sigmoid colon. No evidence for inflammatory process or leak.
== END | disposition home or self-care (01) ==
LOC: RADCTMAIN 16:18
PROVIDERS: ATTEND Physician Assistant Medical
DX: R10.32 Left lower quadrant pain (principal); R19.04 Left lower quadrant abdominal swelling, mass and lump
CPT/HCPCS: 82565; 84520; 74177; 36415; Q9967

== ENCOUNTER → 2021-02-12 | Outpatient (CLI) | payer BC ==
--- NOTE | 2021-02-12 18:23 | CT ---
EXAMINATION TYPE: CT angio chest DATE OF EXAM: 02/12/2021 COMPARISON: 10/14/2019 HISTORY: dyspnea. Hx COPD CT DLP: 399.50 mGycm Automated exposure control for dose reduction was used. CONTRAST: Performed with IV Contrast, patient injected with 100 mL of Isovue 370. There are 3-D post processed images. Images were obtained from the thoracic inlet to the diaphragm wi th IV contrast. There is posterior mild pulmonary interstitial infiltrates. There is no pleural effusion. Heart size is fairly normal. There is no pericardial effusion. There is no mediastinal adenopathy. There are no hilar masses. There is normal contrast opacification of the pulmonary arteries. I see no filling defect. The thoracic spine is intact. Sternum is intact. The upper abdominal soft tissues are intact. IMPRESSION: No evidence of pulmonary embolism. There are new mild posterior pulmonary interstitial infiltrates co mpared to old exam.
== END | disposition home or self-care (01) ==
LOC: RADCTMAIN 16:55
PROVIDERS: ATTEND Internal Medicine
DX: J44.9 Chronic obstructive pulmonary disease, unspecified (principal); R91.8 Other nonspecific abnormal finding of lung field
CPT/HCPCS: 71275; Q9967

== ENCOUNTER 2021-02-18 06:03 | Observation (INO) | payer BC ==
[2021-02-13 08:53] VITALS: BMI 33.7
[~2021-02-18 06:03] MED LIST changes: -HEPARIN SODIUM,PORCINE 5,000 UNIT/ML 1 ML VIAL SQ PRN; +HEPARIN SODIUM,PORCINE/PF 5,000 UNIT/0.5 ML SYRINGE SQ PRN; -HYDROmorphone 0.5 MG/0.5 ML SYRINGE IVP PRN; +ONDANSETRON 4 MG/2 ML VIAL IVP ONE; -metroNIDAZOLE-NS PMX 500 MG in SALINE 1 100ML.BAG IVPB PRN
[2021-02-18] MEDS: LACTATED RINGERS 1,000 ML IV SCH ×2 (06:37→14:06)
[2021-02-18] MEDS ORDERED: MIDAZOLAM 2 MG/2 ML VIAL IVP ONE (07:18)
[2021-02-18] MEDS ORDERED: GLYCOPYRROLATE 0.2 MG/ML 2 ML VIAL ONE (08:00)
[2021-02-18] MEDS ORDERED: ROCURONIUM 10 MG/ML (5 ML VIAL) IV ONE (08:00)
[2021-02-18] MEDS ORDERED: MIDAZOLAM 2 MG/2 ML VIAL ONE (08:00)
[2021-02-18] MEDS ORDERED: NEOSTIGMINE 1 MG/ML 10 ML VIAL ONE (08:00)
[2021-02-18] MEDS ORDERED: SUCCINYLCHOLINE CHLORIDE 100 MG/5 ML SYR IV ONE (08:00)
[2021-02-18] MEDS ORDERED: SODIUM CHLORIDE 0.9% 100 ML BAG ONE (08:00)
[2021-02-18] MEDS ORDERED: ROPIVACAINE 5 MG/ML 30 ML VIAL ONE (08:00)
[2021-02-18] MEDS ORDERED: ceFAZolin 1,000 MG VIAL ONE (08:00)
[2021-02-18] MEDS ORDERED: fentaNYL (PF) 50 MCG/ML 2 ML AMP ONE (08:00)
[2021-02-18] MEDS ORDERED: PROPOFOL 10 MG/ML 20 ML VIAL IV ONE (08:00)
[2021-02-18] MEDS ORDERED: LACTATED RINGERS 1,000 ML IV ONE ×5 (08:15→11:34)
[2021-02-18] MEDS ORDERED: BUPIVACAINE (PF) 0.25% 30 ML VIAL SQ ONE (08:15)
--- NOTE | 2021-02-18 08:34 | P.ANPRN ---
Procedure Note - Anesthesia - Nerve Block Performed Bilateral Rectus Abdominis Time Out Performed: Yes (07:17) Date of Procedure: 02/18/21 Procedure Start Time: Procedure Stop Time: : Location of Patient: PreOp Indication: Acute Post-Operative Pain, Requested by Surgeon (Dr Vincent) Sedation Type: Sedate with meaningful contact maintained Preparation: Sterile Prep Position: Supine Catheter: None Needle Types: Pajunk Needle Gauge: 21 Ultrasound used to visualize needle placement: Yes Ultrasound used to observe medication spread: Yes Injectate: 0.5% Ropivacaine (see comment for volume) (15cc each side) Blood Aspirated: No Pain Paresthesia on Injection Noted: No Resistance on Injection: Normal Image Stored and Saved: Yes Events: Uneventful and Well Tolerated
--- NOTE | 2021-02-18 09:39 | P.GSHP ---
History of Present Illness H&P Date: 02/18/21 Chief Complaint: Incisional hernia This is a 55-year-old male who presents today for open repair of incisional hernia. Patient's previous history of perforated diverticula lysed with colostomy and subsequent reversal colostomy. He is developed an incisional hernia. Past Medical History Past Medical History: Diabetes Mellitus, Hypertension, Myocardial Infarction ([place]) Additional Past Medical History / Comment(s): unknown lung issues Last Myocardial Infarction Date:: 2004 History of Any Multi-Drug Resistant Organisms: None Reported Past Surgical History: Heart Catheterization, Heart Catheterization With Stent, Orthopedic Surgery Additional Past Surgical History / Comment(s): neck surgery with hardware, rt shoulder surgery, rt wrist surgery Past Anesthesia/Blood Transfusion Reactions: No Reported Reaction Date of Last Stent Placement:: 2006 Past Psychological History: PTSD Smoking Status: Never smoker Additional Past Alcohol Use History / Comment(s): Quit smoking 15 yrs ago. - Past Family History Mother History Unknown: Yes Family Medical History: No Reported History Father Family Medical History: Cancer Medications and Allergies Home Medications Medication Instructions Recorded Confirmed Type Atorvastatin [Lipitor] 80 mg PO DAILY 03/30/18 02/18/21 History Clopidogrel [Plavix] 75 mg PO DAILY 03/30/18 02/18/21 History Divalproex [Depakote] 500 mg PO BID 03/30/18 02/18/21 History Cholecalciferol [Vitamin D3 (25 2,000 unit PO DAILY 07/16/20 02/18/21 History Mcg = 1000 Iu)] Nitroglycerin Sl Tabs [Nitrostat] 0.4 mg SUBLINGUAL Q5M PRN 07/16/20 02/18/21 History [place]-3 Fatty Acids/Fish Oil [Fish 1 cap PO DAILY 07/16/20 02/18/21 History Oil 1,000 mg Softgel] Omeprazole 40 mg PO QAM 07/16/20 02/18/21 History Docusate [Colace] 100 mg PO BID PRN 10/19/20 02/18/21 History HYDROcodone/APAP 7.5-325MG [[place] 1 tab PO TID PRN 10/19/20 02/18/21 History 7.5-325] Losartan Potassium [Cozaar] 25 mg PO QAM #0 10/25/20 02/18/21 Rx Fluticasone/Salmeterol [Advair 1 inhalation PO QAM 02/13/21 02/18/21 History 100-50 Diskus] LORazepam [Ativan] 1 mg PO TID PRN 02/13/21 02/18/21 History Prazosin [Minipress] 5 mg PO HS 02/13/21 02/18/21 History traZODone HCL 100 mg PO HS 02/13/21 02/18/21 History Allergies Allergy/AdvReac Type Severity Reaction Status Date / Time No Known Allergies Allergy Verified 02/18/21 06:20 Surgical - Exam Vital Signs Temp Pulse Resp BP Pulse Ox 97.5 F L 81 17 145/91 96 02/18/21 06:27 02/18/21 06:27 02/18/21 06:27 02/18/21 06:27 02/18/21 06:27 - General well developed, well nourished, no distress - Eyes PERRL - ENT normal pinna - Neck no masses - Respiratory normal expansion - Cardiovascular Rhythm: regular - Abdomen Abdomen: soft, non tender Hernia: incisional (10 cm incisional hernia) Assessment and Plan Assessment: Incision hernia. We'll perform open repair.
[2021-02-18] MEDS ORDERED: ACETAMINOPHEN TAB 325 MG TAB PO PRN (09:41)
[2021-02-18] MEDS ORDERED: HYDROcodone/APAP 5-325MG 1 EACH TAB PO PRN (09:41)
[2021-02-18] MEDS ORDERED: ONDANSETRON 4 MG/2 ML VIAL IVP PRN (09:41)
[2021-02-18] MEDS ORDERED: NALOXONE 0.4 MG/ML 1 ML VIAL IV PRN (09:41)
--- NOTE | 2021-02-18 09:41 | P.OP ---
Date of Procedure: 02/18/21 Preoperative Diagnosis: Incisional hernia Postoperative Diagnosis: Incisional hernia Procedure(s) Performed: (Incisional hernia with mesh Anesthesia: MONIQUE Surgeon: Soham Vincent Estimated Blood Loss (ml): 10 Pathology: none sent Condition: stable Disposition: PACU Description of Procedure: Patient's placed on the operative table in supine position. He received general anesthesia. His abdomen was prepped and draped usual fashion. A midline skin incision was made through the scar. The incisional hernias located in the midline. The hernia was opened. The fascia was then dissected off of the subcutaneous tissue. The fascia repair was then performed using interrupted 0 Ethibond suture. A #1 strep fix was then used to repair the fascia as well. A piece of Prolene mesh placed over top apparent secured with secured shut tacker. A LEIGHTON drains placed over top of this and brought out through separate stab incision. Diane's fascia with 0 Vicryl. Skin ben. Patient top she will was sent to recovery in stable condition.
[2021-02-18] MEDS: HYDROmorphone 0.5 MG/0.5 ML SYRINGE IVP PRN ×6 (09:58→21:12)
[2021-02-18] MEDS: KETOROLAC 15 MG/ML 1 ML VIAL IVP SCH ×2 (12:53→17:28)
[2021-02-18] MEDS ORDERED: LORazepam 1 MG TAB PO PRN (14:46)
[2021-02-18] MEDS ORDERED: NITROGLYCERIN SL TABS 0.4 MG TAB SUBLINGUAL PRN (14:46)
[2021-02-18] MEDS: SYMBICORT 80-4.5 MCG INHALER INHALATION SCH (20:19)
--- NOTE | 2021-02-18 20:56 | CONS ---
CONSULTATION DATE OF SERVICE: 02/18/2021 REASON FOR CONSULTATION: Advice regarding hypertension and other multiple medical issues, requested by Dr. Vincent. HISTORY OF PRESENT ILLNESS: This 55-year-old gentleman with a past medical history of multiple medical problems, including diabetes mellitus, hypertension, history of myocardial infarction, history of CAD and stent, being followed by Dr. Melvin in the outpatient setting, underwent repair of incisional hernia with mesh by Dr. Vincent. The patient tolerated the procedure well. Patient is complaining of some pain. Otherwise this is no history of any chest pain, palpitations, headache, loss of consciousness, nausea, vomiting or diarrhea at this time. PAST MEDICAL HISTORY: Diabetes mellitus, hypertension, myocardial infarction, CAD and stent. HOME MEDICATIONS: Trazodone, prazosin, omeprazole, omega-3 fatty acids, Nitrostat, Cozaar, Ativan, hydrocodone, Advair, Colace, Depakote, Plavix, vitamin D, Lipitor. Doses are reviewed. ALLERGIES: NONE. FAMILY HISTORY: No history of heart disease or strokes in the family. SOCIAL HISTORY: No history of smoking. No history of alcohol intake. REVIEW OF SYSTEMS: ENT: No diminished hearing. No diminished vision. CARDIOVASCULAR SYSTEM: No angina, palpitations. RESPIRATORY SYSTEM: No cough, hemoptysis. GI: No nausea, vomiting. : No dysuria or retention. NERVOUS SYSTEM: No numbness, weakness. ALLERGY/IMMUNOLOGY: No asthma, hayfever. MUSCULOSKELETAL: As mentioned earlier. HEMATOLOGY/ONCOLOGY: No history of anemia. ENDOCRINE: As mentioned earlier. CONSTITUTIONAL: As mentioned earlier. DERMATOLOGY: Negative. RHEUMATOLOGY: Negative. PSYCHIATRY: As mentioned earlier. PHYSICAL EXAMINATION: Patient is alert, oriented x3. Pulse is 80, blood pressure 140/80, respiration 16, temperature 97.7, pulse ox 98% on 2 L. HEENT: Conjunctivae normal. NECK: No jugular venous distention. CARDIOVASCULAR SYSTEM: S1, S2 muffled. RESPIRATORY SYSTEM: Breath sounds diminished at the bases. No rhonchi. No crackles. ABDOMEN: Soft. Status post surgery. LEGS: No edema. No swelling. NERVOUS SYSTEM: Higher functions as mentioned earlier. Moves all 4 limbs. No focal motor or sensory deficit. LYMPHATICS: No lymph node palpable in neck, axillae or groin. SKIN: No ulcer, rash, bleeding. JOINTS: No active deforming arthropathy. LABS: COVID-19 is negative. Preop labs are also within normal limits. ASSESSMENT: 1. Status post incisional hernia repair with mesh. 2. Hypertension. 3. Diabetes mellitus, type 2. 4. History of myocardial infarction. 5. History of coronary artery disease, stent. 6. History of degenerative joint disease. 7. History of post-traumatic stress disorder. 8. History of nicotine dependence. RECOMMENDATIONS AND DISCUSSION: In this 55-year-old gentleman who presented with multiple complex medical issues, we will monitor the patient closely, continue the current medications, continue with symptomatic treatment. Otherwise at this time I recommend resuming the home medications. Monitor the blood pressure closely. Otherwise, incentive spirometry. DVT prophylaxis. Will follow the patient closely. The patient may be asked to follow up with Dr. Melvin in the outpatient setting. Thank you, Dr. Vincent, for letting us participate in the care of this patient. MMODL / IJN: [id number] /
[2021-02-18] MEDS ORDERED: PRAZOSIN 1 MG CAP PO SCH (21:00)
[2021-02-18] MEDS ORDERED: traZODone HCL 100 MG TAB PO SCH (21:00)
[2021-02-18] MEDS: DIVALPROEX 500 MG TABLET.DR PO SCH (21:16)
[2021-02-18] MEDS: DOCUSATE 100 MG CAP PO SCH (21:17)
[2021-02-19] MEDS: KETOROLAC 15 MG/ML 1 ML VIAL IVP SCH ×3 (00:05→11:25)
[2021-02-19 05:34] VITALS: RESP 17
[2021-02-19] MEDS: HYDROmorphone 0.5 MG/0.5 ML SYRINGE IVP PRN ×2 (07:11→13:58)
[2021-02-19] MEDS: DIVALPROEX 500 MG TABLET.DR PO SCH (07:55)
[2021-02-19] MEDS: DOCUSATE 100 MG CAP PO SCH (07:55)
[2021-02-19] MEDS: SYMBICORT 80-4.5 MCG INHALER INHALATION SCH (07:57)
[2021-02-19] MEDS ORDERED: LOSARTAN 25 MG TAB PO SCH (09:00)
[2021-02-19] MEDS ORDERED: CLOPIDOGREL 75 MG TAB PO SCH (09:00)
[2021-02-19] MEDS ORDERED: CHOLECALCIFEROL 25 MCG (1000 IU) TABLET PO SCH (09:00)
[2021-02-19] MEDS ORDERED: ENOXAPARIN 40 MG/0.4 ML SYRINGE SQ SCH (09:00)
[2021-02-19] MEDS ORDERED: ATORVASTATIN 80 MG TAB PO SCH (09:00)
[2021-02-19] MEDS ORDERED: PANTOPRAZOLE 40 MG TABLET PO SCH (09:00)
[2021-02-19 12:23] VITALS: BP 115/75; PULSE 78; TEMP 97.9
--- NOTE | 2021-02-19 14:44 | P.DS ---
Providers Date of admission: 02/18/21 23:33 Expected date of discharge: 02/19/21 Attending physician: Soham Vincent Consults: 02/18/21 09:41 Consult Physician Routine Consulting Provider: Bonnie Ramírez Consult Reason/Comments: Medical management Do you want consulting provider notified?: Yes [facility] Course: Discharge diagnosis 1. Incisional hernia status post open incisional hernia repair with mesh Hospital course This is a 55-year-old male with an incisional hernia. He has previous history of perforated diverticulitis with colostomy and subsequent reversal of colostomy. He had developed an incisional hernia. Patient is status post open incisional hernia repair with mesh placement. He tolerated surgery well. His pain is controlled. He has tolerated diet. He is passing gas. He is up and ambulating. Denies any difficulty urinating. He is afebrile. He is stable for discharge. Please refer to chart for any further details. Physician [employer] note has been reviewed by physician. Signing provider agrees with the documented findings, assessment, and plan of care. Patient Condition at Discharge: Stable Plan - Discharge Summary Discharge Rx Participant: Yes New Discharge Prescriptions: Continue HYDROcodone/APAP 7.5-325MG [[place] 7.5-325] 1 tab PO TID PRN PRN Reason: Pain No Action Clopidogrel [Plavix] 75 mg PO DAILY Divalproex [Depakote] 500 mg PO BID Atorvastatin [Lipitor] 80 mg PO DAILY Omeprazole 40 mg PO QAM Nitroglycerin Sl Tabs [Nitrostat] 0.4 mg SUBLINGUAL Q5M PRN PRN Reason: Chest Pain [place]-3 Fatty Acids/Fish Oil [Fish Oil 1,000 mg Softgel] 1 cap PO DAILY Cholecalciferol [Vitamin D3 (25 Mcg = 1000 Iu)] 2,000 unit PO DAILY Docusate [Colace] 100 mg PO BID PRN PRN Reason: Constipation Losartan Potassium [Cozaar] 25 mg PO QAM #0 LORazepam [Ativan] 1 mg PO TID PRN PRN Reason: Anxiety traZODone HCL 100 mg PO HS Fluticasone/Salmeterol [Advair 100-50 Diskus] 1 inhalation PO QAM Prazosin [Minipress] 5 mg PO HS Discharge Medication List Atorvastatin [Lipitor] 80 mg PO DAILY 03/30/18 [History] Clopidogrel [Plavix] 75 mg PO DAILY 03/30/18 [History] Divalproex [Depakote] 500 mg PO BID 03/30/18 [History] Cholecalciferol [Vitamin D3 (25 Mcg = 1000 Iu)] 2,000 unit PO DAILY 07/16/20 [History] Nitroglycerin Sl Tabs [Nitrostat] 0.4 mg SUBLINGUAL Q5M PRN 07/16/20 [History] [place]-3 Fatty Acids/Fish Oil [Fish Oil 1,000 mg Softgel] 1 cap PO DAILY 07/16/20 [History] Omeprazole 40 mg PO QAM 07/16/20 [History] Docusate [Colace] 100 mg PO BID PRN 10/19/20 [History] HYDROcodone/APAP 7.5-325MG [[place] 7.5-325] 1 tab PO TID PRN 10/19/20 [History] Losartan Potassium [Cozaar] 25 mg PO QAM #0 10/25/20 [Rx] Fluticasone/Salmeterol [Advair 100-50 Diskus] 1 inhalation PO QAM 02/13/21 [History] LORazepam [Ativan] 1 mg PO TID PRN 02/13/21 [History] Prazosin [Minipress] 5 mg PO HS 02/13/21 [History] traZODone HCL 100 mg PO HS 02/13/21 [History] Follow up Appointment(s)/Referral(s): Soham Vincent MD [STAFF PHYSICIAN] - 1 Week Activity/Diet/Wound Care/Special Instructions: Medicine to complete discharge med rec No driving while taking [place] No lifting over 10 pounds You may shower. No soaking or tub baths for 2 weeks Very light activity until you are reevaluated at your follow up appointment with your surgeon Keep a log of LEIGHTON drain output and bring with you to your follow-up appointment Milk/strip drains 2-3 times a day Discharge Disposition: HOME SELF-CARE
--- NOTE | 2021-02-19 15:08 | PN ---
PROGRESS NOTE DATE OF SERVICE: 02/19/2021 This 55-year-old gentleman who was admitted after incisional hernia repair is improving significantly. No chest pain. No palpitations. No fever. The patient is still has LEIGHTON drain. PHYSICAL EXAMINATION: Alert and oriented x3. Pulse 78, blood pressure 115/75, respiration 17, temperature 97.9, pulse ox 96% on room air. HEENT: Conjunctivae normal. NECK: No jugular venous distention. CARDIOVASCULAR: S1, S2 muffled. RESPIRATORY: Breath sounds diminished at the bases. No rhonchi. No crackles. ABDOMEN: Soft, status post surgery. LEGS: No edema. No swelling. NERVOUS SYSTEM: No focal deficits. LABS: COVID-19 is negative. ASSESSMENT: 1. Status post incisional hernia repair with mesh. 2. Hypertension history. 3. Diabetes mellitus type 2. 4. History of myocardial infarction. 5. History of coronary artery disease, stent. 6. History of degenerative joint disease. 7. History of posttraumatic stress disorder. 8. History nicotine dependence. RECOMMENDATIONS AND DISCUSSION: Recommend to continue current medications, continue symptomatic treatment. Continue the home medications and DVT prophylaxis. Resume the home medications upon discharge. Closely follow with Surgery. Further recommendations to follow. MMODL / IJN: [id number] / [place]
== END 2021-02-19 15:38 | disposition home or self-care (01) ==
LOC: OR 06:03 → 5NMEDONC 09:40 → OR 23:33 → 5NMEDONC 23:33
PROVIDERS: ADMIT Surgery; ATTEND Surgery
DX: K43.2 Incisional hernia without obstruction or gangrene (principal); E11.9 Type 2 diabetes mellitus without complications; I10 Essential (primary) hypertension; I25.2 Old myocardial infarction; F43.10 Post-traumatic stress disorder, unspecified; I25.10 Atherosclerotic heart disease of native coronary artery without angina pectoris; E78.5 Hyperlipidemia, unspecified; J45.909 Unspecified asthma, uncomplicated; G47.33 Obstructive sleep apnea (adult) (pediatric); F41.1 Generalized anxiety disorder; E78.00 Pure hypercholesterolemia, unspecified; M15.9 Polyosteoarthritis, unspecified; R06.09 Other forms of dyspnea; Z20.822 Contact with and (suspected) exposure to COVID-19; Z87.09 Personal history of other diseases of the respiratory system; Z95.5 Presence of coronary angioplasty implant and graft; Z87.891 Personal history of nicotine dependence; Z87.19 Personal history of other diseases of the digestive system; Z79.899 Other long term (current) drug therapy; Z79.02 Long term (current) use of antithrombotics/antiplatelets; Z79.891 Long term (current) use of opiate analgesic
CPT/HCPCS: 49560; 49568; 94640 ×2; 94760; 64488; 87635; G0378; C1781; J2250; J1100; J2710; J2405; J0690; J1650; J3010; J2795; J1885 ×2; J0330; J2704; J1170 ×2; J1644

== ENCOUNTER → 2021-04-10 | Outpatient (CLI) | payer BC ==
--- NOTE | 2021-04-10 09:13 | XR ---
EXAMINATION TYPE: XR abdomen 2V DATE OF EXAM: 04/10/2021 COMPARISON: NONE HISTORY: Pain TECHNIQUE: One view abdominal series FINDINGS: The osseous structures are intact. The bowel gas pattern is nonspecific. Atrophic changes of the solange tabulum. Nonspecific calcification in the left pelvis. Scattered air-fluid levels noted. IMPRESSION: 1. Nonspecific abdomen there is occasional air-fluid level associated with a localized ileus correlat e clinically to enteritis. Partial obstruction not entirely excluded.
== END | disposition home or self-care (01) ==
LOC: RADXRYALE 08:55
PROVIDERS: ATTEND Physician Assistant Medical
DX: R18.8 Other ascites (principal)
CPT/HCPCS: 74019

== ENCOUNTER 2021-06-16 17:30 | Inpatient (IN) | payer BC ==
[2021-06-16] MEDS ORDERED: ONDANSETRON 4 MG/2 ML VIAL IVP STA (17:56)
[2021-06-16] MEDS ORDERED: SODIUM CHLORIDE 0.9% 1,000 ML IV STA (17:56)
[2021-06-16] MEDS ORDERED: diphenhydrAMINE 50 MG/ML 1 ML VIAL IVP STA (17:56)
[2021-06-16] MEDS ORDERED: SODIUM CHLORIDE 0.9% 500 ML 500 ML IV STA (17:56)
--- NOTE | 2021-06-16 18:28 | ED ---
Abdominal Pain HPI - General Chief Complaint: Abdominal Pain Stated Complaint: "ate poisonus mushrooms yesterday", N/V/D Time Seen by Provider: 06/16/21 17:46 Source: patient Mode of arrival: ambulatory Limitations: no limitations - History of Present Illness Initial Comments: Patient is a 55-year-old male presenting to the emergency Department with com plaints of abdominal cramping, nausea and vomiting since approximately 1 AM this morning. He states he ate some wild mushrooms at approximate 4 PM yesterday and then woke up low night with vomiting episodes. He has also been having diarrhea. He states he's done this numerous times in the past, he has an cholo that he uses to check the mushroom type. He is complaining of abdominal cramping and body cramps as well as nausea and vomiting intermittently at least every 20 minutes since 1 AM. He is not been able tolerate even some water. He states he is very thirsty. He denies any chest pain or shortness of breath. He states he does have history of anxiety and feels like his anxiety is high. He also has history of bowel resection secondary to a ruptured diverticulitis. He denies any fevers or chills. He has no further complaints. Upon arrival to the ER, he has tachycardia at 124, rest of vitals normal. - Related Data Home Medications Medication Instructions Recorded Confirmed Atorvastatin [Lipitor] 80 mg PO DAILY 03/30/18 06/11/21 Clopidogrel [Plavix] 75 mg PO DAILY 03/30/18 06/11/21 Divalproex [Depakote] 500 mg PO BID 03/30/18 06/11/21 Cholecalciferol [Vitamin D3 (25 2,000 unit PO DAILY 07/16/20 06/11/21 Mcg = 1000 Iu)] Nitroglycerin Sl Tabs [Nitrostat] 0.4 mg SUBLINGUAL Q5M PRN 07/16/20 06/11/21 [place]-3 Fatty Acids/Fish Oil [Fish 1 cap PO DAILY 07/16/20 06/11/21 Oil 1,000 mg Softgel] Omeprazole 40 mg PO QAM 07/16/20 06/11/21 Docusate [Colace] 100 mg PO BID PRN 10/19/20 06/11/21 HYDROcodone/APAP 7.5-325MG [[place] 1 tab PO TID PRN 12/18/20 08/10/21 7.5-325] Fluticasone/Salmeterol [Advair 1 inhalation PO QAM 02/13/21 06/11/21 100-50 Diskus] LORazepam [Ativan] 1 mg PO TID PRN 02/13/21 06/11/21 Prazosin [Minipress] 5 mg PO HS 02/13/21 06/11/21 traZODone HCL 100 mg PO HS 02/13/21 06/11/21 Previous Rx's Medication Instructions Recorded Losartan Potassium [Cozaar] 25 mg PO QAM #0 10/25/20 Acetaminophen Tab [Tylenol] 650 mg PO Q6HR PRN tab 02/19/21 Allergies Allergy/AdvReac Type Severity Reaction Status Date / Time No Known Allergies Allergy Verified 06/16/21 17:40 Review of Systems ROS Statement: Those systems with pertinent positive or pertinent negative responses have been documented in the HPI. ROS Other: All systems not noted in ROS Statement are negative. Past Medical History Past Medical History: Hypertension, Myocardial Infarction ([place]) Additional Past Medical History / Comment(s): unknown lung issues (mucous plug). diverticulitis with perforated bowel colostomy and then reversal, has pain lt side Last Myocardial Infarction Date:: 2004 History of Any Multi-Drug Resistant Organisms: None Reported Past Surgical History: Bowel Resection, Heart Catheterization, Heart Catheterization With Stent, Orthopedic Surgery Additional Past Surgical History / Comment(s): neck surgery with hardware, rt shoulder surgery, rt wrist surgery. 07/22 colostomy and reversal, incisional hernia with mesh repair, pain on lt side Past Anesthesia/Blood Transfusion Reactions: No Reported Reaction Date of Last Stent Placement:: 2006 Past Psychological History: PTSD Smoking Status: Former smoker Past Alcohol Use History: None Reported Past Drug Use History: None Reported - Past Family History Mother History Unknown: Yes Father Family Medical History: Cancer General Exam - General Exam Comments Initial Comments: GENERAL: Patient is well-developed and well-nourished. Patient is nontoxic and in moderate distress. HEAD: Atraumatic, normocephalic. EYES: Pupils equal round and reactive to light, extraocular movements intact, sclera anicteric, conjunctiva are normal. Eyelids were unremarkable. ENT: TMs normal, nares patent, oropharynx clear without exudates. Moist mucous membranes. NECK: Normal range of motion, supple without lymphadenopathy or JVD. LUNGS: Unlabored respirations. Breath sounds clear to auscultation bilaterally and equal. No wheezes rales or rhonchi. HEART: Tachycardia rate and rhythm without murmurs, rubs or gallops. ABDOMEN: Soft, generalized tenderness on palpation, no specific area pain normoactive bowel sounds. No guarding, no rebound. No masses appreciated. : Deferred MUSCULOSKELETAL: Normal extremities with adequate strength and normal range of motion, no pitting or edema. No clubbing or cyanosis. NEUROLOGICAL: Patient is alert and oriented x 3. Motor and sensory are also intact. Cranial nerves II through XII grossly intact. Symmetrical smile. Normal speech, normal gait. PSYCH: Normal mood, normal affect. SKIN: Warm, Dry, normal turgor, no rashes or lesions noted. Limitations: no limitations Course Vital Signs 06/16/21 06/16/21 06/16/21 17:38 18:53 19:28 Temperature 98.1 F Pulse Rate 124 H 98 105 H Respiratory 22 18 20 Rate Blood Pressure 143/95 137/83 119/94 O2 Sat by Pulse 99 98 96 Oximetry Medical Decision Making - Medical Decision Making Patient is a 55-year-old male here for abdominal cramping, nausea, vomiting, diarrhea after eating some mushrooms a proximal 4 PM yesterday. Symptoms started suddenly about 1 AM. Patient is tachycardia upon arrival, rest of vitals are normal. Labs show white count is 13.5, most likely reactive. Creatinine is elevated at 1.95 with BUN at 34 and a GFR at 37, this is an elevation from his baseline. Lactic acid is 2.6. I did speak with poison control who stated that since they're not 100% certain of the mushroom type they just recommended checking lab work and observation. Patient given a liter half of fluids, Zofran and Benadryl. He does take Ativan daily, we did give him this as well. He is feeling some mild improvement but given his elevation in kidney function, patient will be admitted for observation for ABNER. Patient is agreeable to this. We will continue with IV hydration and Zofran as needed for nausea. Patient accepted by [facility] Morrow, for Dr. Ramírez. Case discussed with Dr. Macedo. - Lab Data Result diagrams: 06/16/21 18:07 06/16/21 18:07 Lab Results 06/16/21 06/16/21 06/16/21 Range/Units 18:07 18:07 18:07 WBC 13.5 H (3.8-10.6) k/uL RBC 5.88 (4.30-5.90) m/uL Hgb 18.8 H (13.0-17.5) gm/dL Hct 54.5 H (39.0-53.0) % MCV 92.6 (80.0-100.0) fL MCH 31.9 (25.0-35.0) pg MCHC 34.4 (31.0-37.0) g/dL RDW 14.1 (11.5-15.5) % Plt Count 355 (150-450) k/uL MPV 6.3 Neutrophils % 76 % Lymphocytes % 16 % Monocytes % 6 % Eosinophils % 0 % Basophils % 0 % Neutrophils # 10.3 H (1.3-7.7) k/uL Lymphocytes # 2.2 (1.0-4.8) k/uL Monocytes # 0.8 (0-1.0) k/uL Eosinophils # 0.0 (0-0.7) k/uL Basophils # 0.0 (0-0.2) k/uL Sodium 141 (137-145) mmol/L Potassium 5.1 (3.5-5.1) mmol/L Chloride 103 (98-107) mmol/L Carbon Dioxide 15 L (22-30) mmol/L Anion Gap 23 mmol/L BUN 34 H (9-20) mg/dL Creatinine 1.95 H (0.66-1.25) mg/dL Est GFR (CKD-EPI)AfAm 43 (>60 ml/min/1.73 sqM) Est GFR (CKD-EPI)NonAf 37 (>60 ml/min/1.73 sqM) Glucose 184 H (74-99) mg/dL Plasma Lactic Acid Lexx 2.6 H* (0.7-2.0) mmol/L Calcium 11.2 H (8.4-10.2) mg/dL Total Bilirubin 0.9 (0.2-1.3) mg/dL AST 50 (17-59) U/L ALT 61 H (4-49) U/L Alkaline Phosphatase 98 (38-126) U/L Total Protein 10.4 H (6.3-8.2) g/dL Albumin 6.4 H (3.5-5.0) g/dL Lipase 72 (23-300) U/L Disposition Clinical Impression: Poisoning by food, mushroom, ABNER (acute kidney injury), Nausea & vomiting Disposition: ADMITTED IP TO THIS [facility] Condition: Stable Referrals: Raciel Melvin DO [Primary Care Provider] - 1-2 days Decision Date: 06/16/21 Decision Time: 20:16
[2021-06-16 18:36] LABS: Basophils % (A) 0 %; Eosinophils % (A) 0 %; HCT 54.5 % (39.0-53.0); HGB 18.8 gm/dL (13.0-17.5); Lymphocytes # (A) 2.2 k/uL (1.0-4.8); Lymphocytes % (A) 16 %; MCH 31.9 pg (25.0-35.0); MCHC 34.4 g/dL (31.0-37.0); MCV 92.6 fL (80.0-100.0); Mean Platelet Volume 6.3; Monocytes # (A) 0.8 k/uL (0-1.0); Monocytes % (A) 6 %; Neutrophils # (A) 10.3 k/uL (1.3-7.7); Neutrophils % (A) 76 %; Platelet Count 355 k/uL (150-450); RBC 5.88 m/uL (4.30-5.90); RDW 14.1 % (11.5-15.5); WBC 13.5 k/uL (3.8-10.6)
[2021-06-16 18:42] LABS: Calcium 11.2 mg/dL (8.4-10.2); Potassium 5.1 mmol/L (3.5-5.1); Total Bilirubin 0.9 mg/dL (0.2-1.3); Total Protein 10.4 g/dL (6.3-8.2)
[2021-06-16] MEDS ORDERED: MORPHINE SULFATE 4 MG/ML SYRINGE IVP STA (18:56)
[2021-06-16] MEDS ORDERED: LORazepam 2 MG/ML INJ IV STA (18:56)
[2021-06-16 19:13] LABS: Albumin 6.4 g/dL (3.5-5.0)
[2021-06-16] MEDS ORDERED: NALOXONE 0.4 MG/ML 1 ML VIAL IV PRN (20:17)
[2021-06-16] MEDS: SODIUM CHLORIDE 0.9% 1,000 ML IV SCH (20:58)
[2021-06-16 21:18] LABS: Appearance,Urine Cloudy (Clear); Bacteria,Urine Rare /hpf; Bilirubin,Urine Negative (Negative); Blood,Urine Trace (Negative); Color,Urine Yellow; Glucose,Urine (UA) Negative (Negative); Hyaline Casts,Urine 94 /lpf (0-2); Ketones,Urine Negative (Negative); Leukocyte Esterase,Urine Negative (Negative); Mucus,Urine Moderate /hpf; Nitrite,Urine Negative (Negative); PH, Urine 5.5 (5.0-8.0); Protein,Urine 2+ (Negative); RBC,Urine 2 /hpf (0-5); Specific Gravity,Urine 1.023 (1.001-1.035); Squamous Epithelial Cell,Urine 2 /hpf (0-4); Urobilinogen,Urine <2.0 mg/dL (<2.0); WBC,Urine 16 /hpf (0-5)
[2021-06-16] MEDS: HYDROcodone/APAP 7.5-325MG 1 EACH TAB PO PRN (22:21)
[2021-06-16] MEDS: traZODone HCL 100 MG TAB PO SCH (22:21)
[2021-06-16] MEDS: ONDANSETRON 4 MG/2 ML VIAL IVP PRN (22:22)
[2021-06-17] MEDS ORDERED: WATER IV ONE ×6 (01:53→07:15)
[2021-06-17] MEDS ORDERED: ACETYLCYSTEINE IV ONE ×6 (01:53→07:15)
[2021-06-17] MEDS ORDERED: DEXTROSE 5% IV ONE ×6 (01:53→07:15)
[2021-06-17] MEDS: HYDROcodone/APAP 7.5-325MG 1 EACH TAB PO PRN (02:13)
[2021-06-17] MEDS: LORazepam 1 MG TAB PO PRN ×4 (02:13→19:56)
[2021-06-17] MEDS: SODIUM CHLORIDE 0.9% 1,000 ML IV SCH ×3 (02:39→21:00)
[2021-06-17] MEDS: HYDROmorphone 1 MG/ML 1 ML SYRINGE IVP PRN ×4 (03:54→19:56)
[2021-06-17 04:12] LABS: ALT 50 U/L (4-49); AST 40 U/L (17-59); African American GFR (CKD) >90 (>60 ml/min/1.73 sqM); Albumin 4.7 g/dL (3.5-5.0); Alkaline Phosphatase <20 U/L (38-126); Anion Gap 15 mmol/L; Blood Urea Nitrogen 33 mg/dL (9-20); Calcium 8.9 mg/dL (8.4-10.2); Carbon Dioxide 21 mmol/L (22-30); Chloride 104 mmol/L (98-107); Glucose 154 mg/dL (74-99); Non-African American GFR(CKD) 82 (>60 ml/min/1.73 sqM); Potassium 4.4 mmol/L (3.5-5.1); Sodium 140 mmol/L (137-145); Total Bilirubin 0.8 mg/dL (0.2-1.3); Total Protein 7.3 g/dL (6.3-8.2)
[2021-06-17 04:28] LABS: Basophils % (A) 0 %; Eosinophils % (A) 0 %; HCT 51.8 % (39.0-53.0); Lymphocytes % (A) 28 %; MCHC 32.9 g/dL (31.0-37.0); MCV 94.3 fL (80.0-100.0); Mean Platelet Volume 6.6; Monocytes # (A) 0.9 k/uL (0-1.0); Monocytes % (A) 8 %; Neutrophils # (A) 6.5 k/uL (1.3-7.7); Neutrophils % (A) 61 %; Platelet Count 289 k/uL (150-450); RBC 5.49 m/uL (4.30-5.90); RDW 13.8 % (11.5-15.5); WBC 10.7 k/uL (3.8-10.6)
[2021-06-17] MEDS: DIVALPROEX 500 MG TABLET.DR PO SCH ×2 (08:15→20:01)
[2021-06-17] MEDS: MULTIVITAMINS, THERA 1 EACH TAB PO SCH (08:15)
[2021-06-17] MEDS: CLOPIDOGREL 75 MG TAB PO SCH (08:15)
[2021-06-17] MEDS: CHOLECALCIFEROL 25 MCG (1000 IU) TABLET PO SCH (08:15)
[2021-06-17] MEDS: ONDANSETRON 4 MG/2 ML VIAL IVP PRN (09:00)
--- NOTE | 2021-06-17 11:07 | P.HPIM ---
History of Present Illness This is a pleasant 55-year-old male came in with compensative abdominal cramping nausea vomiting which started the last night. Patient ate mushrooms at 4 PM, patient does explore and does try to avoid mushrooms. She was having multiple episodes of nausea vomiting as well as diarrhea. Patient the came to the ER raymond izquierdo was contacted and the recommended acetylcysteine patient doesn't have any significant liver enzyme elevation except for mild elevation of ALT which has come down today morning. Patient is still receiving is persisting patient is also found to be in acute renal failure with the creatinine going up to 1.5 which now has come down to 1.02 and patient is presently on 1 30 mL of normal saline. Patient is still having some abdominal pain whenever he vomits which is his usual abdominal pain since his abdominal surgery. Patient has multiple abdominal scars from his previous surgeries. Patient denied any fever chills patient denied any dysuria cough. REVIEW OF SYSTEMS: CONSTITUTIONAL: No fever, no malaise, no fatigue. HEENT: No recent visual problems or hearing problems. Denied any sore throat. CARDIOVASCULAR: No chest pain, orthopnea, PND, no palpitations, no syncope. PULMONARY: No shortness of breath, no cough, no hemoptysis. GASTROINTESTINAL: As mentioned in HPI NEUROLOGICAL: No headaches, no weakness, no numbness. HEMATOLOGICAL: Denies any bleeding or petechiae. GENITOURINARY: Denies any burning micturition, frequency, or urgency. MUSCULOSKELETAL/RHEUMATOLOGICAL: Denies any joint pain, swelling, or any muscle pain. ENDOCRINE: Denies any polyuria or polydipsia. The rest of the 14-point review of systems is negative. PHYSICAL EXAMINATION: GENERAL: The patient is alert and oriented x3, not in any acute distress. Well developed, well nourished. HEENT: Pupils are round and equally reacting to light. EOMI. No scleral icterus. No conjunctival pallor. Normocephalic, atraumatic. No pharyngeal erythema. No thyromegaly. CARDIOVASCULAR: S1 and S2 present. No murmurs, rubs, or gallops. PULMONARY: Chest is clear to auscultation, no wheezing or crackles. ABDOMEN: Soft, nontender, nondistended, normoactive bowel sounds. No palpable organomegaly. MUSCULOSKELETAL: No joint swelling or deformity. EXTREMITIES: No cyanosis, clubbing, or pedal edema. NEUROLOGICAL: Gross neurological examination did not reveal any focal deficits. SKIN: Audible abdominal scars from previous surgeries Assessment and plan - Food poisoning from a wild mushrooms: Patient's symptoms of diarrhea improved with nausea vomiting resolved at this time. Patient will be continued on IV f luids. Patient renal failure resolved, liver enzymes are essentially within normal limits. Contacted poison control the recommending completion of his acetylcystene before patient can be discharged. -Acute renal failure improved with IV fluids secondary to nausea vomiting or diarrhea prerenal azotemia -Hypertension: Amlodipine is being continued and the hypothyroidism is being held because of the acute renal failure. -Coronary artery disease stents in the past DVT prophylaxis: Lovenox Past Medical History Past Medical History: Hypertension, Myocardial Infarction ([place]) Additional Past Medical History / Comment(s): unknown lung issues (mucous plug). diverticulitis with perforated bowel colostomy and then reversal, has pain lt side Last Myocardial Infarction Date:: 2004 History of Any Multi-Drug Resistant Organisms: None Reported Past Surgical History: Bowel Resection, Heart Catheterization, Heart Catheterization With Stent, Orthopedic Surgery Additional Past Surgical History / Comment(s): neck surgery with hardware, rt shoulder surgery, rt wrist surgery. 07/22 colostomy and reversal, incisional hernia with mesh repair, pain on lt side Past Anesthesia/Blood Transfusion Reactions: No Reported Reaction Date of Last Stent Placement:: 2006 Past Psychological History: PTSD Smoking Status: Former smoker Past Alcohol Use History: None Reported Additional Past Alcohol Use History / Comment(s): Quit smoking 15 yrs ago. Past Drug Use History: None Reported - Past Family History Mother History Unknown: Yes Father Family Medical History: Cancer Medications and Allergies Home Medications Medication Instructions Recorded Confirmed Type Atorvastatin [Lipitor] 80 mg PO DAILY 03/30/18 06/16/21 History Clopidogrel [Plavix] 75 mg PO DAILY 03/30/18 06/16/21 History Divalproex [Depakote] 500 mg PO BID 03/30/18 06/16/21 History Cholecalciferol [Vitamin D3 (25 50 mcg PO DAILY 07/16/20 06/16/21 History Mcg = 1000 Iu)] Omeprazole 40 mg PO DAILY 07/16/20 06/16/21 History HYDROcodone/APAP 7.5-325MG [[place] 1 tab PO QID PRN 10/19/20 06/16/21 History 7.5-325] Fluticasone/Salmeterol [Advair 1 puff INHALATION RT-DAILY 02/13/21 06/16/21 History 100-50 Diskus] LORazepam [Ativan] 1 mg PO TID PRN 02/13/21 06/16/21 History Prazosin [Minipress] 5 mg PO HS 02/13/21 06/16/21 History traZODone HCL 100 mg PO HS 02/13/21 06/16/21 History Albuterol Inhaler [Ventolin Hfa 2 puff INHALATION RT-QID PRN 06/16/21 06/16/21 History Inhaler] Losartan Potassium [Cozaar] 25 mg PO DAILY 06/16/21 06/16/21 History Multivitamins, Thera [Multivitamin 1 tab PO DAILY 06/16/21 06/16/21 History (formulary)] Sildenafil(Unknown Dose) 1 tab PO DAILY PRN 06/16/21 06/16/21 History Ubidecarenone [Co Q-10] 100 mg PO DAILY 06/16/21 06/16/21 History Allergies Allergy/AdvReac Type Severity Reaction Status Date / Time No Known Allergies Allergy Verified 06/16/21 20:38 Physical Exam Vitals: Vital Signs Temp Pulse Pulse Resp BP BP Pulse Ox 06/17/21 08:00 98.6 F 89 18 120/65 95 06/17/21 07:53 16 06/17/21 03:52 97.7 F 92 16 116/89 94 L 06/17/21 02:00 98.6 F 101 H 16 135/107 95 06/16/21 22:02 97.8 F 100 16 135/95 91 L 06/16/21 19:28 105 H 20 119/94 96 06/16/21 18:53 98 18 137/83 98 06/16/21 17:38 98.1 F 124 H 22 143/95 99 Intake and Output 06/16/21 06/17/21 06/17/21 22:59 06:59 14:59 Intake Total 520 Output Total 375 Balance 145 Intake: IV 520 Sodium Chloride 0.9% 1, 520 000 ml @ 130 mls/hr IV . Q7H42M [facility] Rx#:[id number] Output: Urine 375 Other: Voiding Method Toilet Toilet Toilet Weight 86.183 kg 88.7 kg Results CBC & Chem 7: 06/17/21 03:27 06/17/21 03:27 Labs: Abnormal Lab Results - Last 24 Hours (Table) 06/16/21 06/16/21 06/16/21 Range/Units 18:07 18:07 18:07 WBC 13.5 H (3.8-10.6) k/uL Hgb 18.8 H (13.0-17.5) gm/dL Hct 54.5 H (39.0-53.0) % Neutrophils # 10.3 H (1.3-7.7) k/uL Carbon Dioxide 15 L (22-30) mmol/L BUN 34 H (9-20) mg/dL Creatinine 1.95 H (0.66-1.25) mg/dL Glucose 184 H (74-99) mg/dL Plasma Lactic Acid Lexx 2.6 H* (0.7-2.0) mmol/L Calcium 11.2 H (8.4-10.2) mg/dL ALT 61 H (4-49) U/L Alkaline Phosphatase (38-126) U/L Total Protein 10.4 H (6.3-8.2) g/dL Albumin 6.4 H (3.5-5.0) g/dL Urine Protein (Negative) Urine Blood (Negative) Urine WBC (0-5) /hpf Urine Bacteria (None) /hpf Hyaline Casts (0-2) /lpf Urine Mucus (None) /hpf 06/16/21 06/17/21 06/17/21 Range/Units 20:41 03:27 03:27 WBC 10.7 H (3.8-10.6) k/uL Hgb (13.0-17.5) gm/dL Hct (39.0-53.0) % Neutrophils # (1.3-7.7) k/uL Carbon Dioxide 21 L (22-30) mmol/L BUN 33 H (9-20) mg/dL Creatinine (0.66-1.25) mg/dL Glucose 154 H (74-99) mg/dL Plasma Lactic Acid Lexx (0.7-2.0) mmol/L Calcium (8.4-10.2) mg/dL ALT 50 H (4-49) U/L Alkaline Phosphatase <20 L (38-126) U/L Total Protein (6.3-8.2) g/dL Albumin (3.5-5.0) g/dL Urine Protein 2+ H (Negative) Urine Blood Trace H (Negative) Urine WBC 16 H (0-5) /hpf Urine Bacteria Rare H (None) /hpf Hyaline Casts 94 H (0-2) /lpf Urine Mucus Moderate H (None) /hpf
[2021-06-17] MEDS: PANTOPRAZOLE 40 MG TABLET PO SCH (11:54)
[2021-06-17] MEDS: traZODone HCL 100 MG TAB PO SCH (20:01)
[2021-06-17] MEDS: PRAZOSIN 1 MG CAP PO SCH (20:01)
[2021-06-17 22:23] LABS: INR 1.1 (<1.2); Prothrombin Time 11.7 sec (9.0-12.0)
[2021-06-17 22:25] LABS: ALT 84 U/L (4-49); AST 70 U/L (17-59); African American GFR (CKD) >90 (>60 ml/min/1.73 sqM); Albumin 4.1 g/dL (3.5-5.0); Alkaline Phosphatase 57 U/L (38-126); Anion Gap 8 mmol/L; Bilirubin, Delta 0.1 mg/dL (0.0-0.2); Bilirubin,Unconjugated 0.6 mg/dL (0.0-1.1); Blood Urea Nitrogen 16 mg/dL (9-20); Calcium 8.5 mg/dL (8.4-10.2); Carbon Dioxide 26 mmol/L (22-30); Chloride 103 mmol/L (98-107); Glucose 145 mg/dL (74-99); Non-African American GFR(CKD) >90 (>60 ml/min/1.73 sqM); Sodium 137 mmol/L (137-145); Total Bilirubin 0.7 mg/dL (0.2-1.3); Total Protein 6.6 g/dL (6.3-8.2)
[2021-06-17] MEDS: ACETAMINOPHEN TAB 325 MG TAB PO PRN (22:39)
[2021-06-17 22:48] LABS: Potassium 3.8 mmol/L (3.5-5.1)
[2021-06-18] MEDS: HYDROmorphone 1 MG/ML 1 ML SYRINGE IVP PRN ×6 (00:32→22:13)
[2021-06-18] MEDS: ONDANSETRON 4 MG/2 ML VIAL IVP PRN ×3 (00:32→17:40)
[2021-06-18 03:56] LABS: Basophils % (A) 1 %; Eosinophils # (A) 0.1 k/uL (0-0.7); Eosinophils % (A) 1 %; HCT 46.4 % (39.0-53.0); HGB 15.3 gm/dL (13.0-17.5); Lymphocytes # (A) 2.4 k/uL (1.0-4.8); Lymphocytes % (A) 40 %; MCH 31.7 pg (25.0-35.0); MCHC 33.1 g/dL (31.0-37.0); MCV 95.9 fL (80.0-100.0); Mean Platelet Volume 6.8; Monocytes # (A) 0.6 k/uL (0-1.0); Monocytes % (A) 9 %; Neutrophils # (A) 2.9 k/uL (1.3-7.7); Neutrophils % (A) 47 %; Platelet Count 220 k/uL (150-450); RBC 4.83 m/uL (4.30-5.90); RDW 13.7 % (11.5-15.5); WBC 6.2 k/uL (3.8-10.6)
[2021-06-18 04:08] LABS: African American GFR (CKD) >90 (>60 ml/min/1.73 sqM); Anion Gap 9 mmol/L; Blood Urea Nitrogen 14 mg/dL (9-20); Calcium 8.6 mg/dL (8.4-10.2); Carbon Dioxide 24 mmol/L (22-30); Chloride 106 mmol/L (98-107); Glucose 138 mg/dL (74-99); Non-African American GFR(CKD) >90 (>60 ml/min/1.73 sqM); Sodium 139 mmol/L (137-145)
[2021-06-18 04:56] LABS: ALT 85 U/L (4-49); AST 63 U/L (17-59)
[2021-06-18] MEDS: SODIUM CHLORIDE 0.9% 1,000 ML IV SCH ×2 (06:28→09:31)
[2021-06-18] MEDS: PANTOPRAZOLE 40 MG TABLET PO SCH (06:31)
[2021-06-18] MEDS: CHOLECALCIFEROL 25 MCG (1000 IU) TABLET PO SCH (09:24)
[2021-06-18] MEDS: CLOPIDOGREL 75 MG TAB PO SCH (09:24)
[2021-06-18] MEDS: DIVALPROEX 500 MG TABLET.DR PO SCH ×2 (09:24→21:25)
[2021-06-18] MEDS: MULTIVITAMINS, THERA 1 EACH TAB PO SCH (09:24)
[2021-06-18] MEDS: LORazepam 1 MG TAB PO PRN ×3 (09:30→22:13)
[2021-06-18] MEDS: methylPREDNISolone SOD SUCCI 40 MG/ML 1 ML VIAL IV SCH ×2 (11:23→21:25)
[2021-06-18] MEDS: INSULIN ASPART (NovoLOG) 100 UNIT/ML VIAL SQ SCH ×3 (11:26→20:38)
[2021-06-18 11:27] LABS: Glucose,Whole Blood 100 mg/dL (75-99)
--- NOTE | 2021-06-18 11:34 | XR ---
EXAMINATION TYPE: XR chest 1V DATE OF EXAM: 06/18/2021 COMPARISON: 01/16/2021 HISTORY: Shortness of breath TECHNIQUE: Single frontal view of the chest is obtained. FINDINGS: There is no focal air space opacity, pleural effusion, or pneumothorax seen. The cardiac silhouette size is within normal limits. The osseous structures are intact. Linear changes involvin g both lung bases. Limited inspiration. Postsurgical change overlying the cervical spine. Atheroscler otic change aorta. IMPRESSION: Basilar atelectasis
--- NOTE | 2021-06-18 12:53 | P.PN ---
Subjective This is a pleasant 55 years old male with past medical history of hypertension, coronary artery disease status post stent placement, history of COPD on home oxygen, quit smoking many years ago but he thinks he has some lung damage from his [place] and he follows up with Dr. Jenkins. He was admitted with GI symptoms of nausea vomiting and diarrhea which was thought secondary to his mushroom poisoning, he was in the ICU but as selective overflow. However today his symptoms persist are not improving, reports diarrhea every 20 minutes with generalized abdominal pain which is felt like mild his abdomen is soft. He vomited twice since yesterday with no blood in it. He is little short of breath more than usual with no coughing. And he has expiratory wheezing on exam. Objective - Vital Signs Vital signs: Vital Signs Temp 98.2 F 06/18/21 00:00 Pulse 84 06/18/21 08:00 Resp 12 06/18/21 08:00 BP 132/92 06/18/21 08:00 Pulse Ox 94 L 06/18/21 08:00 Intake & Output 06/17/21 06/18/21 06/18/21 18:59 06:59 18:59 Intake Total 1400 1600 300 Balance 1400 1600 300 Weight 92.3 kg Intake: IV 800 1600 300 Sodium Chloride 0.9% 1, 800 1600 300 000 ml @ 100 mls/hr IV . Q10H [facility] Rx#:[id number] Intake, IV Titration 600 Amount Sodium Chloride 0.9% 1, 600 000 ml @ 999 mls/hr IV . Q1H1M [facility] Rx#:[id number] Other: Voiding Method Toilet Toilet Toilet # Voids 3 2 1 # Bowel Movements 3 1 1 - Exam GENERAL: The patient is alert and oriented x3, not in any acute distress. Well developed, well nourished. HEENT: Pupils are round and equally reacting to light. EOMI. No scleral icterus. No conjunctival pallor. Normocephalic, atraumatic. No pharyngeal erythema. No thyromegaly. CARDIOVASCULAR: S1 and S2 present. No murmurs, rubs, or gallops. -PULMONARY: Chest is clear to auscultation, expiratory wheezing with prolonged expiration -ABDOMEN: Soft, mild generalized abdominal tenderness with no rebound tenderness, nondistended, normoactive bowel sounds. No palpable organomegaly. MUSCULOSKELETAL: No joint swelling or deformity. EXTREMITIES: No cyanosis, clubbing, or pedal edema. NEUROLOGICAL: Gross neurological examination did not reveal any focal deficits. SKIN: No rashes. no petechiae. - Labs CBC & Chem 7: 06/18/21 03:27 06/18/21 03:27 Labs: Abnormal Lab Results - Last 24 Hours (Table) 06/17/21 06/18/21 06/18/21 Range/Units 22:00 03:27 03:27 Glucose 145 H 138 H (74-99) mg/dL POC Glucose (mg/dL) (75-99) mg/dL AST 70 H 63 H (17-59) U/L ALT 84 H 85 H (4-49) U/L 06/18/21 Range/Units 11:25 Glucose (74-99) mg/dL POC Glucose (mg/dL) 100 H (75-99) mg/dL AST (17-59) U/L ALT (4-49) U/L Assessment and Plan Assessment: Acute gastroenteritis [id number] acute COPD exacerbation History of coronary artery disease status post stent placement History of bowel surgery with Dr. Muhammad status post bowel mesh placement hypertension Plan: this is a pleasant 55 years old male who presents with gastroenteritis and mild COPD. Troponin with IV fluids. Check stool studies and GI consult. No evidence of infection with no fever or leukocytosis, no antibiotics are started Systemic Solu-Medrol as well as inhaled steroids Continue with IV hydration Labs and medication were reviewed.. Continue same treatment. Continue with symptomatic treatment. Resume home medication. Monitor lytes and vitals. DVT and GI prophylaxis. Further recommendationsas per clinical course of the patient DVT prophylaxis: Subcutaneous heparin GI Prophylaxis: Ppi Prognosis is guarded
[2021-06-18] MEDS: HEPARIN SODIUM,PORCINE/PF 5,000 UNIT/0.5 ML SYRINGE SQ SCH ×2 (13:51→21:25)
--- NOTE | 2021-06-18 15:06 | P.CONS ---
History of Present Illness - Reason for Consult Consult date: 06/18/21 abdominal pain, diarrhea Requesting physician: Kennedy E Delvis - Chief Complaint food poisoning, toxic mushrooms - History of Present Illness 55-year-old male who presented to the emergency department 2 days ago with complaints of abdominal pain, nausea, vomiting, and diarrhea after eating wild mushrooms. Patient states he has eaten wild mushrooms multiple times and uses To identify nontoxic wild mushrooms. He states he ate a mushrooms on Thursday morning and again at 4 PM in by 1 AM Thursday morning he woke up with severe abdominal pain with nausea vomiting and diarrhea. States he is having nonbloody yellow loose diarrhea every 15-30 minutes. States it is improving and he is only having small amounts which is starting to have some substance to it. He's had no further nausea or vomiting since 3 AM. He did tolerate a regular lunch. He states he feels his abdominal pain is from THE retching. However he does state he does have cramping when he has a bowel movement. He has had multiple abdominal surgeries over the past year he had a small bowel resection 2 with the sigmoid colostomy on 07/25/2020, repeat colonoscopy on 10/23/2020, 11/09/2020 reversal of his colostomy and lysis of adhesions, and then 02/18/2021 underwent an incisional hernia repair all done by . Denies any blood in his stool, no coffee-ground or hematemesis. He does have a history of care to avoid bowel syndrome. Today's labs WBC 6, hemoglobin 15, hematocrit 46, plat elet count 220,000, AST 63, ALT 85. Yesterday patient's LFTs were total bilirubin 0.1, alkaline phosphatase 57, AST 70, ALT 84. Review of Systems REVIEW OF SYSTEMS: CARDIOPULMONARY: No chest pain or shortness of breath. Gastrointestinal: Cramping with bowel movement, diffuse abdominal pain.. No nausea or vomiting. No hematemesis, coffee-ground emesis. No rectal bleeding, or melena. Loose yellow diarrhea, every 30 minutes. GENITOURINARY: No dysuria or hematuria. MUSCULOSKELETAL: Reports normal range of motion., Joint pain. SKIN: No rashes. No jaundice. ENDOCRINE: No chills, fevers. No excessive weight gain or loss. No polydipsia or polyuria. PSYCHIATRIC: Unremarkable. NEUROLOGY: No change in mental status. Denies dizziness, headache. ENT: Vision unremarkable. CONSTITUTIONAL: No recent weight loss. No fever, chills, night sweats. Past Medical History Past Medical History: Hypertension, Myocardial Infarction ([place]) Additional Past Medical History / Comment(s): unknown lung issues (mucous plug). diverticulitis with perforated bowel colostomy and then reversal, has pain lt side Last Myocardial Infarction Date:: 2004 History of Any Multi-Drug Resistant Organisms: None Reported Past Surgical History: Bowel Resection, Heart Catheterization, Heart Catheterization With Stent, Orthopedic Surgery Additional Past Surgical History / Comment(s): neck surgery with hardware, rt shoulder surgery, rt wrist surgery. 07/22 colostomy and reversal, incisional hernia with mesh repair, pain on lt side Past Anesthesia/Blood Transfusion Reactions: No Reported Reaction Date of Last Stent Placement:: 2006 Past Psychological History: PTSD Smoking Status: Former smoker Past Alcohol Use History: None Reported Additional Past Alcohol Use History / Comment(s): Quit smoking 15 yrs ago. Past Drug Use History: None Reported - Past Family History Mother History Unknown: Yes Father Family Medical History: Cancer Medications and Allergies Home Medications Medication Instructions Recorded Confirmed Type Atorvastatin [Lipitor] 80 mg PO DAILY 03/30/18 06/16/21 History Clopidogrel [Plavix] 75 mg PO DAILY 03/30/18 06/16/21 History Divalproex [Depakote] 500 mg PO BID 03/30/18 06/16/21 History Cholecalciferol [Vitamin D3 (25 50 mcg PO DAILY 07/16/20 06/16/21 History Mcg = 1000 Iu)] Omeprazole 40 mg PO DAILY 07/16/20 06/16/21 History HYDROcodone/APAP 7.5-325MG [[place] 1 tab PO QID PRN 10/19/20 06/16/21 History 7.5-325] Fluticasone/Salmeterol [Advair 1 puff INHALATION RT-DAILY 02/13/21 06/16/21 History 100-50 Diskus] LORazepam [Ativan] 1 mg PO TID PRN 02/13/21 06/16/21 History Prazosin [Minipress] 5 mg PO HS 02/13/21 06/16/21 History traZODone HCL 100 mg PO HS 02/13/21 06/16/21 History Albuterol Inhaler [Ventolin Hfa 2 puff INHALATION RT-QID PRN 06/16/21 06/16/21 History Inhaler] Losartan Potassium [Cozaar] 25 mg PO DAILY 06/16/21 06/16/21 History Multivitamins, Thera [Multivitamin 1 tab PO DAILY 06/16/21 06/16/21 History (formulary)] Sildenafil(Unknown Dose) 1 tab PO DAILY PRN 06/16/21 06/16/21 History Ubidecarenone [Co Q-10] 100 mg PO DAILY 06/16/21 06/16/21 History Allergies Allergy/AdvReac Type Severity Reaction Status Date / Time No Known Allergies Allergy Verified 06/16/21 20:38 Physical Exam Vitals: Vital Signs Temp Pulse Resp BP Pulse Ox 06/18/21 12:00 97.5 F L 89 11 L 144/88 94 L 06/18/21 08:00 84 12 132/92 94 L 06/18/21 04:00 89 10 L 145/55 90 L 06/18/21 00:00 98.2 F 95 17 132/86 90 L 06/17/21 20:00 98.1 F 78 14 144/91 95 06/17/21 16:00 98.2 F 87 20 153/96 94 L 06/17/21 14:51 98.1 F 85 20 131/103 95 06/17/21 14:00 18 Intake and Output 06/17/21 06/18/21 06/18/21 22:59 06:59 14:59 Intake Total 800 800 300 Balance 800 800 300 Intake: IV 800 800 300 Sodium Chloride 0.9% 1, 800 800 300 000 ml @ 100 mls/hr IV . Q10H [facility] Rx#:[id number] Other: Voiding Method Toilet Toilet Toilet # Voids 3 2 1 # Bowel Movements 3 1 1 Weight 92.3 kg General appearance: The patient is alert, oriented, appears in no acute dist ress. HET: Head is normocephalic and atraumatic. Conjunctiva pink. Sclera anicteric. Neck: Supple without lymphadenopathy. Trachea midline. Heart: S1 S2. Regular rate and rhythm. Lungs: Clear to auscultation. Abdomen: Soft, mild abdominal tenderness, greatest on left mid abdomen near scar site. Abdominal scars from previous surgeries. Nondistended with bowel sounds. No guarding or rigidity. Skin: No rashes. No jaundice. Extremities: Normal skin color and turgor. No pedal edema. Neurological: No focal deficits. Alert and oriented 3.. Results CBC & Chem 7: 06/18/21 03:27 06/18/21 03:27 Labs: Abnormal Lab Results - Last 24 Hours (Table) 06/17/21 06/18/21 06/18/21 Range/Units 22:00 03:27 03:27 Glucose 145 H 138 H (74-99) mg/dL POC Glucose (mg/dL) (75-99) mg/dL AST 70 H 63 H (17-59) U/L ALT 84 H 85 H (4-49) U/L 06/18/21 Range/Units 11:25 Glucose (74-99) mg/dL POC Glucose (mg/dL) 100 H (75-99) mg/dL AST (17-59) U/L ALT (4-49) U/L Assessment and Plan (1) Diarrhea Narrative/Plan: 55-year-old male who presented to the emergency department 2 days ago with complaints of abdominal pain, nausea, vomiting and multiple episodes of diarrhea up to every 30 minutes after eating wild mushrooms. Patient denies any recent traveling, any sick contacts, no new medications. States he ate a wild mushroom on Thursday in the morning and again Thursday afternoon and started having abd ominal pain nausea vomiting and diarrhea at approximately 01 170 morning. He has had multiple episodes of nausea and vomiting and diarrhea which she reports as nonbloody, yellow liquid about every 30 minutes. His nausea and vomiting has resolved and his last episode was at over 300. He denies any coffee-ground emesis or hematemesis. No blood in his stool. 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 Vincent. Patient may have an underlying gastroenteritis is another possible etiology. Will obtain stool studies. No plans on endoscopic evaluation. Current Visit: Yes Status: Acute Code(s): R19.7 - DIARRHEA, UNSPECIFIED SNOMED Code(s): 34543358 (2) Abdominal pain Current Visit: Yes Status: Acute Code(s): R10.9 - UNSPECIFIED ABDOMINAL PAIN SNOMED Code(s): 33567464 (3) Nausea & vomiting Current Visit: Yes Status: Acute Code(s): R11.2 - NAUSEA WITH VOMITING, UNSPECIFIED SNOMED Code(s): 90653080 (4) Poisoning by food, mushroom Current Visit: Yes Status: Acute Code(s): T62.0X1A - TOXIC EFFECT OF INGESTE D MUSHROOMS, ACCIDENTAL, INIT SNOMED Code(s): 44124273 Plan: 1. Continue symptomatic and supportive care 2. Stool studies ordered 3. Continue antiemetics as needed 4. Continue Protonix 40 mg twice a day 5. No plans on endoscopic evaluation 6. Pending stool studies and if diarrhea does not improve tomorrow, will consider and the antidiarrheal/stool bulking Thank you for this consultation, we will continue to follow. Dr. Reilly Rahman I agree with the dictator's note, documented as a scribe by Valeri Leon.
[2021-06-18 16:33] LABS: Glucose,Whole Blood 126 mg/dL (75-99)
[2021-06-18 20:28] LABS: Glucose,Whole Blood 125 mg/dL (75-99)
[2021-06-18] MEDS: traZODone HCL 100 MG TAB PO SCH (21:25)
[2021-06-18] MEDS: PRAZOSIN 1 MG CAP PO SCH (21:26)
[2021-06-19] MEDS: SODIUM CHLORIDE 0.9% 1,000 ML IV SCH (01:11)
[2021-06-19] MEDS: HYDROmorphone 1 MG/ML 1 ML SYRINGE IVP PRN ×4 (02:18→17:01)
[2021-06-19] MEDS: ONDANSETRON 4 MG/2 ML VIAL IVP PRN (02:19)
[2021-06-19 06:25] LABS: Glucose,Whole Blood 130 mg/dL (75-99)
[2021-06-19] MEDS: INSULIN ASPART (NovoLOG) 100 UNIT/ML VIAL SQ SCH ×4 (06:32→20:42)
[2021-06-19] MEDS: PANTOPRAZOLE 40 MG TABLET PO SCH (06:54)
[2021-06-19 09:37] LABS: ALT 57 U/L (4-49); AST 36 U/L (17-59); African American GFR (CKD) >90 (>60 ml/min/1.73 sqM); Albumin 3.6 g/dL (3.5-5.0); Alkaline Phosphatase 50 U/L (38-126); Anion Gap 8 mmol/L; Bilirubin,Unconjugated 0.2 mg/dL (0.0-1.1); Blood Urea Nitrogen 7 mg/dL (9-20); Calcium 8.7 mg/dL (8.4-10.2); Carbon Dioxide 22 mmol/L (22-30); Chloride 108 mmol/L (98-107); Glucose 135 mg/dL (74-99); Magnesium 1.7 mg/dL (1.6-2.3); Non-African American GFR(CKD) >90 (>60 ml/min/1.73 sqM); Potassium 3.9 mmol/L (3.5-5.1); Sodium 138 mmol/L (137-145); Total Bilirubin 0.2 mg/dL (0.2-1.3)
[2021-06-19] MEDS: MULTIVITAMINS, THERA 1 EACH TAB PO SCH (09:38)
[2021-06-19] MEDS: CLOPIDOGREL 75 MG TAB PO SCH (09:38)
[2021-06-19] MEDS: methylPREDNISolone SOD SUCCI 40 MG/ML 1 ML VIAL IV SCH ×2 (09:38→20:41)
[2021-06-19] MEDS: HEPARIN SODIUM,PORCINE/PF 5,000 UNIT/0.5 ML SYRINGE SQ SCH ×2 (09:38→20:41)
[2021-06-19] MEDS: CHOLECALCIFEROL 25 MCG (1000 IU) TABLET PO SCH (09:38)
[2021-06-19] MEDS: DIVALPROEX 500 MG TABLET.DR PO SCH ×2 (09:38→20:42)
[2021-06-19] MEDS: CHOLESTYRAMINE (WITH SUGAR) 4 GM PACKET PO SCH ×3 (09:38→18:54)
[2021-06-19] MEDS: LORazepam 1 MG TAB PO PRN ×2 (11:24→17:01)
[2021-06-19 11:41] LABS: Glucose,Whole Blood 134 mg/dL (75-99)
--- NOTE | 2021-06-19 11:54 | P.PN ---
Subjective Progress Note Date: 06/19/21 Principal diagnosis: Food poisoning, diarrhea and abdominal pain This is a 55-year-old male who presented to the emergency department with complaints of severe abdominal pain, nausea, vomiting, and diarrhea after eating wild mushrooms. The patient was initially admitted to the ICU for acute kidney injury and food poisoning. He was transferred to the medical floor yesterday. He states abdominal pain and nausea and vomiting improved. He is still having multiple episodes of diarrhea approximately every 20 minutes through the night, nonbloody. Stool studies pending, C. difficile cytotoxin negative. Objective - Vital Signs Vital signs: Vital Signs Temp 97.6 F 06/19/21 03:44 Pulse 101 H 06/19/21 03:44 Resp 16 06/19/21 03:44 BP 150/82 06/19/21 03:44 Pulse Ox 95 06/19/21 03:44 Intake & Output 06/18/21 06/19/21 06/19/21 18:59 06:59 18:59 Intake Total 300 Balance 300 Weight 92.4 kg Intake: IV 300 Sodium Chloride 0.9% 1, 300 000 ml @ 100 mls/hr IV . Q10H [facility] Rx#:[id number] Other: Voiding Method Toilet Toilet # Voids 1 1 # Bowel Movements 1 2 - Exam General appearance: The patient is alert, oriented, appears in no acute distress. HET: Head is normocephalic and atraumatic. Conjunctiva pink. Sclera anicteric. Neck: Supple without lymphadenopathy. Abdomen: Soft, mild tenderness, nondistended with bowel sounds. No guarding or rigidity. Extremities: Normal skin color and turgor. No pedal edema Skin: No rashes, no jaundice Neurological: No focal deficits. Alert and oriented 3. - Labs CBC & Chem 7: 06/18/21 03:27 06/19/21 08:28 Labs: Abnormal Lab Results - Last 24 Hours (Table) 06/18/21 06/18/21 06/18/21 Range/Units 11:25 16:32 20:26 POC Glucose (mg/dL) 100 H 126 H 125 H (75-99) mg/dL 06/19/21 Range/Units 06:23 POC Glucose (mg/dL) 130 H (75-99) mg/dL Microbiology - Last 24 Hours (Table) 06/18/21 11:44 Stool Culture - Preliminary Stool Assessment and Plan (1) Diarrhea Narrative/Plan: 55-year-old male who presented to the emergency department 2 days ago with complaints of abdominal pain, nausea, vomiting and multiple episodes of diarrhea up to every 30 minutes after eating wild mushrooms. Patient denies any recent traveling, any sick contacts, no new medications. States he ate a wild mushroom on Thursday in the morning and again Thursday afternoon and started having abdominal pain nausea vomiting and diarrhea at approximately 01 170 morning. He has had multiple episodes of nausea and vomiting and diarrhea which she reports as nonbloody, yellow liquid about every 30 minutes. His nausea and vomiting has resolved and his last episode was at over 300. He denies any coffee-ground emesis or hematemesis. No blood in his stool. He does have significant history for abdominal surgeries within the past year he had a small bowel resection 2 of the sigmoid colon with colostomy from diverticular abscess 07/2020, he unde rwent a colonoscopy on 10/23/2020 showing diverticulosis, he had a reversal of his colostomy and 11/09/2020 and lysis of adhesions, and also incisional hernia repair on 02/18/[address] Vincent. Patient may have an underlying gastroenteritis is another possible etiology. Will obtain stool studies. No plans on endoscopic evaluation. Current Visit: Yes Status: Acute Code(s): R19.7 - DIARRHEA, UNSPECIFIED SNOMED Code(s): 13352629 (2) Abdominal pain Current Visit: Yes Status: Acute Code(s): R10.9 - UNSPECIFIED ABDOMINAL PAIN SNOMED Code(s): 68243920 (3) Nausea & vomiting Current Visit: Yes Status: Acute Code(s): R11.2 - NAUSEA WITH VOMITING, UNSPECIFIED SNOMED Code(s): 04511351 (4) Poisoning by food, mushroom Current Visit: Yes Status: Acute Code(s): T62.0X1A - TOXIC EFFECT OF INGESTED MUSHROOMS, ACCIDENTAL, INIT SNOMED Code(s): 24542912 Plan: 1. Continue symptomatic and supportive care 2. Stool studies ordered 3. Continue antiemetics as needed 4. Continue Protonix 40 mg twice a day 5. Questran added 3 times a day 6. Diet as tolerated 7. Await further stool studies, if symptoms do not improve in the next 1-2 days may consider colonoscopy Thank you for this consultation, we will continue to follow. Dr. Reilly Rahman I agree with the dictator's note, documented as a scribe by Valeri Leon.
[2021-06-19 14:15] LABS: Appearance,Urine Clear (Clear); Bilirubin,Urine Negative (Negative); Blood,Urine Negative (Negative); Color,Urine Yellow; Glucose,Urine (UA) Negative (Negative); Ketones,Urine Trace (Negative); Leukocyte Esterase,Urine Negative (Negative); Nitrite,Urine Negative (Negative); Protein,Urine Negative (Negative); Urobilinogen,Urine <2.0 mg/dL (<2.0)
[2021-06-19 16:52] LABS: Glucose,Whole Blood 141 mg/dL (75-99)
[2021-06-19 19:49] LABS: Glucose,Whole Blood 140 mg/dL (75-99)
--- NOTE | 2021-06-19 20:38 | P.PN ---
Subjective This is a pleasant 55 years old male with past medical history of hypertension, coronary artery disease status post stent placement, history of COPD on home oxygen, quit smoking many years ago but he thinks he has some lung damage from his [place] and he follows up with Dr. Jenkins. He was admitted with GI symptoms of nausea vomiting and diarrhea which was thought secondary to his mushroom poisoning, he was in the ICU but as selective overflow. However today his symptoms persist are not improving, reports diarrhea every 20 minutes with generalized abdominal pain which is felt like mild his abdomen is soft. He vomited twice since yesterday with no blood in it. He is little short of breath more than usual with no coughing. And he has expiratory wheezing on exam. 06/19/2021 Patient looks more energetic today, walking in the room with really and easily. His breathing is better with this dyspnea although he still have some prolonged expiratory phase and some limited air entry on both sides therefore we kept him on Solu-Medrol 40 mg twice daily for his COPD exacerbation which looks mild now and improved gradually. Patient is still complaining of from diarrhea every 30 minutes as he states, with mild lower abdominal pain but no nausea vomiting and he tolerates diet. Also he was complaining of from some dysuria but urine analysis is not suspicious for infection. Labs so far were unrevealing and stool culture still pending. C. diff is negative. questran is added today by GI team with plan for colonoscopy in 1-2 days if no improvement. Also we'll check a pro-calcitonin. Objective - Vital Signs Vital signs: Vital Signs Temp 97.1 F L 06/19/21 08:00 Pulse 81 06/19/21 11:59 Resp 18 06/19/21 11:59 BP 167/97 06/19/21 11:59 Pulse Ox 95 06/19/21 11:59 Intake & Output 06/18/21 06/19/21 06/19/21 18:59 06:59 18:59 Intake Total 300 Balance 300 Weight 92.4 kg Intake: IV 300 Sodium Chloride 0.9% 1, 300 000 ml @ 100 mls/hr IV . Q10H [facility] Rx#:[id number] Other: Voiding Method Toilet Toilet # Voids 1 1 # Bowel Movements 1 2 - Exam GENERAL: The patient is alert and oriented x3, not in any acute distress. Well developed, well nourished. HEENT: Pupils are round and equally reacting to light. EOMI. No scleral icterus. No conjunctival pallor. Normocephalic, atraumatic. No pharyngeal erythema. No thyromegaly. CARDIOVASCULAR: S1 and S2 present. No murmurs, rubs, or gallops. -PULMONARY: Chest is clear to auscultation, less expiratory wheezing with prolonged expiration -ABDOMEN: Soft, mild lower abdominal tenderness with no rebound tenderness, nondistended, normoactive bowel sounds. No palpable organomegaly. MUSCULOSKELETAL: No joint swelling or deformity. EXTREMITIES: No cyanosis, clubbing, or pedal edema. NEUROLOGICAL: Gross neurological examination did not reveal any focal deficits. SKIN: No rashes. no petechiae. - Labs CBC & Chem 7: 06/18/21 03:27 06/19/21 08:28 Labs: Abnormal Lab Results - Last 24 Hours (Table) 06/18/21 06/18/21 06/19/21 Range/Units 16:32 20:26 06:23 Chloride (98-107) mmol/L BUN (9-20) mg/dL Creatinine (0.66-1.25) mg/dL Glucose (74-99) mg/dL POC Glucose (mg/dL) 126 H 125 H 130 H (75-99) mg/dL ALT (4-49) U/L Total Protein (6.3-8.2) g/dL 06/19/21 06/19/21 Range/Units 08:28 11:39 Chloride 108 H (98-107) mmol/L BUN 7 L (9-20) mg/dL Creatinine 0.60 L (0.66-1.25) mg/dL Glucose 135 H (74-99) mg/dL POC Glucose (mg/dL) 134 H (75-99) mg/dL ALT 57 H (4-49) U/L Total Protein 6.0 L (6.3-8.2) g/dL Microbiology - Last 24 Hours (Table) 06/18/21 11:44 Stool Culture - Preliminary Stool Assessment and Plan Assessment: Acute gastroenteritis [id number] acute COPD exacerbation History of coronary artery disease status post stent placement History of bowel surgery with Dr. Muhammad status post bowel mesh placement hypertension Plan: this is a pleasant 55 years old male who presents with gastroenteritis and mild COPD. Troponin with IV fluids. Check stool studies and GI consult. No evidence of infection with no fever or leukocytosis, no antibiotics are started Systemic Solu-Medrol as well as inhaled steroids Continue with IV hydration Continue with Questran Labs and medication were reviewed.. Continue same treatment. Continue with symptomatic treatment. Resume home medication. Monitor lytes and vitals. DVT and GI prophylaxis. Further recommendations as per clinical course of the patie nt DVT prophylaxis: Subcutaneous heparin GI Prophylaxis: Ppi Prognosis is guarded
[2021-06-19] MEDS: traZODone HCL 100 MG TAB PO SCH (20:41)
[2021-06-19] MEDS: PRAZOSIN 1 MG CAP PO SCH (20:42)
[2021-06-20 06:24] LABS: Glucose,Whole Blood 108 mg/dL (75-99)
[2021-06-20] MEDS: LORazepam 1 MG TAB PO PRN ×2 (06:50→16:35)
[2021-06-20] MEDS: PANTOPRAZOLE 40 MG TABLET PO SCH (06:50)
[2021-06-20] MEDS: HYDROmorphone 1 MG/ML 1 ML SYRINGE IVP PRN ×4 (06:51→21:01)
[2021-06-20] MEDS: INSULIN ASPART (NovoLOG) 100 UNIT/ML VIAL SQ SCH ×4 (07:30→20:26)
[2021-06-20 08:31] LABS: Basophils % (A) 0 %; Eosinophils % (A) 0 %; HCT 39.6 % (39.0-53.0); Lymphocytes # (A) 1.7 k/uL (1.0-4.8); Lymphocytes % (A) 37 %; MCH 31.1 pg (25.0-35.0); MCHC 32.9 g/dL (31.0-37.0); MCV 94.3 fL (80.0-100.0); Mean Platelet Volume 7.2; Monocytes # (A) 0.5 k/uL (0-1.0); Monocytes % (A) 10 %; Neutrophils # (A) 2.3 k/uL (1.3-7.7); Neutrophils % (A) 50 %; Platelet Count 213 k/uL (150-450); WBC 4.7 k/uL (3.8-10.6)
[2021-06-20] MEDS: ACETAMINOPHEN TAB 325 MG TAB PO PRN (09:17)
[2021-06-20] MEDS: DIVALPROEX 500 MG TABLET.DR PO SCH ×2 (09:17→20:50)
[2021-06-20] MEDS: CLOPIDOGREL 75 MG TAB PO SCH (09:17)
[2021-06-20] MEDS: HEPARIN SODIUM,PORCINE/PF 5,000 UNIT/0.5 ML SYRINGE SQ SCH ×2 (09:17→20:49)
[2021-06-20] MEDS: CHOLECALCIFEROL 25 MCG (1000 IU) TABLET PO SCH (09:17)
[2021-06-20] MEDS: methylPREDNISolone SOD SUCCI 40 MG/ML 1 ML VIAL IV SCH ×2 (09:17→20:49)
[2021-06-20] MEDS: MULTIVITAMINS, THERA 1 EACH TAB PO SCH (09:17)
[2021-06-20] MEDS: CHOLESTYRAMINE (WITH SUGAR) 4 GM PACKET PO SCH ×3 (09:19→16:14)
[2021-06-20 11:46] LABS: Glucose,Whole Blood 130 mg/dL (75-99)
[2021-06-20] MEDS ORDERED: LOPERAMIDE 2 MG CAP PO PRN (12:18)
[2021-06-20] MEDS: LOPERAMIDE 2 MG CAP PO SCH ×3 (13:22→20:50)
[2021-06-20] MEDS: IOPAMIDOL CONTRAST (ORAL USE) VIAL PO PRN ×2 (13:26→14:52)
[2021-06-20] MEDS: SODIUM CHLORIDE 0.9% 1,000 ML IV SCH ×2 (14:32→14:33)
--- NOTE | 2021-06-20 15:04 | P.PN ---
Subjective This is a pleasant 55 years old male with past medical history of hypertension, coronary artery disease status post stent placement, history of COPD on home oxygen, quit smoking many years ago but he thinks he has some lung damage from his [place] and he follows up with Dr. Jenkins. He was admitted with GI symptoms of nausea vomiting and diarrhea which was thought secondary to his mushroom poisoning, he was in the ICU but as selective overflow. However today his symptoms persist are not improving, reports diarrhea every 20 minutes with generalized abdominal pain which is felt like mild his abdomen is soft. He vomited twice since yesterday with no blood in it. He is little short of breath more than usual with no coughing. And he has expiratory wheezing on exam. 06/19/2021 Patient looks more energetic today, walking in the room with really and easily. His breathing is better with this dyspnea although he still have some prolonged expiratory phase and some limited air entry on both sides therefore we kept him on Solu-Medrol 40 mg twice daily for his COPD exacerbation which looks mild now and improved gradually. Patient is still complaining of from diarrhea every 30 minutes as he states, with mild lower abdominal pain but no nausea vomiting and he tolerates diet. Also he was complaining of from some dysuria but urine analysis is not suspicious for infection. Labs so far were unrevealing and stool culture still pending. C. diff is negative. questran is added today by GI team with plan for colonoscopy in 1-2 days if no improvement. Also we'll check a pro-calcitonin. 06/20/2021 Patient still having lower abdominal pain and tenderness with no rebound tenderness, he rates his pain as 7-8/10 in severity, nonradiating. No nausea vomiting, he tolerates diet well but he still have diarrhea. His breathing is easier today with less wheezing. He is hemodynamically stable. CBC from today is unremarkable. Glucose controlled. 4calcitonin 0.05. Stool culture still pending. Patient is already on Questran and Imodium is started today. Because of persistent pain and tenderness, CT of the abdomen and pelvis is order ed with IV contrast. Risk of nephrotoxicity are explained to the patient in details including but not limited to ALLERGIC reaction and therefore took 60 which could be permanent and he verbalized understanding and acceptance. GI team are planning for colonoscopy if no improvement in symptoms Objective - Vital Signs Vital signs: Vital Signs Temp 97.6 F 06/20/21 08:00 Pulse 69 06/20/21 12:00 Resp 18 06/20/21 14:00 BP 159/89 06/20/21 12:00 Pulse Ox 96 06/20/21 12:00 Intake & Output 06/19/21 06/20/21 06/20/21 18:59 06:59 18:59 Intake Total 480 480 Balance 480 480 Weight 117 kg Intake: Oral 480 480 Other: Voiding Method Toilet # Voids 2 1 2 # Bowel Movements 1 - Exam GENERAL: The patient is alert and oriented x3, not in any acute distress. Well developed, well nourished. HEENT: Pupils are round and equally reacting to light. EOMI. No scleral icterus. No conjunctival pallor. Normocephalic, atraumatic. No pharyngeal erythema. No thyromegaly. CARDIOVASCULAR: S1 and S2 present. No murmurs, rubs, or gallops. -PULMONARY: Chest is clear to auscultation, less expiratory wheezing with prolonged expiration -ABDOMEN: Soft, mild lower abdominal tenderness with no rebound tenderness, nondistended, normoactive bowel sounds. No palpable organomegaly. MUSCULOSKELETAL: No joint swelling or deformity. EXTREMITIES: No cyanosis, clubbing, or pedal edema. NEUROLOGICAL: Gross neurological examination did not reveal any focal deficits. SKIN: No rashes. no petechiae. - Labs CBC & Chem 7: 06/20/21 08:13 06/19/21 08:28 Labs: Abnormal Lab Results - Last 24 Hours (Table) 06/19/21 06/19/21 06/19/21 Range/Units 13:21 16:51 19:48 RBC (4.30-5.90) m/uL POC Glucose (mg/dL) 141 H 140 H (75-99) mg/dL Stool Lactoferrin POSITIVE A (NEGATIVE) 06/20/21 06/20/21 06/20/21 Range/Units 06:23 08:13 11:44 RBC 4.20 L (4.30-5.90) m/uL POC Glucose (mg/dL) 108 H 130 H (75-99) mg/dL Stool Lactoferrin (NEGATIVE) Assessment and Plan Assessment: Acute gastroenteritis [id number] acute COPD exacerbation History of coronary artery disease status post stent placement History of bowel surgery with Dr. Muhammad status post bowel mesh placement hypertension Plan: this is a pleasant 55 years old male who presents with gastroenteritis and mild COPD. Troponin with IV fluids. Follow-up stool culture. Follow-up recommendation of GI consult, plan for colonoscopy if no improvement Systemic Solu-Medrol as well as inhaled steroids Continue with IV hydration Continue with Questran and Imodium Follow-up results for CT of the abdomen and pelvis Labs and medication were reviewed.. Continue same treatment. Continue with symptomatic treatment. Resume home medication. Monitor lytes and vitals. DVT and GI prophylaxis. Further recommendations as per clinical course of the patient DVT prophylaxis: Subcutaneous heparin GI Prophylaxis: Ppi Prognosis is guarded
--- NOTE | 2021-06-20 15:44 | CT ---
EXAMINATION TYPE: CT abdomen pelvis w con DATE OF EXAM: 06/20/2021 COMPARISON: 01/24/2021 HISTORY: Abdominal pain and diarrhea. CT DLP: 1651 mGycm CONTRAST: CT scan of the abdomen and pelvis is performed without Oral Contrast and with IV Contrast, patient in jected with 100ml mL of Isovue 300. FINDINGS: LUNG BASES-: No visible nodule. No infiltrate. LIVER/GB: No calcified gallstones. No space occupying hepatic lesion. Biliary tree is of normal ca liber. Hepatic steatosis. PANCREAS: No inflammation. No distinct mass. SPLEEN: No splenic enlargement. No lesion seen. ADRENALS: No nodule. No thickening. KIDNEYS/BLADDER: No hydronephrosis. No nephrolithiasis. No distinct renal mass. Urinary bladder g rossly unremarkable. BOWEL: Normal appendix. Normal bowel caliber. No inflammation. GENITAL ORGANS: No gross abnormality. LYMPH NODES: No greater than 1cm abdominal or pelvic lymph nodes are appreciated. AORTA: No significant abnormality. OSSEOUS STRUCTURES: No significant abnormality is seen. OTHER: No significant additional abnormality is seen. IMPRESSION: 1. No significant abnormality to account for the patient's symptoms.
--- NOTE | 2021-06-20 15:56 | P.PN ---
Subjective Progress Note Date: 06/20/21 Principal diagnosis: Food poisoning, diarrhea and abdominal pain This is a 55-year-old male who presented to the emergency department with complaints of severe abdominal pain, nausea, vomiting, and diarrhea after eating wild mushrooms. The patient was initially admitted to the ICU for acute kidney injury and food poisoning. He was transferred to the medical floor yesterday. He states abdominal pain and nausea and vomiting improved. He is still having multiple episodes of diarrhea approximately every 20 minutes through the night and today, nonbloody. He does report getting abdominal cramping and bloating in the morning followed by bowel movement. Stool studies pending, C. difficile cytotoxin negative. He remains afebrile. Objective - Vital Signs Vital signs: Vital Signs Temp 97.6 F 06/20/21 08:00 Pulse 72 06/20/21 08:00 Resp 18 06/20/21 08:00 BP 129/81 06/20/21 08:00 Pulse Ox 96 06/20/21 08:00 Intake & Output 06/19/21 06/20/21 06/20/21 18:59 06:59 18:59 Intake Total 480 240 Balance 480 240 Weight 117 kg Intake: Oral 480 240 Other: Voiding Method Toilet # Voids 2 1 # Bowel Movements 1 - Exam General appearance: The patient is alert, oriented, appears in no acute distress. HET: Head is normocephalic and atraumatic. Conjunctiva pink. Sclera anicteric. Neck: Supple without lymphadenopathy. Abdomen: Soft, mild tenderness, nondistended with bowel sounds. No guarding or rigidity. Extremities: Normal skin color and turgor. No pedal edema Skin: No rashes, no jaundice Neurological: No focal deficits. Alert and oriented 3. - Labs CBC & Chem 7: 06/20/21 08:13 06/19/21 08:28 Labs: Abnormal Lab Results - Last 24 Hours (Table) 06/19/21 06/19/21 06/19/21 Range/Units 11:44 13:21 16:51 RBC (4.30-5.90) m/uL POC Glucose (mg/dL) 141 H (75-99) mg/dL Urine Ketones Trace H (Negative) Stool Lactoferrin POSITIVE A (NEGATIVE) 08/18/21 08/19/21 08/19/21 Range/Units 19:48 06:23 08:13 RBC 4.20 L (4.30-5.90) m/uL POC Glucose (mg/dL) 140 H 108 H (75-99) mg/dL Urine Ketones (Negative) Stool Lactoferrin (NEGATIVE) 06/20/21 Range/Units 11:44 RBC (4.30-5.90) m/uL POC Glucose (mg/dL) 130 H (75-99) mg/dL Urine Ketones (Negative) Stool Lactoferrin (NEGATIVE) Assessment and Plan (1) Diarrhea Narrative/Plan: 55-year-old male who presented to the emergency department 2 days ago with complaints of abdominal pain, nausea, vomiting and multiple episodes of diarrhea up to every 30 minutes after eating wild mushrooms. Patient denies any recent traveling, any sick contacts, no new medications. States he ate a wild mushroom on Thursday in the morning and again Thursday afternoon and started having abdominal pain nausea vomiting and diarrhea at approximately 01 170 morning. He has had multiple episodes of nausea and vomiting and diarrhea which she reports as nonbloody, yellow liquid about every 30 minutes. His nausea and vomiting has resolved and his last episode was at over 300. He denies any coffee-ground emesis or hematemesis. No blood in his stool. 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 Vincent. Patient may have an underlying gastroenteritis is another possible etiology. Will obtain stool studies. No plans on endoscopic evaluation. Current Visit: Yes Status: Acute Code(s): R19.7 - DIARRHEA, UNSPECIFIED SNOMED Code(s): 54992225 (2) Abdominal pain Current Visit: Yes Status: Acute Code(s): R10.9 - UNSPECIFIED ABDOMINAL PAIN SNOMED Code(s): 77871435 (3) Nausea & vomiting Current Visit: Yes Status: Acute Code(s): R11.2 - NAUSEA WITH VOMITING, UNSPECIFIED SNOMED Code(s): 22262374 (4) Poisoning by food, mushroom Current Visit: Yes Status: Acute Code(s): T62.0X1A - TOXIC EFFECT OF INGESTED MUSHROOMS, ACCIDENTAL, INIT SNOMED Code(s): 58880320 Plan: 1. Continue symptomatic and supportive care 2. Stool studies ordered 3. Continue antiemetics as needed 4. Continue Protonix 40 mg twice a day 5. Questran added 3 times a day 6. Diet as tolerated 7. Await further stool studies 8. Will add Imodium 4 mg 4 times a day scheduled Thank you for this consultation. Dr. Reilly Rahman I agree with the dictator's note, documented as a scribe by Valeri Leon.
[2021-06-20 16:49] LABS: Glucose,Whole Blood 107 mg/dL (75-99)
[2021-06-20 20:11] LABS: Glucose,Whole Blood 126 mg/dL (75-99)
[2021-06-20] MEDS: traZODone HCL 100 MG TAB PO SCH (20:50)
[2021-06-20] MEDS: PRAZOSIN 1 MG CAP PO SCH (20:50)
[2021-06-21] MEDS: HYDROmorphone 1 MG/ML 1 ML SYRINGE IVP PRN ×5 (01:55→21:35)
[2021-06-21] MEDS: LORazepam 1 MG TAB PO PRN ×2 (01:55→16:53)
[2021-06-21 06:09] LABS: Glucose,Whole Blood 138 mg/dL (75-99)
[2021-06-21] MEDS: INSULIN ASPART (NovoLOG) 100 UNIT/ML VIAL SQ SCH ×2 (06:37→12:02)
[2021-06-21] MEDS: PANTOPRAZOLE 40 MG TABLET PO SCH (06:37)
[2021-06-21] MEDS: MULTIVITAMINS, THERA 1 EACH TAB PO SCH (08:10)
[2021-06-21] MEDS: CHOLECALCIFEROL 25 MCG (1000 IU) TABLET PO SCH (08:10)
[2021-06-21] MEDS: CLOPIDOGREL 75 MG TAB PO SCH (08:11)
[2021-06-21] MEDS: LOPERAMIDE 2 MG CAP PO SCH (08:11)
[2021-06-21] MEDS: DIVALPROEX 500 MG TABLET.DR PO SCH ×2 (08:11→20:34)
[2021-06-21] MEDS: HEPARIN SODIUM,PORCINE/PF 5,000 UNIT/0.5 ML SYRINGE SQ SCH ×2 (08:12→20:33)
[2021-06-21] MEDS: methylPREDNISolone SOD SUCCI 40 MG/ML 1 ML VIAL IV SCH (08:12)
[2021-06-21] MEDS: CHOLESTYRAMINE (WITH SUGAR) 4 GM PACKET PO SCH (08:12)
[2021-06-21 08:54] LABS: Basophils % (A) 0 %; Eosinophils % (A) 0 %; HCT 40.8 % (39.0-53.0); HGB 13.1 gm/dL (13.0-17.5); Lymphocytes % (A) 42 %; MCH 30.1 pg (25.0-35.0); MCHC 32.2 g/dL (31.0-37.0); MCV 93.6 fL (80.0-100.0); Mean Platelet Volume 6.8; Monocytes # (A) 0.5 k/uL (0-1.0); Monocytes % (A) 11 %; Neutrophils % (A) 43 %; Platelet Count 225 k/uL (150-450); RBC 4.36 m/uL (4.30-5.90); RDW 13.7 % (11.5-15.5); WBC 4.7 k/uL (3.8-10.6)
[2021-06-21 09:00] LABS: ALT 45 U/L (4-49); AST 28 U/L (17-59); African American GFR (CKD) >90 (>60 ml/min/1.73 sqM); Albumin 3.8 g/dL (3.5-5.0); Alkaline Phosphatase 56 U/L (38-126); Anion Gap 7 mmol/L; Blood Urea Nitrogen 14 mg/dL (9-20); Calcium 9.9 mg/dL (8.4-10.2); Carbon Dioxide 32 mmol/L (22-30); Chloride 101 mmol/L (98-107); Glucose 107 mg/dL (74-99); Non-African American GFR(CKD) >90 (>60 ml/min/1.73 sqM); Potassium 4.2 mmol/L (3.5-5.1); Sodium 140 mmol/L (137-145); Total Bilirubin 0.1 mg/dL (0.2-1.3); Total Protein 6.2 g/dL (6.3-8.2)
--- NOTE | 2021-06-21 11:36 | P.PN ---
Subjective Progress Note Date: 06/21/21 Principal diagnosis: Food poisoning, diarrhea and abdominal pain This is a 55-year-old male who presented to the emergency department with complaints of severe abdominal pain, nausea, vomiting, and diarrhea after eating wild mushrooms. The patient was initially admitted to the ICU for acute kidney injury and food poisoning. Patient is seen and examined lying in bed. States his diarrhea is improving. He had loose bowel movements about every 20-30 minutes up until 1 AM, from 1 AM until 7 AM he had no bowel movements. He denies any abdominal pain, nausea, or vomiting. He is tolerating a regular diet. Stool studies have been negative to date. He has been taking Imodium 4 mg 4 times a day [id number] along with Questran. He denies any blood or black stool. He underwent a CT of the abdomen and pelvis yesterday showing no significant abnormality to account for patient's symptoms. Objective - Vital Signs Vital signs: Vital Signs Temp 97.8 F 06/20/21 20:00 Pulse 69 06/21/21 02:00 Resp 18 06/21/21 02:00 BP 128/72 06/21/21 00:00 Pulse Ox 93 L 06/21/21 00:00 Intake & Output 06/20/21 06/21/21 06/21/21 18:59 06:59 18:59 Intake Total 600 240 Balance 600 240 Weight 98.5 kg Intake: Oral 600 240 Other: Voiding Method Toilet # Voids 2 2 - Exam General appearance: The patient is alert, oriented, appears in no acute distress. HET: Head is normocephalic and atraumatic. Conjunctiva pink. Sclera anicteric. Neck: Supple without lymphadenopathy. Abdomen: Soft, mild tenderness, nondistended with bowel sounds. No guarding or rigidity. Extremities: Normal skin color and turgor. No pedal edema Skin: No rashes, no jaundice Neurological: No focal deficits. Alert and oriented 3. - Labs CBC & Chem 7: 06/21/21 07:44 06/21/21 07:44 Labs: Abnormal Lab Results - Last 24 Hours (Table) 06/20/21 06/20/21 06/20/21 Range/Units 11:44 16:47 20:09 Carbon Dioxide (22-30) mmol/L Glucose (74-99) mg/dL POC Glucose (mg/dL) 130 H 107 H 126 H (75-99) mg/dL Total Bilirubin (0.2-1.3) mg/dL Total Protein (6.3-8.2) g/dL 06/21/21 06/21/21 Range/Units 06:07 07:44 Carbon Dioxide 32 H (22-30) mmol/L Glucose 107 H (74-99) mg/dL POC Glucose (mg/dL) 138 H (75-99) mg/dL Total Bilirubin 0.1 L (0.2-1.3) mg/dL Total Protein 6.2 L (6.3-8.2) g/dL Microbiology - Last 24 Hours (Table) 06/18/21 11:44 Stool Culture - Preliminary Stool Assessment and Plan (1) Diarrhea Narrative/Plan: 55-year-old male who presented to the emergency department 2 days ago with complaints of abdominal pain, nausea, vomiting and multiple episodes of diarrhea up to every 30 minutes after eating wild mushrooms. Patient denies any recent traveling, any sick contacts, no new medications. States he ate a wild mushroom on Thursday in the morning and again Thursday afternoon and started having abdominal pain nausea vomiting and diarrhea at approximately 01 170 morning. He has had multiple episodes of nausea and vomiting and diarrhea which she reports as nonbloody, yellow liquid about every 30 minutes. His nausea and vomiting has resolved and his last episode was at over 300. He denies any coffee-ground emesis or hematemesis. No blood in his stool. 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 Vincent. Patient may have an underlying gastroenteritis is another possible etiology. Will obtain stool studies. No plans on endoscopic evaluation. Current Visit: Yes Status: Acute Code(s): R19.7 - DIARRHEA, UNSPECIFIED SNOMED Code(s): 79160433 (2) Abdominal pain Current Visit: Yes Status: Acute Code(s): R10.9 - UNSPECIFIED ABDOMINAL PAIN SNOMED Code(s): 35904417 (3) Nausea & vomiting Current Visit: Yes Status: Acute Code(s): R11.2 - NAUSEA WITH VOMITING, UNSPECIFIED SNOMED Code(s): 25694971 (4) Poisoning by food, mushroom Current Visit: Yes Status: Acute Code(s): T62.0X1A - TOXIC EFFECT OF INGESTED MUSHROOMS, ACCIDENTAL, INIT SNOMED Code(s): 38449482 Plan: 1. Continue symptomatic and supportive care 2. Stool studies ordered, negative to date 3. Continue antiemetics as needed 4. Continue Protonix 40 mg twice a day 5. Continue Questran 3 times a day 6. Diet as tolerated 7. Will change Imodium 4 mg 4 times a day as needed Thank you for allowing us to participate in the care of the patient, the GI service will sign off, gastroenterology will not be available at the hospital this weekend and if further evaluation by gastroenterology is required the patient will need transfer as per the primary team's discretion. Dr. Reilly Rahman I agree with the dictator's note, documented as a scribe by Valeri Leon.
[2021-06-21 11:58] LABS: Glucose,Whole Blood 137 mg/dL (75-99)
[2021-06-21] MEDS: SODIUM CHLORIDE 0.9% 1,000 ML IV SCH ×3 (12:09→16:19)
[2021-06-21] MEDS: PRAZOSIN 1 MG CAP PO SCH (20:34)
[2021-06-21] MEDS: LOPERAMIDE 2 MG CAP PO PRN (20:34)
[2021-06-21] MEDS: traZODone HCL 100 MG TAB PO SCH (20:34)
[2021-06-22] MEDS: LORazepam 1 MG TAB PO PRN ×2 (00:35→20:48)
[2021-06-22] MEDS: SODIUM CHLORIDE 0.9% 1,000 ML IV SCH ×3 (00:46→20:43)
[2021-06-22] MEDS: HYDROmorphone 1 MG/ML 1 ML SYRINGE IVP PRN ×2 (01:21→08:42)
[2021-06-22] MEDS: PANTOPRAZOLE 40 MG TABLET PO SCH (06:34)
[2021-06-22] MEDS: CLOPIDOGREL 75 MG TAB PO SCH (08:41)
[2021-06-22] MEDS: CHOLECALCIFEROL 25 MCG (1000 IU) TABLET PO SCH (08:41)
[2021-06-22] MEDS: predniSONE 20 MG TAB PO SCH (08:42)
[2021-06-22] MEDS: CHOLESTYRAMINE (WITH SUGAR) 4 GM PACKET PO SCH (08:42)
[2021-06-22] MEDS: MULTIVITAMINS, THERA 1 EACH TAB PO SCH (08:42)
[2021-06-22] MEDS: DIVALPROEX 500 MG TABLET.DR PO SCH ×2 (08:42→20:48)
[2021-06-22] MEDS: HEPARIN SODIUM,PORCINE/PF 5,000 UNIT/0.5 ML SYRINGE SQ SCH ×2 (08:42→20:48)
[2021-06-22] MEDS: LOPERAMIDE 2 MG CAP PO PRN (11:56)
[2021-06-22 13:04] LABS: African American GFR (CKD) >90 (>60 ml/min/1.73 sqM); Anion Gap 9 mmol/L; Blood Urea Nitrogen 12 mg/dL (9-20); Carbon Dioxide 29 mmol/L (22-30); Chloride 98 mmol/L (98-107); Glucose 162 mg/dL (74-99); Non-African American GFR(CKD) >90 (>60 ml/min/1.73 sqM); Potassium 3.9 mmol/L (3.5-5.1); Sodium 136 mmol/L (137-145)
[2021-06-22] MEDS ORDERED: traMADol 50 MG TAB PO PRN (15:40)
--- NOTE | 2021-06-22 17:50 | P.PN ---
Subjective Progress Note Date: 06/22/21 Principal diagnosis: Intractable diarrhea/acute gastroenteritis versus IBD Acute exacerbation COPD 55 years old male with past medical history of hypertension, coronary artery disease status post stent placement, history of COPD on home oxygen, quit [employer] many years ago but he thinks he has some lung damage from his [place] and he follows up with Dr. Jenkins. He was admitted with GI symptoms of nausea vomiting and diarrhea which was thought secondary to his mushroom poisoning, he was in the ICU but as selective overflow. However today his symptoms persist are not improving, reports diarrhea every 20 minutes with generalized abdominal pain which is felt like mild his abdomen is soft. He vomited twice since yesterday with no blood in it. He is little short of breath more than usual with no coughing. And he has expiratory wheezing on exam. 06/22/2021 Patient is seen and evaluated with family members at bedside; continues to complain of some abdominal cramping discomfort; reports improvement in loose bowel movements Vital signs are reviewed with temperature 98.7, pulse 76, respiration 18 and blood pressure 123/76; SpO2 92% on room air Lab review shows sodium 136, potassium 3.9, BUN/creatinine of 12/0.78; stool lactoferrin is positive Patient remains on Questran and a 3 times a day dosing and Imodium as needed; remains on oral steroids for COPD exacerbation; we will plan to start with oral steroid taper in next 24 hours with plans to possibly discharge patient home if no further episodes of diarrhea Objective - Vital Signs Vital signs: Vital Signs Temp 98.8 F 06/22/21 08:40 Pulse 86 06/22/21 08:40 Resp 16 06/22/21 08:40 BP 130/81 06/22/21 08:40 Pulse Ox 92 L 06/22/21 08:40 Intake & Output 06/21/21 06/22/21 06/22/21 18:59 06:59 18:59 Intake Total 840 240 Output Total 620 Balance 840 -620 240 Weight 98.1 kg Intake: Oral 840 240 Output: Urine 620 Other: Voiding Method Toilet Toilet Toilet # Voids 2 # Bowel Movements 4 - Exam GENERAL: The patient is alert and oriented x3, not in any acute distress. Well developed, well nourished. HEENT: Pupils are round and equally reacting to light. EOMI. No scleral icterus. No conjunctival pallor. Normocephalic, atraumatic. No pharyngeal erythema. No thyromegaly. CARDIOVASCULAR: S1 and S2 present. No murmurs, rubs, or gallops. -PULMONARY: Chest is clear to auscultation, less expiratory wheezing with prolonged expiration -ABDOMEN: Soft, mild lower abdominal tenderness with no rebound tenderness, nondistended, normoactive bowel sounds. No palpable organomegaly. MUSCULOSKELETAL: No joint swelling or deformity. EXTREMITIES: No cyanosis, clubbing, or pedal edema. NEUROLOGICAL: Gross neurological examination did not reveal any focal deficits. SKIN: No rashes. no petechiae. - Labs CBC & Chem 7: 06/21/21 07:44 06/22/21 12:29 Labs: Abnormal Lab Results - Last 24 Hours (Table) 06/21/21 Range/Units 11:46 POC Glucose (mg/dL) 137 H (75-99) mg/dL Microbiology - Last 24 Hours (Table) 06/18/21 11:44 Stool Culture - Final Stool Assessment and Plan Assessment: Acute gastroenteritis [id number] acute COPD exacerbation History of coronary artery disease status post stent placement History of bowel surgery with Dr. Muhammad status post bowel mesh placement hypertension Plan: this is a pleasant 55 years old male who presents with gastroenteritis and mild COPD. Troponin with IV fluids. Follow-up stool culture. Follow-up recommendation of GI consult, plan for colonoscopy if no improvement Systemic Solu-Medrol as well as inhaled steroids Continue with IV hydration Continue with Questran and Imodium Follow-up results for CT of the abdomen and pelvis Labs and medication were reviewed.. Continue same treatment. Continue with symptomatic treatment. Resume home medication. Monitor lytes and vitals. DVT and GI prophylaxis. Further recommendations as per clinical course of the patient DVT prophylaxis: Subcutaneous heparin GI Prophylaxis: Ppi Prognosis is guarded
[2021-06-22] MEDS: traZODone HCL 100 MG TAB PO SCH (20:48)
[2021-06-22] MEDS: PRAZOSIN 1 MG CAP PO SCH (20:49)
[2021-06-23 05:30] VITALS: RESP 18
[2021-06-23] MEDS: SODIUM CHLORIDE 0.9% 1,000 ML IV SCH (06:32)
[2021-06-23] MEDS: PANTOPRAZOLE 40 MG TABLET PO SCH (06:34)
[2021-06-23 08:02] LABS: Basophils % (A) 1 %; Eosinophils # (A) 0.1 k/uL (0-0.7); Eosinophils % (A) 1 %; HCT 41.5 % (39.0-53.0); HGB 13.7 gm/dL (13.0-17.5); Lymphocytes # (A) 2.3 k/uL (1.0-4.8); Lymphocytes % (A) 34 %; MCH 30.5 pg (25.0-35.0); MCV 92.4 fL (80.0-100.0); Mean Platelet Volume 6.7; Monocytes # (A) 0.7 k/uL (0-1.0); Monocytes % (A) 10 %; Neutrophils # (A) 3.5 k/uL (1.3-7.7); Neutrophils % (A) 52 %; Platelet Count 213 k/uL (150-450); RBC 4.49 m/uL (4.30-5.90); RDW 13.8 % (11.5-15.5); WBC 6.8 k/uL (3.8-10.6)
[2021-06-23 08:14] LABS: African American GFR (CKD) >90 (>60 ml/min/1.73 sqM); Anion Gap 8 mmol/L; Blood Urea Nitrogen 15 mg/dL (9-20); Calcium 8.8 mg/dL (8.4-10.2); Carbon Dioxide 33 mmol/L (22-30); Chloride 98 mmol/L (98-107); Glucose 106 mg/dL (74-99); Non-African American GFR(CKD) >90 (>60 ml/min/1.73 sqM); Potassium 3.5 mmol/L (3.5-5.1); Sodium 139 mmol/L (137-145)
[2021-06-23] MEDS: CHOLESTYRAMINE (WITH SUGAR) 4 GM PACKET PO SCH (08:20)
[2021-06-23] MEDS: HEPARIN SODIUM,PORCINE/PF 5,000 UNIT/0.5 ML SYRINGE SQ SCH (08:20)
[2021-06-23] MEDS: CHOLECALCIFEROL 25 MCG (1000 IU) TABLET PO SCH (08:20)
[2021-06-23] MEDS: DIVALPROEX 500 MG TABLET.DR PO SCH (08:21)
[2021-06-23] MEDS: predniSONE 20 MG TAB PO SCH (08:21)
[2021-06-23] MEDS: CLOPIDOGREL 75 MG TAB PO SCH (08:21)
[2021-06-23] MEDS: MULTIVITAMINS, THERA 1 EACH TAB PO SCH (08:21)
[2021-06-23 09:35] VITALS: BP 139/69; PULSE 92; TEMP 98.6
== END 2021-06-23 13:57 | disposition home or self-care (01) | DRG 392 ==
LOC: EC 17:30 → 6NMEDSUR 20:43 → 2SICU 06-17 02:05 → OBSVTOIN 06-17 07:10 → 3SCARD 06-18 18:10
PROVIDERS: ADMIT Hospitalist; ATTEND Hospitalist
DX: A05.9 Bacterial foodborne intoxication, unspecified (principal); N17.9 Acute kidney failure, unspecified; J44.1 Chronic obstructive pulmonary disease with (acute) exacerbation; R10.9 Unspecified abdominal pain; Z95.5 Presence of coronary angioplasty implant and graft; I25.10 Atherosclerotic heart disease of native coronary artery without angina pectoris; E03.9 Hypothyroidism, unspecified; I25.2 Old myocardial infarction; K57.30 Diverticulosis of large intestine without perforation or abscess without bleeding; Z90.49 Acquired absence of other specified parts of digestive tract; F43.10 Post-traumatic stress disorder, unspecified; Z87.891 Personal history of nicotine dependence; Z79.02 Long term (current) use of antithrombotics/antiplatelets; Z99.81 Dependence on supplemental oxygen; I10 Essential (primary) hypertension; Z79.899 Other long term (current) drug therapy
CPT/HCPCS: 36415; 71045; 74177; 80048; 80053; 80076; 81001; 81003; 83605; 83630; 83690; 83735; 83993; 84145; 84450; 84460; 85025; 85610; 87045; 87046; 87324; 96361; 96374; 96375; 99285

== ENCOUNTER → 2021-07-10 | Outpatient (CLI) | payer BC ==
[2021-07-10 08:23] VITALS: BP 156/90; PULSE 85; RESP 18; TEMP 98.3
--- NOTE | 2021-07-10 08:53 | P.PAINCN ---
History of Present Illness - Reason for Consult Consult date: 07/10/21 - History of Present Illness This is 55 years old male with a chronic history of severe left-sided upper quadrant abdominal pain, the pain is constant and increases with any activity is not related to food intake, he reported that his pain started in January 2021 after he had an incisional hernia repair with mesh, and he reports, the pain is continuous is not radiated to the back is not tried deeded to the front and is not radiated to the right side, he denies any discharge from the incisional hernia he denies any fever or night sweats, denies any change in the bowel movement or urination, he reported that the pain interfering with his activity, patient had a history of diverticulitis and diverticular perforation, he had colostomy and colostomy reversal, but his pain is not at the location of the colostomy, it's in the left upper quadrant, the colostomy was, in the left lower quadrant, patient tried the heat and home exercises without any benefit Past Medical History Past Medical History: Hypertension, Myocardial Infarction ([place]) Additional Past Medical History / Comment(s): unknown lung issues (mucous plug). diverticulitis with perforated bowel colostomy and then reversal, has pain lt side Last Myocardial Infarction Date:: 2004 History of Any Multi-Drug Resistant Organisms: None Reported Past Surgical History: Bowel Resection, Heart Catheterization, Heart Catheterization With Stent, Orthopedic Surgery Additional Past Surgical History / Comment(s): neck surgery with hardware, rt shoulder surgery, rt wrist surgery. 07/22 colostomy and reversal, incisional hernia with mesh repair, pain on lt side Past Anesthesia/Blood Transfusion Reactions: No Reported Reaction Date of Last Stent Placement:: 2006 Past Psychological History: PTSD Smoking Status: Former smoker Past Alcohol Use History: None Reported Additional Past Alcohol Use History / Comment(s): Quit smoking 15 yrs ago. Past Drug Use History: None Reported - Past Family History Mother History Unknown: Yes Family Medical History: No Reported History Father Family Medical History: Cancer Medications and Allergies Home Medications Medication Instructions Recorded Confirmed Type Atorvastatin [Lipitor] 80 mg PO DAILY 03/30/18 06/16/21 History Clopidogrel [Plavix] 75 mg PO DAILY 03/30/18 06/16/21 History Divalproex [Depakote] 500 mg PO BID 03/30/18 06/16/21 History Cholecalciferol [Vitamin D3 (25 50 mcg PO DAILY 07/16/20 06/16/21 History Mcg = 1000 Iu)] Omeprazole 40 mg PO DAILY 07/16/20 06/16/21 History HYDROcodone/APAP 7.5-325MG [[place] 1 tab PO QID PRN 10/19/20 06/16/21 History 7.5-325] Fluticasone/Salmeterol [Advair 1 puff INHALATION RT-DAILY 02/13/21 06/16/21 History 100-50 Diskus] LORazepam [Ativan] 1 mg PO TID PRN 02/13/21 06/16/21 History Prazosin [Minipress] 5 mg PO HS 02/13/21 06/16/21 History traZODone HCL 100 mg PO HS 02/13/21 06/16/21 History Albuterol Inhaler [Ventolin Hfa 2 puff INHALATION RT-QID PRN 06/16/21 07/10/21 History Inhaler] Losartan Potassium [Cozaar] 25 mg PO DAILY 06/16/21 07/10/21 History Multivitamins, Thera [Multivitamin 1 tab PO DAILY 06/16/21 07/10/21 History (formulary)] Sildenafil(Unknown Dose) 1 tab PO DAILY PRN 06/16/21 07/10/21 History Ubidecarenone [Co Q-10] 100 mg PO DAILY 06/16/21 07/10/21 History Cholestyramine (with Sugar) 4 gm PO DAILY@1000 #30 packet 06/23/21 07/10/21 Rx [Questran Packet] Loperamide [Imodium] 4 mg PO QID PRN #30 cap 06/23/21 07/10/21 Rx predniSONE See Taper PO DIRECTED #21 tab 06/23/21 07/10/21 Rx Allergies Allergy/AdvReac Type Severity Reaction Status Date / Time No Known Allergies Allergy Verified 06/16/21 20:38 Physical Exam Vitals: Vital Signs Temp Pulse Resp BP Pulse Ox 07/10/21 08:15 98.3 F 85 18 156/90 85 L Physical Examinations : -Constitutiona : Cooperative , not in acute distress . -HEENT : nech : supple , no Lymphadenopathy , normal thyroid size . : eyes : no ptosis , no icterus, no photophobia . - Gastrointestinally: Abdomen soft , incision healed well , no discharge , erythema Localized tenderness in the left upper quadrant area , no masses Scar from the colostomy healed well , scar from the incision hernia repair healed well - neurologic : Cranial nerve II to XII intact , no focal n eurological deffecit . -psychatric : alert , oriented X 3 , appropriate affect , intact judgment and insight . -Lymphatic : no Lymphadenopathy . - musculoskeltal : Cervical Spine motor stregnth in the deltoid and biceps, normal right side , normal Left side motor stregnth biceps and the wrist extensors normal right side ,normal left side . motor stregnth in the triceps muscle . normal Right side , normal Left side Lumber spine moter stegnth lower extremities ,thigh and legs 5/5 Right side , 5/5 Left side Results Comments: CT of the abdomen reviewed Assessment and Plan Plan: Assessment and plan=1-chronic abdominal pain (left upper quadrant ) be secondary to scar tissue , she had multiple surgical interventions in the past he could benefit from Flexeril 10 mg daily at bedtime. And could benefit from left sided erector spinae muscle block under ultrasound guidance x2 . Procedure risk and benefits and alternatives discussed with the patient he agreed with the preceding. Time with Patient: Greater than 30 PQRS Measure Charge Sheet Measure #130: Documentation of Current Meds in Medical Chart: Patient's medications documented in chart Measure #226: Tobacco Use: Screen & Cessation Intervention: Pt not a tobacco user Measure #111: Pneumonia Vaccination: Pneumococcal vaccine NOT administered or previously given Measure #47: Advance Care Plan: Advance care planning discussed & documented, pt chose/unable to give Measure #412: Opioid Treatment Agreement: No documentation of signed opioid treatment agreement Measure #408: Opioid Therapy Follow-up Evaluation: Patient had NO f/u eval minimum every 3 months during opioid therapy Measure #317: Preventitive Care & Scrn High Bld Press & F/U: Pre-hypertensive or hypertensive BP documented, pt will f/u with PCP Measure #128: Body Mass Index (BMI) Screening & Follow-up: BMI documented ABOVE normal parameters - f/u documented Measure #131: Pain Assessment & Follow-up: Pain positive & plan documented, Follow-up scheduled Measure #431: Unhealthy Alcohol Use Preventative Care & Scrn: Patient not identified as an unhealthy alcohol user PQRS Narrative: Smoking Status Former smoker Blood Pressure 156/90 Pain Intensity [Left Upper 7 Abdomen] Scale Used Numeric (1 - 10) Hx Alcohol Use (MH) No Home Medications: Ambulatory Orders Atorvastatin [Lipitor] 80 mg PO DAILY 03/30/18 Clopidogrel [Plavix] 75 mg PO DAILY 03/30/18 Divalproex [Depakote] 500 mg PO BID 03/30/18 Cholecalciferol [Vitamin D3 (25 Mcg = 1000 Iu)] 50 mcg PO DAILY 07/16/20 Omeprazole 40 mg PO DAILY 07/16/20 HYDROcodone/APAP 7.5-325MG [[place] 7.5-325] 1 tab PO QID PRN 10/19/20 Fluticasone/Salmeterol [Advair 100-50 Diskus] 1 puff INHALATION RT-DAILY 02/13/21 LORazepam [Ativan] 1 mg PO TID PRN 02/13/21 Prazosin [Minipress] 5 mg PO HS 02/13/21 traZODone HCL 100 mg PO HS 02/13/21 Albuterol Inhaler [Ventolin Hfa Inhaler] 2 puff INHALATION RT-QID PRN 06/16/21 Losartan Potassium [Cozaar] 25 mg PO DAILY 06/16/21 Multivitamins, Thera [Multivitamin (formulary)] 1 tab PO DAILY 06/16/21 Sildenafil(Unknown Dose) 1 tab PO DAILY PRN 06/16/21 Ubidecarenone [Co Q-10] 100 mg PO DAILY 06/16/21 Cholestyramine (with Sugar) [Questran Packet] 4 gm PO DAILY@1000 #30 packet 06/23/21 Loperamide [Imodium] 4 mg PO QID PRN #30 cap 06/23/21 predniSONE See Taper PO DIRECTED #21 tab 06/23/21
== END | disposition home or self-care (01) ==
LOC: PNWHC3 08:03
PROVIDERS: ATTEND Specialist
DX: K43.2 Incisional hernia without obstruction or gangrene (principal); G89.29 Other chronic pain; R10.12 Left upper quadrant pain
CPT/HCPCS: 99211

== ENCOUNTER 2021-08-04 15:09 | Emergency (ER) | payer BC ==
[2021-08-04 15:36] VITALS: BP 115/84; TEMP 98.2
[2021-08-04] MEDS ORDERED: HYDROmorphone 1 MG/ML 1 ML SYRINGE IM STA (16:20)
--- NOTE | 2021-08-04 16:56 | US ---
EXAMINATION TYPE: US venous doppler duplex LE LT DATE OF EXAM: 08/04/2021 4:48 PM COMPARISON: NONE CLINICAL HISTORY: Left calf pain. On plavix. No redness. No swelling. No injury. SIDE PERFORMED: Left TECHNIQUE: The lower extremity deep venous system is examined utilizing real time linear array sonog xiang with graded compression, doppler sonography and color-flow sonography. VESSELS IMAGED: Common Femoral Vein Deep Femoral Vein Greater Saphenous Vein * Femoral Vein Popliteal Vein Small Saphenous Vein * Proximal Calf Veins (* superficial vessels) Left Leg: Negative for DVT IMPRESSION: . No evidence of deep vein thrombosis in the left leg.
--- NOTE | 2021-08-04 17:40 | XR ---
EXAMINATION TYPE: XR knee complete LT DATE OF EXAM: 08/04/2021 COMPARISON: 04/17/2014 HISTORY: Knee pain TECHNIQUE: 3 views FINDINGS: I see no fracture nor dislocation. Joint spaces are normal. There is no evidence of focal b one destruction. There is a small knee joint effusion. IMPRESSION: Very small knee joint effusion. No fracture.
--- NOTE | 2021-08-04 18:06 | ED ---
Extremity Problem HPI - General Chief complaint: Extremity Problem,Nontraumatic Stated complaint: lt leg pain Time Seen by Provider: 08/04/21 15:38 Source: patient Mode of arrival: wheelchair Limitations: no limitations - History of Present Illness Initial comments: 56-year-old male patient presents to emergency department today for evaluation of left leg pain. Patient states a couple days ago he developed pain to the area behind the left knee. Patient states when he stood up the pain migrated to the anterior knee and was severe. States now is radiating down to the calf. Denies any back or buttock pain. Denies numbness or tingling to the lower extremities. Denies any known injury. Did recently take a trip to [place] and back. Does take Plavix. Denies any fever or chills. Denies swelling to the leg. Did states he has had history of knee problems but states this is quite different. - Related Data Home Medications Medication Instructions Recorded Confirmed Atorvastatin [Lipitor] 80 mg PO DAILY 03/30/18 08/04/21 Clopidogrel [Plavix] 75 mg PO DAILY 03/30/18 08/04/21 Divalproex [Depakote] 500 mg PO BID 03/30/18 08/04/21 Omeprazole 40 mg PO DAILY 07/16/20 08/04/21 HYDROcodone/APAP 7.5-325MG [[place] 1 tab PO QID PRN 10/19/20 08/04/21 7.5-325] Fluticasone/Salmeterol [Advair 1 puff INHALATION RT-DAILY 02/13/21 08/04/21 100-50 Diskus] LORazepam [Ativan] 1 mg PO TID PRN 02/13/21 08/04/21 Prazosin [Minipress] 5 mg PO HS 02/13/21 08/04/21 traZODone HCL 100 mg PO HS 02/13/21 08/04/21 Albuterol Inhaler [Ventolin Hfa 2 puff INHALATION RT-QID PRN 06/16/21 08/04/21 Inhaler] Losartan Potassium [Cozaar] 25 mg PO DAILY 06/16/21 08/04/21 Multivitamins, Thera [Multivitamin 1 tab PO DAILY 06/16/21 08/04/21 (formulary)] Cholecalciferol [Vitamin D3 (25 25 mcg PO DAILY 08/04/21 08/04/21 Mcg = 1000 Iu)] Ciprofloxacin HCl 500 mg PO BID 08/04/21 08/04/21 Fish Oil/Dha/Epa [Fish Oil 1,200 1 cap PO DAILY 08/04/21 08/04/21 mg Fish Oil] Ofloxacin [Ofloxacin 0.3% Otic 5 drops RIGHT EAR BID 08/04/21 08/04/21 Soln] Sildenafil Citrate 100 mg PO DAILY PRN 08/04/21 08/04/21 Allergies Allergy/AdvReac Type Severity Reaction Status Date / Time No Known Allergies Allergy Verified 08/04/21 15:36 Review of Systems ROS Statement: Those systems with pertinent positive or pertinent negative responses have been documented in the HPI. ROS Other: All systems not noted in ROS Statement are negative. Past Medical History Past Medical History: COPD, Hypertension, Myocardial Infarction ([place]) Additional Past Medical History / Comment(s): pneumothorax. diverticulitis with perforated bowel colostomy and then reversal Last Myocardial Infarction Date:: 2004 History of Any Multi-Drug Resistant Organisms: None Reported Past Surgical History: Bowel Resection, Heart Catheterization, Heart Catheterization With Stent, Orthopedic Surgery Additional Past Surgical History / Comment(s): neck surgery with hardware, rt shoulder surgery, rt wrist surgery. 07/22 colostomy and reversal, incisional hernia with mesh repair, pain on lt side Past Anesthesia/Blood Transfusion Reactions: No Reported Reaction Date of Last Stent Placement:: 2006 Past Psychological History: PTSD Smoking Status: Former smoker Past Alcohol Use History: None Reported Past Drug Use History: None Reported - Past Family History Mother History Unknown: Yes Family Medical History: No Reported History Father Family Medical History: Cancer General Exam Limitations: no limitations General appearance: alert, in no apparent distress, other (This is a well- developed, well-nourished adult male patient in no acute distress. Vital signs upon presentation are temperature 98.2F, pulse 90, respirations 16, blood pressure 115/84, pulse ox 95% on room air.) Respiratory exam: Present: normal lung sounds bilaterally. Absent: respiratory distress, wheezes, rales, rhonchi, stridor Cardiovascular Exam: Present: regular rate, normal rhythm, normal heart sounds. Absent: systolic murmur, diastolic murmur, rubs, gallop, clicks Extremities exam: Present: normal inspection, full ROM, normal capillary refill, other (Skin to the left leg is pink, warm, dry. Cap refill less than 3 seconds. Pedal and posttibial pulses are 2+ and equal bilaterally. There is full extension and flexion of the leg. No overlying erythema.). Absent: tenderness, pedal edema, joint swelling, calf tenderness Neurological exam: Present: alert, oriented X3, CN II-XII intact Psychiatric exam: Present: normal affect, normal mood Skin exam: Present: warm, dry, intact, normal color. Absent: rash Course Vital Signs 08/04/21 08/04/21 15:30 18:28 Temperature 98.2 F Pulse Rate 90 72 Respiratory 16 20 Rate Blood Pressure 115/84 O2 Sat by Pulse 95 98 Oximetry Medical Decision Making - Medical Decision Making 56-year-old male patient presents to the emergency department today for evaluation of left knee and leg pain. Physical examination did reveal normal neurovascular status. Full range of motion. Good distal pulses. Ultrasound was obtained and was negative. X-ray was obtained and was negative. Did discuss findings and results with the patient. He'll be discharged up with his primary care physician for recheck in 1-2 days. He does have [place] at home. Return parameters were discussed in detail. He verbalizes understanding and agrees with this plan. Case discussed with my attending Dr. Howell. - Radiology Data Radiology results: report reviewed, image reviewed Ultrasound of the left lower extremity was obtained and showed no evidence for deep vein thrombosis. X-ray of the left knee is obtained. Report was reviewed in its entirety. Impression by Dr. Shepherd shows very small knee joint effusion. No fracture. Disposition Clinical Impression: Left leg pain Disposition: HOME SELF-CARE Condition: Good Instructions (If sedation given, give patient instructions): Leg Pain (ED) Additional Instructions: Continue home medication for pain. Rest the leg. Follow-up with her primary care physician for recheck in 1-2 days. Return to the emergency department for any new, worsening, or concerning symptoms. Is patient prescribed a controlled substance at d/c from ED?: No Referrals: Raciel Melvin DO [Primary Care Provider] - 1-2 days Time of Disposition: 18:05
[2021-08-04 18:30] VITALS: PULSE 72; RESP 20
== END 2021-08-04 18:29 | disposition home or self-care (01) ==
LOC: EC 15:09
DX: M79.605 Pain in left leg (principal); M25.562 Pain in left knee; I10 Essential (primary) hypertension; I25.2 Old myocardial infarction; J44.9 Chronic obstructive pulmonary disease, unspecified; Z79.02 Long term (current) use of antithrombotics/antiplatelets; Z79.51 Long term (current) use of inhaled steroids; Z87.891 Personal history of nicotine dependence; Z79.899 Other long term (current) drug therapy
CPT/HCPCS: 73562; 93971; 99284; 96372; J1170

== ENCOUNTER 2021-08-13 06:17 | Day surgery (SDC) | payer BC ==
[2021-08-12 10:52] VITALS: BMI 34.6
[2021-08-13] MEDS ORDERED: LACTATED RINGERS 1,000 ML IV ONE (06:40)
[2021-08-13] MEDS ORDERED: LIDOCAINE 1% (10MG/ML) FOR IV START INTRADERMA ONE (06:40)
[2021-08-13 06:52] VITALS: RESP 18; TEMP 97.4
[2021-08-13] MEDS ORDERED: ROPIVACAINE 5MG/ML 20ML VIAL ONE (07:01)
[2021-08-13] MEDS ORDERED: MIDAZOLAM 2 MG/2 ML VIAL ONE (07:01)
[2021-08-13] MEDS ORDERED: fentaNYL (PF) 50 MCG/ML 2 ML AMP ONE (07:01)
[2021-08-13] MEDS ORDERED: methylPREDNISolone ACETATE 40 MG/ML 1 ML VIAL ONE (07:01)
[2021-08-13] MEDS ORDERED: IV FLUID CONTINUATION 1,000 ML IV ONE (07:18)
[2021-08-13] MEDS ORDERED: LACTATED RINGERS 1,000 ML IV SCH (07:30)
[2021-08-13 07:38] VITALS: BP 133/86; PULSE 79
--- NOTE | 2021-08-13 13:53 | P.PCN ---
Date of Procedure: 08/13/21 Description of Procedure: Pre- and Post-operative Diagnosis: Chronic left upper quadrant abdominal pain secondary to hernia surgery with mesh Procedure : Left-sided Erector spinae plane nerve block under ultrasound guidance Surgeon: Radha Meza Anesthesia: Local: 1% Lidocaine, IV sedation : Versed, and fentanyl. Complications: None. Estimated blood loss: None Specimens removed: None Ultrasound guided image: saved to electronic medical records. Indications for Procedure: The patient has been suffering from chronic left upper quadrant abdominal pain secondary to hernia surgery with mesh. Inadequate pain control with pharmacologic regimen.An erector spinae plane nerve block was scheduled for the patient. Procedure and Findings: The patient was seen and examined in the holding area. The written informed consent was obtained after explaining the risks, benefits, alternatives of the procedure to the patient. The patient was brought to the procedure room and was placed in the prone position on the operating table. A pillow was placed under the upper chest. Standard anesthesia monitoring was done through out the procedure. Timeout was completed. The skin preparation was done with ChloraPrep 1 and draping was done in usual sterile fashion. Sterile technique was observed throughout the procedure. Using curvilinear ultrasound probe, place the transducer in a paramedian sagittal orientation, approximately 2cm away from the midline (spinous processes), and vizualize the transverse process of T7, T8 levels identified. 3 ml of 1% Lidocaine was injected with a 25 gauge needle to achieve adequate local anesthesia of the skin and subcutaneous tissue.Trapezius and erector spinae muscles identified. A 21 gauge, 100mm echogenic needle was placed and gradually advanced up to T8 transverse process, after touch the bony contact retracted back to a few millimeters. After confirming negative aspiration for blood, body fluids, air, paresthesia. 30 mL of block solution injected slowly after negative aspiration every 5 mL of injection under direct visualization of the ultrasound. The block solution containing 29 mL of 0.5% ropivacaine preservative-free, and 40 mg of Depo-Medrol. The needle was removed intact, area was cleaned and bandage was applied. Disposition : The patient tolerated the procedure very well. The patient was transferred to the recovery room and remained stable until discharged home. The patient was given detailed discharge instructions for bleeding, infection, increased pain at the injection site, and was advised to seek immediate medical attention should significant side effects develop. The patient will be followed up with our Pain Clinic within 4 weeks for follow-up visit.
== END 2021-08-13 07:52 | disposition home or self-care (01) ==
LOC: ORPAIN 06:17
DX: R10.12 Left upper quadrant pain (principal); Z98.890 Other specified postprocedural states; I25.10 Atherosclerotic heart disease of native coronary artery without angina pectoris; I10 Essential (primary) hypertension; Z95.5 Presence of coronary angioplasty implant and graft
CPT/HCPCS: 64999; J2250; J1030; J3010; J2795; 20550

== ENCOUNTER → 2021-09-02 | Outpatient (CLI) | payer BC ==
[2021-09-02 07:51] VITALS: BP 141/106; PULSE 74; RESP 18; TEMP 97
--- NOTE | 2021-09-02 08:01 | P.PN ---
Subjective Progress Note Date: 09/02/21 Vidal is a 56-year-old male presenting to clinic today for a follow-up appointment after a left-sided erector spinae nerve block under ultrasound guidance on 08/19/2021. He reports for the first several days she's had 100% pain relief with the procedure. However he reports that his pain is beginning to return. He rates the pain as 7 out of 10 on a 0-to-10 scale. He describes it as an aching pinching sensation. Reports it's worse with bending and activity. Pain is reduced with rest and also with hot tub soaks. He's currently taking [place] 5 mg from another provider related to a knee injury. Reports that medication is not helping with his abdominal pain. He would like to move forward with current plan and have a repeat injection of the left-sided erector spinae nerve under ultrasound guidance Objective - Vital Signs Vital signs: Vital Signs Temp 97.0 F L 09/02/21 07:42 Pulse 74 09/02/21 07:42 Resp 18 09/02/21 07:42 BP 141/106 09/02/21 07:42 Pulse Ox 97 09/02/21 07:42 Intake & Output 09/01/21 09/02/21 09/02/21 18:59 06:59 18:59 Weight 91.626 kg - Exam Physical Examinations : -Constitutiona : Cooperative , not in acute distress . -HEENT : nech : supple , no Lymphadenopathy , normal thyroid size . : eyes : no ptosis , no icterus, no photophobia . - neurologic : Cranial nerve II to XII intact , no focal neurological deffecit . -psychatric : alert , oriented X 3 , appropriate affect , intact judgment and insight . -Lymphatic : no Lymphadenopathy . - musculoskeltal : - Abdominal : Upper quadrant painful to touch Assessment and Plan Assessment: Assessment and plan Assessment: Chronic left upper quadrant abdominal pain secondary to hernia surgery with mesh Plan: Patient could benefit from repeat left-sided erector spinae nerve block under ultrasound guidance. Scheduled follow-up appointment in 4 weeks - PQRS measures = - Patient's medications are documented in the chart. -Tobacco use is negative -Patient's has not received pneumococcal vaccine. -Advanced care planning discussed, patient not eligible. -Opiate contract signed. -Pain positive and follow-up visit/procedure is scheduled. -Patient's blood pressure measured [ 141/106 ] , and documented in the record ,and patient will follow up with the primary care. -Patient was not identified as an unhealthy alcohol user Time with Patient: Less than 30
== END | disposition home or self-care (01) ==
LOC: PNWHC3 07:27
PROVIDERS: ATTEND Student in an Organized Health Care Education/Training Program
DX: G89.28 Other chronic postprocedural pain (principal); R10.12 Left upper quadrant pain
CPT/HCPCS: 99211

== ENCOUNTER → 2021-09-17 | Outpatient (CLI) | payer BC ==
--- NOTE | 2021-09-17 08:16 | MR ---
EXAMINATION TYPE: MR knee LT wo con DATE OF EXAM: 09/17/2021 COMPARISON: Prior MRI left knee May 09, 2014. Prior left knee x-ray August 04, 2021 HISTORY: Left inner and outer knee pain, pain behind knee, and painful kneecap for several years that is getting worse TECHNIQUE: Multiplanar, multisequence imaging of the left knee is performed without IV contrast. FINDINGS: MEDIAL MENISCUS: Anterior and posterior horns are intact without tear. LATERAL MENISCUS: Anterior and posterior horns are intact without tear. CRUCIATE LIGAMENTS: The posterior cruciate ligament remains intact and unremarkable. There is persist ent abnormal increased signal and fanning of the fibers anterior cruciate ligament particularly proxi mal two thirds portion. COLLATERAL LIGAMENTS: The medial collateral ligament and lateral collateral ligament complex are inta ct and unremarkable. EXTENSOR MECHANISM: Visualized quadriceps and patellar tendons are intact. EFFUSION: No significant suprapatellar joint effusion. POPLITEAL CYST: No popliteal/avila cyst on current study. TRICOMPARTMENT SPACES: [id number] tricompartment joint space loss greatest medial femoral reilly rtment. No significant spurring. CARTILAGE: Tricompartment articular cartilage is preserved. BONE MARROW SIGNAL: No focal abnormal marrow signal is appreciated. OTHER: No additional significant abnormality is appreciated. IMPRESSION: Persistent partial tearing of the ACL. No new meniscal or ligamentous tear identified.
== END | disposition home or self-care (01) ==
LOC: RADMRIMAIN 07:29
PROVIDERS: ATTEND Orthopaedic Surgery
DX: M17.12 Unilateral primary osteoarthritis, left knee (principal)

== ENCOUNTER → 2021-11-14 | Outpatient (CLI) | payer BC ==
--- NOTE | 2021-11-14 22:04 | MR ---
EXAMINATION TYPE: MR lumbar spine wo con DATE OF EXAM: 11/14/2021 COMPARISON: NONE HISTORY: Lower left back pain down into left Leg x 6 months TECHNIQUE: Multiplanar, multisequence imaging of the lumbar spine is performed without IV contrast. FINDINGS: Sagittal images of the lumbar spine show vertebral body heights and alignment to appear sat isfactory. Multilevel disc desiccation with mild disc space narrowing L5-S1 level. The conus medulla ris is normal in position and signal ending at T12-L1 disc space. The bone marrow signal intensity i s within normal limits. Axial images at L4-L5 level show mild facet arthropathy bilaterally. Axial images at L5-S1 level show mild facet arthropathy bilaterally. There is broad-based right parac entral disc protrusion with annular tear. Spinal canal is preserved as there is increased epidural fa t. Bilateral neural foramina are patent. Paraspinal muscle bulk is maintained. IMPRESSION: Mild multilevel degenerative changes lower lumbar spine as detailed above. No suspicious disc herniation seen to account for patient's left-sided radiculopathy type symptoms.
== END | disposition home or self-care (01) ==
LOC: RADMRIMAIN 16:43
PROVIDERS: ATTEND Physical Medicine & Rehabilitation
DX: M51.36 Other intervertebral disc degeneration, lumbar region (principal); M47.817 Spondylosis without myelopathy or radiculopathy, lumbosacral region; M48.062 Spinal stenosis, lumbar region with neurogenic claudication; M54.16 Radiculopathy, lumbar region; M41.86 Other forms of scoliosis, lumbar region; M16.0 Bilateral primary osteoarthritis of hip
CPT/HCPCS: 72148

== ENCOUNTER → 2022-03-06 | Outpatient (CLI) | payer BC ==
[2022-03-06 08:08] VITALS: BP 139/78; PULSE 68; RESP 18
--- NOTE | 2022-03-06 08:19 | P.PN ---
Subjective Progress Note Date: 03/06/22 Principal diagnosis: A 56 yr old male with a history of severe and chronic LUQ/LLQ abdominal pain presents today for evaluation s/p L erectus spinae injection #2. He states he experienced 60% pain relief for 2-3 weeks status post procedure. Pain level is currently at 7 out of 10 in intensity, stabbing sensation in the left upper and lower quadrants of his abdomen but exacerbates as high as 10 out of 10 in intensity with bending, lifting. Pain started months ago after undergoing abdominal hernia repair surgery. Pain is alleviated with medications, topicals, injections, home exercise regimen though it is too painful sometimes, quit therapy which is to begin next week, hot tub soaks monthly and rest. Interventional pain procedures completed include L erector spinae x 2 Patient is currently on [place] from Dr Wyatt Patient denies any side effects of the medication(s), denies excessive drowsiness or sleepiness, denies suicidal ideation and reports that the current pain medication is helping to control the pain and improve activities of daily living. Patient denies any motor or sensory deficits. Patient denies any fever or night sweats, denies any change in the bowel movements or urination. Physical Examination: -Constitutional: Cooperative. Not in acute distress . -HEENT: Neck is supple. No lymphadenopathy. No thyromegaly. Normal thyroid size. Eyes: No ptosis , no icterus, no photophobia. ENT: No auditory deficits. Normal oropharynx. No Thrush. - Respiratory: Chest clear to auscultations bilaterally. No wheezing. No rhonchi. - Cardiovascular: Regular rate and rhythm. S1 / S2 , no S3 , no S4. - Gastrointestinal: Abdomen soft no tenderness. Bowel sounds positive in all four quadrants. No organomegaly. +LUE/LLQ visceral TTP - Genitourinary: Deferred. - Neurologic: Cranial nerve II to XII intact. No focal neurological deficits. - Psychatric: Alert & oriented x 3. Matching mood & appropriate affect. Judgment and insight intact. - Lymphatic: No Lymphadenopathy. - Musculoskeletal: Cervical spine: Muscle bulk/ tone/ strength in the bilateral upper extremities normal. Facet loading test cervical area positive. Lumbar spine: Motor bulk/ tone/ strength lower extremities , thigh and legs : 5/5 Deep tendon reflexes : Normal Knee Jerk. Normal Ankle Jerk . Vertebral body tenderness to palpation over Lumbar Facet Loading Test positive Straight Leg Raise: positive at 30 degrees right side/ left side Gaenslen's Test positive Sacral spine : Severe tenderness over the Sacroiliac joint: right side / left side Range of motion: Flexion of the lumbar spine <60 degrees Range of motion: Extension of the lumbar spine <20 degrees Gaenslen's Test positive Telma test: positive right side / left side Assessment and plan: Chronic low back pain secondary to lumbar degenerative disc disease , lumbar spondylosis with facet arthropathy without myelopathy Recommendation of L erector spinae injection #3. Risks, benefits of procedure discussed and pt verbalized understanding. Admits to Plavix use. Denies medical history of diabetes. Protocol for discontinuation/ continuation of medications cary procedure discussed. All patient questions answered MAPS reviewed and it was appropriate. I have spent 31 minutes on patient care today. Dr Armendariz was available by phone for the evaluation of this patient. The time was used to review the medical records including relevant urine studies and Prescription history (MAPs), review of the available imaging, evaluation and examination of the patient, coordination of care with the medical staff and if applicable referring physicians, as well as creation of the medical record Objective - Vital Signs Vital signs: Vital Signs Temp Pulse 68 03/06/22 07:59 Resp 18 03/06/22 07:59 BP 139/78 03/06/22 07:59 Pulse Ox 94 L 03/06/22 07:59 Intake & Output 03/05/22 03/06/22 03/06/22 18:59 06:59 18:59 Weight 94.347 kg PQRS Measure Charge Sheet Mode of Arrival: Ambulatory - Pain Location Left Lateral Abdomen Non-Pharmacological Interventions: Inactivity, Physical Therapy, Position/Reposition, Relaxation Technique, Stretching Pharmacological Interventions: Block, PRN Medication, Topical Medication PQRS Narrative: Smoking Status Former smoker Blood Pressure 139/78 Pain Intensity [Left Lateral 7 Abdomen] Scale Used Numeric (1 - 10) Hx Alcohol Use (MH) No Home Medications: Ambulatory Orders Atorvastatin [Lipitor] 80 mg PO DAILY 03/30/18 Clopidogrel [Plavix] 75 mg PO DAILY 03/30/18 Divalproex [Depakote] 500 mg PO BID 03/30/18 Omeprazole 40 mg PO DAILY 07/16/20 HYDROcodone/APAP 7.5-325MG [[place]ie 7.5-325] 1 tab PO QID PRN 10/19/20 Fluticasone/Salmeterol [Advair 100-50 Diskus] 1 puff INHALATION RT-DAILY 02/13/21 LORazepam [Ativan] 1 mg PO TID PRN 02/13/21 Prazosin [Minipress] 5 mg PO HS 02/13/21 traZODone HCL 100 mg PO HS 02/13/21 Albuterol Inhaler [Ventolin Hfa Inhaler] 2 puff INHALATION RT-QID PRN 06/16/21 Losartan Potassium [Cozaar] 100 mg PO DAILY 06/16/21 Multivitamins, Thera [Multivitamin (formulary)] 1 tab PO DAILY 06/16/21 Cholecalciferol [Vitamin D3 (25 Mcg = 1000 Iu)] 25 mcg PO DAILY 08/04/21 Fish Oil/Dha/Epa [Fish Oil 1,200 mg Fish Oil] 1 cap PO DAILY 08/04/21 Sildenafil Citrate 100 mg PO DAILY PRN 08/04/21
== END | disposition home or self-care (01) ==
LOC: PNWHC3 07:22
PROVIDERS: ATTEND Specialist
DX: M47.896 Other spondylosis, lumbar region (principal); M51.36 Other intervertebral disc degeneration, lumbar region
CPT/HCPCS: 99211

== ENCOUNTER 2022-04-17 11:57 | Day surgery (SDC) | payer BC ==
[2022-04-16 15:01] VITALS: BMI 32.4
[2022-04-17] MEDS ORDERED: LACTATED RINGERS 1,000 ML IV SCH (12:05)
[2022-04-17] MEDS ORDERED: LIDOCAINE 1% (10MG/ML) FOR IV START INTRADERMA PRN (12:05)
[2022-04-17 12:27] VITALS: TEMP 97.4
[2022-04-17] MEDS ORDERED: fentaNYL (PF) 50 MCG/ML 2 ML AMP ONE (13:05)
[2022-04-17] MEDS ORDERED: ROPIVACAINE 5MG/ML 20ML VIAL ONE (13:05)
[2022-04-17] MEDS ORDERED: MIDAZOLAM 2 MG/2 ML VIAL ONE (13:05)
[2022-04-17] MEDS ORDERED: methylPREDNISolone ACETATE 40 MG/ML 1 ML VIAL ONE (13:05)
--- NOTE | 2022-04-17 13:31 | P.PCN ---
Date of Procedure: 04/17/22 Procedure(s) Performed: Pre- and Post-operative Diagnosis: Chronic left upper quadrant abdominal pain secondary to hernia surgery with mesh Procedure : Left-sided Erector spinae plane nerve block under ultrasound guidance Surgeon: Dr. Torres Anesthesia: Local: 1% Lidocaine, moderate sedation 2mg : Versed, and fentanyl.100 mcg Complications: None. Estimated blood loss: None Specimens removed: None Ultrasound guided image: saved to electronic medical records. Indications for Procedure: The patient has been suffering from chronic left upper quadrant abdominal pain secondary to hernia surgery with mesh. Inadequate pain control with pharmacologic regimen.An erector spinae plane nerve block was scheduled for the patient. Procedure and Findings: The patient was seen and examined in the holding area. The written informed consent was obtained after explaining the risks, benefits, alternatives of the procedure to the patient. The patient was brought to the procedure room and was placed in the prone position on the operating table. A pillow was placed under the upper chest. Standard anesthesia monitoring was done through out the procedure. Timeout was completed. The skin preparation was done with ChloraPrep 1 and draping was done in usual sterile fashion. Sterile technique was observed throughout the procedure. Using curvilinear ultrasound probe, place the transducer in a paramedian sagittal orientation, approximately 2cm away from the midline (spinous processes), and vizualize the transverse process of T7, T8 levels identified. 3 ml of 1% Lidocaine was injected with a 25 gauge needle to achieve adequate local anesthesia of the skin and subcutaneous tissue.Trapezius and erector spinae muscles identified. A 21 gauge, 100mm echogenic needle was placed and gradually advanced up to T8 transverse process, after touch the bony contact retracted back to a few millimeters. After confirming negative aspiration for blood, body fluids, air, paresthesia. 30 mL of block solution injected slowly after negative aspiration every 5 mL of injection under direct visualization of the ultrasound. The block solution containing 29 mL of 0.5% ropivacaine preservative-free, and 40 mg of Depo-Medrol. The needle was removed intact, area was cleaned and bandage was applied. Disposition : The patient tolerated the procedure very well. The patient was transferred to the recovery room and remained stable until discharged home. The patient was given detailed discharge instructions for bleeding, infection, increased pain at the injection site, and was advised to seek immediate medical attention should significant side effects develop. The patient will be followed up with our Pain Clinic within 4 weeks for follow-up visit.
[2022-04-17] MEDS ORDERED: IV FLUID CONTINUATION 1,000 ML IV ONE (13:33)
[2022-04-17 13:42] VITALS: RESP 17
[2022-04-17 13:49] VITALS: BP 141/84; PULSE 79
== END 2022-04-17 14:06 | disposition home or self-care (01) ==
LOC: ORPAIN 11:57
PROVIDERS: ATTEND Specialist
DX: G89.28 Other chronic postprocedural pain (principal); R10.12 Left upper quadrant pain
CPT/HCPCS: 64999; 76942; J2250; J1030; J3010; J2795; 20550; 99152; 99153

== ENCOUNTER 2022-05-12 07:34 | Day surgery (SDC) | payer BC ==
[~2022-05-12 07:34] MED LIST changes: -ACETAMINOPHEN TAB 500 MG TAB PO PRN; +ALPRAZolam 0.25 MG TAB PO PRN; +ALPRAZolam 0.5 MG TAB PO PRN; +ASPIRIN 325 MG TAB PO ONE; +ATORVASTATIN 80 MG TAB PO ONE; -DEXAMETHASONE SOD PHOSPHATE 4 MG/ML 1 ML VIAL IV ONE; +HEPARIN SODIUM,PORCINE 10,000 UNIT in SODIUM CHLORIDE 0.9% 1,000 ML IRRIGATION PRN; +HEPARIN SODIUM,PORCINE 2,500 UNIT in SODIUM CHLORIDE 0.9% 250 ML IRRIGATION PRN; -HEPARIN SODIUM,PORCINE/PF 5,000 UNIT/0.5 ML SYRINGE SQ PRN; -LIDOCAINE 1% (10MG/ML) FOR IV START INTRADERMA PRN; -MIDAZOLAM 2 MG/2 ML VIAL IV PRN; +NITROGLYCERIN SL TABS 0.4 MG TAB SUBLINGUAL PRN; -ONDANSETRON 4 MG/2 ML VIAL IVP ONE; +SODIUM CHLORIDE 0.9% 1,000 ML in EMPTY BAG 1 BAG IV SCH
[2022-05-12] MEDS ORDERED: SODIUM CHLORIDE 0.9% 1,000 ML IV ONE (08:00)
[2022-05-12 08:14] VITALS: RESP 16; TEMP 96.2
[2022-05-12] MEDS ORDERED: MIDAZOLAM 2 MG/2 ML VIAL IV STA (08:31)
[2022-05-12] MEDS ORDERED: MIDAZOLAM 2 MG/2 ML VIAL IVP ONE (08:35)
[2022-05-12] MEDS ORDERED: VERAPAMIL 2.5 MG/ML 2 ML AMP ONE (08:48)
[2022-05-12] MEDS ORDERED: HEPARIN SODIUM 1,000 UN/ML (10ML VL) ONE (08:58)
[2022-05-12] MEDS ORDERED: fentaNYL (PF) 50 MCG/ML 2 ML AMP ONE (08:58)
[2022-05-12] MEDS ORDERED: fentaNYL (PF) 50 MCG/ML 2 ML AMP IV ONE ×2 (09:17)
[2022-05-12] MEDS ORDERED: LIDOCAINE 1% INJ 10MG/ML (5 ML VIAL-PF) SQ ONE (09:20)
[2022-05-12] MEDS ORDERED: VERAPAMIL SYRINGE (5 MG/10 ML) INTRAARTER ONE (09:22)
[2022-05-12] MEDS ORDERED: HEPARIN SODIUM 1,000 UN/ML (10ML VL) IV ONE (09:28)
[2022-05-12] MEDS ORDERED: IOPAMIDOL-370 125ML BTL INJ ONE (09:32)
[2022-05-12] MEDS ORDERED: RX INFO: IV CONTRAST WAS GIVEN 1 EACH MISC MISCELLANE PRN (09:40)
[2022-05-12] MEDS ORDERED: LORazepam 1 MG TAB PO PRN (09:41)
[2022-05-12] MEDS ORDERED: SODIUM CHLORIDE 0.9% 1,000 ML IV SCH (09:45)
--- NOTE | 2022-05-12 09:49 | P.CARDCATH ---
Date of Procedure: 05/12/22 Description of Procedure: Cardiac Catheterization: The patient is a 56-year-old male with a known history of CAD, post stenting in 2004 and 2006 who presents with symptoms of new onset angina, resolving with nitroglycerin. Recommendations were made regarding cardiac catheterization, the risks and the complications were discussed with the patient who is in full understanding and agreement. Procedure Description: Patient was brought to lab asst in fasting semi-sedated state after receiving Fentanyl and Benadryl achieiving moderate conscious sedated state. Using Xylocaine Anesthesia and Seldinger technique, a 6-Iranian sheath was introduced in the right radial artery . Subsequently, selective coronary angiography was performed using a 5-Iranian 3.5 bend Italo catheter. Multiple views of the coronary artery including hemiaxial views were obtained. The right Italo catheter was used to cross the aortic valve and LVEDP was calculated. Following that, catheter and sheath were removed. Hemostasis was obtained with deployment of TR band . There was no immediate complication. Patient was returned to room in stable condition. Of note, the patient received a total of 4500 units of intravenous heparin as well as intra-arterial verapamil. There was no immediate complications. Findings: Left main: This is a large size vessel, bifurcating into left circumflex and LAD, distal left main has 10-20% plaque. LAD: This is a large size vessel, reaching to the apex, tapers down in the distal third, gives rise to small diagonal branch, the LAD has 10-20% plaque proximally with no high-grade stenosis. Left circumflex: This is a nondominant vessel, giving rise to a very proximal obtuse marginal branch distally there is OM 2 and 3, the stented segment proximally has no significant in-stent restenosis with plaques of 20-30%. The rest of the vessel has no high-grade stenosis. RCA: This is a dominant vessel, moderate in caliber, giving rise to a right PDA. The RCA in the midsegment has tubular lesion of 20-30% with no evidence of high-grade stenosis. Left Ventriculogram: Not performed Hemodynamics: There was no gradient across the aortic valve, LVEDP 14-16 mmHg Conclusion: 1. Mild triple vessel disease 2. And patent stent in the left circumflex 3. Right dominance Recommendations: I have recommended to continue medical therapy with the aggressive coronary risk modification. The findings and the recommendations were discussed with the patient and his family, they are in full understanding and agreement. Duration of sedation is 16 minutes.
[2022-05-12 16:17] VITALS: BP 127/82; PULSE 70
[2022-05-12] MEDS ORDERED: traZODone HCL 100 MG TAB PO SCH (21:00)
[2022-05-13] MEDS ORDERED: PANTOPRAZOLE 40 MG TABLET PO SCH (07:30)
[2022-05-13] MEDS ORDERED: LOSARTAN 50 MG TAB PO SCH (09:00)
[2022-05-13] MEDS ORDERED: ATORVASTATIN 80 MG TAB PO SCH (09:00)
[2022-05-13] MEDS ORDERED: CLOPIDOGREL 75 MG TAB PO SCH (09:00)
== END 2022-05-12 13:37 | disposition home or self-care (01) ==
LOC: CATHCVL 07:34
PROVIDERS: ATTEND Internal Medicine Interventional Cardiology
DX: I25.110 Atherosclerotic heart disease of native coronary artery with unstable angina pectoris (principal); T82.855A Stenosis of coronary artery stent, initial encounter; I10 Essential (primary) hypertension; E78.00 Pure hypercholesterolemia, unspecified; Z20.822 Contact with and (suspected) exposure to COVID-19; Z95.5 Presence of coronary angioplasty implant and graft; Z87.891 Personal history of nicotine dependence; E78.2 Mixed hyperlipidemia; E11.9 Type 2 diabetes mellitus without complications; Z98.1 Arthrodesis status; F41.0 Panic disorder [episodic paroxysmal anxiety]; F43.10 Post-traumatic stress disorder, unspecified; L40.9 Psoriasis, unspecified; Z82.49 Family history of ischemic heart disease and other diseases of the circulatory system; Z98.890 Other specified postprocedural states; Z79.02 Long term (current) use of antithrombotics/antiplatelets; Z79.82 Long term (current) use of aspirin; Z79.899 Other long term (current) drug therapy
CPT/HCPCS: 93458; 87635; C1769 ×2; C1894; J2250; J2001; J3010; J1644; Q9967

== ENCOUNTER → 2023-06-29 | Outpatient (CLI) | payer MEDICARE ==
--- NOTE | 2023-06-30 08:28 | XR ---
EXAMINATION TYPE: XR abdomen 2V DATE OF EXAM: 06/29/2023 COMPARISON: 04/10/2021 HISTORY: Diarrhea TECHNIQUE: One view abdominal series FINDINGS: The osseous structures are intact. Arthropathy of the hips. Hypertrophic degenerative changes spine. Calcification is likely vascular. The bowel gas pattern is nonspecific. Lung bases are clear. IMPRESSION: 1. Nonspecific abdomen.
== END | disposition home or self-care (01) ==
LOC: RADXRYALE 15:57
PROVIDERS: ATTEND Physician Assistant Medical
DX: R19.7 Diarrhea, unspecified (principal)
CPT/HCPCS: 74019

== ENCOUNTER → 2023-09-02 | Outpatient (CLI) | payer BC, MEDICARE ==
[2023-09-02 16:21] LABS: HCT 47.8 % (39.6-50.0); HGB 15.2 d/dL (13.0-17.0); MCH 29.8 pg (27.0-32.0); MCHC 31.8 d/dL (32.0-37.0); MCV 93.7 FL (80.0-97.0); Mean Platelet Volume 9.3 FL (9.5-12.2); NRBC Per 100 WBC 0 X 10*3/uL (0.00-0.01); Platelet Count 213 X 10*3/uL (140-440); WBC 5.68 X 10*3/uL (4.50-10.00)
[2023-09-02 17:05] LABS: Erythrocyte Sedimentation Rate 7 mm/Hr (0-20)
== END | disposition home or self-care (01) ==
LOC: LABWHC1 09:41
PROVIDERS: ATTEND Otolaryngology
DX: K12.1 Other forms of stomatitis (principal)
CPT/HCPCS: 36415; 82607; 84207; 85027; 85652; 86038

== ENCOUNTER → 2024-08-15 | Outpatient (CLI) | payer BC ==
--- NOTE | 2024-08-15 13:58 | XR ---
EXAMINATION TYPE: XR hand complete RT DATE OF EXAM: 08/15/2024 COMPARISON: NONE HISTORY: Pain TECHNIQUE: Three views are submitted. FINDINGS: There is a displaced intra-articular fracture along the dorsal first surface base fifth metatarsal wi th soft tissue edema. There is a chronic appearing deformity of the fifth metacarpal. Severe arthropathy first carpometacarpal joint in mild first MCP joint arthropathy. Tiny calcific den sity adjacent to the base of the fifth proximal phalanx and second DIP joint likely are chronic. IMPRESSION: 1. Displaced intra-articular fracture base distal phalanx fifth digit. 2. Chronic deformity of the fifth metacarpal suggestive of remote fracture. 3. Severe osteoarthritis first carpal metacarpal joint. [facility], , 08/15/2024 1:55 PM
== END | disposition home or self-care (01) ==
LOC: RADXRYALE 13:22
PROVIDERS: ATTEND Physician Assistant

== ENCOUNTER → 2024-09-27 | Outpatient (CLI) | payer MEDICARE ==
--- NOTE | 2024-09-30 17:12 | MR ---
INDICATION: Patient age:Male; 59 years old; Reason for study: M47.817, M54.16, M41.86, M48.062, M16.0; PHH. Low back pain that radiates down left lower extremity to the foot. COMPARISONS: MR lumbar spine 11/14/2021. TECHNIQUE: Multi planar, multi sequence imaging was performed utilizing: T1-weighted, T2-weighted, a nd turbo inversion recovery imaging of the lumbar spine. The patient was not given contrast. FINDINGS: The lumbar vertebral bodies do have preserved heights and alignment. Multilevel disc liss ccation is present with mild disc space narrowing at L5-S1. The conus medullaris and the distal spin al cord do appear unremarkable with regards to their signal intensity and morphology. L1-L2: No significant disc pathology is identified. The spinal canal and neural foramen are patent. L2-L3: No significant disc pathology is identified. The spinal canal and neural foramen are patent. L3-L4: No significant disc pathology is identified. The spinal canal and neural foramen are patent. L4-L5: Minimal broad-based disc bulge is identified with associated enlargement of the facet joints. The spinal canal remains patent. Neural canals are minimally narrowed bilaterally. L5-S1: The intervertebral disc appears round on its contour posteriorly without significant mass eff ect upon the thecal sac. Previously seen disc protrusion with annular tear is not well appreciated on today's exam. Facet joints are enlarged. Neural canals do remain patent. Other significant findings: T2 hyperintense thin-walled 1.5 cm left renal exophytic cortical cyst. IMPRESSION: 1. No definitive evidence for disc herniation or significant spinal canal stenosis. 2. Minimal multilevel disc degeneration of the lower lumbar spine. [facility], , 09/30/2024 5:10 PM
== END | disposition home or self-care (01) ==
LOC: RADMRIMAIN 15:13
PROVIDERS: ATTEND Physical Medicine & Rehabilitation
DX: M48.062 Spinal stenosis, lumbar region with neurogenic claudication (principal); M51.16 Intervertebral disc disorders with radiculopathy, lumbar region; M47.26 Other spondylosis with radiculopathy, lumbar region; M41.86 Other forms of scoliosis, lumbar region; M16.0 Bilateral primary osteoarthritis of hip
CPT/HCPCS: 72148

== ENCOUNTER → 2024-10-06 | Outpatient (CLI) | payer MEDICARE | END | disposition home or self-care (01) | LOC: LABWHC1 11:43 | PROVIDERS: ATTEND Urology | DX: E29.1 Testicular hypofunction (principal) | CPT/HCPCS: 36415; 84403 ==

== ENCOUNTER → 2025-04-12 | Outpatient (CLI) | payer MEDICARE ==
--- NOTE | 2025-04-12 16:48 | US ---
EXAMINATION TYPE: US kidneys/renal and bladder DATE OF EXAM: 04/12/2025 COMPARISON: CT(06/20/2021) CLINICAL INDICATION: Male, 59 years old with history of N28.1 CYST OF KIDNEY, ACQUIRED; TECHNIQUE: Grayscale imaging of the bilateral kidneys and urinary bladder: FINDINGS: EXAM MEASUREMENTS: Right Kidney: 13.2x6.6x5.9 cm Left Kidney: 12.6x6.6x5.8 cm Right Kidney: 2.2x2.7x2.4cm Cystic area seen: 2.2x2.7x2.4cm, present previously Left Kidney: Renal pelvis versus multiple echogenic areas seen laterally. Consider follow-up CT. Largest: 1. 3.1x2.3x2.7cm 2. 2.6x2.4x2.4cm ?Echogenic foci seen: 0.9cm Bladder: wnl Bilateral Jets seen: RT limited, Lt not visualized IMPRESSION: 1. CT recommended to evaluate echogenic areas within the right renal medullary portion of the kidney. 2. Stable right renal cyst [facility], , 04/12/2025 4:46 PM
== END | disposition home or self-care (01) ==
LOC: RADUSWWP 15:18
PROVIDERS: ATTEND Family Medicine
DX: N28.1 Cyst of kidney, acquired (principal)
CPT/HCPCS: 76770

== ENCOUNTER → 2025-05-15 | Day surgery (SDC) | payer MEDICARE ==
[~2025-05-15] MED LIST changes: -ALPRAZolam 0.25 MG TAB PO PRN; -ALPRAZolam 0.5 MG TAB PO PRN; -ASPIRIN 325 MG TAB PO ONE; -ATORVASTATIN 80 MG TAB PO ONE; -HEPARIN SODIUM,PORCINE 10,000 UNIT in SODIUM CHLORIDE 0.9% 1,000 ML IRRIGATION PRN; -HEPARIN SODIUM,PORCINE 2,500 UNIT in SODIUM CHLORIDE 0.9% 250 ML IRRIGATION PRN; +LIDOCAINE 1% (10MG/ML) FOR IV START INTRADERMA PRN; +LIDOCAINE 2% (PF) 20 MG/ML 5 ML VIAL ONE; -NITROGLYCERIN SL TABS 0.4 MG TAB SUBLINGUAL PRN; +PROPOFOL 10 MG/ML 20 ML VIAL IV ONE; -SODIUM CHLORIDE 0.9% 1,000 ML in EMPTY BAG 1 BAG IV SCH
[2025-05-15 13:31] VITALS: TEMP 97.8
[2025-05-15] MEDS: LACTATED RINGERS 1,000 ML IV SCH (13:43)
[2025-05-15] MEDS: IV FLUID CONTINUATION 1,000 ML IV ONE (13:44)
[2025-05-15 13:45] LABS: Glucose,Whole Blood 93 mg/dL (70-110)
--- NOTE | 2025-05-15 13:48 | P.GSHP ---
History of Present Illness H&P Date: 05/15/25 Chief Complaint: Screening colonoscopy Is a 59-year-old male presents today for screening colonoscopy. Patient denies any significant GI complaints. Past Medical History Past Medical History: Cancer, COPD, Diabetes Mellitus, GERD/Reflux, Hearing Disorder / Deafness, Hyperlipidemia, Hypertension, Myocardial Infarction (SD), Sleep Apnea/CPAP/BIPAP Additional Past Medical History / Comment(s): hx skin ca, prediabetes, pneumothorax, diverticulitis with perforated bowel colostomy and then reversal, no CPAP. wears hearing aids. Last Myocardial Infarction Date:: 2004 History of Any Multi-Drug Resistant Organisms: None Reported Past Surgical History: Bowel Resection, Heart Catheterization, Heart Catheterization With Stent, Hernia Repair, Orthopedic Surgery Additional Past Surgical History / Comment(s): neck surgery with hardware, rt shoulder surgery, rt wrist surgery. 07/22 colostomy and reversal, incisional hernia with mesh repair, pain on lt side Past Anesthesia/Blood Transfusion Reactions: Family History of Problems w/ Anesthesia Additional Past Anesthesia/Blood Transfusion Reaction / Comment(s): mother had hallucinations Date of Last Stent Placement:: 2006 Smoking Status: Former smoker - Past Family History Mother History Unknown: Yes Father Family Medical History: Cancer Medications and Allergies Home Medications Medication Instructions Recorded Confirmed Type Clopidogrel [Plavix] 75 mg PO DAILY 03/30/18 05/15/25 History Divalproex [Depakote] 500 mg PO BID 03/30/18 05/15/25 History Omeprazole 40 mg PO DAILY 07/16/20 05/15/25 History HYDROcodone/APAP 7.5-325MG [[place] 1 tab PO QID PRN 10/19/20 05/15/25 History 7.5-325] LORazepam [Ativan] 1 mg PO TID PRN 02/13/21 05/15/25 History Prazosin [Minipress] 7 mg PO HS 02/13/21 05/15/25 History Losartan Potassium [Cozaar] 100 mg PO DAILY 06/16/21 05/15/25 History Multivitamins, Thera [Multivitamin 1 tab PO DAILY 06/16/21 05/15/25 History (formulary)] Cholecalciferol [Vitamin D3 (25 25 mcg PO DAILY 08/04/21 05/15/25 History Mcg = 1000 Iu)] metFORMIN HCL 500 mg PO BID 04/17/22 05/15/25 History Albuterol Inhaler [Ventolin Hfa 1 - 2 puff INHALATION Q6H PRN 05/12/25 05/15/25 History Inhaler] Amitriptyline HCl 10 mg PO HS 05/12/25 05/15/25 History Empagliflozin [Jardiance] 1 tab PO DAILY 05/12/25 05/15/25 History Fluticasone Propion/Salmeterol 1 inhalation PO DAILY 05/12/25 05/15/25 History [[place]ixela 500-50 Inhub] Rosuvastatin [Crestor] 1 tab PO HS 05/12/25 05/15/25 History Allergies Allergy/AdvReac Type Severity Reaction Status Date / Time No Known Allergies Allergy Verified 05/15/25 13:26 Surgical - Exam Vital Signs Temp Pulse Resp BP Pulse Ox 97.8 F 64 16 140/87 95 05/15/25 13:30 05/15/25 13:30 05/15/25 13:30 05/15/25 13:30 05/15/25 13:30 - General well developed, well nourished, no distress - Eyes PERRL - ENT normal pinna - Neck no masses - Respiratory normal expansion - Cardiovascular Rhythm: regular - Abdomen Abdomen: soft, non tender Assessment and Plan Assessment: Will perform screening colonoscopy.
--- NOTE | 2025-05-15 14:04 | P.OP ---
Date of Procedure: 05/15/25 Preoperative Diagnosis: Screening colonoscopy Postoperative Diagnosis: Diverticulosis Procedure(s) Performed: Colonoscopy Anesthesia: MAC Surgeon: Soham Vincent Pathology: none sent Condition: stable Disposition: PACU Description of Procedure: The patient was placed on the endoscopy table in the lateral position. He received IV sedation. Digital rectal exam was performed. This revealed no abnormalities. The flexible colonoscope was then placed patient Anaspaz throughout the entire colon. Ileocecal valve was visualized. The cecum, ascending and transverse colon appeared normal. In the descending colon there is a few scattered diverticuli. The patient had a previous sigmoid resection. The colorectal anastomosis appeared normal. The scope was Ruback the rectum this appeared normal. Scope withdrawn the patient.
[2025-05-15 14:28] VITALS: BP 118/87; PULSE 64; RESP 16
== END ==
LOC: ORWHC2ENDO 13:09
PROVIDERS: ATTEND Surgery
DX: Z12.11 Encounter for screening for malignant neoplasm of colon (principal); K57.30 Diverticulosis of large intestine without perforation or abscess without bleeding; I10 Essential (primary) hypertension; I25.10 Atherosclerotic heart disease of native coronary artery without angina pectoris; I25.2 Old myocardial infarction; Z95.5 Presence of coronary angioplasty implant and graft; E11.9 Type 2 diabetes mellitus without complications; E78.5 Hyperlipidemia, unspecified; G47.30 Sleep apnea, unspecified; J44.9 Chronic obstructive pulmonary disease, unspecified; K21.9 Gastro-esophageal reflux disease without esophagitis; F41.9 Anxiety disorder, unspecified; H91.90 Unspecified hearing loss, unspecified ear; Z91.89 Other specified personal risk factors, not elsewhere classified; Z79.02 Long term (current) use of antithrombotics/antiplatelets; Z79.84 Long term (current) use of oral hypoglycemic drugs; Z79.899 Other long term (current) drug therapy; Z87.891 Personal history of nicotine dependence; Z87.19 Personal history of other diseases of the digestive system; Z90.49 Acquired absence of other specified parts of digestive tract; Z97.4 Presence of external hearing-aid
CPT/HCPCS: J2704; J2003; G0121; 45378